=== PATIENT | male | born 1940 | race Caucasian/White ===

== ENCOUNTER 2020-02-18 12:12 | Outpatient (REF) | payer MEDICARE, SELFPAY ==
[2020-02-18 12:43] LABS: COVID-19 Test Negative (Negative)
== END 2020-02-18 12:13 | disposition home or self-care (01) ==
LOC: HO.LAB 12:12
PROVIDERS: PCP Physician Assistant; Visit Provider Internal Medicine
DX: Z20.828 Contact with and (suspected) exposure to other viral communicable diseases (principal)
CPT/HCPCS: 87635

== ENCOUNTER 2020-04-13 07:24 | Outpatient (REF) | payer MEDICARE, SELFPAY ==
[2020-04-13 08:23] LABS: MANUAL DIFF FLAG NO
[2020-04-13 08:29] LABS: Basophils Absolute Auto 0.1 X10*3/uL (0.0-0.2); Basophils Percent Auto 1.4 % (0-2); Eosinophils Percent Auto 12.3 % (0-4); Hematocrit 43.1 % (42-52); Hemoglobin 13.9 g/dl (14.0-18.0); Imm Gran Abs Auto 0.03 X10*3/uL (0.00-0.03); Imm Gran Pct Auto 0.4 % (0.0-0.4); Lymphocytes Absolute Auto 2.1 X10*3/uL (1.2-4.9); Lymphocytes Percent Auto 26.3 % (20-40); Mean Corpuscular HGB Conc 32.3 g/dl (31.0-36.0); Mean Corpuscular Hemoglobin 30.2 pg (27.0-33.0); Mean Corpuscular Volume 93.7 fL (80-98); Mean Platelet Volume 9.7 fL (9.4-12.4); Monocytes Absolute Auto 0.8 X10*3/uL (0.1-1.2); Monocytes Percent Auto 9.9 % (2-11); Neutrophils Percent Auto 49.7 % (45-73); Platelet Count 286 X10*3/uL (160-400); Red Cell Distribution Width 12.8 % (11.0-16.0)
[2020-04-13 08:39] LABS: Alanine Aminotransferase 27 U/L (0-40); Albumin Level 3.9 g/dL (3.5-5.0); Alkaline Phosphatase 79 U/L (39-117); Anion Gap 14 (12-20); Aspartate Amino Transferase 20 U/L (5-37); Bilirubin Total 0.7 mg/dL (0.0-1.0); Blood Urea Nitrogen 15 mg/dL (9-16); Calcium 9.5 mg/dL (8.4-10.2); Carbon Dioxide 28 mmol/L (22-29); Chloride 101 mmol/L (96-108); Cholesterol 149 mg/dL; Estimated Glomerular Filt Rate > 60; Glucose Fasting 142 mg/dL (60-99); HDL Cholesterol 69 mg/dL; LDL Cholesterol Calculated 69 mg/dl; Potassium 4.6 mmol/l (3.3-5.1); Sodium 138 mmol/L (135-145); Total Protein 6.6 g/dL (6.5-8.0); Triglycerides 57 mg/dL
[2020-04-13 09:12] LABS: Thyroid Stimulating Hormone 1.35 uIU/mL (0.32-4.0)
[2020-04-13 09:19] LABS: Creatinine Urine 84.14 mg/dL; Microalbum/Creatinine Ratio Ur 21.3 ug/mg cr
[2020-04-13 09:45] LABS: PSA,Total (Free>4and<10) 2.23 ng/mL (0.00-4.00)
== END 2020-04-13 07:25 | disposition home or self-care (01) ==
LOC: HO.LAB 07:24
PROVIDERS: PCP Physician Assistant; Visit Provider Physician Assistant
DX: J44.9 Chronic obstructive pulmonary disease, unspecified (principal); E11.9 Type 2 diabetes mellitus without complications; I10 Essential (primary) hypertension; I25.10 Atherosclerotic heart disease of native coronary artery without angina pectoris; E78.00 Pure hypercholesterolemia, unspecified
CPT/HCPCS: 36415; 80053; 80061; 82043; 84153; 84443; 85025

== ENCOUNTER 2020-07-30 06:50 | Outpatient (REF) | payer MEDICARE, SELFPAY ==
[2020-07-30 07:49] LABS: MANUAL DIFF FLAG NO
[2020-07-30 07:54] LABS: Basophils Absolute Auto 0.1 X10*3/uL (0.0-0.2); Eosinophils Absolute Auto 0.9 X10*3/uL (0.0-0.4); Eosinophils Percent Auto 11.5 % (0-4); Hematocrit 44.9 % (42-52); Hemoglobin 14.3 g/dl (14.0-18.0); Imm Gran Abs Auto 0.02 X10*3/uL (0.00-0.03); Imm Gran Pct Auto 0.3 % (0.0-0.4); Lymphocytes Absolute Auto 2.6 X10*3/uL (1.2-4.9); Lymphocytes Percent Auto 33.7 % (20-40); Mean Corpuscular HGB Conc 31.8 g/dl (31.0-36.0); Mean Corpuscular Volume 94.1 fL (80-98); Mean Platelet Volume 9.5 fL (9.4-12.4); Monocytes Absolute Auto 0.7 X10*3/uL (0.1-1.2); Monocytes Percent Auto 8.5 % (2-11); Neutrophils Absolute Auto 3.5 X10*3/uL (2.0-8.3); Platelet Count 301 X10*3/uL (160-400); Red Blood Count 4.77 X10*6/uL (4.60-5.80); Red Cell Distribution Width 12.9 % (11.0-16.0); White Blood Count 7.7 X10*3/uL (4.8-10.8)
[2020-07-30 08:00] LABS: Estimated Average Glucose 166 mg/dL; Hemoglobin A1c % 7.4 %
[2020-07-30 08:26] LABS: Alanine Aminotransferase 41 U/L (0-40); Albumin Level 3.9 g/dL (3.5-5.0); Alkaline Phosphatase 82 U/L (39-117); Anion Gap 13 (12-20); Aspartate Amino Transferase 27 U/L (5-37); Bilirubin Total 0.7 mg/dL (0.0-1.0); Blood Urea Nitrogen 16 mg/dL (9-16); Calcium 9.2 mg/dL (8.4-10.2); Carbon Dioxide 29 mmol/L (22-29); Chloride 103 mmol/L (96-108); Cholesterol 144 mg/dL; Estimated Glomerular Filt Rate > 60; Glucose Fasting 106 mg/dL (60-99); HDL Cholesterol 66 mg/dL; LDL Cholesterol Calculated 66 mg/dl; Potassium 5.1 mmol/L (3.3-5.1); Sodium 140 mmol/L (135-145); Total Protein 6.7 g/dL (6.5-8.0); Triglycerides 60 mg/dL
[2020-07-30 08:29] LABS: Creatinine Urine 52.22 mg/dL
[2020-07-30 08:48] LABS: TSH reflex Free T4 1.67 uIU/mL (0.32-4.0)
== END 2020-07-30 06:51 | disposition home or self-care (01) ==
LOC: HO.LAB 06:50
PROVIDERS: PCP Physician Assistant; Visit Provider Physician Assistant
DX: I10 Essential (primary) hypertension (principal); J44.9 Chronic obstructive pulmonary disease, unspecified; R73.09 Other abnormal glucose
CPT/HCPCS: 36415; 80053; 80061; 82043; 83036; 84443; 85025

== ENCOUNTER 2021-02-10 15:11 | Outpatient (REF) | payer MEDICARE, SELFPAY ==
--- NOTE | ~2021-02-10 | XR_ITS ---
EXAMINATION: XR FOOT, LEFT CLINICAL INFORMATION: Pain COMPARISON: None TECHNIQUE: AP, lateral, and oblique views of the left foot. FINDINGS: Bone alignment is normal. No fracture or dislocation is seen. There is mild joint space narrowing at the first MTP joint. Joint spaces are otherwise normal. There is a small plantar calcaneal spur. There is soft tissue arterial calcification. 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 Small plantar calcaneal spur.
== END 2021-02-10 15:12 | disposition home or self-care (01) ==
LOC: HO.XRAY 15:11
PROVIDERS: PCP Physician Assistant; Visit Provider Physician Assistant
DX: M79.672 Pain in left foot (principal)
CPT/HCPCS: 73620

== ENCOUNTER 2021-03-21 06:50 | Outpatient (REF) | payer MEDICARE, SELFPAY ==
[2021-03-21 06:55] LABS: MANUAL DIFF FLAG NO
[2021-03-21 07:31] LABS: Estimated Average Glucose 134 mg/dL; Hemoglobin A1c % 6.3 %
[2021-03-21 07:40] LABS: Basophils Absolute Auto 0.1 X10*3/uL (0.0-0.2); Basophils Percent Auto 0.9 % (0-2); Eosinophils Absolute Auto 1.4 X10*3/uL (0.0-0.4); Hematocrit 41.8 % (42.0-52.0); Hemoglobin 13.7 g/dl (14.0-18.0); Imm Gran Abs Auto 0.02 X10*3/uL (0.00-0.03); Imm Gran Pct Auto 0.2 % (0.0-0.4); Lymphocytes Absolute Auto 2.7 X10*3/uL (1.2-4.9); Lymphocytes Percent Auto 31.5 % (20-40); Mean Corpuscular HGB Conc 32.8 g/dl (31.0-36.0); Mean Corpuscular Hemoglobin 30.2 pg (27.0-33.0); Mean Corpuscular Volume 92.3 fL (80.0-98.0); Mean Platelet Volume 9.4 fL (9.4-12.4); Monocytes Absolute Auto 0.8 X10*3/uL (0.1-1.2); Monocytes Percent Auto 9.5 % (2-11); Neutrophils Absolute Auto 3.6 x10*3/uL (2.0-8.3); Neutrophils Percent Auto 41.9 % (45-73); Platelet Count 306 X10*3/uL (160-400); Red Blood Count 4.53 X10*6/uL (4.60-5.80); Red Cell Distribution Width 12.8 % (11.0-16.0); White Blood Count 8.6 X10*3/uL (4.8-10.8)
[2021-03-21 08:06] LABS: Alanine Aminotransferase 28 U/L (0-40); Albumin Level 3.9 g/dL (3.5-5.0); Alkaline Phosphatase 79 U/L (39-117); Anion Gap 9 (12-20); Aspartate Amino Transferase 22 U/L (5-37); Bilirubin Total 0.6 mg/dL (0.0-1.0); Blood Urea Nitrogen 19 mg/dL (9-16); Calcium 9.6 mg/dL (8.4-10.2); Carbon Dioxide 31 mmol/L (22-29); Chloride 102 mmol/L (96-108); Cholesterol 151 mg/dL; Estimated Glomerular Filt Rate > 60; Glucose Fasting 109 mg/dL (60-99); HDL Cholesterol 62 mg/dL; LDL Cholesterol Calculated 72 mg/dl; Potassium 4.7 mmol/L (3.3-5.1); Sodium 137 mmol/L (135-145); Total Protein 6.6 g/dL (6.5-8.0); Triglycerides 87 mg/dL
[2021-03-21 08:26] LABS: Prostate Specific Antigen Scr 3.31 ng/mL (<0.05-4.0)
== END 2021-03-21 06:51 | disposition home or self-care (01) ==
LOC: HO.LAB 06:50
PROVIDERS: PCP Physician Assistant; Visit Provider Physician Assistant
DX: I10 Essential (primary) hypertension (principal); J44.9 Chronic obstructive pulmonary disease, unspecified; E11.9 Type 2 diabetes mellitus without complications; Z12.5 Encounter for screening for malignant neoplasm of prostate
CPT/HCPCS: 36415; 80053; 80061; 83036; 84153; 85025

== ENCOUNTER → 2021-07-26 12:49 | Outpatient (REF) | payer MEDICARE, SELFPAY ==
--- NOTE | 2021-07-26 13:03 | ECG_ITS ---
Test Reason : PREOP Blood Pressure : / mmHG Vent. 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
== END ==
LOC: HO.CARD 12:49
PROVIDERS: PCP Physician Assistant; Visit Provider Nurse Practitioner Family
DX: Z01.818 Encounter for other preprocedural examination (principal)
CPT/HCPCS: 93005

== ENCOUNTER 2021-11-01 06:46 | Outpatient (REF) | payer MEDICARE, SELFPAY ==
[2021-11-01 08:38] LABS: Estimated Average Glucose 151 mg/dL; Hemoglobin A1c % 6.9 %
[2021-11-01 08:42] LABS: Alanine Aminotransferase 26 U/L (0-40); Albumin Level 3.9 g/dL (3.5-5.0); Alkaline Phosphatase 122 U/L (39-117); Anion Gap 14 (12-20); Aspartate Amino Transferase 19 U/L (5-37); Bilirubin Total 0.5 mg/dL (0.0-1.0); Blood Urea Nitrogen 15 mg/dL (9-16); Calcium 9.3 mg/dL (8.4-10.2); Carbon Dioxide 26 mmol/L (22-29); Chloride 103 mmol/L (96-108); Cholesterol 140 mg/dL; Estimated Glomerular Filt Rate > 60; Glucose Fasting 143 mg/dL (60-99); HDL Cholesterol 67 mg/dL; LDL Cholesterol Calculated 63 mg/dl; Sodium 138 mmol/L (135-145); Total Protein 6.7 g/dL (6.5-8.0); Triglycerides 51 mg/dL
[2021-11-01 08:43] LABS: Prostate Specific Antigen Scr 3.27 ng/mL (<0.05-4.0); TSH reflex Free T4 1.66 uIU/mL (0.32-4.0)
[2021-11-01 10:33] LABS: Creatinine Urine 82.08 mg/dL; Microalbum/Creatinine Ratio Ur 34.1 ug/mg cr
== END 2021-11-01 06:47 | disposition home or self-care (01) ==
LOC: HO.LAB 06:46
PROVIDERS: PCP Physician Assistant; Visit Provider Physician Assistant
DX: E11.9 Type 2 diabetes mellitus without complications (principal); I10 Essential (primary) hypertension; J44.9 Chronic obstructive pulmonary disease, unspecified; Z12.5 Encounter for screening for malignant neoplasm of prostate
CPT/HCPCS: 36415; 80053; 80061; 82043; 83036; 84153; 84443

== ENCOUNTER 2022-01-23 06:49 | Outpatient (REF) | payer MEDICARE, SELFPAY ==
[2022-01-23 07:36] LABS: Alanine Aminotransferase 34 U/L (0-40); Albumin Level 3.8 g/dL (3.5-5.0); Alkaline Phosphatase 123 U/L (39-117); Anion Gap 16 (12-20); Aspartate Amino Transferase 19 U/L (5-37); Bilirubin Total 0.6 mg/dL (0.0-1.0); Blood Urea Nitrogen 15 mg/dL (9-16); Calcium 9.7 mg/dL (8.4-10.2); Carbon Dioxide 27 mmol/L (22-29); Chloride 101 mmol/L (96-108); Cholesterol 141 mg/dL; Estimated Glomerular Filt Rate > 60; Glucose Fasting 189 mg/dL (60-99); HDL Cholesterol 61 mg/dL; LDL Cholesterol Calculated 70 mg/dl; Potassium 4.7 mmol/L (3.3-5.1); Sodium 139 mmol/L (135-145); Total Protein 6.6 g/dL (6.5-8.0); Triglycerides 50 mg/dL
== END 2022-01-23 06:50 | disposition home or self-care (01) ==
LOC: HO.LAB 06:49
PROVIDERS: PCP Physician Assistant; Visit Provider Physician Assistant
DX: J44.9 Chronic obstructive pulmonary disease, unspecified (principal); R73.09 Other abnormal glucose; I10 Essential (primary) hypertension
CPT/HCPCS: 36415; 80053; 80061

== ENCOUNTER 2022-03-15 13:02 | Outpatient (REF) | payer MEDICARE, SELFPAY ==
--- NOTE | ~2022-03-15 | XR_ITS ---
EXAMINATION: XR CHEST CLINICAL INFORMATION: Shortness of breath. COMPARISON: Chest radiograph 04/21/2019. TECHNIQUE: 2 views of the chest were obtained. FINDINGS: Stable appearance of the cardiomediastinal silhouette. Redemonstration of chronic nodular and reticular opacities bilaterally within a background of calcified pleural plaques. Chronic small bilateral pleural effusions. Chronic subpleural thickening of the right apex. No definite superimposed new focal airspace opacity. No acute osseous abnormalities. Thoracic spondylosis. Again noted absent left-sided anterior sixth rib. Right upper quadrant surgical clips are seen. XR/XR chest 2V IMPRESSION: Complex examination not significantly changed compared to 04/21/2019. However, given the background of chronic interstitial opacities and bilateral calcified pleural plaques, subtle findings may be occult. Recommend correlation with a chest CT to rule out underlying pulmonary lesions.
== END 2022-03-15 13:03 | disposition home or self-care (01) ==
LOC: HO.XRAY 13:02
PROVIDERS: PCP Physician Assistant; Visit Provider Internal Medicine Critical Care Medicine
DX: J98.4 Other disorders of lung (principal); J44.9 Chronic obstructive pulmonary disease, unspecified
CPT/HCPCS: 71046

== ENCOUNTER 2022-04-01 13:08 | Outpatient (REF) | payer MEDICARE, SELFPAY ==
--- NOTE | ~2022-04-01 | XR_ITS ---
EXAMINATION: XR CHEST CLINICAL INFORMATION: Cough. COMPARISON: Chest 03/15/2022 TECHNIQUE: 2 views of the chest were obtained. FINDINGS: The lungs are moderately expanded. There is reticular nodular changes in both lungs. It is prominent in right upper lobe. There are calcified pleural plaques bilaterally. There is blunting of bilateral CP angle from pleural effusions. The heart size is normal pulmonary vascularity is normal. There is mild spondylosis dorsal spine. No aggressive lytic or sclerotic process seen.. There is resection of left sixth posterior rib, postsurgical. XR/XR chest 2V IMPRESSION: No change in the reticular nodular opacities in both lungs in right upper lobe. Mild blunting of bilateral CP from pleural effusion. Bilateral calcified pleural plaques. No major change compared to previous study 03/15/2022.
== END 2022-04-01 13:09 | disposition home or self-care (01) ==
LOC: HO.HMGCX 13:08
PROVIDERS: PCP Physician Assistant; Visit Provider Physician Assistant Medical
DX: Z13.89 Encounter for screening for other disorder (principal)
CPT/HCPCS: 71046

== ENCOUNTER 2022-04-01 14:20 | Observation (INO) | payer MEDICARE, SELFPAY ==
--- NOTE | ~2022-04-01 | CT_ITS ---
EXAMINATION: CT CHEST WITHOUT CONTRAST CLINICAL INFORMATION: COPD with increasing shortness of breath COMPARISON: Chest radiograph earlier today, CT chest 11/12/2014 TECHNIQUE: Multidetector volumetric CT imaging of the chest was done. Axial MIP volume rendering provided. Sagittal and coronal reformatted images were obtained. This CT examination was performed using dose optimization techniques as appropriate, variously including the following: *Automated exposure control *Adjustment of mA and/or kV according to patient size (this includes techniques or standardized protocols for targeted exams where dose is matched to indication/reason for exam; i.e. extremities or head) *Use of iterative reconstruction technique DLP: 450 mGy-cm FINDINGS: LUNGS AND PLEURA: Again seen are moderately diffuse calcified pleural plaques bilaterally relatively unchanged. A small right pleural effusion is present minimally increased from prior. No significant left effusion is seen. Fibrotic changes are present with peripheral bronchiectasis and subpleural reticulonodular markings. Findings are most prominent in the mid to lower lungs. Appearances are slightly worse when compared to the 2015 CT scan. No worrisome lung masses or nodules are seen. MEDIASTINUM: Heart size normal. No mediastinal or hilar lymphadenopathy. CORONARY ARTERY CALCIFICATION: Moderate coronary calcification AXILLA: No lymphadenopathy. UPPER ABDOMEN: Unremarkable. OSSEOUS STRUCTURES: Degenerative changes are present throughout the spine. No bony destructive lesions. CT/CT chest wo IV con IMPRESSION: 1. 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 2. Fibrotic changes with peripheral bronchiectasis and subpleural reticulonodular markings, slightly worse when compared to the 2015 CT scan. 3. Small right pleural effusion minimally increased from prior. 4. No worrisome lung masses or nodules are seen. Fleischner guidelines were followed.
--- NOTE | ~2022-04-01 | XR_ITS ---
EXAMINATION: XR CHEST CLINICAL INFORMATION: US of breath COMPARISON: Chest x-ray on 04/01/2022 TECHNIQUE: Frontal view of the chest was obtained. FINDINGS: The cardiomediastinal silhouette is stable. No new areas of consolidation. There are trace bilateral pleural effusions. Mild chronic interstitial disease. XR/XR chest 1V IMPRESSION: Trace bilateral pleural effusions.
[2022-04-01 14:29] VITALS: BP 158/73; PULSE 100; RESP 24; TEMP 36.4; O2SAT 96; BMI 25.2
--- NOTE | 2022-04-01 14:36 | ECG_ITS ---
Test Reason : SOB Blood Pressure : / mmHG Vent. Rate : 098 BPM Atrial Rate : 098 BPM P-R Int : 208 ms QRS Dur : 100 ms QT Int : 354 ms P-R-T Axes : 009 -45 027 degrees QTc Int : 451 ms Sinus rhythm with Premature atrial complexes Left anterior fascicular block incomplete transition Abnormal ECG When compared with ECG of 26-JUL-2021 13:12, No significant changes seen Referred By: oLre Sanchez Electronically Signed By:GABE GREENE MD
[2022-04-01 15:00] LABS: MANUAL DIFF FLAG NO
[2022-04-01 15:03] LABS: Basophils Absolute Auto 0.1 X10*3/uL (0.0-0.2); Eosinophils Absolute Auto 0.3 X10*3/uL (0.0-0.4); Eosinophils Percent Auto 4.5 % (0-4); Hematocrit 40.2 % (42.0-52.0); Hemoglobin 13.2 g/dl (14.0-18.0); Imm Gran Abs Auto 0.01 X10*3/uL (0.00-0.03); Imm Gran Pct Auto 0.2 % (0.0-0.4); Lymphocytes Absolute Auto 1.6 X10*3/uL (1.2-4.9); Lymphocytes Percent Auto 25.4 % (20-40); Mean Corpuscular HGB Conc 32.8 g/dl (31.0-36.0); Mean Corpuscular Hemoglobin 29.5 pg (27.0-33.0); Mean Corpuscular Volume 89.7 fL (80.0-98.0); Mean Platelet Volume 9.4 fL (9.4-12.4); Monocytes Absolute Auto 0.7 X10*3/uL (0.1-1.2); Monocytes Percent Auto 11.4 % (2-11); Neutrophils Absolute Auto 3.6 x10*3/uL (2.0-8.3); Neutrophils Percent Auto 57.5 % (45-73); Platelet Count 322 X10*3/uL (160-400); Red Blood Count 4.48 X10*6/uL (4.60-5.80); Red Cell Distribution Width 12.4 % (11.0-16.0); White Blood Count 6.3 X10*3/uL (4.8-10.8)
[2022-04-01] MEDS: 0.9 % Sodium Chloride 1,000 ML 999 ML IV (15:03)
[2022-04-01 15:12] LABS: D Dimer High Sensitivity 205 NG/ML
[2022-04-01 15:17] LABS: Lactic Acid 1.8 mmol/L (0.5-2.0)
[2022-04-01 15:22] LABS: Alanine Aminotransferase 27 U/L (0-40); Albumin Level 3.7 g/dL (3.5-5.0); Alkaline Phosphatase 105 U/L (39-117); Anion Gap 16 (12-20); Aspartate Amino Transferase 17 U/L (5-37); Bilirubin Direct 0.2 mg/dL (0.0-0.5); Bilirubin Total 0.5 mg/dL (0.0-1.0); Blood Urea Nitrogen 20 mg/dL (9-16); Calcium 9.5 mg/dL (8.4-10.2); Carbon Dioxide 25 mmol/L (22-29); Chloride 97 mmol/L (96-108); Estimated Glomerular Filt Rate > 60; Glucose Random 282 mg/dL (60-115); Lipase 25 U/L (8-78); Potassium 4.7 mmol/L (3.3-5.1); Sodium 133 mmol/L (135-145); Total Protein 6.7 g/dL (6.5-8.0)
[2022-04-01 15:25] LABS: B Type Natriuretic Peptide 63 pg/mL (<100); Troponin-I High Sensitivity 9.7 ng/L (<3.5-35.0)
--- NOTE | 2022-04-01 15:30 | PHA.MEDREC ---
Pharmacy Consult ? Medication Reconciliation Pharmacy has completed the medication reconciliation. Patient and patient's confirmed all medications. Rachel Cameron, JimenezD
[2022-04-01 15:36] VITALS: O2SAT 21
[2022-04-01 15:39] LABS: Influenza A PCR NEGATIVE (Negative); Influenza B PCR NEGATIVE (Negative); Resp Syncy Virus RNA Qual PCR NEGATIVE (Negative); SARS COV2 PCR INHOUSE NEGATIVE (Negative)
[2022-04-01 15:43] VITALS: PULSE 89; RESP 20; O2SAT 96
--- NOTE | 2022-04-01 15:43 | ED.SOB ---
HPI - SOB/Dyspnea General Chief Complaint: Dyspnea Stated Complaint: shortness of breath Time Seen by Provider: 04/01/22 14:27 Source: patient, family (Spouse), EMS and old records reviewed Mode of arrival: EMS Limitations: no limitations History of Present Illness HPI Narrative: 81-year-old male with history of CAD, COPD presented with exertional dyspnea for the past 4 weeks, patient was seen and treated by his PCP for COPD exacerbation received antibiotic and tapering course of steroids with no improvement of patient's symptoms, patient went to a walk-in clinic and he was sent to the ED for further evaluation, patient declined chest pain, orthopnea, paroxysmal nocturnal dyspnea, no lower extremities edema. Related Data Home Medications Medication Instructions Recorded Confirmed atorvastatin 80 mg tablet 80 mg PO DAILY 04/21/20 04/01/22 omeprazole magnesium 20 mg 20 mg PO DAILY 04/21/20 04/01/22 tablet,delayed release diltiazem HCl 120 mg 120 mg PO DAILY 09/12/21 04/01/22 capsule,extended release 24 hr aspirin 81 mg tablet,delayed 81 mg PO DAILY 01/30/22 04/01/22 release (Adult Low Dose Aspirin) vitamins A,C,W-jqsl-dffuxi 14,320 1 cap PO DAILY 04/01/22 04/01/22 unit-226 mg-200 unit capsule (PreserVision AREDS) Previous Rx's Medication Instructions Recorded blood pressure test kit-large #1 ea 03/14/21 metformin 1,000 mg tablet 1,000 mg PO BID 90 days #180 tabs 06/09/21 albuterol sulfate 2.5 mg/3 mL 2.5 mg (3 mL) inhalation Q6H 30 08/19/21 (0.083 %) solution for nebulization days #360 mL blood sugar diagnostic (FreeStyle #100 ea 08/29/21 Lite Strips) lancets 28 gauge (FreeStyle #100 ea 08/29/21 Lancets) Symbicort 160 mcg-4.5 2 puff PO BID #10.2 grams 02/01/22 mcg/actuation HFA aerosol inhaler (budesonide-formoterol) hydrochlorothiazide 12.5 mg tablet 12.5 mg PO DAILY 90 days #90 tabs 02/09/22 lisinopril 40 mg tablet 40 mg PO DAILY #90 tabs 02/09/22 Allergies Allergy/AdvReac Type Severity Reaction Status Date / Time No Known Allergies Allergy Verified 04/01/22 12:10 [No Known Allergies*] Review of Systems Review of Systems: All other systems are reviewed and are negative Constitutional: Reports as per HPI and Reports no additional constitutional complaints Eyes: Reports as per HPI and Reports no additional eye complaints Reports system reviewed and no additional complaints, except as documented Cardiovascular: Reports as per HPI and Reports no additional cardiovascular complaints Respiratory: Reports as per HPI and Reports no additional respiratory complaints Gastrointestinal: Reports as per HPI and Reports no additional gastrointestinal complaints Genitourinary: Reports no additional female genitourinary complaints Musculoskeletal: Reports no additional musculoskeletal complaints Skin/Breast: Reports system reviewed and no additional complaints, except as docu Psychiatric: Reports no additional psychiatric complaints Endocrine: Reports no additional endocrine complaints Hematologic/Lymphatic: Reports no additional hematologic/lymphatic complaints Allergic/Immunologic: Reports no additional allergic/immunologic complaints Reports system reviewed and no additional complaints, except as documented and Reports Abnormal speech present [facility] Past Medical History Surgical History History of cholecystectomy History of colonoscopy History of lung surgery Family History Family History Father No problems noted. Mother No problems noted. Social History Social History Housing: House Alcohol intake: current Alcohol intake frequency: 0-2 drinks per day Patient Tobacco Use Status: Never used Tobacco Tobacco use type: Cigarette e-Cigarette/Vaping Use: Never Used Second Hand Smoke Exposure: No Advance Directives: No Advance Directives Information Provided: Yes service: No Current occupational status: retired Cognitive needs: No Hearing needs: No Vision needs: Yes (glasses) Physical Exam Vital Signs: Vital Signs: Last Vital Signs Temp 97.6 F 04/01/22 14:29 Pulse 100 04/01/22 14:29 Resp 24 H 04/01/22 14:29 BP 158/73 H 04/01/22 14:29 Pulse Ox 96 04/01/22 14:29 O2 Del Method 04/01/22 14:29 BMI result Body Mass Index 25.2 Vital signs have been reviewed as appeared to be correct. Blood pressure normal. Heart rate normal. Respiration rate normal. Temperature normal. Oxygen saturation normal. Appearance: Alert. Oriented X3. No acute distress. Head: Normal external exam. Normocephalic. Atraumatic. No [place] signs noted. No raccoon eyes noted Eyes: PERRLA. EOMI. Conjunctiva and sclera normal. Eyelids normal. ENT: TM's Normal. Pharynx normal. Uvula midline. Moist mucous membranes. No trismus noted. No drooling noted. No muffled voice noted. Neck: Normal inspection. Neck supple. FROM. No adenopathy. Thyroid Normal. No meningeal signs. No neck mass noted. CVS: Normal heart rate and rhythm. Heart sound normal. No murmurs noted. Pulses normal throughout. Respiratory: No respiratory distress. Painless inspiration. Breath sounds normal. No wheezes/rales/rhonchi noted. Chest nontender. No accessory muscle usage noted or decreased air movement noted. Abdomen: Soft and nontender. Bowel sounds normal in all 4 quadrants. No distention noted. No organomegaly noted. No visible injury noted. Back: No CVA tenderness. Full range of motion noted. Skin: Skin warm and dry. Normal skin color. Normal skin turgor. No rashes/lesions/lacerations noted. Extremities: No lower extremity edema. Extremities exhibit normal range of motion. Extremities nontender. Neuro: Oriented X 3. Cranial nerve exam: II-XII are grossly intact No motor deficit. No sensory deficit. Reflexes normal. Course Course Course Narrative: 81-year-old male with history of COPD, CAD with previous 2 stent in the past presented with 4 weeks of exertional dyspnea likely cardiogenic related, patient had unremarkable EKG with no ischemic changes, negative troponin. The case discussed with Dr. 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 The case signed out to Dr. Abel to check on the 2nd troponin and this puts the patient. Medications Administered Discontinued Medications Generic Name Dose Route Start Last Admin Trade Name Freq PRN Reason Stop Dose Admin Sodium Chloride 1,000 mls @ 999 mls/hr 04/01/22 14:36 04/01/22 15:03 Ns IV 04/01/22 15:36 999 mls/hr .Q1H1M ONE Administration MDM - SOB/Dyspnea Medical Records Attestation: I reviewed the patient's medical records. Lab Data Attestation: I reviewed the patient's lab results. Result diagrams: 04/01/22 14:51 04/01/22 14:51 Labs: Lab Results 04/01/22 04/01/22 04/01/22 Range/Units 14:51 14:51 14:51 WBC 6.3 (4.8-10.8) X10*3/uL RBC 4.48 L (4.60-5.80) X10*6/uL Hgb 13.2 L (14.0-18.0) g/dl Hct 40.2 L (42.0-52.0) % MCV 89.7 (80.0-98.0) fL MCH 29.5 (27.0-33.0) pg MCHC 32.8 (31.0-36.0) g/dl RDW 12.4 (11.0-16.0) % Plt Count 322 (160-400) X10*3/uL MPV 9.4 (9.4-12.4) fL Immature Gran % (Auto) 0.2 (0.0-0.4) % Neut % (Auto) 57.5 (45-73) % Lymph % (Auto) 25.4 (20-40) % Green % (Auto) 11.4 H (2-11) % Eos % (Auto) 4.5 H (0-4) % Baso % (Auto) 1.0 (0-2) % Lymph # (Auto) 1.6 (1.2-4.9) X10*3/uL [place] # (Auto) 0.7 (0.1-1.2) X10*3/uL Eos # (Auto) 0.3 (0.0-0.4) X10*3/uL Baso # (Auto) 0.1 (0.0-0.2) X10*3/uL Abs Immat Gran (auto) 0.01 (0.00-0.03) X10*3/uL Absolute Neuts (auto) 3.6 (2.0-8.3) x10*3/uL Absolute Nucleated RBC 0.000 (0.0-0.012) X10*3/uL Nucleated RBC % (auto) 0.0 (0.0-0.2) /100WBC D-Dimer High Sensitivty 205 NG/ML Sodium 133 L (135-145) mmol/L Potassium 4.7 (3.3-5.1) mmol/L Chloride 97 (96-108) mmol/L Carbon Dioxide 25 (22-29) mmol/L Anion Gap 16 (12-20) BUN 20 H (9-16) mg/dL Creatinine 0.88 (0.5-1.4) mg/dL Estim Creat Clear Calc 71.0 Estimated GFR > 60 Random Glucose 282 H (60-115) mg/dL Lactic Acid (0.5-2.0) mmol/L Calcium 9.5 (8.4-10.2) mg/dL Total Bilirubin 0.5 (0.0-1.0) mg/dL Direct Bilirubin 0.2 (0.0-0.5) mg/dL AST 17 (5-37) U/L ALT 27 (0-40) U/L Alkaline Phosphatase 105 (39-117) U/L Troponin I High Sens (<3.5-35.0) ng/L B-Natriuretic Peptide (<100) pg/mL Total Protein 6.7 (6.5-8.0) g/dL Albumin 3.7 (3.5-5.0) g/dL Lipase 25 (8-78) U/L 04/01/22 04/01/22 04/01/22 Range/Units 14:51 14:51 14:51 WBC (4.8-10.8) X10*3/uL RBC (4.60-5.80) X10*6/uL Hgb (14.0-18.0) g/dl Hct (42.0-52.0) % MCV (80.0-98.0) fL MCH (27.0-33.0) pg MCHC (31.0-36.0) g/dl RDW (11.0-16.0) % Plt Count (160-400) X10*3/uL MPV (9.4-12.4) fL Immature Gran % (Auto) (0.0-0.4) % Neut % (Auto) (45-73) % Lymph % (Auto) (20-40) % [place] % (Auto) (2-11) % Eos % (Auto) (0-4) % Baso % (Auto) (0-2) % Lymph # (Auto) (1.2-4.9) X10*3/uL [place] # (Auto) (0.1-1.2) X10*3/uL Eos # (Auto) (0.0-0.4) X10*3/uL Baso # (Auto) (0.0-0.2) X10*3/uL Abs Immat Gran (auto) (0.00-0.03) X10*3/uL Absolute Neuts (auto) (2.0-8.3) x10*3/uL Absolute Nucleated RBC (0.0-0.012) X10*3/uL Nucleated RBC % (auto) (0.0-0.2) /100WBC D-Dimer High Sensitivty NG/ML Sodium (135-145) mmol/L Potassium (3.3-5.1) mmol/L Chloride (96-108) mmol/L Carbon Dioxide (22-29) mmol/L Anion Gap (12-20) BUN (9-16) mg/dL Creatinine (0.5-1.4) mg/dL Estim Creat Clear Calc Estimated GFR Random Glucose (60-115) mg/dL Lactic Acid 1.8 (0.5-2.0) mmol/L Calcium (8.4-10.2) mg/dL Total Bilirubin (0.0-1.0) mg/dL Direct Bilirubin (0.0-0.5) mg/dL AST (5-37) U/L ALT (0-40) U/L Alkaline Phosphatase (39-117) U/L Troponin I High Sens 9.7 (<3.5-35.0) ng/L B-Natriuretic Peptide 63 (<100) pg/mL Total Protein (6.5-8.0) g/dL Albumin (3.5-5.0) g/dL Lipase (8-78) U/L Imaging Data Chest x-ray: Attestation: I personally reviewed and interpreted this imaging study as follows: Radiologist's impression: No change in the reticular nodular opacities in both lungs in right upper lobe. ? Mild blunting of bilateral CP from pleural effusion. Bilateral calcified pleural plaques. ? No major change compared to previous study 03/15/2022. ? ECG Data Attestation: I personally reviewed and interpreted this ECG as follows: Interpretation: 98 beats per minute with occasional PACs, first-degree AV block otherwise unremarkable intervals, left axis deviation, no ST-T changes, no significant change from previous EKG. Discharge Plan Discharge Clinical Impression: Exertional dyspnea, Coronary artery disease Patient Disposition: Still a Patient Instructions: Coronary Artery Disease (DC) Prescriptions: No Action metformin 1,000 mg tablet 1,000 mg PO BID 90 Days Qty: 180 2RF albuterol sulfate 2.5 mg /3 mL (0.083 %) solution for nebulization 2.5 mg inhalation Q6H 30 Days Qty: 360 3RF (DME) FreeStyle Lite Strips Strip See Rx Instructions .ROUTE .MEDSUPPLY Qty: 100 3RF Rx Instructions: As directed (DME) lancets [FreeStyle Lancets] 28 gauge misc See Rx Instructions .ROUTE .MEDSUPPLY Qty: 100 3RF Rx Instructions: As directed budesonide-formoterol [Symbicort] 160-4.5 mcg/actuation HFA aerosol inhaler 2 puff PO BID Qty: 10.2 3RF hydrochlorothiazide 12.5 mg tablet 12.5 mg PO DAILY 90 Days Qty: 90 2RF lisinopril 40 mg tablet 40 mg PO DAILY Qty: 90 2RF PreserVision AREDS [id number] fdot-la-cyxa Capsule 1 cap PO DAILY atorvastatin 80 mg tablet 80 mg PO DAILY omeprazole magnesium 20 mg tablet,delayed release (DR/EC) 20 mg PO DAILY (DME) blood pressure test kit-large Kit See Rx Instructions .Route Qty: 1 0RF Rx Instructions: As directed diltiazem HCl 120 mg capsule,extended release 24hr 120 mg PO DAILY aspirin [Adult Low Dose Aspirin] 81 mg tablet,delayed release (DR/EC) 81 mg PO DAILY Referrals: Shelton Abdi MD [Physician] - Nestor Scott MD [Physician] -
[2022-04-01 15:44] LABS: ABG Base Excess 2.7 mmol/L; ABG HCO3 26 mmol/L (22-26); ABG pCO2 37 mmHg (32-45); ABG pH 7.45 (7.35-7.45); ABG pO2 87 mmHg (83-108)
--- NOTE | 2022-04-01 15:44 | PC.NURSE ---
Alert and oriented, respirations even and unlabored. Pt coming in from walk in clinic for increasing shortness of breath. Pt ambulates with steady gait, at bedside. IV established labs sent and drawn.
[2022-04-01 17:20] VITALS: BP 116/71; PULSE 86; RESP 18; TEMP 36.4; O2SAT 95
--- NOTE | 2022-04-01 17:45 | P.HPHOSP_ITS ---
History of Present Illness Date of Service: 04/01/22 Chief Complaint: Shortness of breath 81-year-old male with history of CAD, COPD presented with exertional dyspnea for the past 4 weeks, patient was seen and treated by his PCP for COPD exacerbation received antibiotic and tapering course of steroids with no improvement of patient's symptoms, patient went to a walk-in clinic and he was sent to the ED for further evaluation, patient declined chest pain, orthopnea, paroxysmal nocturnal dyspnea, no lower extremities edema. Review of Systems Review of Systems: Denies chest pain Admits to shortness of breath with exertion Denies nausea vomiting diarrhea Denies fever chills PMFSH Family History Father No problems noted. Mother No problems noted. Surgical History History of cholecystectomy History of colonoscopy History of lung surgery Social History Housing: House Alcohol intake: current Alcohol intake frequency: 0-2 drinks per day Patient Tobacco Use Status: Never used Tobacco Tobacco use type: Cigarette e-Cigarette/Vaping Use: Never Used Second Hand Smoke Exposure: No Advance Directives: No Advance Directives Information Provided: Yes service: No Current occupational status: retired Cognitive needs: No Hearing needs: No Vision needs: Yes (glasses) Meds Allergies Allergy/AdvReac Type Severity Reaction Status Date / Time No Known Allergies Allergy Verified 04/01/22 12:10 [No Known Allergies*] Active Medications: Current Medications Albuterol Sulfate (Albuterol Sulfate (0.083%) 2.5 Mg/3 Ml Vial.Neb) 2.5 mg INHALE Q4H PRN PRN Reason: Wheezing Aspirin (Aspirin Enteric Coated 81 Mg Tablet.) 81 mg PO DAILY [facility] Atorvastatin Calcium (Atorvastatin Calcium 80 Mg Tablet) 80 mg PO DAILY [facility] Dextrose (Dextrose 50 % 25 Gm/50 Ml Syringe) 25 gm IVPUSH Q15M PRN; Protocol PRN Reason: per Hypoglycemia Standing Ord. Diltiazem HCl (Diltiazem Hcl Cd 120 Mg Cap.Er.Deg) 120 mg PO DAILY [facility]; Protocol Enoxaparin Sodium (Enoxaparin Sodium 40 Mg/0.4 Ml Syringe) 40 mg SUBCUT Q24H [facility] Fluticasone/Vilanterol (Fluticasone/Vilanterol 200/25 Blst.W.Dev) 1 puff INHALE RDAILY [facility] Glucose (Glucose Gel 15 Gm Gel..Gram.) 15 gm PO Q15M PRN; Protocol PRN Reason: per Hypoglycemia Standing Ord. Hydrochlorothiazide (Hydrochlorothiazide 12.5 Mg Tablet) 12.5 mg PO DAILY [facility]; Protocol Doxycycline Hyclate 100 mg/ (Sodium Chloride) 250 mls @ 166.67 mls/hr IV Q12H [facility] Insulin Human Lispro (Insulin Lispro 100 Unit/Ml 3 Ml Vial) 0 unit SUBCUT QIDACHS [facility]; Protocol Lisinopril (Lisinopril 40 Mg Tablet) 40 mg PO DAILY [facility]; Protocol Metformin HCl (Metformin Hcl 1,000 Mg Tablet) 1,000 mg PO BID [facility] Multivitamins/Vitamin C (Multivitamin Tablet) 1 tab PO DAILY [facility] Omeprazole (Omeprazole 20 Mg Capsule.) 20 mg PO DAILY@0630 [facility] Pharmacy Consult (Consult Rx Perform Med Rec) 1 each MISCELLANE ONCE PRN PRN Reason: Consult order Sodium Chloride (0.9 % Sodium Chloride Flush 3 Ml Syringe) 3 ml IVFLUSH QSHIFT [facility] Home Medications Medication Instructions Recorded Confirmed Last Taken Type atorvastatin 80 mg tablet 80 mg PO DAILY 04/21/20 04/01/22 Unknown History omeprazole magnesium 20 mg 20 mg PO DAILY 04/21/20 04/01/22 Unknown History tablet,delayed release diltiazem HCl 120 mg 120 mg PO DAILY 09/12/21 04/01/22 Unknown History capsule,extended release 24 hr aspirin 81 mg tablet,delayed 81 mg PO DAILY 01/30/22 04/01/22 Unknown History release (Adult Low Dose Aspirin) albuterol sulfate 2.5 mg/3 mL 2.5 mg inhalation Q6H PRN Wheezing 04/01/22 04/01/22 Unknown History (0.083 %) solution for nebulization vitamins A,C,L-zxxs-vzqkxe 14,320 1 cap PO DAILY 04/01/22 04/01/22 Unknown History unit-226 mg-200 unit capsule (PreserVision AREDS) Physical Exam Vital Signs and Narrative: Vital Signs: Last Vital Signs Temp 97.6 F 04/01/22 17:20 Pulse 86 04/01/22 17:20 Resp 18 04/01/22 17:20 BP 116/71 04/01/22 17:20 Pulse Ox 95 04/01/22 17:20 O2 Del Method 04/01/22 17:20 BMI result Body Mass Index 25.2 Const: Other: Resting comfortably in bed no acute distress Resp: Other: Diminished throughout with dense expiratory wheezes. Scattered rhonchi that clear with cough Cardio: Other: No S4; positive S1-S2; no S3 murmurs rubs or gallops GI: Other: Soft nontender nondistended with normoactive bowel sounds Extrem: Other: No edema bilaterally Results Labs CBC and Chem 7: 04/01/22 14:51 04/01/22 14:51 Labs: Laboratory Results - last 24 hr 04/01/22 04/01/22 04/01/22 14:51 14:51 14:51 MCV 89.7 MCH 29.5 MCHC 32.8 RDW 12.4 Plt Count 322 MPV 9.4 Immature Gran % (Auto) 0.2 Neut % (Auto) 57.5 Lymph % (Auto) 25.4 [place] % (Auto) 11.4 H Eos % (Auto) 4.5 H Baso % (Auto) 1.0 Lymph # (Auto) 1.6 [place] # (Auto) 0.7 Eos # (Auto) 0.3 Baso # (Auto) 0.1 Abs Immat Gran (auto) 0.01 Absolute Neuts (auto) 3.6 Absolute Nucleated RBC 0.000 Nucleated RBC % (auto) 0.0 D-Dimer High Sensitivty 205 O2 Saturation ABG pH at Pt Temp ABG pCO2 at Pt Temp ABG pO2 at Pt Temp ABG HCO3 ABG Base Excess (Actual) Anion Gap 16 Estim Creat Clear Calc 71.0 Estimated GFR > 60 Random Glucose 282 H Lactic Acid Calcium 9.5 Total Bilirubin 0.5 Direct Bilirubin 0.2 AST 17 ALT 27 Alkaline Phosphatase 105 Troponin I High Sens B-Natriuretic Peptide Total Protein 6.7 Albumin 3.7 Lipase 25 Influenza Type A (PCR) Influenza Type B (PCR) RSV RNA Qual (PCR) SARS-CoV-2 RNA (RT-PCR) 04/01/22 04/01/22 04/01/22 14:51 14:51 14:51 MCV MCH MCHC RDW Plt Count MPV Immature Gran % (Auto) Neut % (Auto) Lymph % (Auto) [place] % (Auto) Eos % (Auto) Baso % (Auto) Lymph # (Auto) [place] # (Auto) Eos # (Auto) Baso # (Auto) Abs Immat Gran (auto) Absolute Neuts (auto) Absolute Nucleated RBC Nucleated RBC % (auto) D-Dimer High Sensitivty O2 Saturation ABG pH at Pt Temp ABG pCO2 at Pt Temp ABG pO2 at Pt Temp ABG HCO3 ABG Base Excess (Actual) Anion Gap Estim Creat Clear Calc Estimated GFR Random Glucose Lactic Acid 1.8 Calcium Total Bilirubin Direct Bilirubin AST ALT Alkaline Phosphatase Troponin I High Sens 9.7 B-Natriuretic Peptide 63 Total Protein Albumin Lipase Influenza Type A (PCR) Influenza Type B (PCR) RSV RNA Qual (PCR) SARS-CoV-2 RNA (RT-PCR) 04/01/22 04/01/22 14:51 15:38 MCV MCH MCHC RDW Plt Count MPV Immature Gran % (Auto) Neut % (Auto) Lymph % (Auto) [place] % (Auto) Eos % (Auto) Baso % (Auto) Lymph # (Auto) [place] # (Auto) Eos # (Auto) Baso # (Auto) Abs Immat Gran (auto) Absolute Neuts (auto) Absolute Nucleated RBC Nucleated RBC % (auto) D-Dimer High Sensitivty O2 Saturation 97.0 ABG pH at Pt Temp 7.45 ABG pCO2 at Pt Temp 37 ABG pO2 at Pt Temp 87 ABG HCO3 26 ABG Base Excess (Actual) 2.7 Anion Gap Estim Creat Clear Calc Estimated GFR Random Glucose Lactic Acid Calcium Total Bilirubin Direct Bilirubin AST ALT Alkaline Phosphatase Troponin I High Sens B-Natriuretic Peptide Total Protein Albumin Lipase Influenza Type A (PCR) NEGATIVE Influenza Type B (PCR) NEGATIVE RSV RNA Qual (PCR) NEGATIVE SARS-CoV-2 RNA (RT-PCR) NEGATIVE Imaging Radiologist's Impressions: Impressions Chest X-Ray 04/01/22 16:00 IMPRESSION: Trace bilateral pleural effusions. Assessment and Plan (1) COPD exacerbation: Status: Acute (2) DMII (diabetes mellitus, type 2): Qualifiers: Diabetes mellitus fci insulin use: without fci use Diabetes mellitus complication status: with hyperglycemia Qualified Code(s): E11.65 - Type 2 diabetes mellitus with hyperglycemia Status: Acute (3) CAD (coronary artery disease): Qualifiers: Coronary Disease-Associated Artery/Lesion type: [place] artery [place] vs. transplanted heart: [place] heart Associated angina: without angina Qualified Code(s): I25.10 - Atherosclerotic heart disease of [place] coronary artery without angina pectoris Status: Acute (4) HTN (hypertension): Qualifiers: Hypertension type: essential hypertension Qualified Code(s): I10 - Essential (primary) hypertension Status: Acute Plan 81-year-old male presents with COPD exacerbation as failed outpatient therapies 1. COPD exacerbation (sputum production) -doxycycline 100 mg q.12 hours -pulse dose methylprednisolone -DuoNebs q.4 hours while awake -titrate O2 to maintain sats greater than equal to 90% 2. Diabetes type 2 -continue outpatient therapies -lispro correctional scale -adjust as indicated as steroids Will likely ray sugars 3. CAD -stable continue outpatient therapies 4. Hypertension -acceptable control on current therapies -adjust as indicated Full code Lovenox Patient will require 1 midnight going forward for observation and treatment of COPD exacerbation failed outpatient therapies. This not be achieved in the lesser acute setting Quality Stroke Does the patient have a stroke diagnosis?: No VTE Prior VTE?: No VTE Risk Level:: Medical - moderate - high VTE Device Contraindication: Treatment Not Indicated VTE Drug Contraindication: N/A - Med Ordered
[2022-04-01] MEDS: methylPREDNISolone Sod Succ 125 MG/2 ML VIAL IVPUSH (17:54)
[2022-04-01] MEDS: Doxycycline Hyclate 100 MG in 0.9 % Sodium Chloride 250 ML 166.67 MG IV (17:55)
[2022-04-01] MEDS: Enoxaparin Sodium 40 MG/0.4 ML SYRINGE SUBCUT (17:55)
--- NOTE | 2022-04-01 18:28 | PC.NURSE ---
Pt resting comfortably, watching tv, offers no complaints.
[2022-04-01 18:43] LABS: Appearance Urine Clear; Color Urine Yellow; Glucose Urine UA >=1000 mg/dL (Negative); Leukocyte Esterase Urine Negative (Negative); Nitrite Urine Negative (Negative); PH 6.5 (5.0-9.0); Specific Gravity - Urine 1.015 (1.005-1.025); UMIC TRIGGER UACC YES; Urine Blood Negative (Negative); Urine Ketones Negative (Negative); Urine Protein Negative (Neg-Trace)
[2022-04-01 18:46] LABS: Glucose, Whole Blood 223 mg/dL (60-115)
[2022-04-01 18:54] LABS: Troponin-I High Sensitivity 10.8 ng/L (<3.5-35.0)
[2022-04-01 19:10] LABS: Bacteria Urine None Seen (None Seen); Hyaline Casts Urine 0-2 /LPF (0-2); RBC Urine 0-2 /HPF (0-2); Squamous Epithelial Cell Urine 0-2 /HPF (0-2); WBC Urine 0-5 /HPF (0-5)
[2022-04-01 19:25] VITALS: BP 130/59; PULSE 91; RESP 18; TEMP 36.5; O2SAT 96
[2022-04-01 20:16] LABS: COVID-19 Test Negative (Negative)
[2022-04-01 21:11] LABS: Glucose, Whole Blood 372 mg/dL (60-115)
[2022-04-01] MEDS: Insulin Lispro 100 UNIT/ML 3 ML VIAL SUBCUT (21:18)
[2022-04-01] MEDS: metFORMIN HCl 1,000 MG TABLET 1000 MG PO (21:19)
[2022-04-01] MEDS: 0.9 % Sodium Chloride Flush 3 ML SYRINGE IVFLUSH (23:25)
[2022-04-02 01:24] LABS: ABG Refer to POC result
[2022-04-02 05:35] VITALS: BP 118/53; PULSE 87; RESP 17; TEMP 36.4; O2SAT 93
[2022-04-02] MEDS: Doxycycline Hyclate 100 MG in 0.9 % Sodium Chloride 250 ML 166.67 MG IV (06:10)
[2022-04-02] MEDS: Omeprazole 20 MG CAPSULE.DR PO (06:10)
[2022-04-02 06:14] LABS: MANUAL DIFF FLAG NO
[2022-04-02 06:24] LABS: Basophils Percent Auto 0.1 % (0-2); Hematocrit 39.9 % (42.0-52.0); Hemoglobin 13.2 g/dl (14.0-18.0); Imm Gran Abs Auto 0.03 X10*3/uL (0.00-0.03); Imm Gran Pct Auto 0.4 % (0.0-0.4); Lymphocytes Absolute Auto 0.9 X10*3/uL (1.2-4.9); Lymphocytes Percent Auto 11.1 % (20-40); Mean Corpuscular HGB Conc 33.1 g/dl (31.0-36.0); Mean Corpuscular Hemoglobin 30.1 pg (27.0-33.0); Mean Corpuscular Volume 91.1 fL (80.0-98.0); Mean Platelet Volume 9.7 fL (9.4-12.4); Monocytes Percent Auto 0.5 % (2-11); Neutrophils Absolute Auto 6.8 x10*3/uL (2.0-8.3); Neutrophils Percent Auto 87.9 % (45-73); Platelet Count 324 X10*3/uL (160-400); Red Blood Count 4.38 X10*6/uL (4.60-5.80); Red Cell Distribution Width 12.3 % (11.0-16.0); White Blood Count 7.8 X10*3/uL (4.8-10.8)
[2022-04-02 06:33] LABS: Alanine Aminotransferase 26 U/L (0-40); Albumin Level 3.4 g/dL (3.5-5.0); Alkaline Phosphatase 97 U/L (39-117); Anion Gap 16 (12-20); Aspartate Amino Transferase 14 U/L (5-37); Bilirubin Total 0.5 mg/dL (0.0-1.0); Blood Urea Nitrogen 20 mg/dL (9-16); Calcium 9.2 mg/dL (8.4-10.2); Carbon Dioxide 24 mmol/L (22-29); Chloride 99 mmol/L (96-108); Estimated Glomerular Filt Rate > 60; Glucose Fasting 303 mg/dL (60-99); Potassium 5.4 mmol/L (3.3-5.1); Sodium 134 mmol/L (135-145); Total Protein 6.2 g/dL (6.5-8.0)
[2022-04-02 07:47] LABS: Glucose, Whole Blood 294 mg/dL (60-115)
[2022-04-02 07:48] VITALS: BP 156/74; PULSE 91; RESP 21; TEMP 36.4; O2SAT 96
[2022-04-02] MEDS: Fluticasone/Vilanterol 200/25 BLST.W.DEV 1 PUFF INHALE (08:01)
[2022-04-02 08:03] VITALS: PULSE 93; RESP 18; O2SAT 96
[2022-04-02] MEDS: Multivitamin TABLET 1 TAB PO (09:02)
[2022-04-02] MEDS: Aspirin Enteric Coated 81 MG TABLET.DR PO (09:02)
[2022-04-02] MEDS: dilTIAZem HCL CD 120 MG CAP.ER.DEG PO (09:03)
[2022-04-02] MEDS: metFORMIN HCl 1,000 MG TABLET 1000 MG PO (09:03)
[2022-04-02] MEDS: hydroCHLOROthiazide 12.5 MG TABLET PO (09:03)
[2022-04-02] MEDS: Atorvastatin Calcium 80 MG TABLET PO (09:04)
[2022-04-02] MEDS: lisinopriL 40 MG TABLET PO (09:04)
[2022-04-02] MEDS: 0.9 % Sodium Chloride Flush 3 ML SYRINGE IVFLUSH (09:05)
[2022-04-02] MEDS: methylPREDNISolone Sod Succ 125 MG/2 ML VIAL 60 MG IVPUSH (09:11)
[2022-04-02 09:49] LABS: Troponin-I High Sensitivity 7.8 ng/L (<3.5-35.0)
--- NOTE | 2022-04-02 11:20 | PM.DS ---
DS: Providers Provider Date of Service: 04/02/22 Date of admission: 04/02/22 08:13 Date of discharge: 04/02/22 Primary care physician: Unknown Physician DS: Diagnosis Discharge Diagnosis (1) COPD exacerbation: Status: Acute (2) DMII (diabetes mellitus, type 2): Status: Acute (3) CAD (coronary artery disease): Status: Acute (4) HTN (hypertension): Status: Acute DS: Summary Hospital Course Hospital Course: 81-year-old male with history of CAD, COPD presented with exertional dyspnea for the past 4 weeks, patient was seen and treated by his PCP for COPD exacerbation received antibiotic and tapering course of steroids with no improvement of patient's symptoms, patient went to a walk-in clinic and he was sent to the ED for further evaluation, patient declined chest pain, orthopnea, paroxysmal nocturnal dyspnea, no lower extremities edema. Hospital Course Patient admitted to [facility] overnight and given pulse dose steroids overnight along with 1 dose of IV doxycycline. Exam this a.m. markedly improved inpatient medically acceptable to be discharged on a tapering dose of prednisone and complete a course of oral doxycycline. Time Spent with Patient Time attestation: Total time spent providing and/or coordinating discharge services: Discharge coordination time: Greater than 30 minutes Quality: Safe Use of Opioids Does Pt have an Active Cancer Diagnosis on the Problem List?: No Quality: Stroke Does the patient have a stroke diagnosis?: No Physical Exam Vital Signs: Vital Signs: Last Vital Signs Temp 97.6 F 04/02/22 07:48 Pulse 93 04/02/22 08:03 Resp 18 04/02/22 08:03 BP 156/74 H 04/02/22 07:48 Pulse Ox 96 04/02/22 07:48 O2 Del Method 04/02/22 07:48 BMI result Body Mass Index 25.2 Const: Other: Resting comfortably in bed no acute distress Resp: Other: Essentially clear throughout with scattered expiratory wheezes at bases Cardio: Other: No S4; positive S1-S2; no S3 murmurs rubs or gallops GI: Other: Soft nontender nondistended with normoactive bowel sounds Extrem: Other: No edema bilaterally DS: Data Data Completed and Pending Labs on day of discharge: Laboratory Results - last 24 hr 04/01/22 04/01/22 04/01/22 14:51 14:51 14:51 WBC 6.3 RBC 4.48 L Hgb 13.2 L Hct 40.2 L MCV 89.7 MCH 29.5 MCHC 32.8 RDW 12.4 Plt Count 322 MPV 9.4 Immature Gran % (Auto) 0.2 Neut % (Auto) 57.5 Lymph % (Auto) 25.4 Kingfisher % (Auto) 11.4 H Eos % (Auto) 4.5 H Baso % (Auto) 1.0 Lymph # (Auto) 1.6 Kingfisher # (Auto) 0.7 Eos # (Auto) 0.3 Baso # (Auto) 0.1 Abs Immat Gran (auto) 0.01 Absolute Neuts (auto) 3.6 Absolute Nucleated RBC 0.000 Nucleated RBC % (auto) 0.0 D-Dimer High Sensitivty 205 O2 Saturation ABG pH at Pt Temp ABG pCO2 at Pt Temp ABG pO2 at Pt Temp ABG HCO3 ABG Base Excess (Actual) Sodium 133 L Potassium 4.7 Chloride 97 Carbon Dioxide 25 Anion Gap 16 BUN 20 H Creatinine 0.88 Estim Creat Clear Calc 71.0 Estimated GFR > 60 POC Glucose Random Glucose 282 H Fasting Glucose Lactic Acid Calcium 9.5 Total Bilirubin 0.5 Direct Bilirubin 0.2 AST 17 ALT 27 Alkaline Phosphatase 105 Troponin I High Sens B-Natriuretic Peptide Total Protein 6.7 Albumin 3.7 Lipase 25 Urine Color Urine Appearance Urine pH Ur Specific Thomson Urine Protein Urine Glucose (UA) Urine Ketones Urine Blood Urine Nitrite Ur Leukocyte Esterase Urine RBC Urine WBC Ur Squamous Epith Cells Urine Bacteria Hyaline Casts COVID-19 (PATRICIA) COVID-19 Clin Com Influenza Type A (PCR) Influenza Type B (PCR) RSV RNA Qual (PCR) SARS-CoV-2 RNA (RT-PCR) 04/01/22 04/01/22 04/01/22 14:51 14:51 14:51 WBC RBC Hgb Hct MCV MCH MCHC RDW Plt Count MPV Immature Gran % (Auto) Neut % (Auto) Lymph % (Auto) Kingfisher % (Auto) Eos % (Auto) Baso % (Auto) Lymph # (Auto) Kingfisher # (Auto) Eos # (Auto) Baso # (Auto) Abs Immat Gran (auto) Absolute Neuts (auto) Absolute Nucleated RBC Nucleated RBC % (auto) D-Dimer High Sensitivty O2 Saturation ABG pH at Pt Temp ABG pCO2 at Pt Temp ABG pO2 at Pt Temp ABG HCO3 ABG Base Excess (Actual) Sodium Potassium Chloride Carbon Dioxide Anion Gap BUN Creatinine Estim Creat Clear Calc Estimated GFR POC Glucose Random Glucose Fasting Glucose Lactic Acid 1.8 Calcium Total Bilirubin Direct Bilirubin AST ALT Alkaline Phosphatase Troponin I High Sens 9.7 B-Natriuretic Peptide 63 Total Protein Albumin Lipase Urine Color Urine Appearance Urine pH Ur Specific Thomson Urine Protein Urine Glucose (UA) Urine Ketones Urine Blood Urine Nitrite Ur Leukocyte Esterase Urine RBC Urine WBC Ur Squamous Epith Cells Urine Bacteria Hyaline Casts COVID-19 (PATRICIA) COVID-19 Clin Com Influenza Type A (PCR) Influenza Type B (PCR) RSV RNA Qual (PCR) SARS-CoV-2 RNA (RT-PCR) 04/01/22 04/01/22 04/01/22 14:51 15:38 18:25 WBC RBC Hgb Hct MCV MCH MCHC RDW Plt Count MPV Immature Gran % (Auto) Neut % (Auto) Lymph % (Auto) Kingfisher % (Auto) Eos % (Auto) Baso % (Auto) Lymph # (Auto) Kingfisher # (Auto) Eos # (Auto) Baso # (Auto) Abs Immat Gran (auto) Absolute Neuts (auto) Absolute Nucleated RBC Nucleated RBC % (auto) D-Dimer High Sensitivty O2 Saturation 97.0 ABG pH at Pt Temp 7.45 ABG pCO2 at Pt Temp 37 ABG pO2 at Pt Temp 87 ABG HCO3 26 ABG Base Excess (Actual) 2.7 Sodium Potassium Chloride Carbon Dioxide Anion Gap BUN Creatinine Estim Creat Clear Calc Estimated GFR POC Glucose Random Glucose Fasting Glucose Lactic Acid Calcium Total Bilirubin Direct Bilirubin AST ALT Alkaline Phosphatase Troponin I High Sens 10.8 B-Natriuretic Peptide Total Protein Albumin Lipase Urine Color Urine Appearance Urine pH Ur Specific Thomson Urine Protein Urine Glucose (UA) Urine Ketones Urine Blood Urine Nitrite Ur Leukocyte Esterase Urine RBC Urine WBC Ur Squamous Epith Cells Urine Bacteria Hyaline Casts COVID-19 (PATRICIA) COVID-19 Clin Com Influenza Type A (PCR) NEGATIVE Influenza Type B (PCR) NEGATIVE RSV RNA Qual (PCR) NEGATIVE SARS-CoV-2 RNA (RT-PCR) NEGATIVE 04/01/22 04/01/22 04/01/22 18:30 18:34 19:56 WBC RBC Hgb Hct MCV MCH MCHC RDW Plt Count MPV Immature Gran % (Auto) Neut % (Auto) Lymph % (Auto) Kingfisher % (Auto) Eos % (Auto) Baso % (Auto) Lymph # (Auto) [place] # (Auto) Eos # (Auto) Baso # (Auto) Abs Immat Gran (auto) Absolute Neuts (auto) Absolute Nucleated RBC Nucleated RBC % (auto) D-Dimer High Sensitivty O2 Saturation ABG pH at Pt Temp ABG pCO2 at Pt Temp ABG pO2 at Pt Temp ABG HCO3 ABG Base Excess (Actual) Sodium Potassium Chloride Carbon Dioxide Anion Gap BUN Creatinine Estim Creat Clear Calc Estimated GFR POC Glucose 223 H Random Glucose Fasting Glucose Lactic Acid Calcium Total Bilirubin Direct Bilirubin AST ALT Alkaline Phosphatase Troponin I High Sens B-Natriuretic Peptide Total Protein Albumin Lipase Urine Color Yellow Urine Appearance Clear Urine pH 6.5 Ur Specific Thomson 1.015 Urine Protein Negative Urine Glucose (UA) >=1000 H Urine Ketones Negative Urine Blood Negative Urine Nitrite Negative Ur Leukocyte Esterase Negative Urine RBC 0-2 Urine WBC 0-5 Ur Squamous Epith Cells 0-2 Urine Bacteria None Seen Hyaline Casts 0-2 COVID-19 (PATRICIA) Negative COVID-19 Clin Com See Note Influenza Type A (PCR) Influenza Type B (PCR) RSV RNA Qual (PCR) SARS-CoV-2 RNA (RT-PCR) 04/01/22 04/02/22 04/02/22 21:07 06:08 06:08 WBC 7.8 RBC 4.38 L Hgb 13.2 L Hct 39.9 L MCV 91.1 MCH 30.1 MCHC 33.1 RDW 12.3 Plt Count 324 MPV 9.7 Immature Gran % (Auto) 0.4 Neut % (Auto) 87.9 H Lymph % (Auto) 11.1 L King[place]isher % (Auto) 0.5 L Eos % (Auto) 0.0 Baso % (Auto) 0.1 Lymph # (Auto) 0.9 L [place] # (Auto) 0.0 L Eos # (Auto) 0.0 Baso # (Auto) 0.0 Abs Immat Gran (auto) 0.03 Absolute Neuts (auto) 6.8 Absolute Nucleated RBC 0.000 Nucleated RBC % (auto) 0.0 D-Dimer High Sensitivty O2 Saturation ABG pH at Pt Temp ABG pCO2 at Pt Temp ABG pO2 at Pt Temp ABG HCO3 ABG Base Excess (Actual) Sodium 134 L Potassium 5.4 H Chloride 99 Carbon Dioxide 24 Anion Gap 16 BUN 20 H Creatinine 0.88 Estim Creat Clear Calc 71.0 Estimated GFR > 60 POC Glucose 372 H* Random Glucose Fasting Glucose 303 H Lactic Acid Calcium 9.2 Total Bilirubin 0.5 Direct Bilirubin AST 14 ALT 26 Alkaline Phosphatase 97 Troponin I High Sens B-Natriuretic Peptide Total Protein 6.2 L Albumin 3.4 L Lipase Urine Color Urine Appearance Urine pH Ur Specific Thomson Urine Protein Urine Glucose (UA) Urine Ketones Urine Blood Urine Nitrite Ur Leukocyte Esterase Urine RBC Urine WBC Ur Squamous Epith Cells Urine Bacteria Hyaline Casts COVID-19 (PATRICIA) COVID-19 Clin Com Influenza Type A (PCR) Influenza Type B (PCR) RSV RNA Qual (PCR) SARS-CoV-2 RNA (RT-PCR) 04/02/22 04/02/22 06:08 07:41 WBC RBC Hgb Hct MCV MCH MCHC RDW Plt Count MPV Immature Gran % (Auto) Neut % (Auto) Lymph % (Auto) Kingfisher % (Auto) Eos % (Auto) Baso % (Auto) Lymph # (Auto) [place] # (Auto) Eos # (Auto) Baso # (Auto) Abs Immat Gran (auto) Absolute Neuts (auto) Absolute Nucleated RBC Nucleated RBC % (auto) D-Dimer High Sensitivty O2 Saturation ABG pH at Pt Temp ABG pCO2 at Pt Temp ABG pO2 at Pt Temp ABG HCO3 ABG Base Excess (Actual) Sodium Potassium Chloride Carbon Dioxide Anion Gap BUN Creatinine Estim Creat Clear Calc Estimated GFR POC Glucose 294 H Random Glucose Fasting Glucose Lactic Acid Calcium Total Bilirubin Direct Bilirubin AST ALT Alkaline Phosphatase Troponin I High Sens 7.8 B-Natriuretic Peptide Total Protein Albumin Lipase Urine Color Urine Appearance Urine pH Ur Specific Thomson Urine Protein Urine Glucose (UA) Urine Ketones Urine Blood Urine Nitrite Ur Leukocyte Esterase Urine RBC Urine WBC Ur Squamous Epith Cells Urine Bacteria Hyaline Casts COVID-19 (PATRICIA) COVID-19 Clin Com Influenza Type A (PCR) Influenza Type B (PCR) RSV RNA Qual (PCR) SARS-CoV-2 RNA (RT-PCR) Discharge Plan Discharge Anticipated Discharge Date/Time: 04/02/22 11:15 Patient Disposition: Home, Self-Care Discharge Diagnosis: COPD exacerbation Referrals: Nestor Scott MD [Physician] - Physician,Unknown J [Primary Care Provider] - 1 Week Shelton Abdi MD [Physician] - Discharge Medications: New doxycycline hyclate 100 mg tablet 100 mg PO BID 7 Days Qty: 14 0RF prednisone 20 mg tablet See Rx Instructions .Route .COMPLEX Qty: 18 0RF Rx Instructions: 20 mg orally; 3 tabs daily for 3 days, 2 tabs daily for 3 days, 1 tab daily for 3 days Continued metformin 1,000 mg tablet 1,000 mg PO BID 90 Days Qty: 180 2RF (DME) FreeStyle Lite Strips Strip See Rx Instructions .ROUTE .MEDSUPPLY Qty: 100 3RF Rx Instructions: As directed (DME) lancets [FreeStyle Lancets] 28 gauge misc See Rx Instructions .ROUTE .MEDSUPPLY Qty: 100 3RF Rx Instructions: As directed budesonide-formoterol [Symbicort] 160-4.5 mcg/actuation HFA aerosol inhaler 2 puff PO BID Qty: 10.2 3RF hydrochlorothiazide 12.5 mg tablet 12.5 mg PO DAILY 90 Days Qty: 90 2RF lisinopril 40 mg tablet 40 mg PO DAILY Qty: 90 2RF PreserVision AREDS [id number] Capsule 1 cap PO DAILY albuterol sulfate 2.5 mg /3 mL (0.083 %) Solution For Nebulization 2.5 mg INHALATION Q6H PRN (Reason: Wheezing) atorvastatin 80 mg tablet 80 mg PO DAILY omeprazole magnesium 20 mg tablet,delayed release (DR/EC) 20 mg PO DAILY (DME) blood pressure test kit-large Kit See Rx Instructions .Route Qty: 1 0RF Rx Instructions: As directed diltiazem HCl 120 mg capsule,extended release 24hr 120 mg PO DAILY aspirin [Adult Low Dose Aspirin] 81 mg tablet,delayed release (DR/EC) 81 mg PO DAILY Discharge Orders: Discharge Order (Routine); Ordered 04/02/22 Ordered By: Chas Cadet Diet: Advance to usual diet Activity on Discharge: As tolerated Stand Alone Forms: Patient Portal Discharge page Care Plan Goals: Complete course of oral prednisone as ordered along with doxycycline Health Concerns: Resume all pre-hospital medications and therapies Plan of Treatment: Follow-up with your PCP in 2 weeks Assessment: See discharge summary Patient Instructions: Coronary Artery Disease (DC)
== END 2022-04-02 11:36 | disposition home or self-care (01) ==
LOC: HO.ED 04-02 06:48 → HO.EDOVER 04-02 11:20
PROVIDERS: Internal Medicine Cardiovascular Disease; Admitting Provider Hospitalist; Emergency Provider Emergency Medicine; Visit Provider Hospitalist
DX: J44.1 Chronic obstructive pulmonary disease with (acute) exacerbation (principal); E11.65 Type 2 diabetes mellitus with hyperglycemia; I25.10 Atherosclerotic heart disease of native coronary artery without angina pectoris; I10 Essential (primary) hypertension; R06.02 Shortness of breath; Z20.822 Contact with and (suspected) exposure to COVID-19; I48.91 Unspecified atrial fibrillation; Z79.02 Long term (current) use of antithrombotics/antiplatelets; Z79.82 Long term (current) use of aspirin; Z79.899 Other long term (current) drug therapy; Z79.84 Long term (current) use of oral hypoglycemic drugs
CPT/HCPCS: 0241U; 36415; 71045; 71046; 71250; 80048; 80053; 80076; 81001; 82803; 82947; 83605; 83690; 83880; 84484; 85025; 85379; 87040; 87635; 93005; 94640; 96360; 96361; 96365; 96366; 96372; 96375; 99218; 99285; J1650; J2930

== ENCOUNTER 2022-08-10 12:34 | Outpatient (REF) | payer MEDICARE, SELFPAY ==
--- NOTE | ~2022-08-10 | XR_ITS ---
EXAMINATION: XR CHEST CLINICAL INFORMATION: COPD COMPARISON: 04/01/2022 chest radiograph TECHNIQUE: 2 views of the chest were obtained. FINDINGS: Coarse and pleural plaques are again seen bilaterally without significant change. Mild bibasilar opacification and blunting of the costophrenic angles is seen. Right apical pleural thickening is also seen. The heart and mediastinal structures are unremarkable. Multilevel sternotomy wires and atrial appendage clip in place. XR/XR chest 2V IMPRESSION: Chronic changes with similar appearance. Very small bilateral pleural effusions versus pleural scarring without significant change as well.
== END 2022-08-10 12:35 | disposition home or self-care (01) ==
LOC: HO.XRAY 12:34
PROVIDERS: Visit Provider Counselor Mental Health
DX: J44.9 Chronic obstructive pulmonary disease, unspecified (principal); J98.4 Other disorders of lung
CPT/HCPCS: 71046

== ENCOUNTER 2022-09-06 06:50 | Outpatient (REF) | payer MEDICARE, SELFPAY ==
[2022-09-06 07:14] LABS: Hematocrit 42.4 % (42.0-52.0); Hemoglobin 13.4 g/dl (14.0-18.0); Mean Corpuscular HGB Conc 31.6 g/dl (31.0-36.0); Mean Corpuscular Hemoglobin 28.2 pg (27.0-33.0); Mean Corpuscular Volume 89.3 fL (80.0-98.0); Mean Platelet Volume 9.9 fL (9.4-12.4); Platelet Count 303 X10*3/uL (160-400); Red Blood Count 4.75 X10*6/uL (4.60-5.80); Red Cell Distribution Width 15.6 % (11.0-16.0); White Blood Count 10.7 X10*3/uL (4.8-10.8)
[2022-09-06 07:40] LABS: Creatinine Urine 56.87 mg/dL; Microalbum/Creatinine Ratio Ur 82.6 ug/mg cr
[2022-09-06 07:47] LABS: Alanine Aminotransferase 20 U/L (0-40); Albumin Level 3.6 g/dL (3.5-5.0); Alkaline Phosphatase 127 U/L (39-117); Anion Gap 12 (12-20); Aspartate Amino Transferase 20 U/L (5-37); Bilirubin Total 0.8 mg/dL (0.0-1.0); Blood Urea Nitrogen 18 mg/dL (9-16); Calcium 9.7 mg/dL (8.4-10.2); Carbon Dioxide 30 mmol/L (22-29); Chloride 101 mmol/L (96-108); Cholesterol 128 mg/dL; Estimated Glomerular Filt Rate > 60; Glucose Fasting 224 mg/dL (60-99); HDL Cholesterol 52 mg/dL; LDL Cholesterol Calculated 65 mg/dl; Potassium 4.6 mmol/L (3.3-5.1); Sodium 138 mmol/L (135-145); Total Protein 6.4 g/dL (6.5-8.0); Triglycerides 58 mg/dL
[2022-09-06 08:02] LABS: Prostate Specific Antigen Scr 3.91 ng/mL (<0.05-4.0)
== END 2022-09-06 06:51 | disposition home or self-care (01) ==
LOC: HO.LAB 06:50
PROVIDERS: PCP Physician Assistant; Visit Provider Physician Assistant
DX: I10 Essential (primary) hypertension (principal); E11.9 Type 2 diabetes mellitus without complications; Z12.5 Encounter for screening for malignant neoplasm of prostate
CPT/HCPCS: 36415; 80053; 80061; 82043; 84153; 85027

== ENCOUNTER 2022-12-11 06:50 | Outpatient (REF) | payer MEDICARE, SELFPAY ==
[2022-12-11 07:11] LABS: Hematocrit 42.8 % (42.0-52.0); Hemoglobin 13.6 g/dl (14.0-18.0); Mean Corpuscular HGB Conc 31.8 g/dl (31.0-36.0); Mean Corpuscular Hemoglobin 29.3 pg (27.0-33.0); Mean Corpuscular Volume 92.2 fL (80.0-98.0); Mean Platelet Volume 9.4 fL (9.4-12.4); Platelet Count 287 X10*3/uL (160-400); Red Blood Count 4.64 X10*6/uL (4.60-5.80); Red Cell Distribution Width 13.3 % (11.0-16.0); White Blood Count 7.7 X10*3/uL (4.8-10.8)
[2022-12-11 07:42] LABS: Alanine Aminotransferase 25 U/L (0-40); Albumin Level 3.5 g/dL (3.5-5.0); Alkaline Phosphatase 117 U/L (39-117); Anion Gap 16 (12-20); Aspartate Amino Transferase 22 U/L (5-37); Bilirubin Total 0.7 mg/dL (0.0-1.0); Blood Urea Nitrogen 12 mg/dL (9-16); Calcium 9.5 mg/dL (8.4-10.2); Carbon Dioxide 28 mmol/L (22-29); Chloride 99 mmol/L (96-108); Cholesterol 112 mg/dL; Estimated Glomerular Filt Rate > 60; Glucose Fasting 167 mg/dL (60-99); HDL Cholesterol 48 mg/dL; LDL Cholesterol Calculated 52 mg/dl; Potassium 4.7 mmol/L (3.3-5.1); Sodium 138 mmol/L (135-145); Total Protein 6.7 g/dL (6.5-8.0); Triglycerides 62 mg/dL
== END 2022-12-11 06:51 | disposition home or self-care (01) ==
LOC: HO.LAB 06:50
PROVIDERS: PCP Physician Assistant; Visit Provider Physician Assistant
DX: I25.10 Atherosclerotic heart disease of native coronary artery without angina pectoris (principal)
CPT/HCPCS: 36415; 80053; 80061; 85027

== ENCOUNTER 2022-12-11 08:38 | Outpatient (AMB) | payer MEDICARE, SELFPAY ==
--- NOTE | 2022-12-11 08:47 | A.OFFPC_ITS ---
Vital Signs 12/11/22 08:50 Height 6 ft Weight 177 lb 8 oz BMI 24.1 BP 106/60 Blood Pressure Location Rt brachial Position Sitting Pulse 68 Pulse Source Pulse Oximeter Pulse Oximetry (%) 96 Intake Visit Reasons: 3mth f/u Intake Note: pt is here for 3 month f/u Blow Molder Required: No Accompanied by: Self / Same As Patient Allergies No Known Allergies [No Known Allergies*] Allergy (Verified 12/11/22 09:02) Medication List - Last Reconciled 12/11/22 by Karri Mcnally PA-C albuterol sulfate 2.5 mg inhalation Q6H PRN amlodipine 5 mg PO DAILY aspirin (Adult Low Dose Aspirin) 81 mg PO DAILY atorvastatin 80 mg PO DAILY blood pressure test kit-large As directed blood sugar diagnostic (FreeStyle Lite Strips) As directed clopidogrel 75 mg PO DAILY glipizide ER 5 mg PO DAILY 30 days lancets (FreeStyle Lancets) As directed metformin 1,000 mg PO BID 90 days metoprolol tartrate 50 mg PO BID omeprazole magnesium 20 mg PO DAILY pen needle, diabetic (1st Tier Unifine Pentips Plus) Use 1 pen needle once a day Symbicort 160-4.5 mcg/actuation (budesonide-formoterol) 2 puffs PO BID NS vitamins A,C,I-fnuq-xrvysy 4,296 mcg-226 mg-90 mg (PreserVision AREDS) 1 cap PO DAILY Tobacco use date assessed: 12/11/22 Fall risk assessment: No Falls in past year Last assessed Fall Risk: 12/11/22 Dental Screening Dental Screen Date: 12/11/22 Did you have a dental visit in the last 12 months?: Yes Did you have a dental problem in the last 6 months where you did not have access to dental care?: No Was dental information given to patient?: Patient has dentist HPI 3mth f/u HPI Details Yossi is a 82 y/o here today for a f/u visit.. ? Pmhx significant for COPD, DMII, HLD, HTN, GERD, CAD. ? .. ? HTN: Doesn't monitor his blood pressure at home. 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 ? .. ? DMII: Does not regularly check his sugars at home.?.? Noted elevated fasting blood sugars.? Has been placed back on glipizide 5 mg and A1c much improved. ?Seen his eye doctor =- No retinopathy. ? .. ? CAD:Recently was seen at [facility] for a non ST FL end up having a cardiac catheterization in March.? He was found to have worsening left main vessel disease with severe 3 vessel disease with InStent restenosis in the circumflex stents. He underwent a bypass surgery in early April. ?Is followed by a logging equipment mechanic twice per year. Has had no issues besides noting to have elevated blood pressure of 150/70.? Today's blood pressure in office acceptable. ? Most recent 04/2020--> LDL well controlled at 66 ? .. ? COPD: Followed by Dr Coto,Has done a PFT recently showing moderate COPD.? Patient does have history of a lobectomy in the distant past. ?Patient reports his breathing has been somewhat of a problem. Has upcoming appointment for pulmonary function test and pulmonology follow-up. A few times a year he does need prednisone taper and amoxicillin for acute bronchitis.? He h as been using his maintenance inhalers and home nebulizer on a p.r.n. basis. Laboratory Tests 09/06/22 12/11/22 12/11/22 06:58 07:01 07:01 RBC 4.64 Hgb 13.6 L Creatinine 0.76 Fasting Glucose 224 H 167 H Cholesterol 112 LDL Cholesterol, C alc 65 52 PSA Screen 3.91 PFSH Medical History CAD (coronary artery disease) Coronary artery disease DMII (diabetes mellitus, type 2) HTN (hypertension) Surgical History History of cholecystectomy History of colonoscopy History of lung surgery Family History Father No problems noted. Mother No problems noted. Social History Housing: House Alcohol intake: current Alcohol intake frequency: 0-2 drinks per day Patient Tobacco Use Status: Never used Tobacco Tobacco use type: Cigarette e-Cigarette/Vaping Use: Never Used Second Hand Smoke Exposure: No service: No Current occupational status: retired Cognitive needs: No Hearing needs: No Vision needs: Yes (glasses) Questionnaire Thrive Questionnaire Date Thrive assessed: 09/07/22 SHRADDHA-7 AMB Questionnaire SHRADDHA-7 Date SHRADDHA - 7 assessed: 09/07/22 Source: Developed by Drs. Gordon Neal, Daisy Kincaid, Luis Hickey and colleagues, with an educational jung from [employer]. Review of Systems Const Denies headache(s) Eyes Denies loss of vision ENT Denies vertigo, Denies dizziness, Denies headache(s) and Denies sore throat Card Denies chest pain, Denies leg edema and Denies lightheadedness Resp Denies cough, Denies hemoptysis and Denies wheezing GI Denies abdominal pain, Denies melena, Denies constipation, Denies diarrhea and Denies vomiting Denies dysuria, Denies urinary frequency and Denies urinary urgency Musc Denies arthralgias, Denies joint swelling, Denies numbness and Denies tingling Neuro Denies Abnormal speech present, Denies behavioral changes, Denies vertigo, Denies dizziness, Denies headache(s), Denies loss of vision, Denies memory loss, Denies numbness and Denies tingling Psych Denies anxiety, Denies behavioral changes, Denies depression, Denies memory loss and Denies panic attacks Anil/Lymph Denies easy bleeding and Denies easy bruising Aller/Immun Denies wheezing Physical exam (Primary Care) Vital Signs: Last Vital Signs Pulse 68 12/11/22 08:50 BP 106/60 12/11/22 08:50 Pulse Ox 96 12/11/22 08:50 BMI result Body Mass Index 24.1 Tobacco/Smoking Status: Tobacco use Status Tobacco use date assessed 12/11/22 12/11/22 08:48 Patient Tobacco Use Status Never used Tobacco 12/11/22 08:48 Tobacco use type Cigarette 12/11/22 08:48 e-Cigarette/Vaping Use Never Used 12/11/22 08:48 Thrive Assessment: Date of Thrive Assessment Date Thrive assessed 09/07/22 12/11/22 08:48 Const General: healthy appearing, no acute distress, alert and awake Nutritional Appearance: well nourished Orientation/consciousness: oriented to person, oriented to place and oriented to time HENMT Ears: TM's normal bilaterally General nose exam: Normal nasal mucous membranes and turbinates present Eyes Conjunctivae: conjunctivae normal Sclerae: sclerae normal Pupils: Equal, round and reactive pupils present Neck Neck: Yes no lymphadenopathy and Yes no JVD Thyroid: Thyroid normal Carotids: no bruits Resp Effort & Inspection: normal respiratory effort and not tachypneic Auscultation: no crackles, no rales, no rhonchi and no wheezes Cardio Rate: regular rate Rhythm: regular rhythm Heart sounds: no murmurs and normal S1 and S2 GI Palpation (GI): Soft to palpation, nontender, no hepatomegaly and no splenomegaly Auscultation: normal bowel sounds Skin General skin exam: no rashes or lesions noted and dry skin Neuro General: oriented to person, oriented to place and oriented to time Cranial nerves: Yes Equal, round and reactive pupils present Speech: No Abnormal speech present Gait exam (Neuro): Normal gait present Motor exam (neuro): no tremor noted Extrem Right upper extremity: full ROM Left upper extremity: full ROM Right lower extremity: full ROM; no edema Left lower extremity: full ROM; no edema Psych Mental Status: mental status grossly normal Speech and movement: Normal speech and movement present Affect: normal affect Attitude: cooperative Thought process: Normal thought process present Results AMB Hemoglobin A1c AMB Hemoglobin A1c 7.5 % Last Edit by Isaiah Callejas CMA on 12/11/22 09: 09 Results Reviewed Results Reviewed: Laboratory Last Values Hgb A1c (Clinic) 7.5 % (4.0-6.0) H 12/11/22 08:59 Assessment and Plan Assessment & Plan (1) CAD (coronary artery disease): Code(s): I25.10 - Atherosclerotic heart disease of [place] coronary artery without angina pectoris Qualifiers: Associated angina: without angina Coronary Disease-Associated Artery/Lesion type: [place] artery [place] vs. transplanted heart: [place] heart Qualified Code(s): I25.10 - Atherosclerotic heart disease of [place] coronary artery without angina pectoris Plan: Patient continues to follow cardiology. Continues on dual anti-platelet therapy. Is status post open heart surgery. Most recent lipid panel showing excellent control over his LDL. Goal LDL to remain below 70. Otherwise denies any chest pain, palpitations. Does have shortness of breath to which he attributes to his COPD. (2) DMII (diabetes mellitus, type 2): Code(s): E11.9 - Type 2 diabetes mellitus without complications Qualifiers: Diabetes mellitus complication status: with hyperglycemia Diabetes mellitus detention insulin use: without technician terminal and repeater use Qualified Code(s): E11.65 - Type 2 diabetes mellitus with hyperglycemia Plan: Patient's type 2 diabetes suboptimally controlled with A1c is 7.5 though much improved since previous. Continues on glipizide 5 mg and metformin a 1000 b.i.d.. Goal A1c is to remain below 7.5 due to patient's age and comorbidities. (3) COPD (chronic obstructive pulmonary disease): Code(s): J44.9 - Chronic obstructive pulmonary disease, unspecified Qualifiers: COPD type: chronic bronchitis Chronic bronchitis type: simple Qualified Code(s): J41.0 - Simple chronic bronchitis Plan: Continues to follow pulmonology. Has upcoming appointment for pulmonary function testing. He does report a his breathing and cough has been worse as of late. Does use nebulizer treatments and maintenance inhaler. Orders: Orders Comprehensive [place]. Panel Fast 6 Months E11.65 - Type 2 diabetes mellitus with hyperglycemia Hemoglobin A1c 6 Months E11.65 - Type 2 diabetes mellitus with hyperglycemia Lipid Panel 6 Months I25.10 - Atherosclerotic heart disease of [place] coronary artery without angina pectoris Microalbumin, Random (w Creat) 6 Months E11.65 - Type 2 diabetes mellitus with hyperglycemia Complete Blood Count no Diff 6 Months E11.65 - Type 2 diabetes mellitus with hyperglycemia AMB Hemoglobin A1c Today E11.9 - Type 2 diabetes mellitus without complications Medications: New prednisone 10 mg PO DAILY 9 days 18 tabs 0RF J40 - Bronchitis, not specified as acute or chronic amoxicillin 875 mg PO BID 7 days 14 tabs 0RF J40 - Bronchitis, not specified as acute or chronic Changed From glipizide ER 5 mg PO DAILY 30 days 30 tabs 3RF E11.65 - Type 2 diabetes mellitus with hyperglycemia To glipizide ER 5 mg PO DAILY 90 days 90 tabs 2RF E11.65 - Type 2 diabetes mellitus with hyperglycemia Coding Level of Care Code Est Pt Level 4 (54279) Diagnoses CAD (coronary artery disease) I25.10 Associated angina: without angina Coronary Disease-Associated Artery/Lesion type: [place] artery [place] vs. transplanted heart: [place] heart DMII (diabetes mellitus, type 2) E11.65 Diabetes mellitus complication status: with hyperglycemia Diabetes mellitus technician terminal and repeater insulin use: without technician terminal and repeater use COPD (chronic obstructive pulmonary disease) J41.0 COPD type: chronic bronchitis Chronic bronchitis type: simple
[2022-12-11 08:50] VITALS: BP 106/60; PULSE 68; O2SAT 96; BMI 24.1
== END 2022-12-11 09:18 | disposition home or self-care (01) ==
PROVIDERS: Visit Provider Physician Assistant
DX: I25.10 Atherosclerotic heart disease of native coronary artery without angina pectoris (principal); E11.65 Type 2 diabetes mellitus with hyperglycemia; J41.0 Simple chronic bronchitis; E11.9 Type 2 diabetes mellitus without complications
CPT/HCPCS: 83036; 99214

== ENCOUNTER 2023-04-25 14:51 | Outpatient (REF) | payer MEDICARE, SELFPAY ==
--- NOTE | ~2023-04-25 | XR_ITS ---
EXAMINATION: XR RIBS, LEFT CLINICAL INFORMATION: Bronchitis COMPARISON: Chest radiograph 08/10/2022 TECHNIQUE: Single view chest with 4 views of the left ribs were obtained. FINDINGS: Patient status post median sternotomy with clips denoting a CABG. Left atrial appendage clip is present as well. Multiple surgical clips seen in the right upper quadrant. Heart size within normal limits. No evidence of CHF. Again noted are bilateral calcified pleural plaques. A small right pleural effusion is present which is increased in size minimally compared to prior. A tiny trace left pleural effusion or pleural thickening may be present, unchanged. XR/XR ribs LT min 3V w CXR1V IMPRESSION: 1. No acute intrathoracic disease. 2. Bilateral calcified pleural plaques. 3. Small right pleural effusion.
== END 2023-04-25 14:52 | disposition home or self-care (01) ==
LOC: HO.XRAY 14:51
PROVIDERS: PCP Physician Assistant; Visit Provider Physician Assistant
DX: J41.0 Simple chronic bronchitis (principal); R07.81 Pleurodynia
CPT/HCPCS: 71101

== ENCOUNTER 2023-05-24 06:06 | Inpatient (IN) | payer MEDICARE, SELFPAY ==
[2023-05-24] VITALS (10 sets, daily range): BP systolic 126–151; BP diastolic 51–78; PULSE 34–113; RESP 14–22; TEMP 36.2–36.6; O2SAT 94–100; BMI 24.3
--- NOTE | ~2023-05-24 | XR_ITS ---
EXAMINATION: XR CHEST CLINICAL INFORMATION: Shortness of breath with COPD COMPARISON: 04/25/2023 TECHNIQUE: Frontal view of the chest was obtained. FINDINGS: Again seen are changes of CABG and median sternotomy with left atrial appendage clip. Calcified pleural plaques are again seen. Since the prior study, lung volumes are decreased. There has been increase in size of small right and left pleural effusions with increased prominence of interstitium. No single area of focal consolidation seen. XR/XR chest 1V IMPRESSION: Increasing size of small right and left pleural effusions with increased prominence of interstitium. These findings may indicate CHF with baseline underlying COPD.
--- NOTE | 2023-05-24 06:14 | ECG_ITS ---
Test Reason : SOB Blood Pressure : / mmHG Vent. Rate : 071 BPM Atrial Rate : 284 BPM P-R Int : 000 ms QRS Dur : 086 ms QT Int : 394 ms P-R-T Axes : -71 198 006 degrees QTc Int : 428 ms Atrial flutter with variable A-V block cannot exclude Lateral infarct , age undetermined Abnormal ECG When compared with ECG of 01-APR-2022 15:16, Atrial flutter has replaced Sinus rhythm Referred By: Nafisa Rosales Electronically Signed By:MELY SAMPSON
--- NOTE | 2023-05-24 06:22 | ED_ITS ---
HPI - SOB/Dyspnea General Chief Complaint: Dyspnea Stated Complaint: diff breathing, COPD Time Seen by Provider: 05/24/23 06:11 Source: patient Mode of arrival: EMS Limitations: no limitations History of Present Illness HPI Narrative: Patient comes to the emergency room complaining of shortness of breath. Patient states that the shortness of breath started couple of weeks ago but today got much worse. Patient states that his made him come to the hospital and she called 911. When EMS arrived to the patient's residence, patient's oxygen saturation was 82% on 3 L of oxygen. Patient is oxygen dependent for COPD. Patient denies any chest pain. Patient states that over the last couple of weeks, he has noted that his lower extremities have been more swollen than usual. Patient denies previous history of CHF. EMS gave the patient a DuoNeb and patient states that he feels much better Related Data Home Medications Medication Instructions Recorded Confirmed atorvastatin 80 mg tablet 80 mg PO DAILY 04/21/20 12/11/22 omeprazole magnesium 20 mg 20 mg PO DAILY 04/21/20 12/11/22 tablet,delayed release aspirin 81 mg tablet,delayed 81 mg PO DAILY 01/30/22 12/11/22 release (Adult Low Dose Aspirin) albuterol sulfate 2.5 mg/3 mL 2.5 mg inhalation Q6H PRN Wheezing 04/01/22 12/11/22 (0.083 %) solution for nebulization vitamins A,C,V-moud-aarmme 4,296 1 cap PO DAILY 04/01/22 12/11/22 mcg-226 mg-90 mg capsule (PreserVision AREDS) amlodipine 5 mg tablet 5 mg PO DAILY 12/11/22 12/11/22 clopidogrel 75 mg tablet 75 mg PO DAILY 12/11/22 12/11/22 metoprolol tartrate 50 mg tablet 50 mg PO BID 12/11/22 12/11/22 Previous Rx's Medication Instructions Recorded blood pressure test kit-large #1 ea 03/14/21 blood sugar diagnostic (FreeStyle #100 ea 08/29/21 Lite Strips) lancets 28 gauge (FreeStyle #100 ea 08/29/21 Lancets) pen needle, diabetic 29 gauge x #100 ea 06/22/22 1/2 (1st Tier Unifine Pentips Plus) glipizide 5 mg tablet, extended 5 mg PO DAILY 90 days #90 tabs 12/11/22 release 24 hr Symbicort 160 mcg-4.5 2 puff PO BID #10.2 grams 01/08/23 mcg/actuation HFA aerosol inhaler (budesonide-formoterol) metformin 1,000 mg tablet 1,000 mg PO BID 90 days #180 tabs 02/02/23 amoxicillin 875 mg tablet 875 mg PO BID 7 days #14 tabs 04/25/23 prednisone 10 mg tablet 10 mg PO DAILY 9 days #18 tabs 04/25/23 Allergies Allergy/AdvReac Type Severity Reaction Status Date / Time No Known Allergies Allergy Verified 12/11/22 09:02 [No Known Allergies*] Review of Systems 2 Review of Systems: Constitutional : No Weight loss, No Fever, No Chills, No Night Sweats, No Fatigue, No Malaise ENT/Mouth : No Hearing loss, No Ear Pain, No Nasal Congestion, No Sinus Pain, No Hoarseness, No sore throat, No Rhinorrhea, No Swallowing Difficulty Eyes: No Eye Pain, No Swelling, No Redness, No Foreign Body, No Discharge, No Vision Changes Cardiovascular : No Chest Pain, No SOB, No Dyspnea on Exertion, complaining of new Orthopnea and bilateral lower extremity edema Respiratory : Complaining of cough, wheezing, shortness of breath worse with exertion Gastrointestinal : No Nausea, No Vomiting, No Diarrhea, No Constipation, No abdominal Pain, No Hematochezia, No Melena Genitourinary : no irregular bleeding, No Dysuria, No Urinary Frequency, No Hematuria, No Urinary Incontinence, No Urgency, No Flank Pain, No Urinary Flow Changes, No Hesitancy Musculoskeletal : No joint pain, No Myalgias, No Joint Swelling Skin : No Skin Lesions, No rash Neuro : No Weakness, No Numbness, No Paresthesias, No Loss of Consciousness, No Dizziness, No Headache Psych : No Anxiety/Panic, No Depression, No SI/HI/AH/VH, No Social Issues, Heme/Lymph: No Bruising, No Bleeding,No Lymphadenopathy Endocrine : No Polyuria, No Polydipsia, No Temperature Intolerance PMFSH Past Medical History Onset Date is defined in the Problem List Problems that require an onset date and time if occurred within 24 hrs of arrival to the ED Aortic Dissection and Rupture; Neurologic impairment; Cardiopulmonary Arrest; Endotracheal Intubation; Insertion or Replacement of Mechanical Circulatory Assist Device Medical History (Updated 05/24/23 @ 07:29 by Nafisa Rosales MD) Afib COPD (chronic obstructive pulmonary disease) Coronary artery disease CAD (coronary artery disease) DMII (diabetes mellitus, type 2) HTN (hypertension) Surgical History History of colonoscopy History of lung surgery History of cholecystectomy Family History Family History Father No problems noted. Mother No problems noted. Social History Social History Housing: House Alcohol intake: current Alcohol intake frequency: 0-2 drinks per day Comment: d/c from ED Patient Tobacco Use Status: Never used Tobacco Tobacco use type: Cigarette e-Cigarette/Vaping Use: Never Used Second Hand Smoke Exposure: No Advance Directives: No Advance Directives Information Provided: Yes service: No Current occupational status: retired Cognitive needs: No Hearing needs: No Vision needs: Yes (glasses) Physical Exam 2 Vital Signs: Vital Signs: Last Vital Signs Temp 97.6 F 05/24/23 06:31 Pulse 67 05/24/23 06:43 Resp 18 05/24/23 06:43 BP 129/65 05/24/23 06:31 Pulse Ox 94 05/24/23 06:31 O2 Del Method Nasal Cannula 05/24/23 06:31 Oxygen Flow Rate 3 05/24/23 06:31 BMI result Body Mass Index 24.3 Const: Other: Appearance: Alert. Oriented X3. No acute distress. Eyes: Pupils equal, round and reactive to light. ENT: Pharynx normal. Neck: Normal inspection. Neck supple. No lymph nodes noted. No crepitus CVS: Normal heart rate and rhythm. Pulses normal. Normal S1 and S2 Respiratory: Decreased breath sounds bilaterally, wheezing, mild crackles bilaterally in both lung bases, patient on 4 L saturating 90% Abdomen: Soft and nontender. No rigidity. No distention. Skin: Skin warm and dry. Normal skin color. Normal skin turgor. Extremities: +2 pitting edema bilaterally No Lacerations. No Rash Neuro: Oriented X 3. No motor deficit. No sensory deficit. Moving all extremities. No slurred speech. CN 2 through 12 grossly intact Psych: calm, cooperative, normal affect Course Course Course Narrative: -patient already received 1 DuoNeb from EMS. -patient receiving IV azithromycin, ceftriaxone, Solu-Medrol and another nebulization treatment. -patient has new onset lower extremity edema and orthopnea, patient likely has on diagnosed congestive heart failure. -patient's vitals stable, no fever, no episodes of hypotension at this time 06:30, sepsis not suspected -patient is empirically being treated with antibiotics as mentioned above, currently, there is no indication for IV fluids bolus - Medications Administered Discontinued Medications Generic Name Dose Route Start Last Admin Trade Name Freq PRN Reason Stop Dose Admin Albuterol Sulfate 10 mg 05/24/23 06:35 05/24/23 06:42 Albuterol Sulfate (0.083%) 2.5 Mg/3 Ml Vial.Neb INHALE 05/24/23 06:36 10 mg ONCE ONE Administration Methylprednisolone Sodium Succinate 125 mg 05/24/23 06:26 05/24/23 06:48 Methylprednisolone Sod Succ 125 Mg/2 Ml Vial IVPUSH 05/24/23 06:27 125 mg ONCE ONE Administration Medical Decision Making Medical Decision Making [facility] Narrative: -my interpretation of EKG: Heart rate 71, atrial flutter rate control, no ST segment depression or elevation, nonspecific T-wave inversion in V4 through V6, QTC 428 -my interpretation of labs: Normal white blood cell count, venous blood gases normal, no outstanding electrolyte abnormalities. Troponin negative, BNP 220. -my interpretation of chest x-ray: Old small left pleural effusion, vascular congestion, possible overlapping pneumonia -patient's vital stable, no fever, sepsis not suspected. -I discussed the patient with Dr. Ventura, patient being admitted Differential Diagnosis Differential Diagnoses: The differential diagnosis associated with the presentation includes (As above) Admission/Observation Consideration of admission/observation: Escalation of care including admission/observation considered Consult Healthcare Provider Management of the patient was discussed with: Hospitalist Lab Data [facility] Lab Attestation statement: I reviewed the patient's lab results. 05/24/23 06:39 05/24/23 06:39 Labs: Lab Results 05/24/23 Range/Units 06:39 WBC 8.3 (4.8-10.8) X10*3/uL RBC 4.04 L (4.60-5.80) X10*6/uL Hgb 11.8 L (14.0-18.0) g/dl Hct 37.8 L (42.0-52.0) % MCV 93.6 (80.0-98.0) fL MCH 29.2 (27.0-33.0) pg MCHC 31.2 (31.0-36.0) g/dl RDW 14.4 (11.0-16.0) % Plt Count 256 (160-400) X10*3/uL MPV 9.7 (9.4-12.4) fL Immature Gran % (Auto) 0.2 (0.0-0.4) % Neut % (Auto) 73.3 H (45-73) % Lymph % (Auto) 14.1 L (20-40) % Mckenzie % (Auto) 8.5 (2-11) % Eos % (Auto) 3.4 (0-4) % Baso % (Auto) 0.5 (0-2) % Lymph # (Auto) 1.2 (1.2-4.9) X10*3/uL Mckenzie # (Auto) 0.7 (0.1-1.2) X10*3/uL Eos # (Auto) 0.3 (0.0-0.4) X10*3/uL Baso # (Auto) 0.0 (0.0-0.2) X10*3/uL Abs Immat Gran (auto) 0.02 (0.00-0.03) X10*3/uL Absolute Neuts (auto) 6.1 (2.0-8.3) x10*3/uL Absolute Nucleated RBC 0.000 (0.0-0.012) X10*3/uL Nucleated RBC % (auto) 0.0 (0.0-0.2) /100WBC PT 11.6 (11.1-13.3) SEC INR 1.0 (0.9-1.1) Sodium 141 (135-145) mmol/L Potassium 4.5 (3.3-5.1) mmol/L Chloride 101 (96-108) mmol/L Carbon Dioxide 32 H (22-29) mmol/L Anion Gap 13 (12-20) BUN 25 H (9-16) mg/dL Creatinine 0.79 (0.5-1.4) mg/dL Estim Creat Clear Calc 77.7 Estimated GFR > 60 Random Glucose 182 H (60-115) mg/dL Lactic Acid 1.9 (0.5-2.0) mmol/L Calcium 9.2 (8.4-10.2) mg/dL Total Bilirubin 0.7 (0.0-1.0) mg/dL Direct Bilirubin 0.3 (0.0-0.5) mg/dL AST 15 (5-37) U/L ALT 22 (0-40) U/L Alkaline Phosphatase 108 (39-117) U/L Troponin I High Sens 26.8 D (<3.5-35.0) ng/L B-Natriuretic Peptide 220 H (<100) pg/mL Total Protein 6.6 (6.5-8.0) g/dL Albumin 3.5 (3.5-5.0) g/dL Independent Interpretation I performed an independent interpretation of an: EKG and Plain X-Ray Critical Care Time Critical Care Time Critical Care Time: Yes Total Critical Care Time: 75 Attestation: I have personally provided critical care time. Time includes review of lab data, radiology results, discussion with consultants, and monitoring for potential decompensation. Intervention performed as documented. Discharge Plan Discharge Clinical Impression: Pneumonia, CHF (congestive heart failure), Chronic lung disease Patient Disposition: Admitted As Inpatient Prescriptions: No Action (DME) FreeStyle Lite Strips Strip See Rx Instructions .ROUTE .MEDSUPPLY Qty: 100 3RF Rx Instructions: As directed (DME) lancets [FreeStyle Lancets] 28 gauge misc See Rx Instructions .ROUTE .MEDSUPPLY Qty: 100 3RF Rx Instructions: As directed (DME) pen needle, diabetic [1st Tier Unifine Pentips Plus] 29 gauge x 1/2 needle See Rx Instructions .Route Qty: 100 3RF Rx Instructions: Use 1 pen needle once a day budesonide-formoterol [Symbicort] 160-4.5 mcg/actuation HFA aerosol inhaler 2 puff PO BID Qty: 10.2 3RF metformin 1,000 mg tablet 1,000 mg PO BID 90 Days Qty: 180 2RF amoxicillin 875 mg tablet 875 mg PO BID 7 Days Qty: 14 0RF prednisone 10 mg tablet 10 mg PO DAILY 9 Days Qty: 18 0RF PreserVision AREDS [id number] Capsule 1 cap PO DAILY albuterol sulfate 2.5 mg /3 mL (0.083 %) Solution For Nebulization 2.5 mg INHALATION Q6H PRN (Reason: Wheezing) atorvastatin 80 mg tablet 80 mg PO DAILY omeprazole magnesium 20 mg tablet,delayed release (DR/EC) 20 mg PO DAILY (DME) blood pressure test kit-large Kit See Rx Instructions .Route Qty: 1 0RF Rx Instructions: As directed aspirin [Adult Low Dose Aspirin] 81 mg tablet,delayed release (DR/EC) 81 mg PO DAILY amlodipine 5 mg tablet 5 mg PO DAILY clopidogrel 75 mg tablet 75 mg PO DAILY metoprolol tartrate 50 mg tablet 50 mg PO BID glipizide 5 mg tablet extended release 24hr 5 mg PO DAILY 90 Days Qty: 90 2RF
[2023-05-24] MEDS: Albuterol Sulfate (0.083%) 2.5 MG/3 ML VIAL.NEB 10 MG INHALE (06:42)
[2023-05-24 06:46] LABS: MANUAL DIFF FLAG NO
[2023-05-24] MEDS: methylPREDNISolone Sod Succ 125 MG/2 ML VIAL IVPUSH (06:48)
[2023-05-24 06:49] LABS: Basophils Percent Auto 0.5 % (0-2); Eosinophils Absolute Auto 0.3 X10*3/uL (0.0-0.4); Eosinophils Percent Auto 3.4 % (0-4); Hematocrit 37.8 % (42.0-52.0); Hemoglobin 11.8 g/dl (14.0-18.0); Imm Gran Abs Auto 0.02 X10*3/uL (0.00-0.03); Imm Gran Pct Auto 0.2 % (0.0-0.4); Lymphocytes Absolute Auto 1.2 X10*3/uL (1.2-4.9); Lymphocytes Percent Auto 14.1 % (20-40); Mean Corpuscular HGB Conc 31.2 g/dl (31.0-36.0); Mean Corpuscular Hemoglobin 29.2 pg (27.0-33.0); Mean Corpuscular Volume 93.6 fL (80.0-98.0); Mean Platelet Volume 9.7 fL (9.4-12.4); Monocytes Absolute Auto 0.7 X10*3/uL (0.1-1.2); Monocytes Percent Auto 8.5 % (2-11); Neutrophils Absolute Auto 6.1 x10*3/uL (2.0-8.3); Neutrophils Percent Auto 73.3 % (45-73); Platelet Count 256 X10*3/uL (160-400); Red Blood Count 4.04 X10*6/uL (4.60-5.80); Red Cell Distribution Width 14.4 % (11.0-16.0); White Blood Count 8.3 X10*3/uL (4.8-10.8)
[2023-05-24 06:58] LABS: Lactic Acid 1.9 mmol/L (0.5-2.0); Prothrombin Time 11.6 SEC (11.1-13.3)
--- NOTE | 2023-05-24 07:00 | CA_ITS ---
Transthoracic Echocardiogram Patient (Last, First, Middle): Yossi Perez T Gender: Male Date of : 1940 Age: 82 Procedure Date: 05/24/2023 Procedure Type: Transthoracic Echocardiogram Location: ER Height: 182.88 cm Weight: 81.19 kg BSA: 2.03 m2 Heart Rate: 88 bpm BP: 128 / 63 mmHg Marketing Communications Specialist: MARYURI Referring MD: Fabio Anderson MD Symptoms: chf Study Quality: Adequate/w Contrast ECG Rhythm: Sinus Conclusions: - The left ventricular systolic function is mildly decreased. The calculated ejection fraction is 51% by biplane method. - The basal inferior and basal inferolateral segments are akinetic. - Evidence suggests grade II (moderate) diastolic dysfunction. - The left atrium is severely dilated. - There is mild to moderate aortic valve stenosis. - There is severe mitral annular calcification. - Moderate pulmonary hypertension is present. Findings Procedure Information Contrast agent, definity, is being given per protocol without apparent complications. Left Ventricle Normal left ventricular cavity size. There is normal left ventricular wall thickness. The left ventricular systolic function is mildly decreased. The calculated ejection fraction is 51% by biplane method. There is evidence of regional wall motion abnormalities. Evidence suggests grade II (moderate) diastolic dysfunction. Wall Motion Rest Echo Findings The basal inferior and basal inferolateral segments are akinetic. Right Ventricle Mildly increased right ventricular cavity size. There is low normal right ventricular systolic function. Atria The left atrium is severely dilated. The right atrium is normal in size. Aortic Valve There is moderate calcification of the aortic valve. There is mild to moderate aortic valve stenosis. The peak aortic velocity is 2.66 m/s with a calculated peak gradient of 28 mmHg. The mean gradient is 17 mmHg. The aortic valve area is 1.14 cm2. There is no aortic valve regurgitation. Mitral Valve There is severe mitral annular calcification. There is trace mitral valve regurgitation. There is no mitral valve stenosis. Pulmonic Valve The pulmonic valve is likely normal. Tricuspid Valve There is mild tricuspid valve regurgitation. The right ventricular systolic pressure is 60 mmHg. Moderate pulmonary hypertension is present. Great Vessels The asc aorta is normal in size. Venous The inferior vena cava is dilated and collapses less than 50% with inspiration. Pericardium/Pleural There is no evidence of pericardial effusion. Prior Study Comparison Changes noted compared to prior study dated: 09/28/2004. Wall motion abnormality not previously reported. Measurements 2D Linear Measurements IVSd: 1.07 0.6-0.9/0.6-1.0 cm LVIDd: 4.83 3.9-5.3/4.2-5.9 cm LVIDd Index: 2.38 2.4-3.2/2.2-3.1 cm/m2 LVIDs: 3.47 2.0-3.6 cm LVPWd: 0.83 0.7-1.1 cm LA Diam: 4.50 2.7-3.8/3.0-4.0 cm LAIDs Index: 2.22 1.5-2.3 cm/m2 LV Mass: 200.39 67-162/88-224 g LV Mass Index: 98.72 43-95/49-115 g/m2 LVOT Diam: 1.90 3.0+(-)1.3 cm 2D Systolic Function EF 4C: 44.20 >55% EF 2C: 53.90 >55% EF BiP: 50.60 >55% Mitral Valve MV VTI: 0.43 MV Pk Giovanny: 1.97 MV Mn Giovanny: 0.99 MV Pk Grad: 16.00 MV Mn Grad: 5.00 MV Pk E: 2.02 MV PK A: 0.96 MV Decel Time: 107.00 E/A: 2.10 E'Lateral: 10.40 E'Medial: 5.22 E/E' Med: 38.70 E/E' Lat: 19.40 PHT: 31.00 MVA PHT: 7.10 MVA Continuity: 1.56 Decel Bond: 18.91 Aortic Valve AoV Pk Giovanny: 2.66 AoV Mn Giovanny: 1.98 AoV VTI: 0.58 AoV Pk Grad: 28.00 Aov Mn Grad: 17.00 KISHAN Cont.VTI: 1.14 LVOT LVOT Pk Giovanny: 1.12 LVOT Mn Giovanny: 0.74 LVOT VTI: 0.24 LVOT Pk Grad: 5.00 LVOT Mn Grad: 3.00 LVOT Diam: 1.90 LVOT Area: 2.84 Diastolic Function MV Pk E: 2.02 MV Pk A: 0.96 E/A: 2.10 E'Medial: 5.22 E/E' Med: 38.70 E' Laterial: 10.40 E/E' Lat: 19.40 Right Ventricle TAPSE (mm): 14.10 TVS' Giovanny: 11.50 Tricuspid Valve TR Pk Giovanny: 3.37 TR Pk Grad: 45.00 RA Press: 15.00 RVSP: 60.00 Great Vessels Aorta Sinus of Valsalva: 3.60 2.0-3.[address] [place]: 2.29 1.7-3.4 cm Ao Asc: 3.50 2.1-3.4 cm Updated in Other Vendor System with Status of Final Nestor Scott MD electronically signed on 05/24/2023 3:13:42 PM with status of Final
[2023-05-24 07:04] LABS: Alanine Aminotransferase 22 U/L (0-40); Albumin Level 3.5 g/dL (3.5-5.0); Alkaline Phosphatase 108 U/L (39-117); Anion Gap 13 (12-20); Aspartate Amino Transferase 15 U/L (5-37); Bilirubin Direct 0.3 mg/dL (0.0-0.5); Bilirubin Total 0.7 mg/dL (0.0-1.0); Blood Urea Nitrogen 25 mg/dL (9-16); Calcium 9.2 mg/dL (8.4-10.2); Carbon Dioxide 32 mmol/L (22-29); Chloride 101 mmol/L (96-108); Creatinine Clr Calc Pharmacy 77.7; Estimated Glomerular Filt Rate > 60; Glucose Random 182 mg/dL (60-115); Potassium 4.5 mmol/L (3.3-5.1); Sodium 141 mmol/L (135-145); Total Protein 6.6 g/dL (6.5-8.0)
[2023-05-24 07:09] LABS: B Type Natriuretic Peptide 220 pg/mL (<100)
[2023-05-24 07:10] LABS: Troponin-I High Sensitivity 26.8 ng/L (<3.5-35.0)
[2023-05-24 07:52] LABS: VBG Base Excess 4.3 mmol/L; VBG HCO3 33 mmol/L (22-26); VBG pCO2 74 mmHg; VBG pH 7.26 (7.32-7.43); VBG pO2 49 mmHg
[2023-05-24 07:52] LABS: Venous Blood Gas Refer to POC result
[2023-05-24] MEDS: cefTRIAXone sodium 1 GM in 0.9 % Sodium Chloride 50 ML IV (07:52)
[2023-05-24] MEDS: Furosemide 40 MG/4 ML VIAL IVPUSH ×2 (07:52→17:21)
[2023-05-24 08:11] LABS: COVID-19 Test Negative (Negative); IDNOW Serial# 08D9AD1C
[2023-05-24 08:25] LABS: IDNOW Serial# 08D9AD1C; Influenza A Negative (Negative); Influenza B2 Negative (Negative)
[2023-05-24] MEDS: Azithromycin 500 MG in 0.9 % Sodium Chloride 250 ML 125 MG IV (08:56)
--- NOTE | 2023-05-24 09:09 | PHA.MEDREC ---
Pharmacy Consult ? Medication Reconciliation Pharmacy has completed the medication reconciliation.
--- NOTE | 2023-05-24 09:23 | PM.IMHP ---
History of Present Illness Date of Service: 05/24/23 Chief Complaint: sob 82M PMH chronic hypoxic respiratory failure on 2L due to copd, CAD s/p CABG 2022, CHARLES, DM, HTN, hld, chronic systolic chf (EF 40-45%), paroxysmal afib presented with sob. patient reports about 2 weeks of worsening sob, associated with weakness, orthopnea, lower extremity swelling. denies chest pain, cough, fevers. hypoxic to 80s on 2L, cxr with small bilateral effusions and interstitial prominence. Review of Systems Review of Systems: Yes all other systems are reviewed and are negative COUNT INCLUDES THE [facility] Medical History Afib COPD (chronic obstructive pulmonary disease) Coronary artery disease CAD (coronary artery disease) DMII (diabetes mellitus, type 2) HTN (hypertension) Family History Father No problems noted. Mother No problems noted. Surgical History History of colonoscopy History of lung surgery History of cholecystectomy Social History Housing: House Alcohol intake: current Alcohol intake frequency: 0-2 drinks per day Comment: d/c from ED Patient Tobacco Use Status: Never used Tobacco Tobacco use type: Cigarette e-Cigarette/Vaping Use: Never Used Second Hand Smoke Exposure: No Advance Directives: No Advance Directives Information Provided: Yes service: No Current occupational status: retired Cognitive needs: No Hearing needs: No Vision needs: Yes (glasses) Meds Allergies Allergy/AdvReac Type Severity Reaction Status Date / Time No Known Allergies Allergy Verified 12/11/22 09:02 [No Known Allergies*] Active Medications: Current Medications Albuterol/Ipratropium (Albuterol/Iprat 2.5/0.5mg 3 Ml Ampul.Neb) 3 ml INHALE RQ4H WHILE AWAKE PRN PRN Reason: sob Amlodipine Besylate (Amlodipine Besylate 5 Mg Tablet) 5 mg PO DAILY ANGÉLICA; Protocol Aspirin (Aspirin Enteric Coated 81 Mg Tablet.) 81 mg PO DAILY ANGÉLICA Atorvastatin Calcium (Atorvastatin Calcium 80 Mg Tablet) 80 mg PO DAILY ANGÉLICA Clopidogrel Bisulfate (Clopidogrel Bisulfate 75 Mg Tablet) 75 mg PO DAILY [facility] Dextrose (Dextrose 50 % 25 Gm/50 Ml Syringe) 25 gm IVPUSH Q15M PRN; Protocol PRN Reason: per Hypoglycemia Standing Ord. Furosemide (Furosemide 40 Mg/4 Ml Vial) 40 mg IVPUSH BID@0900,1800 [facility]; Protocol Glucose (Glucose Gel 15 Gm Gel..Gram.) 15 gm PO Q15M PRN; Protocol PRN Reason: per Hypoglycemia Standing Ord. Insulin Glargine (Insulin Glargine,Hum.Rec.Anlog 100 Unit/Ml 10 Ml Vial) 15 unit SUBCUT BEDTIME [facility] Insulin Human Lispro (Insulin Lispro 100 Unit/Ml 3 Ml Vial) 0 unit SUBCUT QIDACHS [facility]; Protocol Metoprolol Tartrate (Metoprolol Tartrate 50 Mg Tablet) 50 mg PO BID [facility]; Protocol Non-Formulary Medication (Budesonide-Formoterol [Symbicort]) 2 puff INHALE BID [facility] Non-Formulary Medication (Vitamins A,C,G-Phvx-Ohoiam [Preservision Areds]) 1 cap PO BID [facility] Omeprazole (Omeprazole 20 Mg Capsule.) 20 mg PO DAILY@0630 [facility] Prednisone (Prednisone 20 Mg Tablet) 40 mg PO DAILY [facility] Sodium Chloride (0.9 % Sodium Chloride Flush 3 Ml Syringe) [address] [facility] Home Medications Medication Instructions Recorded Confirmed Last Taken Type atorvastatin 80 mg tablet 80 mg PO DAILY 04/21/20 05/24/23 05/23/23 History omeprazole magnesium 20 mg 20 mg PO DAILY@0630 04/21/20 05/24/23 05/23/23 History tablet,delayed release aspirin 81 mg tablet,delayed 81 mg PO DAILY 01/30/22 05/24/23 05/23/23 History release (Adult Low Dose Aspirin) albuterol sulfate 2.5 mg/3 mL 2.5 mg inhalation Q6H PRN Wheezing 04/01/22 05/24/23 Unknown History (0.083 %) solution for nebulization vitamins A,C,T-ihnv-ufsgwl 4,296 1 cap PO BID 04/01/22 05/24/23 05/23/23 History mcg-226 mg-90 mg capsule (PreserVision AREDS) amlodipine 5 mg tablet 5 mg PO DAILY 12/11/22 05/24/23 05/23/23 History clopidogrel 75 mg tablet 75 mg PO DAILY 12/11/22 05/24/23 05/23/23 History metoprolol tartrate 50 mg tablet 50 mg PO BID 12/11/22 05/24/23 05/23/23 History budesonide-formoterol HFA 160 2 puff inhalation BID 05/24/23 05/24/23 05/23/23 History mcg-4.5 mcg/actuation aerosol inhaler (Symbicort) Physical Exam Vital Signs and Narrative: Vital Signs: Last Vital Signs Temp 97.6 F 05/24/23 06:31 Pulse 113 H 05/24/23 08:13 Resp 22 H 05/24/23 08:13 BP 128/63 05/24/23 08:13 Pulse Ox 97 05/24/23 08:13 O2 Del Method Room Air 05/24/23 08:13 O2 Flow Rate 3 05/24/23 08:13 Oxygen Flow Rate 3 05/24/23 06:31 BMI result Body Mass Index 24.3 General: AO X 3, sob Resp: diminished with basilar crackles bilateral, accessory muscles used CVS: S1,S2,RRR, bilateral 1-2+ edema GI: soft, non tender, non distended Neuro: motor grossly intact, alert Psych: appropriate affect, appropriate insight Results Labs 05/24/23 06:39 05/24/23 06:39 Labs: Laboratory Results - last 24 hr 05/24/23 05/24/23 05/24/23 06:39 07:43 07:47 MCV 93.6 MCH 29.2 MCHC 31.2 RDW 14.4 Plt Count 256 MPV 9.7 Immature Gran % (Auto) 0.2 Neut % (Auto) 73.3 H Lymph % (Auto) 14.1 L Gaines % (Auto) 8.5 Eos % (Auto) 3.4 Baso % (Auto) 0.5 Lymph # (Auto) 1.2 Gaines # (Auto) 0.7 Eos # (Auto) 0.3 Baso # (Auto) 0.0 Abs Immat Gran (auto) 0.02 Absolute Neuts (auto) 6.1 Absolute Nucleated RBC 0.000 Nucleated RBC % (auto) 0.0 PT 11.6 INR 1.0 VBG pH 7.26 L VBG pCO2 74 VBG pO2 49 VBG HCO3 33 H VBG O2 Saturation 70.0 VBG Base Excess 4.3 Anion Gap 13 Estim Creat Clear Calc 77.7 Estimated GFR > 60 Random Glucose 182 H Lactic Acid 1.9 Calcium 9.2 Total Bilirubin 0.7 Direct Bilirubin 0.3 AST 15 ALT 22 Alkaline Phosphatase 108 B-Natriuretic Peptide 220 H Total Protein 6.6 Albumin 3.5 COVID-19 (PATRICIA) Negative COVID-19 Clin Com See Note Influenza Type A (MIREYA) Negative Influenza Type B (MIREYA) Negative Influenza A & B Note See Note Imaging Radiologist's Impressions: Impressions Chest X-Ray 05/24/23 06:35 IMPRESSION: Increasing size of small right and left pleural effusions with increased prominence of interstitium. These findings may indicate CHF with baseline underlying COPD. Assessment and Plan (1) CHF (congestive heart failure): Status: Acute Plan 82M PMH chronic hypoxic respiratory failure on 2L due to copd, CAD s/p CABG 2022, CHARLES, DM, HTN, hld, chronic systolic chf (EF 40-45%), paroxysmal afib presented with sob acute on chronic hypoxic respiratory failure due to acute on chronic systolic chf and copd with acute decompensation iv lasix, echo prednisone, duonebs wean o2 as tolerated cardio eval CAD dapl, statin htn metoprolol, amlodipine hld statin paroxysmal afib with rvr metoprolol reports recent negative holter, taken off xarelto DM basal bolus insulin full code dvt prophylaxis - lovenox patient with significant hypoxia needing higher than usual o2 suppleemnt, iv lasix, heart rate rapid, visibily dyspneic, therefore, expected to require atleast 2 midnights inpatient. Quality Stroke Does the patient have a stroke diagnosis?: No Reason for No Anti-thrombotic by Day Two: N/A - Med Ordered VTE Prior VTE?: No VTE Risk Level:: Medical - moderate - high VTE Device Contraindication: Treatment Not Indicated VTE Drug Contraindication: N/A - Med Ordered
--- NOTE | 2023-05-24 11:20 | PM.CNCAR ---
History of Present Illness History of Present Illness Date of Service: 05/24/23 Chief complaint: CHF Narrative: This is a cardiology consultation regarding shortness of breath. He states that he has some shortness of breath at baseline but however, the last couple of weeks, he has been much more short of breath. He has also been having some lower extremity swelling. History of COPD as well as many cardiac issues. 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 Also had left atrial appendage ligation. Per last echocardiogram in 2022, LVEF was apparently 50-55%. Mild aortic stenosis. There is no mention of wall motion abnormality in that study but in a previous study from 26/06, the basal inferior/inferolateral [place] were akinetic; apex, apical septum, apical inferior/mid anteroseptum where moderate to severely hypokinetic. There was also a question of atrial fibrillation at some point he is taken Xarelto but as the EKGs then were thought to be just PACs it was then stopped. Review of Systems Review of Systems: Yes all other systems are reviewed and are negative Constitutional: Constitutional: Reports as per HPI and Reports no additional constitutional complaints Eyes: Eyes: Reports as per HPI and Denies no additional eye complaints ENT: Denies system reviewed and no additional complaints, except as documented and Reports as per HPI Cardiovascular: Cardiovascular: Reports as per HPI, Reports no additional cardiovascular complaints, Denies acrocyanosis, Denies cool extremities, Denies chest pain, Reports leg edema, Denies lightheadedness, Denies palpitations and Reports dyspnea Respiratory: Respiratory: Reports as per HPI, Denies no additional respiratory complaints and Reports dyspnea Gastrointestinal: Gastrointestinal: Reports as per HPI and Denies no additional gastrointestinal complaints Genitourinary: Genitourinary: Reports no additional male genitourinary complaints and Reports as per HPI Musculoskeletal: Musculoskeletal: Reports no additional musculoskeletal complaints and Reports as per HPI Integumentary/Breasts: Skin/Breast: Reports system reviewed and no additional complaints, except as docu Neurologic: Reports system reviewed and no additional complaints, except as documented and Reports as per HPI Psychiatric: Psychiatric: Reports no additional psychiatric complaints and Reports as per HPI Endocrine: Endocrine: Reports no additional endocrine complaints, Reports as per HPI and Denies palpitations Hematologic/Lymphatic: Hematologic/Lymphatic: Reports no additional hematologic/lymphatic complaints and Reports as per HPI Allergic/Immunologic: Allergic/Immunologic: Reports no additional allergic/immunologic complaints and Reports as per HPI [facility] Past Medical History Medical History Afib COPD (chronic obstructive pulmonary disease) Coronary artery disease CAD (coronary artery disease) DMII (diabetes mellitus, type 2) HTN (hypertension) Family History Family History (Reviewed 05/24/23 @ 09: by Fabio Anderson MD) Father No problems noted. Mother No problems noted. Surgical History Surgical History (Reviewed 05/24/23 @ 09: by Fabio Anderson MD) History of colonoscopy History of lung surgery History of cholecystectomy Social History Social History (Reviewed 05/24/23 @ 09: by Fabio Anderson MD) Housing: House Alcohol intake: current Alcohol intake frequency: 0-2 drinks per day Comment: d/c from ED Patient Tobacco Use Status: Never used Tobacco Tobacco use type: Cigarette Smoked in Last 30 Days: No e-Cigarette/Vaping Use: Never Used Second Hand Smoke Exposure: No Use of substances other than those prescribed or required for medical reasons: No Advance Directives: No Advance Directives Information Provided: Yes service: No Current occupational status: retired Cognitive needs: No Hearing needs: No Vision needs: Yes (glasses) Meds Allergies Allergy/AdvReac Type Severity Reaction Status Date / Time No Known Allergies Allergy Verified 12/11/22 09:02 [No Known Allergies*] Active Medications: Current Medications Albuterol/Ipratropium (Albuterol/Iprat 2.5/0.5mg 3 Ml Ampul.Neb) 3 ml INHALE RQ4H WHILE AWAKE PRN PRN Reason: sob Amlodipine Besylate (Amlodipine Besylate 5 Mg Tablet) 5 mg PO DAILY [facility]; Protocol Aspirin (Aspirin Enteric Coated 81 Mg Tablet.) 81 mg PO DAILY [facility] Atorvastatin Calcium (Atorvastatin Calcium 80 Mg Tablet) 80 mg PO DAILY [facility] Clopidogrel Bisulfate (Clopidogrel Bisulfate 75 Mg Tablet) 75 mg PO DAILY [facility] Dextrose (Dextrose 50 % 25 Gm/50 Ml Syringe) 25 gm IVPUSH Q15M PRN; Protocol PRN Reason: per Hypoglycemia Standing Ord. Enoxaparin Sodium (Enoxaparin Sodium 40 Mg/0.4 Ml Syringe) 40 mg SUBCUT Q24H [facility] Last Admin: 05/24/23 10:46 Dose: Not Given Fluticasone/Vilanterol (Fluticasone/Vilanterol 200/25 Blst.W.Dev) 1 puff INHALE RDAILY [facility] Furosemide (Furosemide 40 Mg/4 Ml Vial) 40 mg IVPUSH BID@0900,1800 [facility]; Protocol Glucose (Glucose Gel 15 Gm Gel..Gram.) 15 gm PO Q15M PRN; Protocol PRN Reason: per Hypoglycemia Standing Ord. Insulin Glargine (Insulin Glargine,Hum.Rec.Anlog 100 Unit/Ml 10 Ml Vial) 15 unit SUBCUT BEDTIME [facility] Insulin Human Lispro (Insulin Lispro 100 Unit/Ml 3 Ml Vial) 0 unit SUBCUT QIDACHS [facility]; Protocol Metoprolol Tartrate (Metoprolol Tartrate 50 Mg Tablet) 50 mg PO BID [facility]; Protocol Omeprazole (Omeprazole 20 Mg Capsule.) 20 mg PO DAILY@0630 [facility] Prednisone (Prednisone 20 Mg Tablet) 40 mg PO DAILY [facility] Sodium Chloride (0.9 % Sodium Chloride Flush 3 Ml Syringe) 3 ml IVFLUSH QSHIFT [facility] Home Medications Medication Instructions Recorded Confirmed Last Taken Type atorvastatin 80 mg tablet 80 mg PO DAILY 04/21/20 05/24/23 05/23/23 History omeprazole magnesium 20 mg 20 mg PO DAILY@0630 04/21/20 05/24/23 05/23/23 History tablet,delayed release aspirin 81 mg tablet,delayed 81 mg PO DAILY 01/30/22 05/24/23 05/23/23 History release (Adult Low Dose Aspirin) albuterol sulfate 2.5 mg/3 mL 2.5 mg inhalation Q6H PRN Wheezing 04/01/22 05/24/23 Unknown History (0.083 %) solution for nebulization vitamins A,C,T-twid-bihrty 4,296 1 cap PO BID 04/01/22 05/24/23 05/23/23 History mcg-226 mg-90 mg capsule (PreserVision AREDS) amlodipine 5 mg tablet 5 mg PO DAILY 12/11/22 05/24/23 05/23/23 History clopidogrel 75 mg tablet 75 mg PO DAILY 12/11/22 05/24/23 05/23/23 History metoprolol tartrate 50 mg tablet 50 mg PO BID 12/11/22 05/24/23 05/23/23 History budesonide-formoterol HFA 160 2 puff inhalation BID 05/24/23 05/24/23 05/23/23 History mcg-4.5 mcg/actuation aerosol inhaler (Symbicort) Physical Exam Vital Signs: Vital Signs: Last Vital Signs Temp 97.6 F 05/24/23 06:31 Pulse 113 H 05/24/23 08:13 Resp 22 H 05/24/23 08:13 BP 128/63 05/24/23 08:13 Pulse Ox 97 05/24/23 08:13 O2 Del Method Room Air 05/24/23 08:13 O2 Flow Rate 3 05/24/23 08:13 Oxygen Flow Rate 3 05/24/23 06:31 BMI result Body Mass Index 24.3 Const: General: comfortable and no acute distress Orientation/consciousness: patient oriented x3 HEENT: Other: Unremarkable Head: Yes normal to inspection Neck: Neck: Yes normal visual inspection Chest: Chest palpation & inspection: normal inspection of the chest Resp: Auscultation: crackles and diminished lung sounds Cardio: Palpation: normal PMI Heart sounds: S1 normal heart sound present, S2 normal heart sound present, no gallops, Murmur heart sound present systolic I/ and at the right sternal border and no rubs GI: Palpation (GI): Soft to palpation Back/Spine/Pelvis: Other: unremarkable Skin: General skin exam: no rashes or lesions noted Neuro: General: patient oriented x3 Extrem: Other: 2+ edema General: Yes normal to inspection Psych: Mental Status: mental status grossly normal Objective Labs and Meds 05/24/23 06:39 05/24/23 06:39 Lab results: Laboratory Results - last 24 hr 05/24/23 05/24/23 05/24/23 06:39 07:43 07:47 WBC 8.3 RBC 4.04 L Hgb 11.8 L Hct 37.8 L MCV 93.6 MCH 29.2 MCHC 31.2 RDW 14.4 Plt Count 256 MPV 9.7 Immature Gran % (Auto) 0.2 Neut % (Auto) 73.3 H Lymph % (Auto) 14.1 L [place] % (Auto) 8.5 Eos % (Auto) 3.4 Baso % (Auto) 0.5 Lymph # (Auto) 1.2 [place] # (Auto) 0.7 Eos # (Auto) 0.3 Baso # (Auto) 0.0 Abs Immat Gran (auto) 0.02 Absolute Neuts (auto) 6.1 Absolute Nucleated RBC 0.000 Nucleated RBC % (auto) 0.0 PT 11.6 INR 1.0 VBG pH 7.26 L VBG pCO2 74 VBG pO2 49 VBG HCO3 33 H VBG O2 Saturation 70.0 VBG Base Excess 4.3 Sodium 141 Potassium 4.5 Chloride 101 Carbon Dioxide 32 H Anion Gap 13 BUN 25 H Creatinine 0.79 Estim Creat Clear Calc 77.7 Estimated GFR > 60 Random Glucose 182 H Lactic Acid 1.9 Calcium 9.2 Total Bilirubin 0.7 Direct Bilirubin 0.3 AST 15 ALT 22 Alkaline Phosphatase 108 Troponin I High Sens 26.8 D B-Natriuretic Peptide 220 H Total Protein 6.6 Albumin 3.5 COVID-19 (PATRICIA) Negative COVID-19 Clin Com See Note Influenza Type A (MIREYA) Negative Influenza Type B (MIREYA) Negative Influenza A & B Note See Note ECG Interpretation: EKG with atrial flutter at a rate of 71/Min. Anterolateral T inversions. Imaging Radiologist's impression: Impressions Chest X-Ray 05/24/23 06:35 IMPRESSION: Increasing size of small right and left pleural effusions with increased prominence of interstitium. These findings may indicate CHF with baseline underlying COPD. Assessment and Plan (1) Acute on chronic congestive heart failure: Status: Acute Obtain echocardiogram. Per diuretics, currently on furosemide 40 mg b.i.d.. If not putting out much, we can increase the dose. Follow input output charting. Clinically, he certainly does look volume overloaded. (2) Atrial flutter with rapid ventricular response: Status: Acute There was a prior mention of possible atrial fibrillation but it seems that is anticoagulation was stopped as there was no convincing evidence and it was all PACs. However, the current time there is definitive atrial flutter with slightly rapid rate. Hence we can start him on Eliquis 5 mg b.i.d.. For rate control, he is on beta-blockers 50 mg b.i.d.. We can add digoxin to that. As he is on both aspirin as well as Plavix we can at least stop 1 of them. He does not need triple therapy. (3) CAD (coronary artery disease): Qualifiers: Coronary Disease-Associated Artery/Lesion type: [place] artery [place] vs. transplanted heart: [place] heart Associated angina: without angina Qualified Code(s): I25.10 - Atherosclerotic heart disease of [place] coronary artery without angina pectoris Status: Acute High sensitivity troponin is within range. At this time, no clear evidence of acute coronary event. Plan Discussed with . Procedures Date of Service Date of Service: 05/24/23
[2023-05-24] MEDS: Digoxin 0.5 MG/2 ML AMPUL 0.25 MG IVPUSH ×2 (11:47→17:25)
[2023-05-24 13:15] LABS: Glucose, Whole Blood 333 mg/dL (60-115)
[2023-05-24] MEDS: Insulin Lispro 100 UNIT/ML 3 ML VIAL SUBCUT ×3 (13:24→20:17)
--- NOTE | 2023-05-24 13:36 | MHC.CM.PN ---
pt lives with uses home 02 they had no previous servies are independent dc plan home npo servies
[2023-05-24] MEDS: 0.9 % Sodium Chloride Flush 3 ML SYRINGE IVFLUSH (17:22)
[2023-05-24 18:23] LABS: Glucose, Whole Blood 351 mg/dL (60-115)
--- NOTE | 2023-05-24 18:46 | PC.NURSE ---
{POC 351, per provider give 10 u lispro
[2023-05-24 20:07] LABS: Glucose, Whole Blood 376 mg/dL (60-115)
[2023-05-24] MEDS: Metoprolol Tartrate 50 MG TABLET PO (20:17)
[2023-05-24] MEDS: Apixaban 5 MG TABLET PO (20:17)
[2023-05-24] MEDS: Insulin Glargine,Hum.rec.anlog 100 UNIT/ML 10 ML VIAL 15 UNIT SUBCUT (20:18)
--- NOTE | 2023-05-24 22:50 | PC.NURSE ---
A flutter 40's-50's , down to 34 when sleeping , BP stable no , no cp, no SOB , made DR Diamond aware , will continue to monitor
[2023-05-25] VITALS (8 sets, daily range): BP systolic 110–144; BP diastolic 58–76; PULSE 51–81; RESP 17–20; TEMP 36.1–36.8; O2SAT 91–100
[2023-05-25] MEDS: 0.9 % Sodium Chloride Flush 3 ML SYRINGE IVFLUSH ×4 (01:03→22:11)
[2023-05-25] MEDS: Omeprazole 20 MG CAPSULE.DR PO (06:17)
[2023-05-25] MEDS: Digoxin 0.5 MG/2 ML AMPUL 0.25 MG IVPUSH (06:17)
[2023-05-25 07:59] LABS: Hematocrit 39.1 % (42.0-52.0); Hemoglobin 12.3 g/dl (14.0-18.0); Mean Corpuscular HGB Conc 31.5 g/dl (31.0-36.0); Mean Corpuscular Hemoglobin 29.3 pg (27.0-33.0); Mean Corpuscular Volume 93.1 fL (80.0-98.0); Mean Platelet Volume 9.9 fL (9.4-12.4); Platelet Count 276 X10*3/uL (160-400); Red Cell Distribution Width 14.6 % (11.0-16.0); White Blood Count 14.8 X10*3/uL (4.8-10.8)
[2023-05-25 08:06] LABS: Glucose, Whole Blood 112 mg/dL (60-115)
[2023-05-25 08:08] LABS: Anion Gap 12 (12-20); Blood Urea Nitrogen 27 mg/dL (9-16); Calcium 9.7 mg/dL (8.4-10.2); Carbon Dioxide 39 mmol/L (22-29); Chloride 96 mmol/L (96-108); Estimated Glomerular Filt Rate > 60; Glucose Fasting 108 mg/dL (60-99); Magnesium 1.6 mg/dL (1.6-2.6); Potassium 5.2 mmol/L (3.3-5.1); Sodium 142 mmol/L (135-145)
[2023-05-25] MEDS: amLODIPine Besylate 5 MG TABLET PO (09:10)
[2023-05-25] MEDS: predniSONE 20 MG TABLET 40 MG PO (09:10)
[2023-05-25] MEDS: Metoprolol Tartrate 50 MG TABLET PO ×2 (09:10→22:10)
[2023-05-25] MEDS: Aspirin Enteric Coated 81 MG TABLET.DR PO (09:10)
[2023-05-25] MEDS: Atorvastatin Calcium 80 MG TABLET PO (09:10)
[2023-05-25] MEDS: Apixaban 5 MG TABLET PO ×2 (09:11→22:11)
[2023-05-25] MEDS: Furosemide 40 MG/4 ML VIAL IVPUSH ×2 (09:11→17:24)
--- NOTE | 2023-05-25 09:44 | PM.PNCARD ---
Subjective Subjective Date of Service: 05/25/23 Interval history: He states he is feeling better. Leg swelling is improved. Review of Systems Review of Systems Yes all other systems are reviewed and are negative Constitutional: Reports as per HPI and Reports no additional constitutional complaints Eyes: Reports as per HPI and Denies no additional eye complaints Denies system reviewed and no additional complaints, except as documented and Reports as per HPI Cardiovascular: Reports as per HPI, Reports no additional cardiovascular complaints, Denies acrocyanosis, Denies cool extremities, Denies chest pain, Reports leg edema, Denies lightheadedness, Denies palpitations and Reports dyspnea Respiratory: Reports as per HPI, Denies no additional respiratory complaints and Reports dyspnea Gastrointestinal: Reports as per HPI and Denies no additional gastrointestinal complaints Genitourinary: Reports no additional male genitourinary complaints and Reports as per HPI Musculoskeletal: Reports no additional musculoskeletal complaints and Reports as per HPI Skin/Breast: Reports system reviewed and no additional complaints, except as docu Reports system reviewed and no additional complaints, except as documented and Reports as per HPI Psychiatric: Reports no additional psychiatric complaints and Reports as per HPI Endocrine: Reports no additional endocrine complaints, Reports as per HPI and Denies palpitations Hematologic/Lymphatic: Reports no additional hematologic/lymphatic complaints and Reports as per HPI Allergic/Immunologic: Reports no additional allergic/immunologic complaints and Reports as per HPI Physical Exam Vital Signs: Last Vital Signs Temp 98.0 F 05/25/23 07:43 Pulse 69 05/25/23 07:43 Resp 17 05/25/23 07:43 BP 144/63 H 05/25/23 07:43 Pulse Ox 95 05/25/23 07:43 O2 Del Method Nasal Cannula 05/25/23 07:43 O2 Flow Rate 4 05/25/23 07:43 Oxygen Flow Rate 3 05/24/23 06:31 BMI result Body Mass Index 24.3 Const General: comfortable and no acute distress Orientation/consciousness: patient oriented x3 HEENT Other: Unremarkable Head: Yes normal to inspection Neck Neck: Yes normal visual inspection Chest Chest palpation & inspection: normal inspection of the chest Resp Auscultation: crackles and diminished lung sounds Cardio Palpation: normal PMI Heart sounds: S1 normal heart sound present, S2 normal heart sound present, no gallops, Murmur heart sound present systolic I/ and at the right sternal border and no rubs GI Palpation (GI): Soft to palpation Back/Spine/Pelvis Other: unremarkable Skin General skin exam: no rashes or lesions noted Neuro General: patient oriented x3 Extrem Other: 2+ edema General: Yes normal to inspection Psych Mental Status: mental status grossly normal Objective Labs and Meds 05/25/23 06:25 05/25/23 06:25 Lab results: Laboratory Results - last 24 hr 05/24/23 05/24/23 05/24/23 13:10 18:15 20:03 WBC RBC Hgb Hct MCV MCH MCHC RDW Plt Count MPV Absolute Nucleated RBC Nucleated RBC % (auto) Sodium Potassium Chloride Carbon Dioxide Anion Gap BUN Creatinine Estim Creat Clear Calc Estimated GFR POC Glucose 333 H 351 H* 376 H* Fasting Glucose Calcium Magnesium 05/25/23 05/25/23 06:25 07:54 WBC 14.8 H RBC 4.20 L Hgb 12.3 L Hct 39.1 L MCV 93.1 MCH 29.3 MCHC 31.5 RDW 14.6 Plt Count 276 MPV 9.9 Absolute Nucleated RBC 0.000 Nucleated RBC % (auto) 0.0 Sodium 142 Potassium 5.2 H Chloride 96 Carbon Dioxide 39 H Anion Gap 12 BUN 27 H Creatinine 0.89 Estim Creat Clear Calc 69.0 Estimated GFR > 60 POC Glucose 112 Fasting Glucose 108 H Calcium 9.7 Magnesium 1.6 Progress Note: A&P Assessment and plan (1) Acute on chronic congestive heart failure: Status: Acute Assessment and Plan: Echocardiogram with LVEF of 51%. Basal inferior/inferolateral akinesis. Moderate diastolic dysfunction. Myip-[id number] aortic stenosis. Moderate pulmonary hypertension. We can diurese him as currently on. He is so far-2.1 L. Volume status seems improved. (2) Atrial flutter with rapid ventricular response: Status: Acute Assessment and Plan: Rate seems much improved. Continue beta-blockers. Digoxin load has been completed. Maintenance digoxin from tomorrow. Continue anticoagulation. (3) CAD (coronary artery disease): Status: Acute Assessment and Plan: High sensitivity troponin is within range. At this time, no clear evidence of acute coronary event. (4) NSVT (nonsustained ventricular tachycardia): Status: Acute Assessment and Plan: On telemetry, 1 episode of NSVT. Around 13 beats. Can not exclude supraventricular rhythm with aberrancy. We can continue to monitor. Plan Discussed with . Time Spent With Patient Time: Total time managing care of this patient today ____ minutes. Progress Note: Quality Stroke Does the patient have a stroke diagnosis?: No Reason for No Anti-thrombotic by Day Two: N/A - Med Ordered Procedures Date of Service Date of Service: 05/25/23
--- NOTE | 2023-05-25 09:54 | P.CDIM_ITS ---
PROVIDER RESPONSE TEXT: To clarify, the appropriate diagnosis supported by the clinical indicators: Diabetes mellitus with hyperglycemia: probable QUERY TEXT: PHYSICIAN'S DOCUMENTATION REQUEST Date of Query: 05/25/2023 09:40 AM EST Patient Name: Yossi Perez Admit Date: 05/24/2023 Dear Fabio Anderson, A review of the medical record indicates additional documentation may be needed. Please review below and update the documentation accordingly. Clinical Indicators: POC glucose: 376 H 112 Insulin Diabetes mellitus Based on the above, is there a diagnosis that correlates with the above labs: Diabetes mellitus with hyperglycemia resolved, possible, probable etc Labs indicate a diagnosis of (please specify) Other (explain) Clinically unable to determine (explain) Thank you, Migdalia Fonseca, CCS, CDIS Use of terms such as suspected, likely, concern for, or probable (associated with a specific diagnosi s that is being evaluated, monitored, or treated as if it exists) are acceptable and can be coded in the inpatient se tting, when documented at the time of discharge. Please use your independent medical judgment in providing your response. THIS QUERY IS PART OF THE PERMANENT MEDICAL RECORD
--- NOTE | 2023-05-25 10:18 | HO.PM.IMPN ---
Subjective Subjective Date of Service: 05/25/23 Interval History: sob Physical Exam Vital Signs: Vital Signs: Last Vital Signs Temp 98.0 F 05/25/23 07:43 Pulse 69 05/25/23 07:43 Resp 17 05/25/23 07:43 BP 144/63 H 05/25/23 07:43 Pulse Ox 95 05/25/23 07:43 O2 Del Method Nasal Cannula 05/25/23 07:43 O2 Flow Rate 4 05/25/23 07:43 Oxygen Flow Rate 3 05/24/23 06:31 BMI result Body Mass Index 24.3 diminsihed breath, dyspneic, alert, accesosry muuscles, mild wheezes, improved edema Objective Data Active Medications Albuterol/Ipratropium (Albuterol/Iprat 2.5/0.5mg 3 Ml Ampul.Neb) 3 ml INHALE RQ4H WHILE AWAKE PRN PRN Reason: sob Amlodipine Besylate (Amlodipine Besylate 5 Mg Tablet) 5 mg PO DAILY [facility]; Protocol Last Admin: 05/25/23 09:10 Dose: 5 mg Documented By: ROOSEVELT Apixaban (Apixaban 5 Mg Tablet) 5 mg PO BID [facility] Last Admin: 05/25/23 09:11 Dose: 5 mg Documented By: ROOSEVELT Aspirin (Aspirin Enteric Coated 81 Mg Tablet.) 81 mg PO DAILY [facility] Last Admin: 05/25/23 09:10 Dose: 81 mg Documented By: ROOSEVELT Atorvastatin Calcium (Atorvastatin Calcium 80 Mg Tablet) 80 mg PO DAILY [facility] Last Admin: 05/25/23 09:10 Dose: 80 mg Documented By: ROOSEVELT Dextrose (Dextrose 50 % 25 Gm/50 Ml Syringe) 25 gm IVPUSH Q15M PRN; Protocol PRN Reason: per Hypoglycemia Standing Ord. Fluticasone/Vilanterol (Fluticasone/Vilanterol 200/25 Blst.W.Dev) 1 puff INHALE RDAILY [facility] Furosemide (Furosemide 40 Mg/4 Ml Vial) 40 mg IVPUSH BID@0900,1800 [facility]; Protocol Last Admin: 05/25/23 09:11 Dose: 40 mg Documented By: ROOSEVELT Glucose (Glucose Gel 15 Gm Gel..Gram.) 15 gm PO Q15M PRN; Protocol PRN Reason: per Hypoglycemia Standing Ord. Insulin Glargine (Insulin Glargine,Hum.Rec.Anlog 100 Unit/Ml 10 Ml Vial) 15 unit SUBCUT BEDTIME [facility] Last Admin: 05/24/23 20:18 Dose: 15 unit Documented By: ROGER Insulin Human Lispro (Insulin Lispro 100 Unit/Ml 3 Ml Vial) 0 unit SUBCUT QIDACHS [facility]; Protocol Last Admin: 05/25/23 08:25 Dose: Not Given Documented By: MIGUEL A Non-Admin Reason: No Insulin Coverage Metoprolol Tartrate (Metoprolol Tartrate 50 Mg Tablet) 50 mg PO BID [facility]; Protocol Last Admin: 05/25/23 09:10 Dose: 50 mg Documented By: ROOSEVELT Omeprazole (Omeprazole 20 Mg Capsule.) 20 mg PO DAILY@0630 [facility] Last Admin: 05/25/23 06:17 Dose: 20 mg Documented By: LAURA Prednisone (Prednisone 20 Mg Tablet) 40 mg PO DAILY [facility] Last Admin: 05/25/23 09:10 Dose: 40 mg Documented By: ROOSEVELT Sodium Chloride (0.9 % Sodium Chloride Flush 3 Ml Syringe) 3 ml IVFLUSH QSHIFT [facility] Last Admin: 05/25/23 09:11 Dose: 3 ml Documented By: ROOSEVELT Labs 05/25/23 06:25 05/25/23 06:25 Labs: Laboratory Results - last 24 hr 05/24/23 05/24/23 05/24/23 13:10 18:15 20:03 MCV MCH MCHC RDW Plt Count MPV Absolute Nucleated RBC Nucleated RBC % (auto) Anion Gap Estim Creat Clear Calc Estimated GFR POC Glucose 333 H 351 H* 376 H* Fasting Glucose Calcium Magnesium 05/25/23 05/25/23 06:25 07:54 MCV 93.1 MCH 29.3 MCHC 31.5 RDW 14.6 Plt Count 276 MPV 9.9 Absolute Nucleated RBC 0.000 Nucleated RBC % (auto) 0.0 Anion Gap 12 Estim Creat Clear Calc 69.0 Estimated GFR > 60 POC Glucose 112 Fasting Glucose 108 H Calcium 9.7 Magnesium 1.6 Microbiology Microbiology Results: Microbiology 05/24/23 07:43 Blood Culture - Preliminary Blood - Venous No growth after 24 hours. 05/24/23 06:39 Blood Culture - Preliminary Blood - Venous No growth after 24 hours. Assessment and Plan (1) NSVT (nonsustained ventricular tachycardia): Status: Acute Plan 82M PMH chronic hypoxic respiratory failure on 2L due to copd, CAD s/p CABG 2022, CHARLES, DM, HTN, hld, chronic systolic chf (EF 40-45%), paroxysmal afib presented with sob acute on chronic hypoxic respiratory failure due to acute on chronic chf with recovered EF and copd with acute decompensation, and pulm htn continue iv lasix prednisone, duonebs wean o2 as tolerated cardio following CAD dapl, statin htn metoprolol, amlodipine hld statin paroxysmal aflutter with rvr metoprolol s/p dig load eliquis rate better controlled DM basal bolus insulin full code dvt prophylaxis - eliquis reason for continued hospitalization: hypoxia, diuresis Quality Stroke Does the patient have a stroke diagnosis?: No Reason for No Anti-thrombotic by Day Two: N/A - Med Ordered VTE Prior VTE?: No VTE Risk Level:: Medical - moderate - high VTE Device Contraindication: Treatment Not Indicated VTE Drug Contraindication: N/A - Med Ordered
[2023-05-25 11:46] LABS: Glucose, Whole Blood 208 mg/dL (60-115)
[2023-05-25] MEDS: Insulin Lispro 100 UNIT/ML 3 ML VIAL SUBCUT ×3 (11:48→22:16)
--- NOTE | 2023-05-25 11:56 | MHC.CM.PN ---
EMR reviewed and per MD rounds, pt is not medically cleared for D?C due to management of CHF, receiving IV diuretics, pt will likely D/C over the weekend. CM will continue to follow.
[2023-05-25 17:30] LABS: Glucose, Whole Blood 323 mg/dL (60-115)
[2023-05-25 20:11] LABS: Glucose, Whole Blood 361 mg/dL (60-115)
[2023-05-25 22:16] LABS: Glucose, Whole Blood 308 mg/dL (60-115)
[2023-05-25] MEDS: Insulin Glargine,Hum.rec.anlog 100 UNIT/ML 10 ML VIAL 15 UNIT SUBCUT (22:17)
[2023-05-26] VITALS (8 sets, daily range): BP systolic 121–149; BP diastolic 60–65; PULSE 54–70; RESP 18–20; TEMP 36.1–36.3; O2SAT 83–96
[2023-05-26] MEDS: Omeprazole 20 MG CAPSULE.DR PO (06:00)
[2023-05-26 07:15] LABS: Hematocrit 36.3 % (42.0-52.0); Hemoglobin 11.3 g/dl (14.0-18.0); Mean Corpuscular HGB Conc 31.1 g/dl (31.0-36.0); Mean Corpuscular Hemoglobin 29.7 pg (27.0-33.0); Mean Corpuscular Volume 95.3 fL (80.0-98.0); Platelet Count 242 X10*3/uL (160-400); Red Blood Count 3.81 X10*6/uL (4.60-5.80); Red Cell Distribution Width 14.5 % (11.0-16.0); White Blood Count 9.4 X10*3/uL (4.8-10.8)
[2023-05-26 07:28] LABS: Glucose, Whole Blood 69 mg/dL (60-115)
[2023-05-26 07:29] LABS: Anion Gap 10 (12-20); Blood Urea Nitrogen 30 mg/dL (9-16); Chloride 93 mmol/L (96-108); Creatinine Clr Calc Pharmacy 76.7; Estimated Glomerular Filt Rate > 60; Glucose Fasting 72 mg/dL (60-99); Potassium 4.4 mmol/L (3.3-5.1); Sodium 141 mmol/L (135-145)
[2023-05-26 07:34] LABS: Carbon Dioxide 42 mmol/L (22-29)
[2023-05-26] MEDS: Fluticasone/Vilanterol 200/25 BLST.W.DEV 1 PUFF INHALE (07:42)
[2023-05-26 07:44] LABS: Glucose, Whole Blood 87 mg/dL (60-115)
[2023-05-26] MEDS: Aspirin Enteric Coated 81 MG TABLET.DR PO (07:51)
[2023-05-26] MEDS: Atorvastatin Calcium 80 MG TABLET PO (07:51)
[2023-05-26] MEDS: predniSONE 20 MG TABLET 40 MG PO (07:51)
[2023-05-26] MEDS: Apixaban 5 MG TABLET PO ×2 (07:51→21:54)
[2023-05-26] MEDS: amLODIPine Besylate 5 MG TABLET PO (07:51)
[2023-05-26] MEDS: 0.9 % Sodium Chloride Flush 3 ML SYRINGE IVFLUSH ×3 (07:52→21:59)
[2023-05-26] MEDS: Metoprolol Tartrate 50 MG TABLET PO ×2 (07:52→21:54)
--- NOTE | 2023-05-26 09:21 | P.PNIM_ITS ---
Subjective Subjective Date of Service: 05/26/23 Interval History: sob improved Physical Exam 2 Vital Signs: Vital Signs: Last Vital Signs Temp 97.3 F 05/26/23 07:28 Pulse 55 05/26/23 07:42 Resp 18 05/26/23 07:42 BP 136/63 05/26/23 07:28 Pulse Ox 96 05/26/23 07:28 O2 Del Method Nasal Cannula 05/26/23 07:28 O2 Flow Rate 4 05/26/23 07:28 Oxygen Flow Rate 3 05/24/23 06:31 BMI result Body Mass Index 24.3 diminsihed breath, dyspneic, alert, accesosry muuscles, mild wheezes, improved edema Objective Data Active Medications Albuterol/Ipratropium (Albuterol/Iprat 2.5/0.5mg 3 Ml Ampul.Neb) 3 ml INHALE RQ4H WHILE AWAKE PRN PRN Reason: sob Amlodipine Besylate (Amlodipine Besylate 5 Mg Tablet) 5 mg PO DAILY [facility]; Protocol Last Admin: 05/26/23 07:51 Dose: 5 mg Documented By: JESSICA Apixaban (Apixaban 5 Mg Tablet) 5 mg PO BID [facility] Last Admin: 05/26/23 07:51 Dose: 5 mg Documented By: JESSICA Aspirin (Aspirin Enteric Coated 81 Mg Tablet.) 81 mg PO DAILY [facility] Last Admin: 05/26/23 07:51 Dose: 81 mg Documented By: JESSICA Atorvastatin Calcium (Atorvastatin Calcium 80 Mg Tablet) 80 mg PO DAILY [facility] Last Admin: 05/26/23 07:51 Dose: 80 mg Documented By: JESSICA Dextrose (Dextrose 50 % 25 Gm/50 Ml Syringe) 25 gm IVPUSH Q15M PRN; Protocol PRN Reason: per Hypoglycemia Standing Ord. Fluticasone/Vilanterol (Fluticasone/Vilanterol 200/25 Blst.W.Dev) 1 puff INHALE RDAILY [facility] Last Admin: 05/26/23 07:42 Dose: 1 puff Documented By: JAYE Glucose (Glucose Gel 15 Gm Gel..Gram.) 15 gm PO Q15M PRN; Protocol PRN Reason: per Hypoglycemia Standing Ord. Insulin Glargine (Insulin Glargine,Hum.Rec.Anlog 100 Unit/Ml 10 Ml Vial) 15 unit SUBCUT BEDTIME [facility] Last Admin: 05/25/23 22:17 Dose: 15 unit Documented By: BROCK Insulin Human Lispro (Insulin Lispro 100 Unit/Ml 3 Ml Vial) 0 unit SUBCUT QIDACHS [facility]; Protocol Last Admin: 05/26/23 07:24 Dose: Not Given Documented By: JESSICA Non-Admin Reason: No Insulin Coverage Metoprolol Tartrate (Metoprolol Tartrate 50 Mg Tablet) 50 mg PO BID [facility]; Protocol Last Admin: 05/26/23 07:52 Dose: 50 mg Documented By: JESSICA Omeprazole (Omeprazole 20 Mg Capsule.Dr) 20 mg PO DAILY@0630 [facility] Last Admin: 05/26/23 06:00 Dose: 20 mg Documented By: BROCK Prednisone (Prednisone 20 Mg Tablet) 40 mg PO DAILY [facility] Last Admin: 05/26/23 07:51 Dose: 40 mg Documented By: JESSICA Sodium Chloride (0.9 % Sodium Chloride Flush 3 Ml Syringe) 3 ml IVFLUSH QSHIFT [facility] Last Admin: 05/26/23 07:52 Dose: 3 ml Documented By: JESSICA Labs 05/26/23 06:20 05/26/23 06:20 Labs: Laboratory Results - last 24 hr 05/25/23 05/25/23 05/25/23 11:43 17:26 19:45 MCV MCH MCHC RDW Plt Count MPV Absolute Nucleated RBC Nucleated RBC % (auto) Anion Gap Estim Creat Clear Calc Estimated GFR POC Glucose 208 H 323 H 361 H* Fasting Glucose Calcium 05/25/23 05/26/23 05/26/23 22:10 06:20 07:22 MCV 95.3 MCH 29.7 MCHC 31.1 RDW 14.5 Plt Count 242 MPV 10.0 Absolute Nucleated RBC 0.000 Nucleated RBC % (auto) 0.0 Anion Gap 10 L Estim Creat Clear Calc 76.7 Estimated GFR > 60 POC Glucose 308 H 69 Fasting Glucose 72 Calcium 9.0 D 05/26/23 07:41 MCV MCH MCHC RDW Plt Count MPV Absolute Nucleated RBC Nucleated RBC % (auto) Anion Gap Estim Creat Clear Calc Estimated GFR POC Glucose 87 Fasting Glucose Calcium Microbiology Microbiology Results: Microbiology 05/24/23 06:39 Blood Culture - Preliminary Blood - Venous No growth after 48 hours. 05/24/23 07:43 Blood Culture - Preliminary Blood - Venous No growth after 24 hours. Assessment and Plan (1) NSVT (nonsustained ventricular tachycardia): Status: Acute Plan 82M PMH chronic hypoxic respiratory failure on 2L due to copd, CAD s/p CABG 2022, CHARLES, DM, HTN, hld, chronic systolic chf (EF 40-45%), paroxysmal afib presented with sob acute on chronic hypoxic respiratory failure due to acute on chronic chf with recovered EF and copd with acute decompensation, and pulm htn signs of contraction, will hold lasix contionue prednisone, duonebs wean o2 as tolerated cardio following CAD dapl, statin htn metoprolol, amlodipine hld statin paroxysmal aflutter with rvr metoprolol s/p dig load eliquis rate better controlled DM basal bolus insulin full code dvt prophylaxis - eliquis reason for continued hospitalization: hypoxia Quality Stroke Does the patient have a stroke diagnosis?: No Reason for No Anti-thrombotic by Day Two: N/A - Med Ordered VTE Prior VTE?: No VTE Risk Level:: Medical - moderate - high VTE Device Contraindication: Treatment Not Indicated VTE Drug Contraindication: N/A - Med Ordered
[2023-05-26 11:24] LABS: Glucose, Whole Blood 188 mg/dL (60-115)
[2023-05-26] MEDS: Insulin Lispro 100 UNIT/ML 3 ML VIAL SUBCUT ×3 (12:02→21:56)
--- NOTE | 2023-05-26 12:46 | PM.PNCARD ---
Subjective Subjective Date of Service: 05/26/23 Interval history: He states that he is feeling better. Family is also at the bedside. Review of Systems Review of Systems Yes all other systems are reviewed and are negative Constitutional: Reports as per HPI and Reports no additional constitutional complaints Eyes: Reports as per HPI and Denies no additional eye complaints Denies system reviewed and no additional complaints, except as documented and Reports as per HPI Cardiovascular: Reports as per HPI, Reports no additional cardiovascular complaints, Denies acrocyanosis, Denies cool extremities, Denies chest pain, Reports leg edema, Denies lightheadedness, Denies palpitations and Reports dyspnea Respiratory: Reports as per HPI, Denies no additional respiratory complaints and Reports dyspnea Gastrointestinal: Reports as per HPI and Denies no additional gastrointestinal complaints Genitourinary: Reports no additional male genitourinary complaints and Reports as per HPI Musculoskeletal: Reports no additional musculoskeletal complaints and Reports as per HPI Skin/Breast: Reports system reviewed and no additional complaints, except as docu Reports system reviewed and no additional complaints, except as documented and Reports as per HPI Psychiatric: Reports no additional psychiatric complaints and Reports as per HPI Endocrine: Reports no additional endocrine complaints, Reports as per HPI and Denies palpitations Hematologic/Lymphatic: Reports no additional hematologic/lymphatic complaints and Reports as per HPI Allergic/Immunologic: Reports no additional allergic/immunologic complaints and Reports as per HPI Physical Exam Vital Signs: Last Vital Signs Temp 97.3 F 05/26/23 11:08 Pulse 54 05/26/23 11:08 Resp 18 05/26/23 11:08 BP 126/60 05/26/23 11:08 Pulse Ox 92 05/26/23 11:08 O2 Del Method Nasal Cannula 05/26/23 11:08 O2 Flow Rate 4 05/26/23 11:08 Oxygen Flow Rate 3 05/24/23 06:31 BMI result Body Mass Index 24.3 Const General: comfortable and no acute distress Orientation/consciousness: patient oriented x3 HEENT Other: Unremarkable Head: Yes normal to inspection Neck Neck: Yes normal visual inspection Chest Chest palpation & inspection: normal inspection of the chest Resp Auscultation: crackles and diminished lung sounds Cardio Palpation: normal PMI Heart sounds: S1 normal heart sound present, S2 normal heart sound present, no gallops, Murmur heart sound present systolic I/ and at the right sternal border and no rubs GI Palpation (GI): Soft to palpation Back/Spine/Pelvis Other: unremarkable Skin General skin exam: no rashes or lesions noted Neuro General: patient oriented x3 Extrem Other: 1+ edema General: Yes normal to inspection Psych Mental Status: mental status grossly normal Objective Labs and Meds 05/26/23 06:20 05/26/23 06:20 Lab results: Laboratory Results - last 24 hr 05/25/23 05/25/23 05/25/23 17:26 19:45 22:10 WBC RBC Hgb Hct MCV MCH MCHC RDW Plt Count MPV Absolute Nucleated RBC Nucleated RBC % (auto) Sodium Potassium Chloride Carbon Dioxide Anion Gap BUN Creatinine Estim Creat Clear Calc Estimated GFR POC Glucose 323 H 361 H* 308 H Fasting Glucose Calcium 05/26/23 05/26/23 05/26/23 06:20 07:22 07:41 WBC 9.4 RBC 3.81 L Hgb 11.3 L Hct 36.3 L MCV 95.3 MCH 29.7 MCHC 31.1 RDW 14.5 Plt Count 242 MPV 10.0 Absolute Nucleated RBC 0.000 Nucleated RBC % (auto) 0.0 Sodium 141 Potassium 4.4 Chloride 93 L Carbon Dioxide 42 H* Anion Gap 10 L BUN 30 H Creatinine 0.80 Estim Creat Clear Calc 76.7 Estimated GFR > 60 POC Glucose 69 87 Fasting Glucose 72 Calcium 9.0 D 05/26/23 11:11 WBC RBC Hgb Hct MCV MCH MCHC RDW Plt Count MPV Absolute Nucleated RBC Nucleated RBC % (auto) Sodium Potassium Chloride Carbon Dioxide Anion Gap BUN Creatinine Estim Creat Clear Calc Estimated GFR POC Glucose 188 H Fasting Glucose Calcium Progress Note: A&P Assessment and plan (1) Acute on chronic congestive heart failure: Status: Acute Assessment and Plan: Echocardiogram with LVEF of 51%. Basal inferior/inferolateral akinesis. Moderate diastolic dysfunction. [id number] aortic stenosis. Moderate pulmonary hypertension. Volume status is much improved from before. (2) Atrial flutter with rapid ventricular response: Status: Acute Assessment and Plan: Ventricular rates are in the 40s and 50s. In fact with some tendency to bradycardia. May continue beta-blockers but we will see if we need to adjust dosing further. Digoxin load is over. Continue with anticoagulation. (3) CAD (coronary artery disease): Status: Acute Assessment and Plan: High sensitivity troponin is within range. At this time, no clear evidence of acute coronary event. (4) NSVT (nonsustained ventricular tachycardia): Status: Acute Assessment and Plan: On telemetry, 1 episode of NSVT. Around 13 beats. Can not exclude supraventricular rhythm with aberrancy. No recurrent issues. Plan Discussed with . Discussed with family at great length at the bedside. Time Spent With Patient Time: Total time managing care of this patient today ____ minutes. Progress Note: Quality Stroke Does the patient have a stroke diagnosis?: No Reason for No Anti-thrombotic by Day Two: N/A - Med Ordered Procedures Date of Service Date of Service: 05/26/23
[2023-05-26 16:31] LABS: Glucose, Whole Blood 288 mg/dL (60-115)
[2023-05-26 21:51] LABS: Glucose, Whole Blood 236 mg/dL (60-115)
[2023-05-26] MEDS: Insulin Glargine,Hum.rec.anlog 100 UNIT/ML 10 ML VIAL 15 UNIT SUBCUT (21:55)
[2023-05-27] VITALS (8 sets, daily range): BP systolic 128–145; BP diastolic 51–64; PULSE 57–90; RESP 18–20; TEMP 36.2–36.7; O2SAT 91–99
[2023-05-27] MEDS: Omeprazole 20 MG CAPSULE.DR PO (05:40)
[2023-05-27 06:18] LABS: Hematocrit 37.2 % (42.0-52.0); Hemoglobin 11.7 g/dl (14.0-18.0); Mean Corpuscular HGB Conc 31.5 g/dl (31.0-36.0); Mean Corpuscular Hemoglobin 29.6 pg (27.0-33.0); Mean Corpuscular Volume 94.2 fL (80.0-98.0); Mean Platelet Volume 9.8 fL (9.4-12.4); Platelet Count 254 X10*3/uL (160-400); Red Blood Count 3.95 X10*6/uL (4.60-5.80); Red Cell Distribution Width 14.1 % (11.0-16.0); White Blood Count 8.7 X10*3/uL (4.8-10.8)
[2023-05-27 06:38] LABS: B Type Natriuretic Peptide 501 pg/mL (<100)
[2023-05-27 06:49] LABS: Anion Gap 11 (12-20); Blood Urea Nitrogen 24 mg/dL (9-16); Carbon Dioxide 40 mmol/L (22-29); Chloride 93 mmol/L (96-108); Creatinine Clr Calc Pharmacy 70.6; Estimated Glomerular Filt Rate > 60; Glucose Fasting 139 mg/dL (60-99); Potassium 4.8 mmol/L (3.3-5.1); Sodium 139 mmol/L (135-145)
[2023-05-27 07:32] LABS: Glucose, Whole Blood 111 mg/dL (60-115)
[2023-05-27] MEDS: Metoprolol Tartrate 50 MG TABLET PO ×2 (07:41→20:25)
[2023-05-27] MEDS: Apixaban 5 MG TABLET PO ×2 (07:41→20:25)
[2023-05-27] MEDS: Atorvastatin Calcium 80 MG TABLET PO (07:42)
[2023-05-27] MEDS: Aspirin Enteric Coated 81 MG TABLET.DR PO (07:42)
[2023-05-27] MEDS: predniSONE 20 MG TABLET 40 MG PO (07:42)
[2023-05-27] MEDS: amLODIPine Besylate 5 MG TABLET PO (07:42)
[2023-05-27] MEDS: 0.9 % Sodium Chloride Flush 3 ML SYRINGE IVFLUSH ×3 (07:43→20:26)
[2023-05-27] MEDS: Fluticasone/Vilanterol 200/25 BLST.W.DEV 1 PUFF INHALE (07:48)
--- NOTE | 2023-05-27 09:21 | P.PNIM_ITS ---
Subjective Subjective Date of Service: 05/27/23 Interval History: overall improved Physical Exam 2 Vital Signs: Vital Signs: Last Vital Signs Temp 97.7 F 05/27/23 07:23 Pulse 90 05/27/23 07:51 Resp 18 05/27/23 07:51 BP 141/64 H 05/27/23 07:23 Pulse Ox 91 L 05/27/23 07:23 O2 Del Method Nasal Cannula 05/27/23 07:23 O2 Flow Rate 2 05/27/23 06:34 Oxygen Flow Rate 3 05/24/23 06:31 BMI result Body Mass Index 24.3 Const: General: comfortable and no acute distress O rientation/consciousness: patient oriented x3 HEENT: Other: Unremarkable Head: Yes normal to inspection Neck: Neck: Yes normal visual inspection Chest: Chest palpation & inspection: normal inspection of the chest Resp: Auscultation: crackles and diminished lung sounds Cardio: Palpation: normal PMI Heart sounds: S1 normal heart sound present, S2 normal heart sound present, no gallops, Murmur heart sound present systolic I/ and at the right sternal border and no rubs GI: Palpation (GI): Soft to palpation Back/Spine/Pelvis: Other: unremarkable Skin: General skin exam: no rashes or lesions noted Neuro: General: patient oriented x3 Extrem: Other: 1+ edema General: Yes normal to inspection Psych: Mental Status: mental status grossly normal Objective Data Active Medications Acetazolamide (Acetazolamide Sodium 500 Mg Vial) 250 mg IVPUSH Q12H [facility] Stop: 05/27/23 21:31 Albuterol/Ipratropium (Albuterol/Iprat 2.5/0.5mg 3 Ml Ampul.Neb) 3 ml INHALE RQ4H WHILE AWAKE PRN PRN Reason: sob Amlodipine Besylate (Amlodipine Besylate 5 Mg Tablet) 5 mg PO DAILY [facility]; Protocol Last Admin: 05/27/23 07:42 Dose: 5 mg Documented By: JESSICA Apixaban (Apixaban 5 Mg Tablet) 5 mg PO BID [facility] Last Admin: 05/27/23 07:41 Dose: 5 mg Documented By: JESSICA Aspirin (Aspirin Enteric Coated 81 Mg Tablet.) 81 mg PO DAILY [facility] Last Admin: 05/27/23 07:42 Dose: 81 mg Documented By: JESSICA Atorvastatin Calcium (Atorvastatin Calcium 80 Mg Tablet) 80 mg PO DAILY [facility] Last Admin: 05/27/23 07:42 Dose: 80 mg Documented By: JESSICA Dextrose (Dextrose 50 % 25 Gm/50 Ml Syringe) 25 gm IVPUSH Q15M PRN; Protocol PRN Reason: per Hypoglycemia Standing Ord. Fluticasone/Vilanterol (Fluticasone/Vilanterol 200/25 Blst.W.Dev) 1 puff INHALE RDAILY [facility] Last Admin: 05/27/23 07:48 Dose: 1 puff Documented By: EDMUNDO Glucose (Glucose Gel 15 Gm Gel..Gram.) 15 gm PO Q15M PRN; Protocol PRN Reason: per Hypoglycemia Standing Ord. Insulin Glargine (Insulin Glargine,Hum.Rec.Anlog 100 Unit/Ml 10 Ml Vial) 15 unit SUBCUT BEDTIME [facility] Last Admin: 05/26/23 21:55 Dose: 15 unit Documented By: BONG Insulin Human Lispro (Insulin Lispro 100 Unit/Ml 3 Ml Vial) 0 unit SUBCUT QIDACHS [facility]; Protocol Last Admin: 05/27/23 07:36 Dose: Not Given Documented By: JESSICA Non-Admin Reason: No Insulin Coverage Metoprolol Tartrate (Metoprolol Tartrate 50 Mg Tablet) 50 mg PO BID [facility]; Protocol Last Admin: 05/27/23 07:41 Dose: 50 mg Documented By: JESSICA Omeprazole (Omeprazole 20 Mg Capsule.Dr) 20 mg PO DAILY@0630 [facility] Last Admin: 05/27/23 05:40 Dose: 20 mg Documented By: BONG Prednisone (Prednisone 20 Mg Tablet) 40 mg PO DAILY [facility] Last Admin: 05/27/23 07:42 Dose: 40 mg Documented By: JESSICA Sodium Chloride (0.9 % Sodium Chloride Flush 3 Ml Syringe) 3 ml IVFLUSH QSHIFT [facility] Last Admin: 05/27/23 07:43 Dose: 3 ml Documented By: JESSICA Labs 05/27/23 05:36 05/27/23 05:36 Labs: Laboratory Results - last 24 hr 05/26/23 05/26/23 05/26/23 11:11 16:11 21:46 MCV MCH MCHC RDW Plt Count MPV Absolute Nucleated RBC Nucleated RBC % (auto) Anion Gap Estim Creat Clear Calc Estimated GFR POC Glucose 188 H 288 H 236 H Fasting Glucose Calcium B-Natriuretic Peptide 05/27/23 05/27/23 05:36 07:17 MCV 94.2 MCH 29.6 MCHC 31.5 RDW 14.1 Plt Count 254 MPV 9.8 Absolute Nucleated RBC 0.000 Nucleated RBC % (auto) 0.0 Anion Gap 11 L Estim Creat Clear Calc 70.6 Estimated GFR > 60 POC Glucose 111 Fasting Glucose 139 H Calcium 9.0 B-Natriuretic Peptide 501 H Microbiology Microbiology Results: Microbiology 05/24/23 07:43 Blood Culture - Preliminary Blood - Venous No growth after 48 hours. 05/24/23 06:39 Blood Culture - Preliminary Blood - Venous No growth after 48 hours. Assessment and Plan (1) NSVT (nonsustained ventricular tachycardia): Status: Acute Plan 82M PMH chronic hypoxic respiratory failure on 2L due to copd, CAD s/p CABG 2022, CHARLES, DM, HTN, hld, chronic systolic chf (EF 40-45%), paroxysmal afib presented with sob acute on chronic hypoxic respiratory failure due to acute on chronic chf with recovered EF and copd with acute decompensation, and pulm htn will give 2 dose diamox continue prednisone, duonebs wean o2 as tolerated cardio appreciated CAD dapl, statin htn metoprolol, amlodipine hld statin paroxysmal aflutter with rvr metoprolol eliquis rate better controlled, asymptomatic DM basal bolus insulin full code dvt prophylaxis - eliquis reason for continued hospitalization: hypoxia Quality Stroke Does the patient have a stroke diagnosis?: No Reason for No Anti-thrombotic by Day Two: N/A - Med Ordered VTE Prior VTE?: No VTE Risk Level:: Medical - moderate - high VTE Device Contraindication: Treatment Not Indicated VTE Drug Contraindication: N/A - Med Ordered
[2023-05-27] MEDS: acetaZOLAMIDE sodium 500 MG VIAL 250 MG IVPUSH ×2 (09:42→20:25)
--- NOTE | 2023-05-27 11:06 | PM.PNCARD ---
Subjective Subjective Date of Service: 05/27/23 Interval history: He states that he was feeling better as today but today he is again feeling short of breath. Review of Systems Review of Systems Yes all other systems are reviewed and are negative Constitutional: Reports as per HPI and Reports no additional constitutional complaints Eyes: Reports as per HPI and Denies no additional eye complaints Denies system reviewed and no additional complaints, except as documented and Reports as per HPI Cardiovascular: Reports as per HPI, Reports no additional cardiovascular complaints, Denies acrocyanosis, Denies cool extremities, Denies chest pain, Denies leg edema, Denies lightheadedness, Denies palpitations and Reports dyspnea Respiratory: Reports as per HPI, Denies no additional respiratory complaints and Reports dyspnea Gastrointestinal: Reports as per HPI and Denies no additional gastrointestinal complaints Genitourinary: Reports no additional male genitourinary complaints and Reports as per HPI Musculoskeletal: Reports no additional musculoskeletal complaints and Reports as per HPI Skin/Breast: Reports system reviewed and no additional complaints, except as docu Reports system reviewed and no additional complaints, except as documented and Reports as per HPI Psychiatric: Reports no additional psychiatric complaints and Reports as per HPI Endocrine: Reports no additional endocrine complaints, Reports as per HPI and Denies palpitations Hematologic/Lymphatic: Reports no additional hematologic/lymphatic complaints and Reports as per HPI Allergic/Immunologic: Reports no additional allergic/immunologic complaints and Reports as per HPI Physical Exam Vital Signs: Last Vital Signs Temp 97.7 F 05/27/23 07:23 Pulse 90 05/27/23 07:51 Resp 18 05/27/23 07:51 BP 141/64 H 05/27/23 07:23 Pulse Ox 91 L 05/27/23 07:23 O2 Del Method Nasal Cannula 05/27/23 07:23 O2 Flow Rate 2 05/27/23 06:34 Oxygen Flow Rate 3 05/24/23 06:31 BMI result Body Mass Index 24.3 Const General: comfortable and no acute distress Orientation/consciousness: patient oriented x3 HEENT Other: Unremarkable Head: Yes normal to inspection Neck Neck: Yes normal visual inspection Chest Chest palpation & inspection: normal inspection of the chest Resp Auscultation: crackles, wheezes and diminished lung sounds Cardio Palpation: normal PMI Heart sounds: S1 normal heart sound present, S2 normal heart sound present, no gallops, no murmurs and no rubs GI Palpation (GI): Soft to palpation Back/Spine/Pelvis Other: unremarkable Skin General skin exam: no rashes or lesions noted Neuro General: patient oriented x3 Extrem Other: 1+ edema General: Yes normal to inspection Psych Mental Status: mental status grossly normal Objective Labs and Meds 05/27/23 05:36 05/27/23 05:36 Lab results: Laboratory Results - last 24 hr 05/26/23 05/26/23 05/26/23 11:11 16:11 21:46 WBC RBC Hgb Hct MCV MCH MCHC RDW Plt Count MPV Absolute Nucleated RBC Nucleated RBC % (auto) Sodium Potassium Chloride Carbon Dioxide Anion Gap BUN Creatinine Estim Creat Clear Calc Estimated GFR POC Glucose 188 H 288 H 236 H Fasting Glucose Calcium B-Natriuretic Peptide 05/27/23 05/27/23 05:36 07:17 WBC 8.7 RBC 3.95 L Hgb 11.7 L Hct 37.2 L MCV 94.2 MCH 29.6 MCHC 31.5 RDW 14.1 Plt Count 254 MPV 9.8 Absolute Nucleated RBC 0.000 Nucleated RBC % (auto) 0.0 Sodium 139 Potassium 4.8 Chloride 93 L Carbon Dioxide 40 H* Anion Gap 11 L BUN 24 H Creatinine 0.87 Estim Creat Clear Calc 70.6 Estimated GFR > 60 POC Glucose 111 Fasting Glucose 139 H Calcium 9.0 B-Natriuretic Peptide 501 H Progress Note: A&P Assessment and plan (1) Acute on chronic congestive heart failure: Status: Acute Assessment and Plan: Echocardiogram with LVEF of 51%. Basal inferior/inferolateral akinesis. Moderate diastolic dysfunction. [id number]-[id number] aortic stenosis. Moderate pulmonary hypertension. He does not have as much leg swelling as before. A lot of his respiratory findings could also be related to underlying COPD. He is already having high bicarbonate in his labs. Diamox is being added. Also on steroids/respiratory treatments. (2) Atrial flutter with rapid ventricular response: Status: Acute Assessment and Plan: Continue beta-blockers and anticoagulation. Well controlled. (3) CAD (coronary artery disease): Status: Acute Assessment and Plan: High sensitivity troponin is within range. At this time, no clear evidence of acute coronary event. Plan Discussed with . Time Spent With Patient Time: Total time managing care of this patient today ____ minutes. Progress Note: Quality Stroke Does the patient have a stroke diagnosis?: No Reason for No Anti-thrombotic by Day Two: N/A - Med Ordered Procedures Date of Service Date of Service: 05/27/23
[2023-05-27 11:26] LABS: Glucose, Whole Blood 336 mg/dL (60-115)
[2023-05-27] MEDS: Insulin Lispro 100 UNIT/ML 3 ML VIAL SUBCUT ×3 (12:21→20:25)
[2023-05-27 16:24] LABS: Glucose, Whole Blood 310 mg/dL (60-115)
[2023-05-27 20:08] LABS: Glucose, Whole Blood 318 mg/dL (60-115)
[2023-05-27] MEDS: Insulin Glargine,Hum.rec.anlog 100 UNIT/ML 10 ML VIAL 15 UNIT SUBCUT (20:25)
[2023-05-28] VITALS (7 sets, daily range): BP systolic 115–172; BP diastolic 58–82; PULSE 49–90; RESP 16–20; TEMP 36.2–36.9; O2SAT 90–99
[2023-05-28] MEDS: Omeprazole 20 MG CAPSULE.DR PO (05:51)
[2023-05-28 07:02] LABS: Venous Blood Gas Refer to POC result
[2023-05-28 07:05] LABS: VBG Base Excess 8.4 mmol/L; VBG HCO3 38 mmol/L (22-26); VBG O2 % Saturation < 30.0 %; VBG pCO2 79 mmHg; VBG pH 7.28 (7.32-7.43); VBG pO2 24 mmHg
[2023-05-28 07:05] LABS: Hematocrit 38.3 % (42.0-52.0); Hemoglobin 11.9 g/dl (14.0-18.0); Mean Corpuscular HGB Conc 31.1 g/dl (31.0-36.0); Mean Corpuscular Hemoglobin 29.4 pg (27.0-33.0); Mean Corpuscular Volume 94.6 fL (80.0-98.0); Mean Platelet Volume 9.1 fL (9.4-12.4); Platelet Count 228 X10*3/uL (160-400); Red Blood Count 4.05 X10*6/uL (4.60-5.80); Red Cell Distribution Width 13.7 % (11.0-16.0); White Blood Count 9.7 X10*3/uL (4.8-10.8)
[2023-05-28 07:22] LABS: Anion Gap 9 (12-20); Blood Urea Nitrogen 25 mg/dL (9-16); Calcium 9.3 mg/dL (8.4-10.2); Carbon Dioxide 35 mmol/L (22-29); Chloride 99 mmol/L (96-108); Creatinine Clr Calc Pharmacy 68.2; Estimated Glomerular Filt Rate > 60; Glucose Fasting 137 mg/dL (60-99); Sodium 138 mmol/L (135-145)
[2023-05-28] MEDS: Fluticasone/Vilanterol 200/25 BLST.W.DEV 1 PUFF INHALE (07:30)
[2023-05-28 07:35] LABS: Glucose, Whole Blood 117 mg/dL (60-115)
[2023-05-28] MEDS: Aspirin Enteric Coated 81 MG TABLET.DR PO (08:08)
[2023-05-28] MEDS: Metoprolol Tartrate 50 MG TABLET PO (08:08)
[2023-05-28] MEDS: predniSONE 20 MG TABLET 40 MG PO (08:08)
[2023-05-28] MEDS: Atorvastatin Calcium 80 MG TABLET PO (08:08)
[2023-05-28] MEDS: 0.9 % Sodium Chloride Flush 3 ML SYRINGE IVFLUSH ×3 (08:08→21:18)
[2023-05-28] MEDS: Apixaban 5 MG TABLET PO ×2 (08:08→21:18)
[2023-05-28] MEDS: amLODIPine Besylate 5 MG TABLET PO (08:08)
--- NOTE | 2023-05-28 09:05 | HO.PM.IMPN ---
Subjective Subjective Date of Service: 05/28/23 Interval History: overall much improved, but does not feel ready to go home.. desaturated to low 80s on home 2L. resolves on 3L Physical Exam Vital Signs: Vital Signs: Last Vital Signs Temp 97.6 F 05/28/23 07:12 Pulse 71 05/28/23 07:31 Resp 17 05/28/23 07:31 BP 133/61 05/28/23 07:12 Pulse Ox 92 05/28/23 07:12 O2 Del Method Nasal Cannula 05/28/23 07:12 O2 Flow Rate 3 05/28/23 07:12 Oxygen Flow Rate 3 05/24/23 06:31 BMI result Body Mass Index 24.3 Const: General: comfortable and no acute distress Orientation/consciousness: patient oriented x3 HEENT: Other: Unremarkable Head: Yes normal to inspection Neck: Neck: Yes normal visual inspection Chest: Chest palpation & inspection: normal inspection of the chest Resp: Auscultation: crackles, wheezes and diminished lung sounds Cardio: Palpation: normal PMI Heart sounds: S1 normal heart sound present, S2 normal heart sound present, no gallops, no murmurs and no rubs GI: Palpation (GI): Soft to palpation Back/Spine/Pelvis: Other: unremarkable Skin: General skin exam: no rashes or lesions noted Neuro: General: patient oriented x3 Extrem: Other: 1+ edema General: Yes normal to inspection Psych: Mental Status: mental status grossly normal Objective Data Active Medications Albuterol/Ipratropium (Albuterol/Iprat 2.5/0.5mg 3 Ml Ampul.Neb) 3 ml INHALE RQ4H WHILE AWAKE PRN PRN Reason: sob Amlodipine Besylate (Amlodipine Besylate 5 Mg Tablet) 5 mg PO DAILY [facility]; Protocol Last Admin: 05/28/23 08:08 Dose: 5 mg Documented By: EDY Apixaban (Apixaban 5 Mg Tablet) 5 mg PO BID [facility] Last Admin: 05/28/23 08:08 Dose: 5 mg Documented By: EDY Aspirin (Aspirin Enteric Coated 81 Mg Tablet.) 81 mg PO DAILY [facility] Last Admin: 05/28/23 08:08 Dose: 81 mg Documented By: EDY Atorvastatin Calcium (Atorvastatin Calcium 80 Mg Tablet) 80 mg PO DAILY [facility] Last Admin: 05/28/23 08:08 Dose: 80 mg Documented By: EDY Dextrose (Dextrose 50 % 25 Gm/50 Ml Syringe) 25 gm IVPUSH Q15M PRN; Protocol PRN Reason: per Hypoglycemia Standing Ord. Fluticasone/Vilanterol (Fluticasone/Vilanterol 200/25 Blst.W.Dev) 1 puff INHALE RDAILY [facility] Last Admin: 05/28/23 07:30 Dose: 1 puff Documented By: TATIANA Glucose (Glucose Gel 15 Gm Gel..Gram.) 15 gm PO Q15M PRN; Protocol PRN Reason: per Hypoglycemia Standing Ord. Insulin Glargine (Insulin Glargine,Hum.Rec.Anlog 100 Unit/Ml 10 Ml Vial) 15 unit SUBCUT BEDTIME [facility] Last Admin: 05/27/23 20:25 Dose: 15 unit Documented By: KERA Insulin Human Lispro (Insulin Lispro 100 Unit/Ml 3 Ml Vial) 0 unit SUBCUT QIDACHS [facility]; Protocol Last Admin: 05/28/23 08:08 Dose: Not Given Documented By: EDY Non-Admin Reason: No Insulin Coverage Metoprolol Tartrate (Metoprolol Tartrate 50 Mg Tablet) 50 mg PO BID [facility]; Protocol Last Admin: 05/28/23 08:08 Dose: 50 mg Documented By: EDY Omeprazole (Omeprazole 20 Mg Capsule.Dr) 20 mg PO DAILY@0630 [facility] Last Admin: 05/28/23 05:51 Dose: 20 mg Documented By: KERA Prednisone (Prednisone 20 Mg Tablet) 40 mg PO DAILY [facility] Last Admin: 05/28/23 08:08 Dose: 40 mg Documented By: EDY Sodium Chloride (0.9 % Sodium Chloride Flush 3 Ml Syringe) 3 ml IVFLUSH QSHIFT [facility] Last Admin: 05/28/23 08:08 Dose: 3 ml Documented By: EDY Labs 05/28/23 06:53 05/28/23 06:53 Labs: Laboratory Results - last 24 hr 05/27/23 05/27/23 05/27/23 11:12 16:21 20:05 MCV MCH MCHC RDW Plt Count MPV Absolute Nucleated RBC Nucleated RBC % (auto) VBG pH VBG pCO2 VBG pO2 VBG HCO3 VBG O2 Saturation VBG Base Excess Anion Gap Estim Creat Clear Calc Estimated GFR POC Glucose 336 H 310 H 318 H Fasting Glucose Calcium 05/28/23 05/28/23 05/28/23 06:53 07:00 07:28 MCV 94.6 MCH 29.4 MCHC 31.1 RDW 13.7 Plt Count 228 MPV 9.1 L Absolute Nucleated RBC 0.000 Nucleated RBC % (auto) 0.0 VBG pH 7.28 L VBG pCO2 79 VBG pO2 24 VBG HCO3 38 H VBG O2 Saturation < 30.0 VBG Base Excess 8.4 Anion Gap 9 L Estim Creat Clear Calc 68.2 Estimated GFR > 60 POC Glucose 117 H Fasting Glucose 137 H Calcium 9.3 Assessment and Plan (1) NSVT (nonsustained ventricular tachycardia): Status: Acute Plan 82M PMH chronic hypoxic respiratory failure on 2L due to copd, CAD s/p CABG 2022, CHARLES, DM, HTN, hld, chronic systolic chf (EF 40-45%), paroxysmal afib presented with sob acute on chronic hypoxic respiratory failure due to acute on chronic chf with recovered EF and copd with acute decompensation, and pulm htn s/p 2 doses diamox continue prednisone, duonebs wean o2 as tolerated (baseline 2L, now requiring 3L) cardio appreciated CAD dapl, statin htn metoprolol, amlodipine hld statin paroxysmal aflutter with rvr metoprolol eliquis rate better controlled, asymptomatic DM basal bolus insulin full code dvt prophylaxis - eliquis reason for continued hospitalization: hypoxia Quality Stroke Does the patient have a stroke diagnosis?: No Reason for No Anti-thrombotic by Day Two: N/A - Med Ordered VTE Prior VTE?: No VTE Risk Level:: Medical - moderate - high VTE Device Contraindication: Treatment Not Indicated VTE Drug Contraindication: N/A - Med Ordered
--- NOTE | 2023-05-28 11:14 | MHC.CM.PN ---
EMR reviewed and per MD rounds, pt is not medically cleared for D/C due to management of CHF and hypoxia. CM will continue to follow.
[2023-05-28 11:52] LABS: Glucose, Whole Blood 206 mg/dL (60-115)
[2023-05-28] MEDS: Furosemide 40 MG/4 ML VIAL IVPUSH (11:56)
[2023-05-28] MEDS: Insulin Lispro 100 UNIT/ML 3 ML VIAL SUBCUT ×3 (11:57→21:18)
--- NOTE | 2023-05-28 12:59 | PM.PNCARD ---
Subjective Subjective Date of Service: 05/28/23 Interval history: Seen and examined at bedside. Saying that breathing is better than yesterday. Still volume overloaded. Physical Exam Vital Signs: Last Vital Signs Temp 97.5 F 05/28/23 11:30 Pulse 56 05/28/23 11:30 Resp 18 05/28/23 11:30 BP 115/58 L 05/28/23 11:30 Pulse Ox 97 05/28/23 11:30 O2 Del Method Nasal Cannula 05/28/23 11:30 O2 Flow Rate 3 05/28/23 07:12 Oxygen Flow Rate 3 05/24/23 06:31 BMI result Body Mass Index 24.3 GENERAL APPEARANCE: in no acute distress, pleasant. On supplemental oxygen. NECK: no carotid bruit, + jugular venous distention. SKIN: no suspicious lesions, warm and dry. HEART: no murmurs, regular rate and rhythm. LUNGS: clear to auscultation bilaterally. ABDOMEN: soft, nontender. EXTREMITIES: ++edema. PERIPHERAL PULSES: equal. NEUROLOGIC: No gross deficits, AAO X 3 Objective Labs and Meds 05/28/23 06:53 05/28/23 06:53 Lab results: Laboratory Results - last 24 hr 05/27/23 05/27/23 05/28/23 16:21 20:05 06:53 WBC 9.7 RBC 4.05 L Hgb 11.9 L Hct 38.3 L MCV 94.6 MCH 29.4 MCHC 31.1 RDW 13.7 Plt Count 228 MPV 9.1 L Absolute Nucleated RBC 0.000 Nucleated RBC % (auto) 0.0 VBG pH VBG pCO2 VBG pO2 VBG HCO3 VBG O2 Saturation VBG Base Excess Sodium 138 Potassium 5.0 Chloride 99 Carbon Dioxide 35 H Anion Gap 9 L BUN 25 H Creatinine 0.90 Estim Creat Clear Calc 68.2 Estimated GFR > 60 POC Glucose 310 H 318 H Fasting Glucose 137 H Calcium 9.3 05/28/23 05/28/23 05/28/23 07:00 07:28 11:33 WBC RBC Hgb Hct MCV MCH MCHC RDW Plt Count MPV Absolute Nucleated RBC Nucleated RBC % (auto) VBG pH 7.28 L VBG pCO2 79 VBG pO2 24 VBG HCO3 38 H VBG O2 Saturation < 30.0 VBG Base Excess 8.4 Sodium Potassium Chloride Carbon Dioxide Anion Gap BUN Creatinine Estim Creat Clear Calc Estimated GFR POC Glucose 117 H 206 H Fasting Glucose Calcium Progress Note: A&P Assessment and plan (1) Acute on chronic congestive heart failure: Status: Acute (2) Atrial flutter: Status: Acute Plan 82-year-old gentleman background history of coronary artery disease status post bypass surgery who is presenting with shortness of breath and peripheral edema and clinical heart failure. Blood pressure is well controlled. He is in atrial flutter which is a new diagnosis for him. His Plavix has been stopped and he has been started on apixaban 5 mg twice a day. Atrial flutter can be a potential cause for his heart failure episode. He is well controlled in terms of heart rate currently. We will diurese him further and reassess him. If he continues to be short of breath despite being euvolemic then he may need cardioversion. Thank you for allowing me to participate in the care of your patient. Please feel free to contact me if you have any questions. Time Spent With Patient Time: Total time managing care of this patient today ____ minutes. Progress Note: Quality Stroke Does the patient have a stroke diagnosis?: No Reason for No Anti-thrombotic by Day Two: N/A - Med Ordered Procedures Date of Service Date of Service: 05/28/23
[2023-05-28 16:11] LABS: Glucose, Whole Blood 379 mg/dL (60-115)
[2023-05-28 21:14] LABS: Glucose, Whole Blood 362 mg/dL (60-115)
[2023-05-28] MEDS: Insulin Glargine,Hum.rec.anlog 100 UNIT/ML 10 ML VIAL 15 UNIT SUBCUT (21:18)
[2023-05-28 21:40] LABS: Glucose, Whole Blood 373 mg/dL (60-115)
[2023-05-29 03:13] VITALS: BP 154/72; PULSE 66; RESP 16; TEMP 36.3; O2SAT 98
[2023-05-29] MEDS: Omeprazole 20 MG CAPSULE.DR PO (05:28)
[2023-05-29 07:14] LABS: Glucose, Whole Blood 141 mg/dL (60-115)
[2023-05-29 07:35] VITALS: BP 141/55; PULSE 58; RESP 20; TEMP 36.1; O2SAT 99
[2023-05-29 07:37] VITALS: PULSE 67; RESP 15; O2SAT 100
[2023-05-29] MEDS: Fluticasone/Vilanterol 200/25 BLST.W.DEV 1 PUFF INHALE (07:37)
[2023-05-29] MEDS: Metoprolol Tartrate 50 MG TABLET PO (08:06)
[2023-05-29] MEDS: Atorvastatin Calcium 80 MG TABLET PO (08:06)
[2023-05-29] MEDS: amLODIPine Besylate 5 MG TABLET PO (08:07)
[2023-05-29] MEDS: predniSONE 20 MG TABLET 40 MG PO (08:07)
[2023-05-29] MEDS: 0.9 % Sodium Chloride Flush 3 ML SYRINGE IVFLUSH (08:07)
[2023-05-29] MEDS: Aspirin Enteric Coated 81 MG TABLET.DR PO (08:07)
[2023-05-29] MEDS: Apixaban 5 MG TABLET PO (08:07)
--- NOTE | 2023-05-29 10:15 | P.DS_ITS ---
DS: Providers Provider Date of Service: 05/29/23 Date of admission: 05/24/23 09:20 Primary care physician: Unknown Physician Consults: 05/24/23 09:44 Consult to Cardiology Routine Consulting Provider: [facility] [place] Cardi[facility] Reason for consultation: ?aflutter, chf Has provider been notified: Yes DS: Diagnosis Discharge Diagnosis (1) Acute on chronic congestive heart failure: Status: Acute (2) Atrial flutter: Status: Acute DS: Summary Hospital Course Hospital Course: from initial hpi: 82M PMH chronic hypoxic respiratory failure on 2L due to copd, CAD s/p CABG 2022, CHARLES, DM, HTN, hld, chronic systolic chf (EF 40-45%), paroxysmal afib presented with sob. patient reports about 2 weeks of worsening sob, associated with weakness, orthopnea, lower extremity swelling. denies chest pain, cough, fevers. hypoxic to 80s on 2L, cxr with small bilateral effusions and interstitial prominence. hospital course: Patient was admitted for chronic hypoxic respiratory failure due to acute on chronic CHF with recovered ejection fraction and sealed with acute decompensation as well as pulmonary hypertension. He received IV diuresis and prednisone as well as bronchodilators, on discharge will continue on lasix 40mg daily. His O2 was eventually able to weaned back to baseline of 2 L and shortness of breath significantly improved. Lower extremity edema resolved. Patient noted to have paroxysmal atrial flutter with rapid ventricular response. He was treated with metoprolol and digoxin load. Digoxin is discontinued for bradycardia. Heart rate is now well controlled in persistent atrial flutter. He was started on Eliquis. He is asymptomatic. Coronary disease his Plavix has been continued as he has been started on Eliquis. He was continued on aspirin, and statin. If retention he was continued on metoprolol and amlodipine. For hyperlipidemia was continued on statin. For diabetes was continued on basal bolus insulin. Patient is feeling better will be discharged home. Time Attestation Discharge coordination time: Greater than 30 minutes Quality: Safe Use of Opioids Does Pt have an Active Cancer Diagnosis on the Problem List?: No Quality: Stroke Does the patient have a stroke diagnosis?: No Physical Exam Vital Signs: Vital Signs: Last Vital Signs Temp 97.0 F 05/29/23 07:35 Pulse 67 05/29/23 07:37 Resp 15 05/29/23 07:37 BP 141/55 H 05/29/23 07:35 Pulse Ox 99 05/29/23 07:35 O2 Del Method Nasal Cannula 05/29/23 07:35 O2 Flow Rate 2 05/29/23 07:35 Oxygen Flow Rate 3 05/24/23 06:31 BMI result Body Mass Index 24.3 General: AO X 3, no acute distress Resp: CTA bilateral, no accessory muscles used CVS: S1,S2,RRR GI: soft, non tender, non distended Neuro: motor grossly intact, alert Psych: appropriate affect, appropriate insight DS: Data Data Completed and Pending Labs on day of discharge: Laboratory Results - last 24 hr 05/28/23 05/28/23 05/28/23 11:33 16:04 21:06 POC Glucose 206 H 379 H* 362 H* 05/28/23 05/29/23 21:35 07:06 POC Glucose 373 H* 141 H Discharge Plan Discharge Anticipated Discharge Date/Time: 05/29/23 10:13 Patient Disposition: Home, Self-Care Discharge Diagnosis: aflutter, copd Referrals: Sana Higuera NP-C [Nurse Practitioner] - 1 Week Physician,Unknown J [Primary Care Provider] - 1 Week Discharge Medications: New Eliquis 5 mg Tablet 5 mg PO BID Qty: 60 0RF furosemide 40 mg tablet 40 mg PO DAILY Qty: 30 0RF Continued (DME) FreeStyle Lite Strips Strip See Rx Instructions .ROUTE .MEDSUPPLY Qty: 100 3RF Rx Instructions: As directed (DME) lancets [FreeStyle Lancets] 28 gauge misc See Rx Instructions .ROUTE .MEDSUPPLY Qty: 100 3RF Rx Instructions: As directed (DME) pen needle, diabetic [1st Tier Unifine Pentips Plus] 29 gauge x 1/2 needle See Rx Instructions .Route Qty: 100 3RF Rx Instructions: Use 1 pen needle once a day metformin 1,000 mg tablet 1,000 mg PO BID 90 Days Qty: 180 2RF PreserVision AREDS [id number] Capsule 1 cap PO BID albuterol sulfate 2.5 mg /3 mL (0.083 %) Solution For Nebulization 2.5 mg INHALATION Q6H PRN (Reason: Wheezing) budesonide-formoterol [Symbicort] 160-4.5 mcg/actuation HFA aerosol inhaler 2 puff inhalation BID atorvastatin 80 mg tablet 80 mg PO DAILY omeprazole magnesium 20 mg tablet,delayed release (DR/EC) 20 mg PO DAILY@0630 (DME) blood pressure test kit-large Kit See Rx Instructions .Route Qty: 1 0RF Rx Instructions: As directed aspirin [Adult Low Dose Aspirin] 81 mg tablet,delayed release (DR/EC) 81 mg PO DAILY amlodipine 5 mg tablet 5 mg PO DAILY metoprolol tartrate 50 mg tablet 50 mg PO BID glipizide 5 mg tablet extended release 24hr 5 mg PO DAILY 90 Days Qty: 90 2RF Discontinued clopidogrel 75 mg tablet 75 mg PO DAILY Discharge Orders: Discharge Order (Routine); Ordered 05/29/23 Ordered By: Fabio Anderson Diet: Advance to usual diet Activity on Discharge: As tolerated Stand Alone Forms: Patient Portal Discharge page Care Plan Goals: recovery Health Concerns: aflutter, copd, chf Plan of Treatment: start guy sage Assessment: see above Discharge Date/Time: 05/29/23 11:43
--- NOTE | 2023-05-29 10:49 | MHC.CM.PN ---
Second IMM 05/29/23, Pt has been medically cleared for DC. His family will transport home, DC plan is self care.
--- NOTE | 2023-05-29 10:52 | PM.PNCARD ---
Subjective Subjective Date of Service: 05/29/23 Interval history: Seen examined at bedside. Feeling better. Physical Exam Vital Signs: Last Vital Signs Temp 97.0 F 05/29/23 07:35 Pulse 67 05/29/23 07:37 Resp 15 05/29/23 07:37 BP 141/55 H 05/29/23 07:35 Pulse Ox 99 05/29/23 07:35 O2 Del Method Nasal Cannula 05/29/23 07:35 O2 Flow Rate 2 05/29/23 07:35 Oxygen Flow Rate 3 05/24/23 06:31 BMI result Body Mass Index 24.3 GENERAL APPEARANCE: in no acute distress, pleasant. On supplemental oxygen. NECK: no carotid bruit, no jugular venous distention. SKIN: no suspicious lesions, warm and dry. HEART: Systolic murmur, regular rate and rhythm. LUNGS: clear to auscultation bilaterally. ABDOMEN: soft, nontender. EXTREMITIES: +edema. PERIPHERAL PULSES: equal. NEUROLOGIC: No gross deficits, AAO X 3 Objective Labs and Meds 05/28/23 06:53 05/28/23 06:53 Lab results: Laboratory Results - last 24 hr 05/28/23 05/28/23 05/28/23 11:33 16:04 21:06 POC Glucose 206 H 379 H* 362 H* 05/28/23 05/29/23 21:35 07:06 POC Glucose 373 H* 141 H Progress Note: A&P Assessment and plan (1) Atrial flutter: Status: Acute (2) Acute on chronic congestive heart failure: Status: Acute Plan 82-year-old gentleman who is status post bypass surgery who presented with shortness of breath and congestive heart failure. He was diagnosed with atrial flutter which is a new diagnosis. His Plavix was stopped and he has been started on apixaban. Clinically has improved significantly with diuretics. Can be changed to oral Lasix 40 mg once a day. He wishes to change to our practice and we will set him up with Dr. Scott for follow-up. Thank you for allowing me to participate in the care of your patient. Please feel free to contact me if you have any questions. Time Spent With Patient Time: Total time managing care of this patient today ____ minutes. Progress Note: Quality Stroke Does the patient have a stroke diagnosis?: No Reason for No Anti-thrombotic by Day Two: N/A - Med Ordered Procedures Date of Service Date of Service: 05/29/23
== END 2023-05-29 11:43 | disposition home or self-care (01) | DRG 291 ==
LOC: HO.ED 07:29 → HO.EDOVER 09:27 → HO.IMC 18:44
PROVIDERS: Admitting Provider Internal Medicine; Emergency Provider Emergency Medicine; Visit Provider Internal Medicine
DX: I11.0 Hypertensive heart disease with heart failure (principal); I50.23 Acute on chronic systolic (congestive) heart failure; J96.21 Acute and chronic respiratory failure with hypoxia; I47.20 Ventricular tachycardia, unspecified; J44.1 Chronic obstructive pulmonary disease with (acute) exacerbation; I48.92 Unspecified atrial flutter; I47.10 Supraventricular tachycardia, unspecified; I27.20 Pulmonary hypertension, unspecified; E11.65 Type 2 diabetes mellitus with hyperglycemia; I25.10 Atherosclerotic heart disease of native coronary artery without angina pectoris; I48.0 Paroxysmal atrial fibrillation; Z20.822 Contact with and (suspected) exposure to COVID-19; Z95.5 Presence of coronary angioplasty implant and graft; Z99.81 Dependence on supplemental oxygen; Z79.84 Long term (current) use of oral hypoglycemic drugs; Z79.01 Long term (current) use of anticoagulants; Z79.899 Other long term (current) drug therapy
CPT/HCPCS: 36415; 71045; 80048; 80076; 82803; 82947; 83605; 83735; 83880; 84484; 85025; 85027; 85610; 87040; 87502; 87635; 93005; 93306; 94640; 99285; J0456; J0696; J1120; J1160; J1940; J2930; Q9957

== ENCOUNTER → 2023-05-24 09:20 | Outpatient (BNV) | payer MEDICARE, SELFPAY | PROVIDERS: Admitting Provider Internal Medicine; Emergency Provider Emergency Medicine; Visit Provider Internal Medicine | DX: I50.9 Heart failure, unspecified (principal); I48.92 Unspecified atrial flutter | CPT/HCPCS: 99223; 99232; 99233; 99239 ==

== ENCOUNTER → 2023-05-24 09:20 | Outpatient (BNV) | payer MEDICARE, SELFPAY | PROVIDERS: Admitting Provider Internal Medicine; Emergency Provider Emergency Medicine; Visit Provider Internal Medicine | DX: I48.92 Unspecified atrial flutter (principal); I50.9 Heart failure, unspecified | CPT/HCPCS: 93010; 93306; 99223; 99232; 99233 ==

== ENCOUNTER 2023-06-11 09:02 | Inpatient (IN) | payer MEDICARE, SELFPAY ==
--- NOTE | ~2023-06-11 | XR_ITS ---
EXAMINATION: XR CHEST CLINICAL INFORMATION: Shortness of breath COMPARISON: 05/24/2019 TECHNIQUE: Frontal view of the chest was obtained. FINDINGS: Patient is status post median sternotomy and CABG procedure. There is left anterior (this clip identified again. There is no significant interval change in appearance of pleural plaques bilaterally. Lungs are of low volume. There are increased interstitial markings bilaterally and by apical scarring. There is small bilateral pleural effusion unchanged since previous study. XR/XR chest 1V IMPRESSION: No interval change
--- NOTE | ~2023-06-11 | CT_ITS ---
EXAMINATION: CT head/brain wo IV con CLINICAL INFORMATION: Reason for Exam AMS COMPARISON: CT head 04/05/2016 TECHNIQUE: Contiguous axial imaging was performed from the skull base to vertex without intravenous contrast. Sagittal and coronal reformatted images were obtained. This CT examination was performed using dose optimization techniques as appropriate, variously including the following: * Automated exposure control * Adjustment of mA and/or kV according to patient size (this includes techniques or standardized protocols for targeted exams where dose is matched to indication/reason for exam; i.e. extremities or head) Use of iterative reconstruction technique DLP: 684 mGy-cm FINDINGS: The posterior fossa and skull base are obscured by motion. No acute intracranial hemorrhage or territorial loss of wiley-white differentiation in the nondegraded aspects of the examination. No midline shift. The basal cisterns are preserved. The ventricles and sulci are appropriate in size and configuration for the patient's stated age. Periventricular and subcortical white matter hypodensity is nonspecific but likely represents chronic microvascular ischemic change. Intracranial atherosclerotic calcification is noted. No depressed calvarial fracture along the nondependent graded portions of the examination. The mastoid air cells are well aerated. Scattered polypoid because of thickening in the paranasal sinuses. Bilateral intraocular lens replacements. CT/CT head/brain wo IV con IMPRESSION: The posterior fossa and skull base are obscured by motion. No acute intracranial hemorrhage or territorial loss of wiley-white differentiation in the nondegraded aspects of the examination.
--- NOTE | ~2023-06-11 | XR_ITS ---
EXAMINATION: XR CHEST CLINICAL INFORMATION: AMS. COMPARISON: Chest 06/11/2023 TECHNIQUE: Frontal view of the chest was obtained. FINDINGS: The lungs are hypoexpanded with haziness in both lung bases likely pleural effusion. There are calcified bilateral pleural plaques and bilateral prominent interstitial markings. Heart size is normal. Pulmonary vascularity is normal. There is left atrial appendage clip. XR/XR chest 1V IMPRESSION: 1. Hypoexpanded lungs with haziness in both lung bases likely pleural effusion/atelectasis. 2. Calcified pleural plaques and prominent interstitial markings are stable.
--- NOTE | ~2023-06-11 | XR_ITS ---
EXAMINATION: XR CHEST CLINICAL INFORMATION: Follow-up CHF COMPARISON: Chest 06/11/2023 TECHNIQUE: Frontal view of the chest was obtained. FINDINGS: The lungs are hypoexpanded with calcified bilateral pleural plaques and right apical pleural thickening and bilateral prominent interstitial markings. No acute consolidation seen. Heart size is normal. There is evidence of previous CABG. There is atrial appendage clip. Mild spondylosis mid and lower dorsal spine. XR/XR chest 1V IMPRESSION: 1. Bilateral calcified pleural plaques and right apical pleural thickening. No acute consolidation seen. Prominent interstitial markings are stable 2. There is mild spondylosis mid and lower dorsal spine. 3. 2. No major change from previous exam 06/11/2023.
--- NOTE | ~2023-06-11 | CT_ITS ---
EXAMINATION: CT CHEST WITHOUT CONTRAST CLINICAL INFORMATION: Possible aspiration COMPARISON: CT chest 04/01/2022. TECHNIQUE: Multidetector volumetric CT imaging of the chest was done. Axial MIP volume rendering provided. Sagittal and coronal reformatted images were obtained. This CT examination was performed using dose optimization techniques as appropriate, variously including the following: *Automated exposure control *Adjustment of mA and/or kV according to patient size (this includes techniques or standardized protocols for targeted exams where dose is matched to indication/reason for exam; i.e. extremities or head) *Use of iterative reconstruction technique DLP: 448 mGy-cm FINDINGS: SORTER UPHOLSTERY PARTS: Hyperinflated lungs. LUNGS: There is emphysematous in both lungs with subpleural linear and bilateral interstitial markings suggestive chronic interstitial lung changes most prominent in the lower lobes. No acute consolidation seen MEDIASTINUM: Thyroid lobes are symmetrical and normal. The central trachea and the airway appears patent. No abnormal size mediastinal or hilar lymph nodes seen. There is ectatic pulmonary artery. The thoracic aorta is of normal caliber. No pericardial effusion seen. CORONARY ARTERY CALCIFICATION: There is moderate coronary artery calcifications.. PLEURA: There is bilateral pleural calcifications and small bilateral loculated effusions minimally greater on the right. AXILLA: No lymphadenopathy. UPPER ABDOMEN: Visualized liver, spleen, pancreas and bilateral adrenal glands are unremarkable. The gallbladder has been removed. OSSEOUS STRUCTURES: Degenerative changes are seen throughout this thoracic spine without fracture. Process seen. CT/CT chest wo IV con IMPRESSION: No evidence of aspiration pneumonia, mass or consolidation. Emphysema, calcified pleural plaques or from previous stenosis exposure. There are small bilateral pleural effusions. There is chronic interstitial changes throughout both lungs more prominent in the lower lobes. Fleischner guidelines were followed.
[2023-06-11 09:08] VITALS: BP 122/60; PULSE 56; RESP 22; TEMP 36; O2SAT 83; BMI 24.3
--- NOTE | 2023-06-11 09:29 | ECG_ITS ---
Test Reason : SOB Blood Pressure : / mmHG Vent. Rate : 066 BPM Atrial Rate : 264 BPM P-R Int : 000 ms QRS Dur : 092 ms QT Int : 406 ms P-R-T Axes : 258 010 171 degrees QTc Int : 425 ms Atrial flutter with variable A-V block ST & T wave abnormality, consider lateral ischemia Abnormal ECG When compared with ECG of 24-MAY-2023 06:27, Criteria for Lateral infarct are no longer Present Referred By: Lore Sanchez Electronically Signed By:MELY SAMPSON
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
[2023-06-11 09:48] VITALS: BP 116/50; PULSE 68; RESP 19; O2SAT 98
[2023-06-11 09:49] LABS: MANUAL DIFF FLAG NO
[2023-06-11 09:51] LABS: Basophils Percent Auto 0.6 % (0-2); Eosinophils Absolute Auto 0.3 X10*3/uL (0.0-0.4); Eosinophils Percent Auto 3.8 % (0-4); Hematocrit 38.1 % (42.0-52.0); Hemoglobin 11.7 g/dl (14.0-18.0); Imm Gran Abs Auto 0.02 X10*3/uL (0.00-0.03); Imm Gran Pct Auto 0.3 % (0.0-0.4); Lymphocytes Absolute Auto 0.9 X10*3/uL (1.2-4.9); Lymphocytes Percent Auto 12.5 % (20-40); Mean Corpuscular HGB Conc 30.7 g/dl (31.0-36.0); Mean Corpuscular Hemoglobin 29.6 pg (27.0-33.0); Mean Corpuscular Volume 96.5 fL (80.0-98.0); Mean Platelet Volume 9.7 fL (9.4-12.4); Monocytes Absolute Auto 0.5 X10*3/uL (0.1-1.2); Monocytes Percent Auto 7.6 % (2-11); Neutrophils Absolute Auto 5.4 x10*3/uL (2.0-8.3); Neutrophils Percent Auto 75.2 % (45-73); Platelet Count 224 X10*3/uL (160-400); Red Blood Count 3.95 X10*6/uL (4.60-5.80); Red Cell Distribution Width 13.9 % (11.0-16.0); White Blood Count 7.1 X10*3/uL (4.8-10.8)
[2023-06-11 09:58] LABS: INTERNATIONAL NORM RATIO 1.4 (0.9-1.1); Prothrombin Time 16.9 SEC (11.1-13.3)
[2023-06-11 10:06] LABS: Alanine Aminotransferase 26 U/L (0-40); Albumin Level 3.7 g/dL (3.5-5.0); Alkaline Phosphatase 113 U/L (39-117); Anion Gap 15 (12-20); Aspartate Amino Transferase 18 U/L (5-37); Bilirubin Direct 0.3 mg/dL (0.0-0.5); Bilirubin Total 0.8 mg/dL (0.0-1.0); Blood Urea Nitrogen 21 mg/dL (9-16); Calcium 9.3 mg/dL (8.4-10.2); Carbon Dioxide 38 mmol/L (22-29); Chloride 93 mmol/L (96-108); Creatinine Clr Calc Pharmacy 66.7; Estimated Glomerular Filt Rate > 60; Glucose Random 234 mg/dL (60-115); Lipase 21 U/L (8-78); Potassium 4.3 mmol/L (3.3-5.1); Sodium 142 mmol/L (135-145); Total Protein 6.7 g/dL (6.5-8.0)
[2023-06-11 10:09] VITALS: BP 123/60; PULSE 70
[2023-06-11] MEDS: Furosemide 40 MG/4 ML VIAL IVPUSH (10:09)
[2023-06-11] MEDS: Aspirin 81 MG TAB.CHEW PO (10:09)
[2023-06-11] MEDS: Nitroglycerin 2 % Oint 1 GM Packet 0.5 INCH TRANSDERMA (10:09)
[2023-06-11 10:11] LABS: B Type Natriuretic Peptide 411 pg/mL (<100)
[2023-06-11 10:29] LABS: Influenza A PCR NEGATIVE (Negative); Influenza B PCR NEGATIVE (Negative); Resp Syncy Virus RNA Qual PCR NEGATIVE (Negative); SARS COV2 PCR INHOUSE NEGATIVE (Negative)
[2023-06-11 10:59] LABS: Appearance Urine Clear; Color Urine Yellow; Glucose Urine UA Negative (Negative); Leukocyte Esterase Urine Negative (Negative); Nitrite Urine Negative (Negative); Urine Blood Negative (Negative); Urine Ketones Negative (Negative); Urine Protein Negative (Neg-Trace)
--- NOTE | 2023-06-11 11:02 | PC.NURSE ---
Xray at bedside.
[2023-06-11 12:15] VITALS: BP 127/64; PULSE 85; RESP 23; O2SAT 97
--- NOTE | 2023-06-11 12:30 | PC.NURSE ---
Hospitalist at bedside.
--- NOTE | 2023-06-11 13:10 | PM.IMHP ---
History of Present Illness Date of Service: 06/11/23 Attending physician on admission: Fabio Anderson Chief Complaint: sob, edema 82 year old male with history of chronic hypoxic hypercapnic respiratory failure on 2L due to copd, CAD s/p CABG 2022, CHARLES, DM, HTN, hld, chronic systolic chf (EF 40-45%), persistent atrial flutter anticoagulated with eliquis presented to the ED for evaluation of worsening exertional dyspnea over the last 2 weeks. Also reports orthopnea and increased lower extremity edema. Has not required increase in supplemental O2 at home. Recent admission from 05/24-05/29 due to chf exacerbation discharged on lasix and eliquis. He had been trialed on digoxin but developed bradycardia. He has not been retrictring fluids and does not limit sodium intake. Denies weight gain. No lightheadedness, palpitations, sob at rest, wheezing, chest pain. On arrival, pt hypoxic to 83% on RA, but patient was placed back on home O2 at 2L maintaining oximetry 97%. Mild tachypnea, ,vitals otherwise stable. Hematology studies stable. Renal function baseline, lytes normal except for CO2 38 which is consistent with patient's baseline. Trop wnl. BNP 411. UA unremarkable. Negative for covid, flu, rsv. CXR stable compared to prior studies. In the ED, given 81mg asa, 40mg iv lasix, and 0.5inch nitropaste. Review of Systems Review of Systems: General: No fevers, malaise, unintentional weight loss HEENT: No blurred vision, diplopia. No sore throat, nasal congestion, rhinorrhea, sinus pain, ear pain Cardiovascular: No chest pain, palpitations, or leg edema Respiratory: +hirsch, +orthopnea. No wheezing GI: No abdominal pain, nausea, vomiting, diarrhea, constipation, melena, hematochezia : No dysuria, hematuria, increased urinary frequency, decreased urinary output MSK: No myalgia, back pain Neuro: No headaches, weakness, paresthesias Skin: No rashes or lesions [facility] Medical History (Updated 06/11/23 @ 13:30 by JUAN M Ryan) Afib COPD (chronic obstructive pulmonary disease) Coronary artery disease CAD (coronary artery disease) DMII (diabetes mellitus, type 2) HTN (hypertension) Family History Father No problems noted. Mother No problems noted. Surgical History History of colonoscopy History of lung surgery History of cholecystectomy Social History Household Members: Spouse Housing: House Do you presently have visiting nurse or other home services: No Alcohol intake: current Alcohol intake frequency: 0-2 drinks per day Comment: REFUSING Patient Tobacco Use Status: Never used Tobacco Tobacco use type: Cigarette Smoked in Last 30 Days: No e-Cigarette/Vaping Use: Never Used Second Hand Smoke Exposure: No Use of substances other than those prescribed or required for medical reasons: No Advance Directives: No Advance Directives Information Provided: No service: No Current occupational status: retired Cognitive needs: No Hearing needs: No Vision needs: Yes (glasses) Meds Allergies Allergy/AdvReac Type Severity Reaction Status Date / Time No Known Allergies Allergy Verified 06/11/23 09:12 [No Known Allergies*] Active Medications: Current Medications Acetaminophen (Acetaminophen 325 Mg Tablet) 650 mg PO Q6H PRN PRN Reason: Pain, Mild (Pain Scale 1-3) Ondansetron HCl (Ondansetron Hcl 4 Mg/2 Ml Vial) 4 mg IVPUSH Q8H PRN PRN Reason: Nausea and Vomiting Senna (Sennosides 8.6 Mg Tablet) 17.2 mg PO BEDTIME PRN PRN Reason: Constipation Sodium Chloride (0.9 % Sodium Chloride Flush 3 Ml Syringe) 3 ml [facility] Medications Medication Instructions Recorded Confirmed Last Taken Type atorvastatin 80 mg tablet 80 mg PO DAILY 04/21/20 05/24/23 05/23/23 History omeprazole magnesium 20 mg 20 mg PO DAILY@0630 04/21/20 05/24/23 05/23/23 History tablet,delayed release aspirin 81 mg tablet,delayed 81 mg PO DAILY 01/30/22 05/24/23 05/23/23 History release (Adult Low Dose Aspirin) albuterol sulfate 2.5 mg/3 mL 2.5 mg inhalation Q6H PRN Wheezing 04/01/22 05/24/23 Unknown History (0.083 %) solution for nebulization vitamins A,C,S-dejp-oktomv 4,296 1 cap PO BID 04/01/22 05/24/23 05/23/23 History mcg-226 mg-90 mg capsule (PreserVision AREDS) amlodipine 5 mg tablet 5 mg PO DAILY 12/11/22 05/24/23 05/23/23 History metoprolol tartrate 50 mg tablet 50 mg PO BID 12/11/22 05/24/23 05/23/23 History budesonide-formoterol HFA 160 2 puff inhalation BID 05/24/23 05/24/23 05/23/23 History mcg-4.5 mcg/actuation aerosol inhaler (Symbicort) Physical Exam Vital Signs and Narrative: Vital Signs: Last Vital Signs Temp 96.8 F 06/11/23 09:08 Pulse 85 06/11/23 12:15 Resp 23 H 06/11/23 12:15 BP 127/64 06/11/23 12:15 Pulse Ox 97 06/11/23 12:15 O2 Del Method Nasal Cannula 06/11/23 12:15 O2 Flow Rate 2 06/11/23 12:15 Oxygen Flow Rate 2 06/11/23 09:08 BMI result Body Mass Index 24.3 Constitutional - Awake and Alert, No apparent distress Eyes - PERRLA, EOMI Neck - +jvd Cardiovascular - S1S2, RRR, No edema Respiratory - Normal lung expansion, Normal respiratory effort, No respiratory distress, crackles bilaterally with scattered faint expiratory wheezes Gastrointestinal - NT / ND; +BS; No rebound or guarding Extremities - no calf tenderness bilaterally, no swelling Skin - Warm/Dry Neurological - Alert & oriented x3 Psychological - Appropriate affect Results Labs 06/11/23 09:43 06/11/23 09:43 Labs: Laboratory Results - last 24 hr 06/11/23 06/11/23 06/11/23 09:43 09:47 10:51 MCV 96.5 MCH 29.6 MCHC 30.7 L RDW 13.9 Plt Count 224 MPV 9.7 Immature Gran % (Auto) 0.3 Neut % (Auto) 75.2 H Lymph % (Auto) 12.5 L [place] % (Auto) 7.6 Eos % (Auto) 3.8 Baso % (Auto) 0.6 Lymph # (Auto) 0.9 L [place] # (Auto) 0.5 Eos # (Auto) 0.3 Baso # (Auto) 0.0 Abs Immat Gran (auto) 0.02 Absolute Neuts (auto) 5.4 Absolute Nucleated RBC 0.000 Nucleated RBC % (auto) 0.0 PT 16.9 H D INR 1.4 H Anion Gap 15 Estim Creat Clear Calc 66.7 Estimated GFR > 60 Random Glucose 234 H Calcium 9.3 Total Bilirubin 0.8 Direct Bilirubin 0.3 AST 18 ALT 26 Alkaline Phosphatase 113 B-Natriuretic Peptide 411 H Total Protein 6.7 Albumin 3.7 Lipase 21 Urine Color Yellow Urine Appearance Clear Urine pH 6.0 Ur Specific [place] 1.010 Urine Protein Negative Urine Glucose (UA) Negative Urine Ketones Negative Urine Blood Negative Urine Nitrite Negative Ur Leukocyte Esterase Negative Influenza Type A (PCR) NEGATIVE Influenza Type B (PCR) NEGATIVE RSV RNA Qual (PCR) NEGATIVE SARS-CoV-2 RNA (RT-PCR) NEGATIVE Imaging Radiologist's Impressions: Impressions Chest X-Ray 06/11/23 11:05 IMPRESSION: No interval change Assessment and Plan (1) Acute on chronic congestive heart failure: Status: Acute Plan 82 year old male with history of chronic hypoxic hypercapnic respiratory failure on 2L due to copd, CAD s/p CABG 2022, CHARLES, DM, HTN, hld, chronic systolic chf (ef 51%), persistent atrial flutter anticoagulated with eliquis admitted for CHF exacerbation #Acute CHF exacerbation -BNP 411, worsening sx hirsch, edema, orthopnea -40mg IV lasix daily -strict I&O -cardiac diet. fluid restrictions -daily weights -Last echo 05/24/2023- mildly decreased LV systolic dysfunction, basal inferior and inferolateral akinesis, grade 2 diastolic dysfunction, moderate pulm htn, mild-mod aortic stenosis, severe mitral annular calcification -monitor renal fx/lytes. trend bnp -consider cardiology consult if no improvements #Chronic hypoxic hypercapnic respiratory failure due to COPD -no acute exacerbation -no acute hypoxia. continue 2L home O2 -continue maintenance inhalers, albuterol prn #CAD/hld -no anginal chest pain -continue asa, eliquis, statin, bb #HTN -continue metoprolol, amlodipine #Persistent atrial flutter- rate controlled -continue eliquis, metoprolol #non insulin dependent type 2 dm with hyperglycemia -poc glucose, diabetic diet -humalog ssi DVT prophylaxis- eliquis Full code Pt requires inpt stay at least 2 midnights due to chf exacerbation with significant orthopnea, hirsch, jvd requiring iv diuresis and close monitoring of renal function/lytes as well as intake and outpt Quality Stroke Does the patient have a stroke diagnosis?: No VTE Prior VTE?: No VTE Risk Level:: Medical - moderate - high VTE Device Contraindication: Treatment Not Indicated VTE Drug Contraindication: N/A - Med Ordered
--- NOTE | 2023-06-11 13:59 | PHA.MEDREC ---
Pharmacy Consult ? Medication Reconciliation Pharmacy has completed the medication reconciliation. Confirmed medications with patient and . Also reported he is no longer taking Clopidogrel.
[2023-06-11] MEDS: 0.9 % Sodium Chloride Flush 3 ML SYRINGE IVFLUSH ×2 (16:00→21:14)
[2023-06-11 18:15] VITALS: BP 140/61; PULSE 87; RESP 19; TEMP 36.5; O2SAT 91
[2023-06-11 19:32] LABS: Glucose, Whole Blood 204 mg/dL (60-115)
[2023-06-11] MEDS: Apixaban 5 MG TABLET PO (21:14)
[2023-06-11] MEDS: Metoprolol Tartrate 50 MG TABLET PO (21:14)
[2023-06-11] MEDS: Insulin Lispro 100 UNIT/ML 3 ML VIAL SUBCUT (22:06)
[2023-06-11 22:07] LABS: Glucose, Whole Blood 243 mg/dL (60-115)
[2023-06-11 23:59] VITALS: BP 129/59; PULSE 56; RESP 18; TEMP 37.3; O2SAT 98
[2023-06-12] VITALS (8 sets, daily range): BP systolic 103–146; BP diastolic 55–84; PULSE 67–91; RESP 16–20; TEMP 36.3–37.6; O2SAT 92–98; BMI 24.2
[2023-06-12] MEDS: Omeprazole 20 MG CAPSULE.DR PO (04:49)
[2023-06-12 07:00] LABS: Glucose, Whole Blood 127 mg/dL (60-115)
[2023-06-12 07:27] LABS: MANUAL DIFF FLAG NO
[2023-06-12 07:30] LABS: Basophils Absolute Auto 0.1 X10*3/uL (0.0-0.2); Basophils Percent Auto 0.9 % (0-2); Eosinophils Absolute Auto 0.4 X10*3/uL (0.0-0.4); Hematocrit 38.7 % (42.0-52.0); Imm Gran Abs Auto 0.02 X10*3/uL (0.00-0.03); Imm Gran Pct Auto 0.3 % (0.0-0.4); Lymphocytes Absolute Auto 1.2 X10*3/uL (1.2-4.9); Lymphocytes Percent Auto 15.8 % (20-40); Mean Corpuscular Hemoglobin 29.9 pg (27.0-33.0); Mean Corpuscular Volume 96.3 fL (80.0-98.0); Mean Platelet Volume 9.7 fL (9.4-12.4); Monocytes Absolute Auto 0.5 X10*3/uL (0.1-1.2); Monocytes Percent Auto 6.6 % (2-11); Neutrophils Absolute Auto 5.3 x10*3/uL (2.0-8.3); Neutrophils Percent Auto 71.4 % (45-73); Platelet Count 229 X10*3/uL (160-400); Red Blood Count 4.02 X10*6/uL (4.60-5.80); Red Cell Distribution Width 13.8 % (11.0-16.0); White Blood Count 7.4 X10*3/uL (4.8-10.8)
[2023-06-12 08:04] LABS: B Type Natriuretic Peptide 258 pg/mL (<100)
[2023-06-12 08:07] LABS: Blood Urea Nitrogen 19 mg/dL (9-16); Calcium 9.5 mg/dL (8.4-10.2); Creatinine Clr Calc Pharmacy 76.7; Estimated Glomerular Filt Rate > 60; Glucose Random 130 mg/dL (60-115)
[2023-06-12] MEDS: Fluticasone/Vilanterol 200/25 BLST.W.DEV 1 PUFF INHALE (08:22)
[2023-06-12 08:23] LABS: Anion Gap 14 (12-20); Carbon Dioxide 41 mmol/L (22-29); Chloride 90 mmol/L (96-108); Potassium 4.1 mmol/L (3.3-5.1); Sodium 141 mmol/L (135-145)
[2023-06-12] MEDS: Apixaban 5 MG TABLET PO ×2 (08:30→21:08)
[2023-06-12] MEDS: Multivitamin TABLET 1 TAB PO (08:30)
[2023-06-12] MEDS: Metoprolol Tartrate 50 MG TABLET PO ×2 (08:30→22:33)
[2023-06-12] MEDS: Atorvastatin Calcium 80 MG TABLET PO (08:30)
[2023-06-12] MEDS: amLODIPine Besylate 5 MG TABLET PO (08:30)
[2023-06-12] MEDS: Aspirin Enteric Coated 81 MG TABLET.DR PO (08:30)
[2023-06-12] MEDS: 0.9 % Sodium Chloride Flush 3 ML SYRINGE IVFLUSH ×3 (08:31→21:08)
[2023-06-12] MEDS: Furosemide 40 MG/4 ML VIAL IVPUSH (08:31)
--- NOTE | 2023-06-12 09:00 | P.PNIM_ITS ---
Subjective Subjective Date of Service: 06/12/23 Interval History: sob, le edema Review of Systems Review of Systems: Yes all other systems are reviewed and are negative Physical Exam 2 Vital Signs: Vital Signs: Last Vital Signs Temp 98.3 F 06/12/23 07:12 Pulse 72 06/12/23 08:26 Resp 18 06/12/23 08:26 BP 122/67 06/12/23 07:12 Pulse Ox 94 06/12/23 07:12 O2 Del Method Nasal Cannula 06/12/23 07:12 O2 Flow Rate 2 06/12/23 07:12 Oxygen Flow Rate 2 06/11/23 09:08 BMI result Body Mass Index 24.2 General: AO X 3, no acute distress Resp: crackles at bases bilateral, no accessory muscles used CVS: S1,S2,RRR, 1-2+ bialteral le edema GI: soft, non tender, non distended Neuro: motor grossly intact, alert Psych: appropriate affect, appropriate insight Objective Data Active Medications Acetaminophen (Acetaminophen 325 Mg Tablet) 650 mg PO Q6H PRN PRN Reason: Pain, Mild (Pain Scale 1-3) Acetazolamide (Acetazolamide 250 Mg Tablet) 250 mg PO TID [facility] Stop: 06/12/23 21:01 Albuterol Sulfate (Albuterol Sulfate (0.083%) 2.5 Mg/3 Ml Vial.Neb) 2.5 mg INHALE Q6H PRN PRN Reason: Wheezing Amlodipine Besylate (Amlodipine Besylate 5 Mg Tablet) 5 mg PO DAILY [facility]; Protocol Last Admin: 06/12/23 08:30 Dose: 5 mg Documented By: ISABELA Apixaban (Apixaban 5 Mg Tablet) 5 mg PO BID [facility] Last Admin: 06/12/23 08:30 Dose: 5 mg Documented By: ISABELA Aspirin (Aspirin Enteric Coated 81 Mg Tablet.) 81 mg PO DAILY [facility] Last Admin: 06/12/23 08:30 Dose: 81 mg Documented By: ISABELA Atorvastatin Calcium (Atorvastatin Calcium 80 Mg Tablet) 80 mg PO DAILY [facility] Last Admin: 06/12/23 08:30 Dose: 80 mg Documented By: ISABELA Dextrose (Dextrose 50 % 25 Gm/50 Ml Syringe) 25 gm IVPUSH Q15M PRN; Protocol PRN Reason: per Hypoglycemia Standing Ord. Fluticasone/Vilanterol (Fluticasone/Vilanterol 200/25 Blst.W.Dev) 1 puff INHALE RDAILY [facility] Last Admin: 06/12/23 08:22 Dose: 1 puff Documented By: EDMUNDO Furosemide (Furosemide 40 Mg/4 Ml Vial) 40 mg IVPUSH DAILY [facility]; Protocol Last Admin: 06/12/23 08:31 Dose: 40 mg Documented By: ISABELA Glucose (Glucose Gel 15 Gm Gel..Gram.) 15 gm PO Q15M PRN; Protocol PRN Reason: per Hypoglycemia Standing Ord. Insulin Human Lispro (Insulin Lispro 100 Unit/Ml 3 Ml Vial) 0 unit SUBCUT QIDACHS [facility]; Protocol Last Admin: 06/12/23 07:42 Dose: Not Given Documented By: ISABELA Non-Admin Reason: No Insulin Coverage Metoprolol Tartrate (Metoprolol Tartrate 50 Mg Tablet) 50 mg PO BID [facility]; Protocol Last Admin: 06/12/23 08:30 Dose: 50 mg Documented By: ISABELA Multivitamins/Vitamin C (Multivitamin Tablet) 1 tab PO DAILY [facility] Last Admin: 06/12/23 08:30 Dose: 1 tab Documented By: ISABELA Omeprazole (Omeprazole 20 Mg Capsule.) 20 mg PO DAILY@0630 [facility] Last Admin: 06/12/23 04:49 Dose: 20 mg Documented By: ANEL Ondansetron HCl (Ondansetron Hcl 4 Mg/2 Ml Vial) 4 mg IVPUSH Q8H PRN PRN Reason: Nausea and Vomiting Senna (Sennosides 8.6 Mg Tablet) 17.2 mg PO BEDTIME PRN PRN Reason: Constipation Sodium Chloride (0.9 % Sodium Chloride Flush 3 Ml Syringe) 3 ml IVFLUSH QSHIFT [facility] Last Admin: 06/12/23 08:31 Dose: 3 ml Documented By: ISABELA Labs 06/12/23 07:11 06/12/23 07:11 Labs: Laboratory Results - last 24 hr 06/11/23 06/11/23 06/11/23 09:43 09:47 10:51 MCV 96.5 MCH 29.6 MCHC 30.7 L RDW 13.9 Plt Count 224 MPV 9.7 Immature Gran % (Auto) 0.3 Neut % (Auto) 75.2 H Lymph % (Auto) 12.5 L Edgar % (Auto) 7.6 Eos % (Auto) 3.8 Baso % (Auto) 0.6 Lymph # (Auto) 0.9 L Edgar # (Auto) 0.5 Eos # (Auto) 0.3 Baso # (Auto) 0.0 Abs Immat Gran (auto) 0.02 Absolute Neuts (auto) 5.4 Absolute Nucleated RBC 0.000 Nucleated RBC % (auto) 0.0 PT 16.9 H D INR 1.4 H Anion Gap 15 Estim Creat Clear Calc 66.7 Estimated GFR > 60 POC Glucose Random Glucose 234 H Calcium 9.3 Total Bilirubin 0.8 Direct Bilirubin 0.3 AST 18 ALT 26 Alkaline Phosphatase 113 B-Natriuretic Peptide 411 H Total Protein 6.7 Albumin 3.7 Lipase 21 Urine Color Yellow Urine Appearance Clear Urine pH 6.0 Ur Specific [place] 1.010 Urine Protein Negative Urine Glucose (UA) Negative Urine Ketones Negative Urine Blood Negative Urine Nitrite Negative Ur Leukocyte Esterase Negative Influenza Type A (PCR) NEGATIVE Influenza Type B (PCR) NEGATIVE RSV RNA Qual (PCR) NEGATIVE SARS-CoV-2 RNA (RT-PCR) NEGATIVE 06/11/23 06/11/23 06/12/23 19:13 22:02 06:56 MCV MCH MCHC RDW Plt Count MPV Immature Gran % (Auto) Neut % (Auto) Lymph % (Auto) Edgar % (Auto) Eos % (Auto) Baso % (Auto) Lymph # (Auto) Edgar # (Auto) Eos # (Auto) Baso # (Auto) Abs Immat Gran (auto) Absolute Neuts (auto) Absolute Nucleated RBC Nucleated RBC % (auto) PT INR Anion Gap Estim Creat Clear Calc Estimated GFR POC Glucose 204 H 243 H 127 H Random Glucose Calcium Total Bilirubin Direct Bilirubin AST ALT Alkaline Phosphatase B-Natriuretic Peptide Total Protein Albumin Lipase Urine Color Urine Appearance Urine pH Ur Specific [place] Urine Protein Urine Glucose (UA) Urine Ketones Urine Blood Urine Nitrite Ur Leukocyte Esterase Influenza Type A (PCR) Influenza Type B (PCR) RSV RNA Qual (PCR) SARS-CoV-2 RNA (RT-PCR) 06/12/23 07:11 MCV 96.3 MCH 29.9 MCHC 31.0 RDW 13.8 Plt Count 229 MPV 9.7 Immature Gran % (Auto) 0.3 Neut % (Auto) 71.4 Lymph % (Auto) 15.8 L Edgar % (Auto) 6.6 Eos % (Auto) 5.0 H Baso % (Auto) 0.9 Lymph # (Auto) 1.2 Edgar # (Auto) 0.5 Eos # (Auto) 0.4 Baso # (Auto) 0.1 Abs Immat Gran (auto) 0.02 Absolute Neuts (auto) 5.3 Absolute Nucleated RBC 0.000 Nucleated RBC % (auto) 0.0 PT INR Anion Gap 14 Estim Creat Clear Calc 76.7 Estimated GFR > 60 POC Glucose Random Glucose 130 H Calcium 9.5 Total Bilirubin Direct Bilirubin AST ALT Alkaline Phosphatase B-Natriuretic Peptide 258 H Total Protein Albumin Lipase Urine Color Urine Appearance Urine pH Ur Specific [place] Urine Protein Urine Glucose (UA) Urine Ketones Urine Blood Urine Nitrite Ur Leukocyte Esterase Influenza Type A (PCR) Influenza Type B (PCR) RSV RNA Qual (PCR) SARS-CoV-2 RNA (RT-PCR) Assessment and Plan (1) Acute on chronic congestive heart failure: Status: Acute Plan 82F PMH chronic hypoxic and hypercapneic respiratory failure due to copd on 2L home o2, cad s/p cabg 2022, cad, dm, htn, hld, chronic systolic chf, persistent aflutter, presented with sob acute on chronic systolic chf lasix iv will add 3 doses diamox for metabolic alkalosis monitor is and os, bmp chronic hypoxic and hypercapneic respiratory failure due to copd appears stable conitnue inhalers cad asa, eliwuis, statin, beta caden htn metoprolol, amlodipine persistetn aflutter eliquis, metoprolol dm with hyperglycemia insulin dvt prophylaxis - eliquis full code reason for continued hospitalization:diuresis Quality Stroke Does the patient have a stroke diagnosis?: No VTE Prior VTE?: No VTE Risk Level:: Medical - moderate - high VTE Device Contraindication: Treatment Not Indicated VTE Drug Contraindication: N/A - Med Ordered
--- NOTE | 2023-06-12 09:28 | MHC.CM.PN ---
IMM 06/12/23 Pt lives with , he did not have home care services, for med. equip he has home O2 from [facility]. He said he is fine with [facility] if it is recommended upon DC. HCP is his , Mya. Family will transport home upon DC. CM to follow and assist with DC plan.
[2023-06-12] MEDS: acetaZOLAMIDE 250 MG TABLET PO ×3 (09:35→21:08)
[2023-06-12 10:56] LABS: Glucose, Whole Blood 193 mg/dL (60-115)
[2023-06-12 16:14] LABS: Glucose, Whole Blood 240 mg/dL (60-115)
[2023-06-12] MEDS: Insulin Lispro 100 UNIT/ML 3 ML VIAL SUBCUT (16:49)
[2023-06-12 20:34] LABS: Glucose, Whole Blood 186 mg/dL (60-115)
[2023-06-13] VITALS (8 sets, daily range): BP systolic 118–140; BP diastolic 56–77; PULSE 56–92; RESP 15–20; TEMP 36.3–36.8; O2SAT 93–98
[2023-06-13] MEDS: Omeprazole 20 MG CAPSULE.DR PO (05:10)
[2023-06-13 07:00] LABS: Glucose, Whole Blood 172 mg/dL (60-115)
[2023-06-13] MEDS: Aspirin Enteric Coated 81 MG TABLET.DR PO (07:49)
[2023-06-13] MEDS: Apixaban 5 MG TABLET PO ×2 (07:49→22:02)
[2023-06-13] MEDS: Atorvastatin Calcium 80 MG TABLET PO (07:49)
[2023-06-13] MEDS: amLODIPine Besylate 5 MG TABLET PO (07:49)
[2023-06-13] MEDS: Multivitamin TABLET 1 TAB PO (07:49)
[2023-06-13] MEDS: Metoprolol Tartrate 50 MG TABLET PO (07:49)
[2023-06-13] MEDS: 0.9 % Sodium Chloride Flush 3 ML SYRINGE IVFLUSH ×3 (07:50→22:03)
[2023-06-13] MEDS: Insulin Lispro 100 UNIT/ML 3 ML VIAL SUBCUT ×4 (07:50→22:03)
[2023-06-13] MEDS: Furosemide 40 MG/4 ML VIAL IVPUSH (07:50)
[2023-06-13] MEDS: Fluticasone/Vilanterol 200/25 BLST.W.DEV 1 PUFF INHALE (08:14)
[2023-06-13 09:59] LABS: Hematocrit 36.4 % (42.0-52.0); Hemoglobin 11.3 g/dl (14.0-18.0); Mean Corpuscular Hemoglobin 30.1 pg (27.0-33.0); Mean Corpuscular Volume 96.8 fL (80.0-98.0); Mean Platelet Volume 10.2 fL (9.4-12.4); Platelet Count 225 X10*3/uL (160-400); Red Blood Count 3.76 X10*6/uL (4.60-5.80); Red Cell Distribution Width 13.5 % (11.0-16.0); White Blood Count 6.4 X10*3/uL (4.8-10.8)
[2023-06-13 10:12] LABS: Anion Gap 9 (12-20); Blood Urea Nitrogen 17 mg/dL (9-16); Calcium 9.4 mg/dL (8.4-10.2); Carbon Dioxide 39 mmol/L (22-29); Chloride 92 mmol/L (96-108); Creatinine Clr Calc Pharmacy 69.8; Estimated Glomerular Filt Rate > 60; Glucose Fasting 204 mg/dL (60-99); Magnesium 1.5 mg/dL (1.6-2.6); Potassium 3.9 mmol/L (3.3-5.1); Sodium 136 mmol/L (135-145)
--- NOTE | 2023-06-13 10:43 | PM.CNCAR ---
History of Present Illness History of Present Illness Date of Service: 06/13/23 Chief complaint: CHF, a flutter Narrative: This is a cardiology consultation regarding shortness of breath. Patient was actually recently seen in consultation just last month. He has a history of cardiac issues as well as some COPD. History of CAD, CABG last year including HENRY to LAD, vein graft to OM1/OM2. Left atrial appendage ligation. Recently detected to have atrial flutter with rapid ventricular rate and we had add digoxin. He was on beta-blockers prior to that. Currently remains only on beta-blockers. Heart rate is somewhat slower side. We have been asked to see him again. I evaluated the patient and also called the and spoke to over phone. According to her, he has not really been doing good the last few weeks. His shortness of breath is progressive. He is able to do only minor activities. Then gets short of breath. Hence she is concerned. He has also been having swelling in his feet. Review of Systems Review of Systems: Yes all other systems are reviewed and are negative Constitutional: Constitutional: Reports as per HPI and Reports no additional constitutional complaints Eyes: Eyes: Reports as per HPI and Denies no additional eye complaints ENT: Denies system reviewed and no additional complaints, except as documented and Reports as per HPI Cardiovascular: Cardiovascular: Reports as per HPI, Reports no additional cardiovascular complaints, Denies acrocyanosis, Denies cool extremities, Denies chest pain, Denies leg edema, Denies lightheadedness, Denies palpitations and Reports dyspnea Respiratory: Respiratory: Reports as per HPI, Denies no additional respiratory complaints and Reports dyspnea Gastrointestinal: Gastrointestinal: Reports as per HPI and Denies no additional gastrointestinal complaints Genitourinary: Genitourinary: Reports no additional male genitourinary complaints and Reports as per HPI Musculoskeletal: Musculoskeletal: Reports no additional musculoskeletal complaints and Reports as per HPI Integumentary/Breasts: Skin/Breast: Reports system reviewed and no additional complaints, except as docu Neurologic: Reports system reviewed and no additional complaints, except as documented and Reports as per HPI Psychiatric: Psychiatric: Reports no additional psychiatric complaints and Reports as per HPI Endocrine: Endocrine: Reports no additional endocrine complaints, Reports as per HPI and Denies palpitations Hematologic/Lymphatic: Hematologic/Lymphatic: Reports no additional hematologic/lymphatic complaints and Reports as per HPI Allergic/Immunologic: Allergic/Immunologic: Reports no additional allergic/immunologic complaints and Reports as per [facility] Past Medical History Medical History (Updated 06/13/23 @ 10:46 by Nestor Scott MD) Afib COPD (chronic obstructive pulmonary disease) Coronary artery disease CAD (coronary artery disease) DMII (diabetes mellitus, type 2) HTN (hypertension) Family History Family History Father No problems noted. Mother No problems noted. Surgical History Surgical History History of colonoscopy History of lung surgery History of cholecystectomy Social History Social History Household Members: Spouse Housing: House Do you presently have visiting nurse or other home services: No Alcohol intake: current Alcohol intake frequency: 0-2 drinks per day Comment: Pt declining bed alarm. Patient Tobacco Use Status: Never used Tobacco Tobacco use type: Cigarette e-Cigarette/Vaping Use: Never Used Second Hand Smoke Exposure: No service: No Current occupational status: retired Cognitive needs: No Hearing needs: No Vision needs: Yes (glasses) Meds Allergies Allergy/AdvReac Type Severity Reaction Status Date / Time No Known Allergies Allergy Verified 06/11/23 09:12 [No Known Allergies*] Active Medications: Current Medications Acetaminophen (Acetaminophen 325 Mg Tablet) 650 mg PO Q6H PRN PRN Reason: Pain, Mild (Pain Scale 1-3) Acetazolamide (Acetazolamide 250 Mg Tablet) 500 mg PO BID [facility] Albuterol Sulfate (Albuterol Sulfate (0.083%) 2.5 Mg/3 Ml Vial.Neb) 2.5 mg INHALE Q6H PRN PRN Reason: Wheezing Amlodipine Besylate (Amlodipine Besylate 5 Mg Tablet) 5 mg PO DAILY [facility]; Protocol Last Admin: 06/13/23 07:49 Dose: 5 mg Apixaban (Apixaban 5 Mg Tablet) 5 mg PO BID [facility] Last Admin: 06/13/23 07:49 Dose: 5 mg Aspirin (Aspirin Enteric Coated 81 Mg Tablet.) 81 mg PO DAILY [facility] Last Admin: 06/13/23 07:49 Dose: 81 mg Atorvastatin Calcium (Atorvastatin Calcium 80 Mg Tablet) 80 mg PO DAILY [facility] Last Admin: 06/13/23 07:49 Dose: 80 mg Dextrose (Dextrose 50 % 25 Gm/50 Ml Syringe) 25 gm IVPUSH Q15M PRN; Protocol PRN Reason: per Hypoglycemia Standing Ord. Fluticasone/Vilanterol (Fluticasone/Vilanterol 200/25 Blst.W.Dev) 1 puff INHALE RDAILY [facility] Last Admin: 06/13/23 08:14 Dose: 1 puff Furosemide (Furosemide 40 Mg/4 Ml Vial) 40 mg IVPUSH DAILY [facility]; Protocol Last Admin: 06/13/23 07:50 Dose: 40 mg Glucose (Glucose Gel 15 Gm Gel..Gram.) 15 gm PO Q15M PRN; Protocol PRN Reason: per Hypoglycemia Standing Ord. Insulin Human Lispro (Insulin Lispro 100 Unit/Ml 3 Ml Vial) 0 unit SUBCUT QIDACHS [facility]; Protocol Last Admin: 06/13/23 07:50 Dose: 2 unit Metoprolol Tartrate (Metoprolol Tartrate 50 Mg Tablet) 50 mg PO BID [facility]; Protocol Last Admin: 06/13/23 07:49 Dose: 50 mg Multivitamins/Vitamin C (Multivitamin Tablet) 1 tab PO DAILY [facility] Last Admin: 06/13/23 07:49 Dose: 1 tab Omeprazole (Omeprazole 20 Mg Capsule.Dr) 20 mg PO DAILY@629 [facility] Last Admin: 06/13/23 05:10 Dose: 20 mg Ondansetron HCl (Ondansetron Hcl 4 Mg/2 Ml Vial) 4 mg IVPUSH Q8H PRN PRN Reason: Nausea and Vomiting Senna (Sennosides 8.6 Mg Tablet) 17.2 mg PO BEDTIME PRN PRN Reason: Constipation Sodium Chloride (0.9 % Sodium Chloride Flush 3 Ml Syringe) 3 ml IVFLUSH QSHIFT [facility] Last Admin: 06/13/23 07:50 Dose: 3 ml Home Medications Medication Instructions Recorded Confirmed Last Taken Type atorvastatin 80 mg tablet 80 mg PO DAILY 04/21/20 06/11/23 06/11/23 History omeprazole magnesium 20 mg 20 mg PO DAILY@0630 04/21/20 06/11/23 06/11/23 History tablet,delayed release aspirin 81 mg tablet,delayed 81 mg PO DAILY 01/30/22 06/11/23 06/11/23 History release (Adult Low Dose Aspirin) albuterol sulfate 2.5 mg/3 mL 2.5 mg inhalation Q6H PRN Wheezing 04/01/22 06/11/23 06/11/23 History (0.083 %) solution for nebulization vitamins A,C,F-jqjy-ciqybr 4,296 1 cap PO BID 04/01/22 06/11/23 06/11/23 History mcg-226 mg-90 mg capsule (PreserVision AREDS) amlodipine 5 mg tablet 5 mg PO DAILY 12/11/22 06/11/23 06/11/23 History metoprolol tartrate 50 mg tablet 50 mg PO BID 12/11/22 06/11/23 06/11/23 History budesonide-formoterol HFA 160 2 puff inhalation BID 05/24/23 06/11/23 06/11/23 History mcg-4.5 mcg/actuation aerosol inhaler (Symbicort) Physical Exam Vital Signs: Vital Signs: Last Vital Signs Temp 97.5 F 06/13/23 07:13 Pulse 88 06/13/23 08:14 Resp 18 06/13/23 08:14 BP 130/62 06/13/23 07:13 Pulse Ox 96 06/13/23 07:13 O2 Del Method Nasal Cannula 06/13/23 07:13 O2 Flow Rate 3 06/13/23 07:13 Oxygen Flow Rate 2 06/11/23 09:08 BMI result Body Mass Index 24.2 Const: General: comfortable and no acute distress Orientation/consciousness: patient oriented x3 HEENT: Other: Unremarkable Head: Yes normal to inspection Neck: Neck: Yes normal visual inspection Chest: Chest palpation & inspection: normal inspection of the chest Resp: Other: Crackles bilaterally Cardio: Palpation: normal PMI Heart sounds: S1 normal heart sound present, S2 normal heart sound present, no gallops, no murmurs and no rubs GI: Palpation (GI): Soft to palpation Back/Spine/Pelvis: Other: unremarkable Skin: General skin exam: no rashes or lesions noted Neuro: General: patient oriented x3 Extrem: Other: 1-2+ edema General: Yes normal to inspection Psych: Mental Status: mental status grossly normal Objective Labs and Meds 06/13/23 08:53 06/13/23 08:53 Lab results: Laboratory Results - last 24 hr 0206/12/23 06/12/23 10:53 16:05 20:24 WBC RBC Hgb Hct MCV MCH MCHC RDW Plt Count MPV Absolute Nucleated RBC Nucleated RBC % (auto) Sodium Potassium Chloride Carbon Dioxide Anion Gap BUN Creatinine Estim Creat Clear Calc Estimated GFR POC Glucose 193 H 240 H 186 H Fasting Glucose Calcium Magnesium 06/13/23 06/13/23 06:57 08:53 WBC 6.4 RBC 3.76 L Hgb 11.3 L Hct 36.4 L MCV 96.8 MCH 30.1 MCHC 31.0 RDW 13.5 Plt Count 225 MPV 10.2 Absolute Nucleated RBC 0.000 Nucleated RBC % (auto) 0.0 Sodium 136 Potassium 3.9 Chloride 92 L Carbon Dioxide 39 H Anion Gap 9 L BUN 17 H Creatinine 0.88 Estim Creat Clear Calc 69.8 Estimated GFR > 60 POC Glucose 172 H Fasting Glucose 204 H Calcium 9.4 Magnesium 1.5 L ECG Interpretation: EKG with atrial flutter rate of 66/Min. Lateral T inversions. On telemetry, he somewhere in the 40s to 50s. Nighttime, he slows down further into the 30s. Assessment and Plan (1) Acute on chronic diastolic (congestive) heart failure: Status: Acute (2) Atrial flutter: Qualifiers: Atrial flutter type: typical Qualified Code(s): I48.3 - Typical atrial flutter Status: Acute Plan In the recent echocardiogram, LVEF 51%. Basal inferior/inferolateral akinesis. Moderate diastolic dysfunction. [id number] aortic stenosis. Severe mitral annular calcification moderate pulmonary hypertension. On EKG, atrial flutter with controlled versus slow ventricular rate at different times as above. Troponin within range. BNP slightly high. It is certainly possible that because of atrial flutter over the last few weeks he is going into heart failure. Discussed with about possibility of SAMREEN/cardioversion. She is actually quite interested in that. We can diurese him for the next 48 hours or so and we can plan the procedure for possibly Sunday. We can hold off on metoprolol for now. Continue anticoagulation. He will need to be more euvolemic prior to that. There is definitely risk of complication at his age and comorbidities. Discussed with Dr. Singleton. Procedures Date of Service Date of Service: 06/13/23
[2023-06-13] MEDS: acetaZOLAMIDE 250 MG TABLET 500 MG PO ×2 (11:00→22:02)
[2023-06-13 11:49] LABS: Glucose, Whole Blood 230 mg/dL (60-115)
--- NOTE | 2023-06-13 12:55 | HO.PM.IMPN ---
Subjective Subjective Date of Service: 06/13/23 Interval History: Seen and evaluated this morning Denies pain but have SOB w minimal exertion Noticed bradycardia on Tele, no pauses Review of Systems Review of Systems: Yes all other systems are reviewed and are negative Physical Exam Vital Signs: Vital Signs: Last Vital Signs Temp 98.3 F 06/13/23 11:02 Pulse 56 06/13/23 11:02 Resp 16 06/13/23 11:02 BP 118/57 L 06/13/23 11:02 Pulse Ox 97 06/13/23 11:02 O2 Del Method Nasal Cannula 06/13/23 11:02 O2 Flow Rate 3 06/13/23 07:13 Oxygen Flow Rate 2 06/11/23 09:08 BMI result Body Mass Index 24.2 Const: Other: Constitutional : Awake, interactive, not in distress Neck : Normal inspection, Supple Cardiovascular : irregular irregular, +1LE edema Respiratory : good bilateral air entry, no crackles, wheezes or rhonchi Gastrointestinal: soft, lax, Normal bowel sounds, Non tender Skin : Warm, Dry Neurological : Alert & oriented x3, No focal deficit Objective Data Active Medications Acetaminophen (Acetaminophen 325 Mg Tablet) 650 mg PO Q6H PRN PRN Reason: Pain, Mild (Pain Scale 1-3) Acetazolamide (Acetazolamide 250 Mg Tablet) 500 mg PO BID [facility] Last Admin: 06/13/23 11:00 Dose: 500 mg Documented By: LINO Albuterol Sulfate (Albuterol Sulfate (0.083%) 2.5 Mg/3 Ml Vial.Fer) 2.5 mg INHALE Q6H PRN PRN Reason: Wheezing Amlodipine Besylate (Amlodipine Besylate 5 Mg Tablet) 5 mg PO DAILY [facility]; Protocol Last Admin: 06/13/23 07:49 Dose: 5 mg Documented By: LINO Apixaban (Apixaban 5 Mg Tablet) 5 mg PO BID [facility] Last Admin: 06/13/23 07:49 Dose: 5 mg Documented By: LINO Aspirin (Aspirin Enteric Coated 81 Mg Tablet.) 81 mg PO DAILY [facility] Last Admin: 06/13/23 07:49 Dose: 81 mg Documented By: LINO Atorvastatin Calcium (Atorvastatin Calcium 80 Mg Tablet) 80 mg PO DAILY [facility] Last Admin: 06/13/23 07:49 Dose: 80 mg Documented By: LINO Dextrose (Dextrose 50 % 25 Gm/50 Ml Syringe) 25 gm IVPUSH Q15M PRN; Protocol PRN Reason: per Hypoglycemia Standing Ord. Fluticasone/Vilanterol (Fluticasone/Vilanterol 200/25 Blst.W.Dev) 1 puff INHALE RDAILY [facility] Last Admin: 06/13/23 08:14 Dose: 1 puff Documented By: FRANKLIN Furosemide (Furosemide 40 Mg/4 Ml Vial) 40 mg IVPUSH DAILY [facility]; Protocol Last Admin: 06/13/23 07:50 Dose: 40 mg Documented By: LINO Glucose (Glucose Gel 15 Gm Gel..Gram.) 15 gm PO Q15M PRN; Protocol PRN Reason: per Hypoglycemia Standing Ord. Insulin Human Lispro (Insulin Lispro 100 Unit/Ml 3 Ml Vial) 0 unit SUBCUT QIDACHS [facility]; Protocol Last Admin: 06/13/23 11:55 Dose: 4 unit Documented By: LINO Metoprolol Tartrate (Metoprolol Tartrate 50 Mg Tablet) 50 mg PO BID [facility]; Protocol Last Admin: 06/13/23 07:49 Dose: 50 mg Documented By: LINO Multivitamins/Vitamin C (Multivitamin Tablet) 1 tab PO DAILY [facility] Last Admin: 06/13/23 07:49 Dose: 1 tab Documented By: LINO Omeprazole (Omeprazole 20 Mg Capsule.Dr) 20 mg PO DAILY@0630 [facility] Last Admin: 06/13/23 05:10 Dose: 20 mg Documented By: ANEL Ondansetron HCl (Ondansetron Hcl 4 Mg/2 Ml Vial) 4 mg IVPUSH Q8H PRN PRN Reason: Nausea and Vomiting Senna (Sennosides 8.6 Mg Tablet) 17.2 mg PO BEDTIME PRN PRN Reason: Constipation Sodium Chloride (0.9 % Sodium Chloride Flush 3 Ml Syringe) 3 ml IVFLUSH QSHIFT [facility] Last Admin: 06/13/23 11:01 Dose: 3 ml Documented By: LINO Labs 06/13/23 08:53 06/13/23 08:53 Labs: Laboratory Results - last 24 hr 0206/12/23 06/13/23 16:05 20:24 06:57 MCV MCH MCHC RDW Plt Count MPV Absolute Nucleated RBC Nucleated RBC % (auto) Anion Gap Estim Creat Clear Calc Estimated GFR POC Glucose 240 H 186 H 172 H Fasting Glucose Calcium Magnesium 06/13/23 06/13/23 08:53 11:07 MCV 96.8 MCH 30.1 MCHC 31.0 RDW 13.5 Plt Count 225 MPV 10.2 Absolute Nucleated RBC 0.000 Nucleated RBC % (auto) 0.0 Anion Gap 9 L Estim Creat Clear Calc 69.8 Estimated GFR > 60 POC Glucose 230 H Fasting Glucose 204 H Calcium 9.4 Magnesium 1.5 L Assessment and Plan (1) Acute on chronic diastolic (congestive) heart failure: Status: Acute (2) Atrial flutter: Status: Acute Plan 82F PMH chronic hypoxic and hypercapneic respiratory failure due to copd on 2L home o2, cad s/p cabg 2022, cad, dm, htn, hld, chronic systolic chf, persistent aflutter, presented with sob acute on chronic systolic chf Improving continue lasix iv PO diamox for metabolic alkalosis monitor is and os, bmp chronic hypoxic and hypercapneic respiratory failure due to copd appears stable conitnue inhalers Bradycardia w persistent AFlutter Hold BB Cardiology consider cardioversion on Sunday continue Eliquis Tele cad guicho awan, statin, beta caden htn metoprolol, amlodipine dm with hyperglycemia insulin dvt prophylaxis - eliquis full code reason for continued hospitalization: Continue diuresis Quality Stroke Does the patient have a stroke diagnosis?: No VTE Prior VTE?: No VTE Risk Level:: Medical - moderate - high VTE Device Contraindication: Treatment Not Indicated VTE Drug Contraindication: N/A - Med Ordered
[2023-06-13 16:06] LABS: Glucose, Whole Blood 213 mg/dL (60-115)
[2023-06-13 20:24] LABS: Glucose, Whole Blood 256 mg/dL (60-115)
[2023-06-14] VITALS (7 sets, daily range): BP systolic 113–152; BP diastolic 58–69; PULSE 86–100; RESP 16–22; TEMP 36.4–37.1; O2SAT 94–99; BMI 21.7
[2023-06-14] MEDS: Omeprazole 20 MG CAPSULE.DR PO (06:10)
[2023-06-14 07:31] LABS: Anion Gap 13 (12-20); Blood Urea Nitrogen 17 mg/dL (9-16); Calcium 9.7 mg/dL (8.4-10.2); Carbon Dioxide 32 mmol/L (22-29); Chloride 96 mmol/L (96-108); Creatinine Clr Calc Pharmacy 70.9; Estimated Glomerular Filt Rate > 60; Glucose Random 193 mg/dL (60-115); Potassium 4.3 mmol/L (3.3-5.1); Sodium 137 mmol/L (135-145)
[2023-06-14 07:38] LABS: B Type Natriuretic Peptide 215 pg/mL (<100)
[2023-06-14] MEDS: Fluticasone/Vilanterol 200/25 BLST.W.DEV 1 PUFF INHALE (07:43)
[2023-06-14 08:56] LABS: Glucose, Whole Blood 187 mg/dL (60-115)
[2023-06-14] MEDS: Apixaban 5 MG TABLET PO ×2 (09:56→21:27)
[2023-06-14] MEDS: Furosemide 40 MG/4 ML VIAL IVPUSH (09:56)
[2023-06-14] MEDS: Atorvastatin Calcium 80 MG TABLET PO (09:56)
[2023-06-14] MEDS: amLODIPine Besylate 5 MG TABLET PO (09:56)
[2023-06-14] MEDS: Aspirin Enteric Coated 81 MG TABLET.DR PO (09:56)
[2023-06-14] MEDS: Multivitamin TABLET 1 TAB PO (09:56)
[2023-06-14] MEDS: acetaZOLAMIDE 250 MG TABLET 500 MG PO ×2 (09:56→21:27)
[2023-06-14] MEDS: Insulin Lispro 100 UNIT/ML 3 ML VIAL SUBCUT ×3 (09:56→16:57)
[2023-06-14] MEDS: 0.9 % Sodium Chloride Flush 3 ML SYRINGE IVFLUSH ×2 (09:57→16:57)
--- NOTE | 2023-06-14 10:45 | PM.PNCARD ---
Subjective Subjective Date of Service: 06/14/23 Interval history: He states he is just about the same as before. Still has leg edema. Review of Systems Review of Systems Yes all other systems are reviewed and are negative Constitutional: Reports as per HPI and Reports no additional constitutional complaints Eyes: Reports as per HPI and Denies no additional eye complaints Denies system reviewed and no additional complaints, except as documented and Reports as per HPI Cardiovascular: Reports as per HPI, Reports no additional cardiovascular complaints, Denies acrocyanosis, Denies cool extremities, Denies chest pain, Denies leg edema, Denies lightheadedness, Denies palpitations and Reports dyspnea Respiratory: Reports as per HPI, Denies no additional respiratory complaints and Reports dyspnea Gastrointestinal: Reports as per HPI and Denies no additional gastrointestinal complaints Genitourinary: Reports no additional male genitourinary complaints and Reports as per HPI Musculoskeletal: Reports no additional musculoskeletal complaints and Reports as per HPI Skin/Breast: Reports system reviewed and no additional complaints, except as docu Reports system reviewed and no additional complaints, except as documented and Reports as per HPI Psychiatric: Reports no additional psychiatric complaints and Reports as per HPI Endocrine: Reports no additional endocrine complaints, Reports as per HPI and Denies palpitations Hematologic/Lymphatic: Reports no additional hematologic/lymphatic complaints and Reports as per HPI Allergic/Immunologic: Reports no additional allergic/immunologic complaints and Reports as per HPI Physical Exam Vital Signs: Last Vital Signs Temp 97.8 F 06/14/23 07:52 Pulse 100 06/14/23 07:52 Resp 20 06/14/23 07:52 BP 135/60 06/14/23 07:52 Pulse Ox 95 06/14/23 07:52 O2 Del Method Nasal Cannula 06/14/23 07:52 O2 Flow Rate 2 06/14/23 07:52 Oxygen Flow Rate 2 06/11/23 09:08 BMI result Body Mass Index 21.7 Const General: comfortable and no acute distress Orientation/consciousness: patient oriented x3 HEENT Other: Unremarkable Head: Yes normal to inspection Neck Neck: Yes normal visual inspection Chest Chest palpation & inspection: normal inspection of the chest Resp Other: Crackles bilaterally Cardio Palpation: normal PMI Heart sounds: S1 normal heart sound present, S2 normal heart sound present, no gallops, no murmurs and no rubs GI Palpation (GI): Soft to palpation Back/Spine/Pelvis Other: unremarkable Skin General skin exam: no rashes or lesions noted Neuro General: patient oriented x3 Extrem Other: 1-2+ edema General: Yes normal to inspection Psych Mental Status: mental status grossly normal Objective Labs and Meds 06/13/23 08:53 06/14/23 06:48 Lab results: Laboratory Results - last 24 hr 06/13/23 06/13/23 06/13/23 11:07 16:03 20:19 Sodium Potassium Chloride Carbon Dioxide Anion Gap BUN Creatinine Estim Creat Clear Calc Estimated GFR POC Glucose 230 H 213 H 256 H Random Glucose Calcium B-Natriuretic Peptide 06/14/23 06/14/23 06:48 07:58 Sodium 137 Potassium 4.3 Chloride 96 Carbon Dioxide 32 H Anion Gap 13 BUN 17 H Creatinine 0.81 Estim Creat Clear Calc 70.9 Estimated GFR > 60 POC Glucose 187 H Random Glucose 193 H Calcium 9.7 B-Natriuretic Peptide 215 H Progress Note: A&P Assessment and plan (1) Acute on chronic diastolic (congestive) heart failure: Status: Acute (2) Atrial flutter: Status: Acute Plan In the recent echocardiogram, LVEF 51%. Basal inferior/inferolateral akinesis. Moderate diastolic dysfunction. [id number] aortic stenosis. Severe mitral annular calcification moderate pulmonary hypertension. On EKG, atrial flutter with controlled versus slow ventricular rate at different times as above. Troponin within range. BNP slightly high. As he has been consistently short of breath in the last few weeks and the only new finding is atrial flutter, we discussed again about SAMREEN/cardioversion tomorrow. They are somewhat leaning towards the. Tentatively schedule. Possibly use amiodarone if he converts to sinus rhythm to keep him that way. Otherwise continue diuretics. May hold beta-blockers at this time. At his age and comorbidities, there are procedure complications including anesthesia complications and we did discuss today in detail with daughter the bedside as well as with over the phone. Discussed with Dr. Singleton. Time Spent With Patient Time: Total time managing care of this patient today ____ minutes. Progress Note: Quality Stroke Does the patient have a stroke diagnosis?: No Procedures Date of Service Date of Service: 06/14/23
[2023-06-14 11:09] LABS: Glucose, Whole Blood 292 mg/dL (60-115)
--- NOTE | 2023-06-14 12:11 | P.PNIM_ITS ---
Subjective Subjective Date of Service: 06/14/23 Interval History: Seen and evaluated this morning Denies pain but have SOB w minimal exertion Heart rate improved to 80-90s Review of Systems Review of Systems: Yes all other systems are reviewed and are negative Physical Exam 2 Vital Signs: Vital Signs: Last Vital Signs Temp 97.5 F 06/14/23 10:57 Pulse 91 06/14/23 10:57 Resp 20 06/14/23 10:57 BP 113/58 L 06/14/23 10:57 Pulse Ox 97 06/14/23 10:57 O2 Del Method Nasal Cannula 06/14/23 10:57 O2 Flow Rate 2 06/14/23 10:57 Oxygen Flow Rate 2 06/11/23 09:08 BMI result Body Mass Index 21.7 Const: Other: Constitutional : Awake, interactive, not in distress Neck : Normal inspection, Supple Cardiovascular : irregular irregular, +1LE edema Respiratory : good bilateral air entry, no crackles, wheezes or rhonchi Gastrointestinal: soft, lax, Normal bowel sounds, Non tender Skin : Warm, Dry Neurological : Alert & oriented x3, No focal deficit Objective Data Active Medications Acetaminophen (Acetaminophen 325 Mg Tablet) 650 mg PO Q6H PRN PRN Reason: Pain, Mild (Pain Scale 1-3) Acetazolamide (Acetazolamide 250 Mg Tablet) 500 mg PO BID [facility] Last Admin: 06/14/23 09:56 Dose: 500 mg Documented By: EDUARDO Albuterol Sulfate (Albuterol Sulfate (0.083%) 2.5 Mg/3 Ml Vial.Neb) 2.5 mg INHALE Q6H PRN PRN Reason: Wheezing Amlodipine Besylate (Amlodipine Besylate 5 Mg Tablet) 5 mg PO DAILY [facility]; Protocol Last Admin: 06/14/23 09:56 Dose: 5 mg Documented By: EDUARDO Apixaban (Apixaban 5 Mg Tablet) 5 mg PO BID [facility] Last Admin: 06/14/23 09:56 Dose: 5 mg Documented By: EDUARDO Aspirin (Aspirin Enteric Coated 81 Mg Tablet.) 81 mg PO DAILY [facility] Last Admin: 06/14/23 09:56 Dose: 81 mg Documented By: EDUARDO Atorvastatin Calcium (Atorvastatin Calcium 80 Mg Tablet) 80 mg PO DAILY [facility] Last Admin: 06/14/23 09:56 Dose: 80 mg Documented By: EDUARDO Dextrose (Dextrose 50 % 25 Gm/50 Ml Syringe) 25 gm IVPUSH Q15M PRN; Protocol PRN Reason: per Hypoglycemia Standing Ord. Fluticasone/Vilanterol (Fluticasone/Vilanterol 200/25 Blst.W.Dev) 1 puff INHALE RDAILY [facility] Last Admin: 06/14/23 07:43 Dose: 1 puff Documented By: JAMES Furosemide (Furosemide 40 Mg/4 Ml Vial) 40 mg IVPUSH DAILY [facility]; Protocol Last Admin: 06/14/23 09:56 Dose: 40 mg Documented By: EDUARDO Glucose (Glucose Gel 15 Gm Gel..Gram.) 15 gm PO Q15M PRN; Protocol PRN Reason: per Hypoglycemia Standing Ord. Insulin Human Lispro (Insulin Lispro 100 Unit/Ml 3 Ml Vial) 0 unit SUBCUT QIDACHS [facility]; Protocol Last Admin: 06/14/23 11:59 Dose: 6 unit Documented By: EDUARDO Metoprolol Tartrate (Metoprolol Tartrate 50 Mg Tablet) 50 mg PO BID [facility]; Protocol Last Admin: 06/13/23 07:49 Dose: 50 mg Documented By: LINO Multivitamins/Vitamin C (Multivitamin Tablet) 1 tab PO DAILY [facility] Last Admin: 06/14/23 09:56 Dose: 1 tab Documented By: EDUARDO Omeprazole (Omeprazole 20 Mg Capsule.Dr) 20 mg PO DAILY@0630 [facility] Last Admin: 06/14/23 06:10 Dose: 20 mg Documented By: SOBEIDA Ondansetron HCl (Ondansetron Hcl 4 Mg/2 Ml Vial) 4 mg IVPUSH Q8H PRN PRN Reason: Nausea and Vomiting Senna (Sennosides 8.6 Mg Tablet) 17.2 mg PO BEDTIME PRN PRN Reason: Constipation Sodium Chloride (0.9 % Sodium Chloride Flush 3 Ml Syringe) 3 ml IVFLUSH QSHIFT [facility] Last Admin: 06/14/23 09:57 Dose: 3 ml Documented By: EDUARDO Labs 06/13/23 08:53 06/14/23 06:48 Labs: Laboratory Results - last 24 hr 06/13/23 06/13/23 06/14/23 16:03 20:19 06:48 Anion Gap 13 Estim Creat Clear Calc 70.9 Estimated GFR > 60 POC Glucose 213 H 256 H Random Glucose 193 H Calcium 9.7 B-Natriuretic Peptide 215 H 06/14/23 06/14/23 07:58 10:59 Anion Gap Estim Creat Clear Calc Estimated GFR POC Glucose 187 H 292 H Random Glucose Calcium B-Natriuretic Peptide Assessment and Plan (1) Acute on chronic diastolic (congestive) heart failure: Status: Acute (2) Atrial flutter: Status: Acute (3) Atrial flutter with rapid ventricular response: Status: Acute Plan 82F PMH chronic hypoxic and hypercapneic respiratory failure due to copd on 2L home o2, cad s/p cabg 2022, cad, dm, htn, hld, chronic systolic chf, persistent aflutter, presented with sob acute on chronic systolic chf His symptoms of dyspnea could be related to ongoing Afib. will try cardioversion tomorrow continue lasix iv PO diamox for metabolic alkalosis monitor is and os, bmp chronic hypoxic and hypercapneic respiratory failure due to copd appears stable conitnue inhalers persistent AFlutter Bradycardia resolved after Holding BB Cardiology to do cardioversion on Sunday continue Eliquis Tele cad asa, eliwuis, statin, beta caden htn metoprolol, amlodipine dm with hyperglycemia insulin dvt prophylaxis - eliquis full code reason for continued hospitalization: Continue diuresis with pending cardioversion Quality Stroke Does the patient have a stroke diagnosis?: No VTE Prior VTE?: No VTE Risk Level:: Medical - moderate - high VTE Device Contraindication: Treatment Not Indicated VTE Drug Contraindication: N/A - Med Ordered
[2023-06-14 16:32] LABS: Glucose, Whole Blood 208 mg/dL (60-115)
[2023-06-14 20:43] LABS: Glucose, Whole Blood 135 mg/dL (60-115)
[2023-06-15] VITALS (20 sets, daily range): BP systolic 120–146; BP diastolic 45–73; PULSE 83–111; RESP 13–45; TEMP 36.5–37.1; O2SAT 90–100; BMI 22.7
--- NOTE | 2023-06-15 | ECG_ITS ---
Test Reason : Elevated Trop Blood Pressure : / mmHG Vent. Rate : 088 BPM Atrial Rate : 286 BPM P-R Int : 000 ms QRS Dur : 098 ms QT Int : 366 ms P-R-T Axes : 092 -03 158 degrees QTc Int : 442 ms Atrial flutter with variable A-V block Minimal voltage criteria for LVH, may be normal variant ( Mychal product ) Inferior infarct , age undetermined Abnormal ECG When compared with ECG of 11-JUN-2023 09:52, No significant changes seen Referred By: Kayla Cardona Electronically Signed By:MELY SAMPSON
[2023-06-15] MEDS: Omeprazole 20 MG CAPSULE.DR PO (06:08)
[2023-06-15] MEDS: Fluticasone/Vilanterol 200/25 BLST.W.DEV 1 PUFF INHALE (07:35)
[2023-06-15 07:39] LABS: Glucose, Whole Blood 206 mg/dL (60-115)
[2023-06-15] MEDS: 0.9 % Sodium Chloride Flush 3 ML SYRINGE IVFLUSH ×2 (08:35→13:35)
[2023-06-15] MEDS: Apixaban 5 MG TABLET PO (08:35)
--- NOTE | 2023-06-15 08:51 | MHC.CM.PN ---
CM met with pt. on 06/13/23 to ask if his has brought in HCP, previously requested. She had not, dtr present, called , she said she is not sure where doc is. CM brought new one for Pt. to complete, he was concerned that it would be different from existing one, so did not complete. Dtr said she will find doc at home and bring it in. Referral in to [facility], accepted pt.
--- NOTE | 2023-06-15 10:36 | PM.PNCARD ---
Subjective Subjective Date of Service: 06/15/23 Interval history: He does not have any shortness of breath or other complaints but he looks very sleepy and tired. Apparently last night he did not eat at all and slept through and missed his dinner as well. However, not profoundly confused and may just be a bit delirious. Review of Systems Review of Systems Yes all other systems are reviewed and are negative Constitutional: Reports as per HPI and Reports no additional constitutional complaints Eyes: Reports as per HPI and Denies no additional eye complaints Denies system reviewed and no additional complaints, except as documented and Reports as per HPI Cardiovascular: Reports as per HPI, Reports no additional cardiovascular complaints, Denies acrocyanosis, Denies cool extremities, Denies chest pain, Denies leg edema, Denies lightheadedness, Denies palpitations and Denies dyspnea Respiratory: Reports as per HPI, Denies no additional respiratory complaints and Denies dyspnea Gastrointestinal: Reports as per HPI and Denies no additional gastrointestinal complaints Genitourinary: Reports no additional male genitourinary complaints and Reports as per HPI Musculoskeletal: Reports no additional musculoskeletal complaints and Reports as per HPI Skin/Breast: Reports system reviewed and no additional complaints, except as docu Reports system reviewed and no additional complaints, except as documented and Reports as per HPI Psychiatric: Reports no additional psychiatric complaints and Reports as per HPI Endocrine: Reports no additional endocrine complaints, Reports as per HPI and Denies palpitations Hematologic/Lymphatic: Reports no additional hematologic/lymphatic complaints and Reports as per HPI Allergic/Immunologic: Reports no additional allergic/immunologic complaints and Reports as per HPI Physical Exam Vital Signs: Last Vital Signs Temp 98.0 F 06/15/23 07:18 Pulse 99 06/15/23 07:36 Resp 17 06/15/23 07:36 BP 138/69 06/15/23 07:18 Pulse Ox 98 06/15/23 08:19 O2 Del Method Nasal Cannula 06/15/23 08:19 O2 Flow Rate 2 06/15/23 07:18 Oxygen Flow Rate 2 06/15/23 08:19 BMI result Body Mass Index 22.7 Const General: comfortable, no acute distress and lethargic Orientation/consciousness: No patient oriented x3 and lethargic HEENT Other: Unremarkable Head: Yes normal to inspection Neck Neck: Yes normal visual inspection Chest Chest palpation & inspection: normal inspection of the chest Resp Auscultation: clear to auscultation bilaterally Cardio Palpation: normal PMI Heart sounds: S1 normal heart sound present, S2 normal heart sound present, no gallops, no murmurs and no rubs GI Palpation (GI): Soft to palpation Back/Spine/Pelvis Other: unremarkable Skin General skin exam: no rashes or lesions noted Neuro General: No patient oriented x3 Extrem Other: Leg swelling seems improved General: Yes normal to inspection Psych Mental Status: mental status grossly normal Objective Labs and Meds 06/13/23 08:53 06/14/23 06:48 Lab results: Laboratory Results - last 24 hr 06/14/23 06/14/23 06/14/23 10:59 16:28 20:36 POC Glucose 292 H 208 H 135 H 06/15/23 07:20 POC Glucose 206 H Progress Note: A&P Assessment and plan (1) Acute on chronic diastolic (congestive) heart failure: Status: Acute (2) Atrial flutter: Status: Acute Plan In the recent echocardiogram, LVEF 51%. Basal inferior/inferolateral akinesis. Moderate diastolic dysfunction. [id number] aortic stenosis. Severe mitral annular calcification moderate pulmonary hypertension. On EKG, atrial flutter with controlled versus slow ventricular rate at different times as above. Troponin within range. BNP slightly high. Considering his delirium, would like to hold off on procedures for today as anesthesia might make it worse. At his age and comorbidities, there is a definitive risk from anesthesia as well as SAMREEN/cardioversion. We can resume the metoprolol at a small dose as he was somewhat bradycardic earlier at the current dose. Add digoxin. Continue to IV diurese another day. I called and spoke separately with as well as daughter and explained the clinical situation and they understand and agree with the plan. Discussed with Dr. Singleton. Discussed with RN. Time Spent With Patient Time: Total time managing care of this patient today ____ minutes. Progress Note: Quality Stroke Does the patient have a stroke diagnosis?: No Procedures Date of Service Date of Service: 06/15/23
[2023-06-15] MEDS: Multivitamin TABLET 1 TAB PO (10:42)
[2023-06-15] MEDS: Atorvastatin Calcium 80 MG TABLET PO (10:42)
[2023-06-15] MEDS: amLODIPine Besylate 5 MG TABLET PO (10:42)
[2023-06-15] MEDS: Furosemide 40 MG/4 ML VIAL IVPUSH (10:42)
[2023-06-15] MEDS: Aspirin Enteric Coated 81 MG TABLET.DR PO (10:42)
[2023-06-15] MEDS: acetaZOLAMIDE 250 MG TABLET 500 MG PO (10:42)
[2023-06-15 12:10] LABS: Glucose, Whole Blood 217 mg/dL (60-115)
[2023-06-15 12:25] LABS: Hematocrit 40.9 % (42.0-52.0); Hemoglobin 12.3 g/dl (14.0-18.0); Mean Corpuscular HGB Conc 30.1 g/dl (31.0-36.0); Mean Corpuscular Hemoglobin 29.6 pg (27.0-33.0); Mean Corpuscular Volume 98.6 fL (80.0-98.0); Mean Platelet Volume 9.9 fL (9.4-12.4); Platelet Count 208 X10*3/uL (160-400); Red Blood Count 4.15 X10*6/uL (4.60-5.80); Red Cell Distribution Width 12.9 % (11.0-16.0); White Blood Count 6.5 X10*3/uL (4.8-10.8)
[2023-06-15 12:30] LABS: Anion Gap 13 (12-20); Blood Urea Nitrogen 25 mg/dL (9-16); Calcium 9.6 mg/dL (8.4-10.2); Carbon Dioxide 32 mmol/L (22-29); Chloride 95 mmol/L (96-108); Creatinine Clr Calc Pharmacy 71.6; Estimated Glomerular Filt Rate > 60; Glucose Random 221 mg/dL (60-115); Potassium 3.9 mmol/L (3.3-5.1); Sodium 136 mmol/L (135-145)
[2023-06-15 12:35] LABS: B Type Natriuretic Peptide 242 pg/mL (<100)
[2023-06-15] MEDS: Insulin Lispro 100 UNIT/ML 3 ML VIAL SUBCUT ×3 (13:21→21:35)
[2023-06-15 13:35] LABS: Influenza A PCR NEGATIVE (Negative); Influenza B PCR NEGATIVE (Negative); Resp Syncy Virus RNA Qual PCR NEGATIVE (Negative); SARS COV2 PCR INHOUSE NEGATIVE (Negative)
--- NOTE | 2023-06-15 13:43 | MHC.CM.PN ---
Pt having carioversion today, anticipate DC in next day or two. HCP obtained from family and added to chart. DC plan is home with [facility].
--- NOTE | 2023-06-15 13:59 | P.PNIM_ITS ---
Subjective Subjective Date of Service: 06/15/23 Interval History: Seen and evaluated this morning reported overnight chocking events and mild delirium Heart rate improved Cardioversion postpone Review of Systems Review of Systems: Yes all other systems are reviewed and are negative Physical Exam 2 Vital Signs: Vital Signs: Last Vital Signs Temp 97.7 F 06/15/23 11:10 Pulse 99 06/15/23 11:10 Resp 17 06/15/23 11:10 BP 146/64 H 06/15/23 11:10 Pulse Ox 100 06/15/23 11:10 O2 Del Method Nasal Cannula 06/15/23 11:10 O2 Flow Rate 2 06/15/23 11:10 Oxygen Flow Rate 2 06/15/23 08:19 BMI result Body Mass Index 22.7 Const: Other: Constitutional : Awake, interactive, not in distress Neck : Normal inspection, Supple Cardiovascular : irregular irregular, trace LE edema Respiratory : good bilateral air entry, no crackles, wheezes or rhonchi Gastrointestinal: soft, lax, Normal bowel sounds, Non tender Skin : Warm, Dry Neurological : Alert & oriented to self and place , No focal deficit Objective Data Active Medications Acetaminophen (Acetaminophen 325 Mg Tablet) 650 mg PO Q6H PRN PRN Reason: Pain, Mild (Pain Scale 1-3) Acetazolamide (Acetazolamide 250 Mg Tablet) 500 mg PO BID COUNT INCLUDES THE [facility] Last Admin: 06/15/23 10:42 Dose: 500 mg Documented By: EDUARDO Albuterol Sulfate (Albuterol Sulfate (0.083%) 2.5 Mg/3 Ml Vial.Neb) 2.5 mg INHALE Q6H PRN PRN Reason: Wheezing Amlodipine Besylate (Amlodipine Besylate 5 Mg Tablet) 5 mg PO DAILY COUNT INCLUDES THE [facility]; Protocol Last Admin: 06/15/23 10:42 Dose: 5 mg Documented By: EDUARDO Apixaban (Apixaban 5 Mg Tablet) 5 mg PO BID COUNT INCLUDES THE [facility] Last Admin: 06/15/23 08:35 Dose: 5 mg Documented By: EDUARDO Aspirin (Aspirin Enteric Coated 81 Mg Tablet.) 81 mg PO DAILY COUNT INCLUDES THE [facility] Last Admin: 06/15/23 10:42 Dose: 81 mg Documented By: EDUARDO Atorvastatin Calcium (Atorvastatin Calcium 80 Mg Tablet) 80 mg PO DAILY COUNT INCLUDES THE [facility] Last Admin: 06/15/23 10:42 Dose: 80 mg Documented By: EDUARDO Dextrose (Dextrose 50 % 25 Gm/50 Ml Syringe) 25 gm IVPUSH Q15M PRN; Protocol PRN Reason: per Hypoglycemia Standing Ord. Fluticasone/Vilanterol (Fluticasone/Vilanterol 200/25 Blst.W.Dev) 1 puff INHALE RDAILY COUNT INCLUDES THE [facility] Last Admin: 06/15/23 07:35 Dose: 1 puff Documented By: FRANKLIN Furosemide (Furosemide 40 Mg/4 Ml Vial) 40 mg IVPUSH DAILY COUNT INCLUDES THE [facility]; Protocol Last Admin: 06/15/23 10:42 Dose: 40 mg Documented By: EDUARDO Glucose (Glucose Gel 15 Gm Gel..Gram.) 15 gm PO Q15M PRN; Protocol PRN Reason: per Hypoglycemia Standing Ord. Insulin Human Lispro (Insulin Lispro 100 Unit/Ml 3 Ml Vial) 0 unit SUBCUT QIDACHS COUNT INCLUDES THE [facility]; Protocol Last Admin: 06/15/23 13:21 Dose: 4 unit Documented By: EDUARDO Metoprolol Tartrate (Metoprolol Tartrate 50 Mg Tablet) 50 mg PO BID COUNT INCLUDES THE [facility]; Protocol Last Admin: 06/13/23 07:49 Dose: 50 mg Documented By: LINO Multivitamins/Vitamin C (Multivitamin Tablet) 1 tab PO DAILY COUNT INCLUDES THE [facility] Last Admin: 06/15/23 10:42 Dose: 1 tab Documented By: EDUARDO Omeprazole (Omeprazole 20 Mg Capsule.Dr) 20 mg PO DAILY@0630 COUNT INCLUDES THE [facility] Last Admin: 06/15/23 06:08 Dose: 20 mg Documented By: SOBEIDA Ondansetron HCl (Ondansetron Hcl 4 Mg/2 Ml Vial) 4 mg IVPUSH Q8H PRN PRN Reason: Nausea and Vomiting Senna (Sennosides 8.6 Mg Tablet) 17.2 mg PO BEDTIME PRN PRN Reason: Constipation Sodium Chloride (0.9 % Sodium Chloride Flush 3 Ml Syringe) 3 ml IVFLUSH QSHIFT COUNT INCLUDES THE [facility] Last Admin: 06/15/23 13:35 Dose: 3 ml Documented By: EDUARDO Labs 06/15/23 12:07 06/15/23 12:07 Labs: Laboratory Results - last 24 hr 06/14/23 06/14/23 06/15/23 16:28 20:36 07:20 MCV MCH MCHC RDW Plt Count MPV Absolute Nucleated RBC Nucleated RBC % (auto) Anion Gap Estim Creat Clear Calc Estimated GFR POC Glucose 208 H 135 H 206 H Random Glucose Calcium B-Natriuretic Peptide Influenza Type A (PCR) Influenza Type B (PCR) RSV RNA Qual (PCR) SARS-CoV-2 RNA (RT-PCR) 06/15/23 06/15/23 12:07 12:15 MCV 98.6 H MCH 29.6 MCHC 30.1 L RDW 12.9 Plt Count 208 MPV 9.9 Absolute Nucleated RBC 0.000 Nucleated RBC % (auto) 0.0 Anion Gap 13 Estim Creat Clear Calc 71.6 Estimated GFR > 60 POC Glucose 217 H Random Glucose 221 H Calcium 9.6 B-Natriuretic Peptide 242 H Influenza Type A (PCR) NEGATIVE Influenza Type B (PCR) NEGATIVE RSV RNA Qual (PCR) NEGATIVE SARS-CoV-2 RNA (RT-PCR) NEGATIVE Assessment and Plan (1) Acute on chronic diastolic (congestive) heart failure: Status: Acute (2) Atrial flutter with rapid ventricular response: Status: Acute Plan 82F PMH chronic hypoxic and hypercapneic respiratory failure due to copd on 2L home o2, cad s/p cabg 2022, cad, dm, htn, hld, chronic systolic chf, persistent aflutter, presented with sob acute on chronic systolic chf His symptoms of dyspnea could be related to ongoing Afib. will try cardioversion tomorrow continue lasix iv PO diamox for metabolic alkalosis monitor is and os, bmp chronic hypoxic and hypercapneic respiratory failure due to copd appears stable conitnue inhalers persistent AFlutter Bradycardia resolved after Holding BB Cardiology to do cardioversion tomorrow continue Eliquis Tele cad asa, eliwuis, statin, beta caden htn metoprolol, amlodipine dm with hyperglycemia insulin dvt prophylaxis - eliquis full code reason for continued hospitalization: Continue diuresis with pending cardioversion Quality Stroke Does the patient have a stroke diagnosis?: No VTE Prior VTE?: No VTE Risk Level:: Medical - moderate - high VTE Device Contraindication: Treatment Not Indicated VTE Drug Contraindication: N/A - Med Ordered
--- NOTE | 2023-06-15 14:22 | MHC.SL.SWA ---
Speech Pathologist Impression: Mild oral phase dysphagia Risk of Aspiration Due to: Lethargy Medically Fragile Dysphasia Diet Status: No changes at this time Liquid Consistency and Strategies for Safe Swallow: Liquid Intake Recommendation: Thin Liquid Intake Strategies: Small Sips Solid Food Consistency: Dietary Recommendations: Grnd/Mech Altered (NDD2) Additional Modifications to Solid Foods: Pt w/ mild oral phase dysphagia, marked by slowed and prolonged period of mastication and presence of oral residuals. Pt was able to clear oral cavity with subsequent swallows. No overt s/s of aspiration with intake of solids and liquids. Recommend CONTINUE on GROUND/MECH ALTERED (NDD2) diet and THIN liquids, pills administered CRUSHED or WHOLE in PUREE per pt's tolerance. Pt must be awake, alert, and attending to meal, otherwise hold tray. Pt to be directly supervised during meals for close monitoring. Oral Medication Intake: Crushed with Puree Please contact the pharmacy regarding appropriate crushable or liquid drug formulations that are available whenever modified delivery is recommended. Compensatory Strategies and Precautions to be Taken for Safe Swallow: Sitting Upright (90 deg) Double Swallow Small Bites and Sips Alternate Liquids/Solids Rate of Ingestion Change Avoid Specific Foods Supervision While Eating and Drinking for Safe Swallow: Total Supervision (1:1) Foods to Avoid: Hard, dry, or crunchy solids Swallowing Recommended Treatments: Compens. Strategy Educat. Recommendation for Speech: Inpatient Speech Therapy Comment: ENDO TECH will continue to follow to monitor pt's tolerance of PO and to re-assess for potential advancement if/when appropriate. Student Financial Aid Manager Clinican/Clinical Fellow: No Supervisory Statement: I have reviewed and agree with the student/clinical fellow's documentation: N/A Speech Language Pathologist: Maria Karimi M.A., CCC-ENDO TECH
[2023-06-15 16:06] LABS: Glucose, Whole Blood 273 mg/dL (60-115)
[2023-06-15] MEDS: Sennosides 8.6 MG TABLET 17.2 MG PO (17:54)
[2023-06-15 20:12] LABS: ABG Base Excess 4.3 mmol/L; ABG HCO3 34 mmol/L (22-26); ABG pCO2 84 mmHg (32-45); ABG pH 7.22 (7.35-7.45); ABG pO2 86 mmHg (83-108)
[2023-06-15] MEDS: Albuterol Sulfate (0.083%) 2.5 MG/3 ML VIAL.NEB 7.5 MG INHALE (20:44)
--- NOTE | 2023-06-15 20:48 | W.PM.CCCN ---
History of Present Illness Data of Consult Service Date: 06/15/23 Requesting physician: Felix Munoz Primary Care Provider: Karri Mcnally PA-C HPI Reason for consult: Unresponsive The patient is a 82-year-old male with a past medical history of COPD ( recently placed on home supplemental 02 at 2L via NC),? persistent AF flutter, congestive heart failure ( LVEF 50%) coronary artery disease s/p? CABG in 2021,? diabetes mellitus, hypertension, hyperlipidemia? who presented to the hospital on 06/11/23 with complaints of shortness of breath, admitted to hospital medicine? with hypoxic and hypercapnic respiratory failure due to COPD exacerbation and persistent aflutter.? Patient was supposed to be cardioverted today for his persistent AF but it was canceled and re scheduled for tomorrow,? he also had an aspiration event yesterday.? Today,? patient was a rapid response due to unresponsiveness.? Patient mentation was in and out.? He was tachypneic.? ABGs: 7.22/ 84/86/34.? Head CT with no acute bleed. ? Patient has a history of COPD,? and hypercapnic respiratory failure,? since admission patient has been satting 98-100% on supplemental O2. Hypercapnic respiratory failure likely to O2 retention.? Will place on BiPAP.? Review of Systems Review of Systems: Yes Unobtainable due to mental status PMFSH Past Medical History Medical History (Updated 06/15/23 @ 22:29 by Kayla Cardona NP) Afib COPD (chronic obstructive pulmonary disease) Coronary artery disease CAD (coronary artery disease) DMII (diabetes mellitus, type 2) HTN (hypertension) Family History Family History Father No problems noted. Mother No problems noted. Surgical History Surgical History History of colonoscopy History of lung surgery History of cholecystectomy Social History Social History Household Members: Spouse Housing: House Do you presently have visiting nurse or other home services: No Alcohol intake: current Alcohol intake frequency: 0-2 drinks per day Comment: OOB/ amb independently Patient Tobacco Use Status: Never used Tobacco Tobacco use type: Cigarette e-Cigarette/Vaping Use: Never Used Second Hand Smoke Exposure: No service: No Current occupational status: retired Cognitive needs: No Hearing needs: No Vision needs: Yes (glasses) Meds Allergies Allergy/AdvReac Type Severity Reaction Status Date / Time No Known Allergies Allergy Verified 06/11/23 09:12 [No Known Allergies*] Active Medications: Current Medications Acetaminophen (Acetaminophen 325 Mg Tablet) 650 mg PO Q6H PRN PRN Reason: Pain, Mild (Pain Scale 1-3) Acetazolamide (Acetazolamide 250 Mg Tablet) 500 mg PO BID [facility] Last Admin: 06/15/23 10:42 Dose: 500 mg Albuterol Sulfate (Albuterol Sulfate (0.083%) 2.5 Mg/3 Ml Vial.Neb) 2.5 mg INHALE Q6H PRN PRN Reason: Wheezing Albuterol/Ipratropium (Albuterol/Iprat 2.5/0.5mg 3 Ml Ampul.Neb) 3 ml INHALE RQ4H WHILE AWAKE [facility] Amlodipine Besylate (Amlodipine Besylate 5 Mg Tablet) 5 mg PO DAILY [facility]; Protocol Last Admin: 06/15/23 10:42 Dose: 5 mg Apixaban (Apixaban 5 Mg Tablet) 5 mg PO BID [facility] Last Admin: 06/15/23 08:35 Dose: 5 mg Aspirin (Aspirin Enteric Coated 81 Mg Tablet.Dr) 81 mg PO DAILY [facility] Last Admin: 06/15/23 10:42 Dose: 81 mg Atorvastatin Calcium (Atorvastatin Calcium 80 Mg Tablet) 80 mg PO DAILY [facility] Last Admin: 06/15/23 10:42 Dose: 80 mg Dextrose (Dextrose 50 % 25 Gm/50 Ml Syringe) 25 gm IVPUSH Q15M PRN; Protocol PRN Reason: per Hypoglycemia Standing Ord. Fluticasone/Vilanterol (Fluticasone/Vilanterol 200/25 Blst.W.Dev) 1 puff INHALE RDAILY [facility] Last Admin: 06/15/23 07:35 Dose: 1 puff Furosemide (Furosemide 40 Mg/4 Ml Vial) 40 mg IVPUSH DAILY [facility]; Protocol Last Admin: 06/15/23 10:42 Dose: 40 mg Glucose (Glucose Gel 15 Gm Gel..Gram.) 15 gm PO Q15M PRN; Protocol PRN Reason: per Hypoglycemia Standing Ord. Insulin Human Lispro (Insulin Lispro 100 Unit/Ml 3 Ml Vial) 0 unit SUBCUT QIDACHS [facility]; Protocol Last Admin: 06/15/23 17:10 Dose: 6 unit Metoprolol Tartrate (Metoprolol Tartrate 50 Mg Tablet) 50 mg PO BID [facility]; Protocol Last Admin: 06/13/23 07:49 Dose: 50 mg Multivitamins/Vitamin C (Multivitamin Tablet) 1 tab PO DAILY [facility] Last Admin: 06/15/23 10:42 Dose: 1 tab Omeprazole (Omeprazole 20 Mg Capsule.) 20 mg PO DAILY@06 [facility] Last Admin: 06/15/23 06:08 Dose: 20 mg Ondansetron HCl (Ondansetron Hcl 4 Mg/2 Ml Vial) 4 mg IVPUSH Q8H PRN PRN Reason: Nausea and Vomiting Senna (Sennosides 8.6 Mg Tablet) 17.2 mg PO BEDTIME PRN PRN Reason: Constipation Last Admin: 06/15/23 17:54 Dose: 17.2 mg Sodium Chloride (0.9 % Sodium Chloride Flush 3 Ml Syringe) [facility] Last Admin: 06/15/23 13:35 Dose: 3 ml Home Medications Medication Instructions Recorded Confirmed Last Taken Type atorvastatin 80 mg tablet 80 mg PO DAILY 04/21/20 06/11/23 06/11/23 History omeprazole magnesium 20 mg 20 mg PO DAILY@0630 04/21/20 06/11/23 06/11/23 History tablet,delayed release aspirin 81 mg tablet,delayed 81 mg PO DAILY 01/30/22 06/11/23 06/11/23 History release (Adult Low Dose Aspirin) albuterol sulfate 2.5 mg/3 mL 2.5 mg inhalation Q6H PRN Wheezing 04/01/22 06/11/23 06/11/23 History (0.083 %) solution for nebulization vitamins A,C,T-[id number] 4,296 1 cap PO BID 04/01/22 06/11/23 06/11/23 History mcg-226 mg-90 mg capsule (PreserVision AREDS) amlodipine 5 mg tablet 5 mg PO DAILY 12/11/22 06/11/23 06/11/23 History metoprolol tartrate 50 mg tablet 50 mg PO BID 12/11/22 06/11/23 06/11/23 History budesonide-formoterol HFA 160 2 puff inhalation BID 05/24/23 06/11/23 06/11/23 History mcg-4.5 mcg/actuation aerosol inhaler (Symbicort) Physical Exam Vital Signs: Vital Signs: Last Vital Signs Temp 98.4 F 06/15/23 19:12 Pulse 100 06/15/23 19:52 Resp 16 06/15/23 19:52 BP 141/73 H 06/15/23 19:52 Pulse Ox 98 06/15/23 19:52 O2 Del Method Nasal Cannula 06/15/23 19:52 O2 Flow Rate 2 06/15/23 19:52 Oxygen Flow Rate 2 06/15/23 08:19 BMI result Body Mass Index 22.7 ?General:?Patient mentation in and out, alert x self. Protecting airway. Following some commands. ?HEENT:? Head is normocephalic, atraumatic, pupils equal round reactive to light accommodation bilaterally.? Extraocular movements appear intact.? Buccal mucosa is dry, Neck is supple ?Cardiac:? Atrial flutter controlled rate. no rubs or gallops. ?Pulmonary:? Lungs diminished. Exp wheezes at bases. No rales or rhonchi. ?Abdomen:? ?Abdomen soft, non-tender, non-distended. Normal bowel sounds. No pulsatile mass. No hepatosplenomegaly. ?Musculoskeletal:? Moving all 4 extremities Randomly. ? The strength is 5/5 bilaterally and throughout all 4 extremities.? Gait not assessed at this point. ?Neurologic:? No focal deficits noted. Motor strength as above.?? ?Skin:? Intact, no lesions, edema, erythema, clubbing or cyanosis.? No ulcers. Vascular:? 2+ pulses upper and lower extremities distally.? Results Labs 06/16/23 04:33 06/16/23 04:33 Labs: Short CBC 06/15/23 Range/Units 12:07 WBC 6.5 (4.8-10.8) X10*3/uL Hgb 12.3 L (14.0-18.0) g/dl Hct 40.9 L (42.0-52.0) % Plt Count 208 (160-400) X10*3/uL BMP 06/15/23 12:07 Sodium 136 Potassium 3.9 Chloride 95 L Carbon Dioxide 32 H BUN 25 H Creatinine 0.84 Calcium 9.6 Assessment and Plan (1) Acute on chronic diastolic (congestive) heart failure: Status: Acute (2) Atrial flutter: Qualifiers: Atrial flutter type: typical Qualified Code(s): I48.3 - Typical atrial flutter Status: Acute (3) Acute respiratory failure with hypercapnia: Status: Acute Plan Neuro:?? ?Altered mental status: ? due to hypercapnic respiratory failure,? should improve on BiPAP.? . Cardiac:? ??Congestive heart failure/? pulmonary edema:? patient already on Lasix and Diamox. ? Received Lasix right before [employer]PERATOR.? Cont diamox and lasix? ?A flutter-? rate controlled. Cont Beta caden.? NSTEMI- Elevated trop, EKG with some changes on inferior leads. No ST elevations., On eliquis. Cardiology involved in case, Dr Scott, no need to start heparin drip, okay to cont Eliquis. . ?? Pulmonary:? Acute hypercapnic respiratory failure secondary? likely O2 retention. Will cont nebulized bronchodilators.? Keep 02 saturation 88-92%. Wean of BIPAP as tolerated? Renal:? No acute issues.?? Endo:? No acute issues.?? GI:? No acute issues. ID: ? no acute issues Heme/Onc:? No acute issues. Psych:? No acute issues. Miscellaneous:? No acute issues. Prophylaxis:? Eliquis? Diet:? NPO while on BIPAP? Critical care time spent:? 60 minutes Case discussed with Dr Andrea
[2023-06-15 21:01] LABS: MANUAL DIFF FLAG NO
[2023-06-15 21:01] LABS: Glucose, Whole Blood 359 mg/dL (60-115)
[2023-06-15 21:02] LABS: Basophils Percent Auto 0.3 % (0-2); Eosinophils Percent Auto 0.3 % (0-4); Hematocrit 37.2 % (42.0-52.0); Hemoglobin 11.6 g/dl (14.0-18.0); Imm Gran Abs Auto 0.02 X10*3/uL (0.00-0.03); Imm Gran Pct Auto 0.3 % (0.0-0.4); Lymphocytes Absolute Auto 0.6 X10*3/uL (1.2-4.9); Lymphocytes Percent Auto 9.9 % (20-40); Mean Corpuscular HGB Conc 31.2 g/dl (31.0-36.0); Mean Corpuscular Volume 96.1 fL (80.0-98.0); Monocytes Absolute Auto 0.6 X10*3/uL (0.1-1.2); Monocytes Percent Auto 9.4 % (2-11); Neutrophils Absolute Auto 4.9 x10*3/uL (2.0-8.3); Neutrophils Percent Auto 79.8 % (45-73); Platelet Count 188 X10*3/uL (160-400); Red Blood Count 3.87 X10*6/uL (4.60-5.80); Red Cell Distribution Width 13.1 % (11.0-16.0); White Blood Count 6.2 X10*3/uL (4.8-10.8)
[2023-06-15 21:04] LABS: Glucose, Whole Blood 281 mg/dL (60-115)
[2023-06-15 21:19] LABS: ABG Refer to POC result
[2023-06-15 21:23] LABS: B Type Natriuretic Peptide 328 pg/mL (<100)
[2023-06-15 21:29] LABS: Alanine Aminotransferase 24 U/L (0-40); Albumin Level 3.5 g/dL (3.5-5.0); Alkaline Phosphatase 123 U/L (39-117); Anion Gap 11 (12-20); Aspartate Amino Transferase 21 U/L (5-37); Bilirubin Total 0.6 mg/dL (0.0-1.0); Blood Urea Nitrogen 29 mg/dL (9-16); Calcium 9.9 mg/dL (8.4-10.2); Carbon Dioxide 32 mmol/L (22-29); Chloride 94 mmol/L (96-108); Creatinine Clr Calc Pharmacy 51.8; Estimated Glomerular Filt Rate > 60; Glucose Random 367 mg/dL (60-115); Magnesium 1.9 mg/dL (1.6-2.6); Phosphorus 3.7 mg/dL (2.7-4.5); Sodium 133 mmol/L (135-145); Total Protein 6.9 g/dL (6.5-8.0)
[2023-06-15] MEDS: acetaZOLAMIDE sodium 500 MG VIAL IVPUSH (21:38)
[2023-06-15 21:39] LABS: Troponin-I High Sensitivity 217.4 ng/L (<3.5-35.0)
[2023-06-15 22:01] LABS: ABG Base Excess 6.4 mmol/L; ABG HCO3 34 mmol/L (22-26); ABG pCO2 62 mmHg (32-45); ABG pH 7.34 (7.35-7.45); ABG pO2 62 mmHg (83-108)
--- NOTE | 2023-06-15 22:23 | PC.NURSE ---
Pt transferred to ICU from tele s/p [employer] at approx 2044. Upon initial assessment- pt drowsy but arousable to verbal stimuli. A&Ox2/3, slightly restless but cooperative, RANKIN. Aflutter with PVCs on tele, HR 80-90s. SBP WNL. Placed on BiPAP 18/5/24%, tolerating well. ABGs drawn by RT. NPO while wearing mask. Condom cath placed on pt. Skin overall intact. New IV access obtained. Medicated per JUL. Family updated on pt status/plan of care and at bedside.
[2023-06-15 23:18] LABS: ABG Refer to POC result
[2023-06-16] VITALS (25 sets, daily range): BP systolic 99–148; BP diastolic 51–70; PULSE 72–117; RESP 11–35; TEMP 36.4–37.2; O2SAT 83–97; BMI 22.7
--- NOTE | 2023-06-16 | ECG_ITS ---
Test Reason : Elevated Trop Blood Pressure : / mmHG Vent. Rate : 088 BPM Atrial Rate : 288 BPM P-R Int : 000 ms QRS Dur : 096 ms QT Int : 376 ms P-R-T Axes : 000 012 129 degrees QTc Int : 454 ms Atrial flutter with variable A-V block Minimal voltage criteria for LVH, may be normal variant ( Mychal product ) Possible Inferior infarct (cited on or before 24-MAY-2023) ST & T wave abnormality, consider lateral ischemia Abnormal ECG When compared with ECG of 16-JUN-2023 01:31, No significant change was found Referred By: Kayla Cardona Electronically Signed By:
[2023-06-16 01:21] LABS: Troponin-I High Sensitivity 471.1 ng/L (<3.5-35.0)
--- NOTE | 2023-06-16 03:29 | PC.NURSE ---
Assumed care of at 18:45. Patient upon assessment was non responsive, but arousable to pain. Rapid response called. MD at bedside ordered ABG CXR and head CT ordered and obtained. Vitals stable. Patient transferred to ICU for initiation of bipap. Report given to ICU nurse.
[2023-06-16 04:39] LABS: MANUAL DIFF FLAG NO
[2023-06-16 04:40] LABS: Basophils Percent Auto 0.5 % (0-2); Eosinophils Absolute Auto 0.1 X10*3/uL (0.0-0.4); Eosinophils Percent Auto 1.8 % (0-4); Hemoglobin 10.6 g/dl (14.0-18.0); Imm Gran Abs Auto 0.02 X10*3/uL (0.00-0.03); Imm Gran Pct Auto 0.3 % (0.0-0.4); Lymphocytes Absolute Auto 1.3 X10*3/uL (1.2-4.9); Lymphocytes Percent Auto 19.4 % (20-40); Mean Corpuscular HGB Conc 31.2 g/dl (31.0-36.0); Mean Corpuscular Hemoglobin 29.4 pg (27.0-33.0); Mean Corpuscular Volume 94.4 fL (80.0-98.0); Mean Platelet Volume 10.1 fL (9.4-12.4); Monocytes Absolute Auto 0.8 X10*3/uL (0.1-1.2); Monocytes Percent Auto 11.9 % (2-11); Neutrophils Absolute Auto 4.4 x10*3/uL (2.0-8.3); Neutrophils Percent Auto 66.1 % (45-73); Platelet Count 180 X10*3/uL (160-400); Red Cell Distribution Width 12.9 % (11.0-16.0); White Blood Count 6.7 X10*3/uL (4.8-10.8)
[2023-06-16 04:43] LABS: VBG Base Excess 8.7 mmol/L; VBG HCO3 32 mmol/L (22-26); VBG pCO2 40 mmHg; VBG pH 7.51 (7.32-7.43); VBG pO2 33 mmHg
[2023-06-16 04:50] LABS: Venous Blood Gas Refer to POC result
[2023-06-16 05:03] LABS: Alanine Aminotransferase 22 U/L (0-40); Albumin Level 3.4 g/dL (3.5-5.0); Alkaline Phosphatase 114 U/L (39-117); Anion Gap 13 (12-20); Aspartate Amino Transferase 19 U/L (5-37); Bilirubin Total 0.8 mg/dL (0.0-1.0); Blood Urea Nitrogen 31 mg/dL (9-16); Calcium 9.7 mg/dL (8.4-10.2); Carbon Dioxide 29 mmol/L (22-29); Chloride 97 mmol/L (96-108); Creatinine Clr Calc Pharmacy 69.1; Estimated Glomerular Filt Rate > 60; Glucose Random 254 mg/dL (60-115); Magnesium 1.9 mg/dL (1.6-2.6); Phosphorus 1.9 mg/dL (2.7-4.5); Potassium 3.5 mmol/L (3.3-5.1); Sodium 135 mmol/L (135-145); Total Protein 6.4 g/dL (6.5-8.0)
[2023-06-16] MEDS: Potassium Phosphate/NS 15 MMOL/250 ML PLAST..BAG 62.5 MMOL IV (05:29)
[2023-06-16 07:20] LABS: Glucose, Whole Blood 200 mg/dL (60-115)
[2023-06-16] MEDS: Albuterol/Iprat 2.5/0.5MG 3 ML AMPUL.NEB INHALE ×3 (07:56→19:53)
[2023-06-16] MEDS: Furosemide 40 MG/4 ML VIAL IVPUSH (08:02)
[2023-06-16] MEDS: 0.9 % Sodium Chloride Flush 3 ML SYRINGE IVFLUSH ×3 (08:02→20:56)
[2023-06-16] MEDS: Apixaban 5 MG TABLET PO ×2 (09:03→20:56)
--- NOTE | 2023-06-16 09:09 | PM.PNCARD ---
Subjective Subjective Date of Service: 06/16/23 Interval history: Events of last night noted. Transferred to ICU and put on Bipap, but now only on 1L O2. Seems comfortable. No cardiac complaints. Review of Systems Review of Systems Yes all other systems are reviewed and are negative Constitutional: Reports as per HPI and Reports no additional constitutional complaints Eyes: Reports as per HPI and Denies no additional eye complaints Denies system reviewed and no additional complaints, except as documented and Reports as per HPI Cardiovascular: Reports as per HPI, Reports no additional cardiovascular complaints, Denies acrocyanosis, Denies cool extremities, Denies chest pain, Denies leg edema, Denies lightheadedness, Denies palpitations and Denies dyspnea Respiratory: Reports as per HPI, Denies no additional respiratory complaints and Denies dyspnea Gastrointestinal: Reports as per HPI and Denies no additional gastrointestinal complaints Genitourinary: Reports no additional male genitourinary complaints and Reports as per HPI Musculoskeletal: Reports no additional musculoskeletal complaints and Reports as per HPI Skin/Breast: Reports system reviewed and no additional complaints, except as docu Reports system reviewed and no additional complaints, except as documented and Reports as per HPI Psychiatric: Reports no additional psychiatric complaints and Reports as per HPI Endocrine: Reports no additional endocrine complaints, Reports as per HPI and Denies palpitations Hematologic/Lymphatic: Reports no additional hematologic/lymphatic complaints and Reports as per HPI Allergic/Immunologic: Reports no additional allergic/immunologic complaints and Reports as per HPI Physical Exam Vital Signs: Last Vital Signs Temp 98.1 F 06/16/23 08:00 Pulse 89 06/16/23 09:00 Resp 11 L 06/16/23 09:00 BP 124/57 L 06/16/23 09:00 Pulse Ox 95 06/16/23 09:00 O2 Del Method Nasal Cannula 06/16/23 09:00 O2 Flow Rate 1 06/16/23 09:00 FiO2 21 06/16/23 08:00 Oxygen Flow Rate 2 06/15/23 08:19 BMI result Body Mass Index 22.7 Const General: comfortable and no acute distress Orientation/consciousness: patient oriented x3 HEENT Other: Unremarkable Head: Yes normal to inspection Neck Neck: Yes normal visual inspection Chest Chest palpation & inspection: normal inspection of the chest Resp Other: Minimal crackles Auscultation: clear to auscultation bilaterally Cardio Palpation: normal PMI Heart sounds: S1 normal heart sound present, S2 normal heart sound present, no gallops, no murmurs and no rubs GI Palpation (GI): Soft to palpation Back/Spine/Pelvis Other: unremarkable Skin General skin exam: no rashes or lesions noted Neuro General: patient oriented x3 Extrem General: Yes normal to inspection Psych Mental Status: mental status grossly normal Objective Labs and Meds 06/16/23 04:33 06/16/23 04:33 Lab results: Laboratory Results - last 24 hr 06/15/23 06/15/23 06/15/23 12:07 12:15 16:02 WBC 6.5 RBC 4.15 L Hgb 12.3 L Hct 40.9 L MCV 98.6 H MCH 29.6 MCHC 30.1 L RDW 12.9 Plt Count 208 MPV 9.9 Immature Gran % (Auto) Neut % (Auto) Lymph % (Auto) [place] % (Auto) Eos % (Auto) Baso % (Auto) Lymph # (Auto) [place] # (Auto) Eos # (Auto) Baso # (Auto) Abs Immat Gran (auto) Absolute Neuts (auto) Absolute Nucleated RBC 0.000 Nucleated RBC % (auto) 0.0 Hold Purple Top O2 Saturation ABG pH at Pt Temp ABG pCO2 at Pt Temp ABG pO2 at Pt Temp ABG HCO3 ABG Base Excess (Actual) VBG pH VBG pCO2 VBG pO2 VBG HCO3 VBG O2 Saturation VBG Base Excess Sodium 136 Potassium 3.9 Chloride 95 L Carbon Dioxide 32 H Anion Gap 13 BUN 25 H Creatinine 0.84 Estim Creat Clear Calc 71.6 Estimated GFR > 60 POC Glucose 217 H 273 H Random Glucose 221 H Lactic Acid Calcium 9.6 Phosphorus Magnesium Total Bilirubin AST ALT Alkaline Phosphatase Troponin I High Sens B-Natriuretic Peptide 242 H Total Protein Albumin Influenza Type A (PCR) NEGATIVE Influenza Type B (PCR) NEGATIVE RSV RNA Qual (PCR) NEGATIVE SARS-CoV-2 RNA (RT-PCR) NEGATIVE 06/15/23 06/15/23 06/15/23 19:54 20:03 20:51 WBC 6.2 RBC 3.87 L Hgb 11.6 L Hct 37.2 L MCV 96.1 MCH 30.0 MCHC 31.2 RDW 13.1 Plt Count 188 MPV 10.0 Immature Gran % (Auto) 0.3 Neut % (Auto) 79.8 H Lymph % (Auto) 9.9 L [place] % (Auto) 9.4 Eos % (Auto) 0.3 Baso % (Auto) 0.3 Lymph # (Auto) 0.6 L [place] # (Auto) 0.6 Eos # (Auto) 0.0 Baso # (Auto) 0.0 Abs Immat Gran (auto) 0.02 Absolute Neuts (auto) 4.9 Absolute Nucleated RBC 0.000 Nucleated RBC % (auto) 0.0 Hold Purple Top O2 Saturation 96.0 ABG pH at Pt Temp 7.22 L ABG pCO2 at Pt Temp 84 H* ABG pO2 at Pt Temp 86 ABG HCO3 34 H ABG Base Excess (Actual) 4.3 VBG pH VBG pCO2 VBG pO2 VBG HCO3 VBG O2 Saturation VBG Base Excess Sodium Cancelled Potassium Chloride Carbon Dioxide Anion Gap BUN Creatinine Estim Creat Clear Calc Estimated GFR POC Glucose 359 H* Random Glucose Lactic Acid Calcium Phosphorus Magnesium Total Bilirubin AST ALT Alkaline Phosphatase Troponin I High Sens B-Natriuretic Peptide Total Protein Albumin Influenza Type A (PCR) Influenza Type B (PCR) RSV RNA Qual (PCR) SARS-CoV-2 RNA (RT-PCR) 06/15/23 06/15/23 06/15/23 20:51 20:51 20:51 WBC RBC Hgb Hct MCV MCH MCHC RDW Plt Count MPV Immature Gran % (Auto) Neut % (Auto) Lymph % (Auto) [place] % (Auto) Eos % (Auto) Baso % (Auto) Lymph # (Auto) [place] # (Auto) Eos # (Auto) Baso # (Auto) Abs Immat Gran (auto) Absolute Neuts (auto) Absolute Nucleated RBC Nucleated RBC % (auto) Hold Purple Top O2 Saturation ABG pH at Pt Temp ABG pCO2 at Pt Temp ABG pO2 at Pt Temp ABG HCO3 ABG Base Excess (Actual) VBG pH VBG pCO2 VBG pO2 VBG HCO3 VBG O2 Saturation VBG Base Excess Sodium 133 L Potassium Cancelled 4.0 Chloride Cancelled 94 L Carbon Dioxide Cancelled Anion Gap BUN Creatinine Estim Creat Clear Calc Estimated GFR POC Glucose Random Glucose Lactic Acid Calcium Phosphorus Magnesium Total Bilirubin AST ALT Alkaline Phosphatase Troponin I High Sens B-Natriuretic Peptide Total Protein Albumin Influenza Type A (PCR) Influenza Type B (PCR) RSV RNA Qual (PCR) SARS-CoV-2 RNA (RT-PCR) 06/15/23 06/15/23 06/15/23 20:51 20:51 20:51 WBC RBC Hgb Hct MCV MCH MCHC RDW Plt Count MPV Immature Gran % (Auto) Neut % (Auto) Lymph % (Auto) [place] % (Auto) Eos % (Auto) Baso % (Auto) Lymph # (Auto) [place] # (Auto) Eos # (Auto) Baso # (Auto) Abs Immat Gran (auto) Absolute Neuts (auto) Absolute Nucleated RBC Nucleated RBC % (auto) Hold Purple Top O2 Saturation ABG pH at Pt Temp ABG pCO2 at Pt Temp ABG pO2 at Pt Temp ABG HCO3 ABG Base Excess (Actual) VBG pH VBG pCO2 VBG pO2 VBG HCO3 VBG O2 Saturation VBG Base Excess Sodium Potassium Chloride Carbon Dioxide 32 H Anion Gap Cancelled 11 L BUN Cancelled 29 H Creatinine Cancelled Estim Creat Clear Calc Estimated GFR POC Glucose Random Glucose Lactic Acid Calcium Phosphorus Magnesium Total Bilirubin AST ALT Alkaline Phosphatase Troponin I High Sens B-Natriuretic Peptide Total Protein Albumin Influenza Type A (PCR) Influenza Type B (PCR) RSV RNA Qual (PCR) SARS-CoV-2 RNA (RT-PCR) 06/15/23 06/15/23 06/15/23 20:51 20:51 20:51 WBC RBC Hgb Hct MCV MCH MCHC RDW Plt Count MPV Immature Gran % (Auto) Neut % (Auto) Lymph % (Auto) [place] % (Auto) Eos % (Auto) Baso % (Auto) Lymph # (Auto) [place] # (Auto) Eos # (Auto) Baso # (Auto) Abs Immat Gran (auto) Absolute Neuts (auto) Absolute Nucleated RBC Nucleated RBC % (auto) Hold Purple Top O2 Saturation ABG pH at Pt Temp ABG pCO2 at Pt Temp ABG pO2 at Pt Temp ABG HCO3 ABG Base Excess (Actual) VBG pH VBG pCO2 VBG pO2 VBG HCO3 VBG O2 Saturation VBG Base Excess Sodium Potassium Chloride Carbon Dioxide Anion Gap BUN Creatinine 1.16 Estim Creat Clear Calc Cancelled 51.8 Estimated GFR Cancelled > 60 POC Glucose Random Glucose Cancelled Lactic Acid Calcium Phosphorus Magnesium Total Bilirubin AST ALT Alkaline Phosphatase Troponin I High Sens B-Natriuretic Peptide Total Protein Albumin Influenza Type A (PCR) Influenza Type B (PCR) RSV RNA Qual (PCR) SARS-CoV-2 RNA (RT-PCR) 06/15/23 06/15/23 06/15/23 20:51 20:51 20:51 WBC RBC Hgb Hct MCV MCH MCHC RDW Plt Count MPV Immature Gran % (Auto) Neut % (Auto) Lymph % (Auto) [place] % (Auto) Eos % (Auto) Baso % (Auto) Lymph # (Auto) [place] # (Auto) Eos # (Auto) Baso # (Auto) Abs Immat Gran (auto) Absolute Neuts (auto) Absolute Nucleated RBC Nucleated RBC % (auto) Hold Purple Top O2 Saturation ABG pH at Pt Temp ABG pCO2 at Pt Temp ABG pO2 at Pt Temp ABG HCO3 ABG Base Excess (Actual) VBG pH VBG pCO2 VBG pO2 VBG HCO3 VBG O2 Saturation VBG Base Excess Sodium Potassium Chloride Carbon Dioxide Anion Gap BUN Creatinine Estim Creat Clear Calc Estimated GFR POC Glucose Random Glucose 367 H* Lactic Acid Cancelled Calcium Cancelled 9.9 Phosphorus 3.7 Magnesium 1.9 Total Bilirubin Cancelled 0.6 AST Cancelled ALT Alkaline Phosphatase Troponin I High Sens B-Natriuretic Peptide Total Protein Albumin Influenza Type A (PCR) Influenza Type B (PCR) RSV RNA Qual (PCR) SARS-CoV-2 RNA (RT-PCR) 06/15/23 06/15/23 06/15/23 20:51 20:51 20:51 WBC RBC Hgb Hct MCV MCH MCHC RDW Plt Count MPV Immature Gran % (Auto) Neut % (Auto) Lymph % (Auto) [place] % (Auto) Eos % (Auto) Baso % (Auto) Lymph # (Auto) [place] # (Auto) Eos # (Auto) Baso # (Auto) Abs Immat Gran (auto) Absolute Neuts (auto) Absolute Nucleated RBC Nucleated RBC % (auto) Hold Purple Top O2 Saturation ABG pH at Pt Temp ABG pCO2 at Pt Temp ABG pO2 at Pt Temp ABG HCO3 ABG Base Excess (Actual) VBG pH VBG pCO2 VBG pO2 VBG HCO3 VBG O2 Saturation VBG Base Excess Sodium Potassium Chloride Carbon Dioxide Anion Gap BUN Creatinine Estim Creat Clear Calc Estimated GFR POC Glucose Random Glucose Lactic Acid Calcium Phosphorus Magnesium Total Bilirubin AST 21 ALT Cancelled 24 Alkaline Phosphatase Cancelled 123 H Troponin I High Sens 217.4 H* D B-Natriuretic Peptide 328 H Total Protein Cancelled Albumin Influenza Type A (PCR) Influenza Type B (PCR) RSV RNA Qual (PCR) SARS-CoV-2 RNA (RT-PCR) 06/15/23 06/15/23 06/15/23 20:51 20:51 20:59 WBC RBC Hgb Hct MCV MCH MCHC RDW Plt Count MPV Immature Gran % (Auto) Neut % (Auto) Lymph % (Auto) [place] % (Auto) Eos % (Auto) Baso % (Auto) Lymph # (Auto) [place] # (Auto) Eos # (Auto) Baso # (Auto) Abs Immat Gran (auto) Absolute Neuts (auto) Absolute Nucleated RBC Nucleated RBC % (auto) Hold Purple Top O2 Saturation ABG pH at Pt Temp ABG pCO2 at Pt Temp ABG pO2 at Pt Temp ABG HCO3 ABG Base Excess (Actual) VBG pH VBG pCO2 VBG pO2 VBG HCO3 VBG O2 Saturation VBG Base Excess Sodium Potassium Chloride Carbon Dioxide Anion Gap BUN Creatinine Estim Creat Clear Calc Estimated GFR POC Glucose 281 H Random Glucose Lactic Acid Calcium Phosphorus Magnesium Total Bilirubin AST ALT Alkaline Phosphatase Troponin I High Sens B-Natriuretic Peptide Total Protein 6.9 Albumin Cancelled 3.5 Influenza Type A (PCR) Influenza Type B (PCR) RSV RNA Qual (PCR) SARS-CoV-2 RNA (RT-PCR) 06/15/23 06/15/23 06/16/23 21:28 21:52 00:36 WBC RBC Hgb Hct MCV MCH MCHC RDW Plt Count MPV Immature Gran % (Auto) Neut % (Auto) Lymph % (Auto) [place] % (Auto) Eos % (Auto) Baso % (Auto) Lymph # (Auto) [place] # (Auto) Eos # (Auto) Baso # (Auto) Abs Immat Gran (auto) Absolute Neuts (auto) Absolute Nucleated RBC Nucleated RBC % (auto) Hold Purple Top SEE NOTE O2 Saturation 91.0 ABG pH at Pt Temp 7.34 L ABG pCO2 at Pt Temp 62 H* ABG pO2 at Pt Temp 62 L ABG HCO3 34 H ABG Base Excess (Actual) 6.4 VBG pH VBG pCO2 VBG pO2 VBG HCO3 VBG O2 Saturation VBG Base Excess Sodium Cancelled Potassium Cancelled Chloride Cancelled Carbon Dioxide Cancelled Anion Gap Cancelled BUN Cancelled Creatinine Cancelled Estim Creat Clear Calc Cancelled Estimated GFR Cancelled POC Glucose Random Glucose Cancelled Lactic Acid 1.0 Calcium Cancelled Phosphorus Cancelled Magnesium Cancelled Total Bilirubin Cancelled AST Cancelled ALT Cancelled Alkaline Phosphatase Cancelled Troponin I High Sens 471.1 H* D B-Natriuretic Peptide Total Protein Cancelled Albumin Cancelled Influenza Type A (PCR) Influenza Type B (PCR) RSV RNA Qual (PCR) SARS-CoV-2 RNA (RT-PCR) 06/16/23 06/16/23 06/16/23 04:33 04:35 07:16 WBC 6.7 RBC 3.60 L Hgb 10.6 L Hct 34.0 L MCV 94.4 MCH 29.4 MCHC 31.2 RDW 12.9 Plt Count 180 MPV 10.1 Immature Gran % (Auto) 0.3 Neut % (Auto) 66.1 Lymph % (Auto) 19.4 L [place] % (Auto) 11.9 H Eos % (Auto) 1.8 Baso % (Auto) 0.5 Lymph # (Auto) 1.3 [place] # (Auto) 0.8 Eos # (Auto) 0.1 Baso # (Auto) 0.0 Abs Immat Gran (auto) 0.02 Absolute Neuts (auto) 4.4 Absolute Nucleated RBC 0.000 Nucleated RBC % (auto) 0.0 Hold Purple Top O2 Saturation ABG pH at Pt Temp ABG pCO2 at Pt Temp ABG pO2 at Pt Temp ABG HCO3 ABG Base Excess (Actual) VBG pH 7.51 H VBG pCO2 40 VBG pO2 33 VBG HCO3 32 H VBG O2 Saturation 66.0 VBG Base Excess 8.7 Sodium 135 Potassium 3.5 Chloride 97 Carbon Dioxide 29 Anion Gap 13 BUN 31 H Creatinine 0.87 Estim Creat Clear Calc 69.1 Estimated GFR > 60 POC Glucose 200 H Random Glucose 254 H Lactic Acid Calcium 9.7 Phosphorus 1.9 L Magnesium 1.9 Total Bilirubin 0.8 AST 19 ALT 22 Alkaline Phosphatase 114 Troponin I High Sens B-Natriuretic Peptide Total Protein 6.4 L Albumin 3.4 L Influenza Type A (PCR) Influenza Type B (PCR) RSV RNA Qual (PCR) SARS-CoV-2 RNA (RT-PCR) Imaging Radiologist's impression: Impressions Chest X-Ray 06/15/23 12:18 IMPRESSION: 1. Bilateral calcified pleural plaques and right apical pleural thickening. No acute consolidation seen. Prominent interstitial markings are stable 2. There is mild spondylosis mid and lower dorsal spine. 3. 2. No major change from previous exam 06/11/2023. Chest X-Ray 06/15/23 20:25 IMPRESSION: 1. Hypoexpanded lungs with haziness in both lung bases likely pleural effusion/atelectasis. 2. Calcified pleural plaques and prominent interstitial markings are stable. Head CT 06/15/23 20:39 IMPRESSION: The posterior fossa and skull base are obscured by motion. No acute intracranial hemorrhage or territorial loss of wiley-white differentiation in the nondegraded aspects of the examination. Chest CT 06/15/23 20:40 IMPRESSION: No evidence of aspiration pneumonia, mass or consolidation. Emphysema, calcified pleural plaques or from previous stenosis exposure. There are small bilateral pleural effusions. There is chronic interstitial changes throughout both lungs more prominent in the lower lobes. Fleischner guidelines were followed. Progress Note: A&P Assessment and plan (1) Acute on chronic diastolic (congestive) heart failure: Status: Acute (2) Atrial flutter: Status: Acute Plan In the recent echocardiogram, LVEF 51%. Basal inferior/inferolateral akinesis. Moderate diastolic dysfunction. [id number] aortic stenosis. Severe mitral annular calcification moderate pulmonary hypertension. On EKG, atrial flutter; rate 90s. He was on schedule for SAMREEN/CV yesterday but cancelled due to delirium. Overnight respiratory failure due to ?O2 toxicity per cell manager. Now seems mentating fine. Not on bipap. No drips apart from K phos. Only on O2 1 L/min. Discussed with and she is still requesting to proceed. Risks include but not limited to aspiration, respiratory failure, . Once cardioverted, probably use Amiodarone to keep in sinus. Trop elevation is from demand due to respiratory failure. He has no angina. Time Spent With Patient Time: Total time managing care of this patient today ____ minutes. Progress Note: Quality Stroke Does the patient have a stroke diagnosis?: No Procedures Date of Service Date of Service: 06/16/23
--- NOTE | 2023-06-16 09:17 | MHC.SHP ---
Pre-Procedural Eval Section A - 24 Hr Update-Section A only Date of Service: 06/16/23 The patient is an INPATIENT: Yes Section B - Complete if H&P > 30 days Chief Complaint: CHF, a flutter Allergies: Allergies Allergy/AdvReac Type Severity Reaction Status Date / Time No Known Allergies Allergy Verified 06/11/23 09:12 [No Known Allergies*] Plan I have reviewed the history and physical and performed a pertinent physical examination on my patient. No changes have occurred unless specified. Time Spent With Patient Time: Total time managing care of this patient today ____ minutes.
--- NOTE | 2023-06-16 09:17 | HO.CARDIVERS ---
Cardioversion Procedure Note Cardioversion Date of Procedure: 06/16/2023 Ordering Provider: Dr. Scott Performing Provider: Dr. Scott Indication for Procedure: Atrial flutter with recurrent heart failure admissions. Pre-Op Diagnosis: As above. Post-Op Diagnosis: Undetermined rhythm; possible atrial tachycardia or sinus tachycardia with frequent PACs. Less likely atrial flutter or fibrillation. SAMREEN findings (if SAMREEN Performed): Dictated separately History: See full progress notes Consent: Informed consent obtained. Procedure: After informed consent he was obtained he was taken to the operating room. A SAMREEN was 1st performed. That did not show any obvious left atrial appendage thrombus although he does have a history of appendage ligation in the past. Subsequently, he underwent cardioversion with pads in the anteroposterior position. 150 joules x2. There was rhythm change as described below. Complications: None. Impression: Rhythm did change but new rhythm is not very clear as to what it is. Possible sinus tach with frequent PACs or atrial tach but not definitive. Less likely atrial fibrillation and unlikely flutter. We will start amiodarone loading and also beta-blockers. We will follow-up on EKGs. Recommendations: Discussed with and son. Discussed with RN. Discussed with the hospitalist. Discussed with typo machine operator.
[2023-06-16] MEDS: Fluticasone/Vilanterol 200/25 BLST.W.DEV 1 PUFF INHALE (09:28)
--- NOTE | 2023-06-16 10:00 | CA_ITS ---
Transesophageal Echocardiogram Patient (Last, First, Middle): Yossi Perez T Gender: Male Date of : 1940 Age: 82 Procedure Date: 06/16/2023 Procedure Type: Transesophageal Echocardiogram Location: ICU Height: 182.88 cm Weight: 75.75 kg BSA: 1.97 m2 Heart Rate: bpm BP: 110 / 52 mmHg Geochemical Manager: TO Referring MD: Nestor Scott MD Symptoms: Atrial flutter Conclusion: ??? No evidence of left atrial appendage thrombus. Findings Procedure Information The quality of the study was good. Consent was obtained prior to the procedure. Pre SAMREEN oral cavity was checked and revealed no overcrowding. The adult 3D probe was passed with no difficulty. Left Ventricle Normal left ventricular cavity size. The left ventricular systolic function is low normal. The visually estimated ejection fraction is between 50-55%. Atria There is no evidence of interatrial shunt by color Doppler. Suspect appendage previously ligated during surgery. No overt thrombus or spontaneous echo contrast in the visible areas. Diminished velocity at the mouth of the appendage. Aortic Valve There is moderate calcification of the aortic valve. There is trace (trivial) aortic valve regurgitation. Mitral Valve The mitral valve appears normal. There is mild mitral valve regurgitation. There is no mitral valve stenosis. Pulmonic Valve The pulmonic valve was not well visualized. Tricuspid Valve There is trace tricuspid valve regurgitation. Great Vessels Moderate plaque is seen in the arch and descending thoracic aorta. Pericardium/Pleural There is no evidence of pericardial effusion. Prior Study Comparison No significant change compared to prior study dated: 05/24/2023. Updated by Nestor Scott on 08:41 AM with Status of Final Nestor Scott MD electronically signed on 06/17/2023 8:41:21 AM with status of Final
--- NOTE | 2023-06-16 10:19 | PM.CCPN ---
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 Patient was planned for cardioversion, however on 06/15/2023 he developed acute hypercapnic respiratory failure secondary to iatrogenic hyperoxia briefly requiring BiPAP support and transferred to intensive care unit. No events overnight. Titrated off BiPAP. Critical Care Time (minutes): 0 Physical Exam Vital Signs: Vital Signs: Last Vital Signs Temp 98.1 F 06/16/23 08:00 Pulse 89 06/16/23 09:00 Resp 11 L 06/16/23 09:00 BP 124/57 L 06/16/23 09:00 Pulse Ox 95 06/16/23 09:00 O2 Del Method Nasal Cannula 06/16/23 09:00 O2 Flow Rate 1 06/16/23 09:00 FiO2 21 06/16/23 08:00 Oxygen Flow Rate 2 06/15/23 08:19 BMI result Body Mass Index 22.7 Const: General: no acute distress, alert and awake Eyes: Sclerae: sclerae normal EOM: EOMs intact bilaterally Neck: Neck: Yes no lymphadenopathy, Yes trachea midline and Yes supple Resp: Effort & Inspection: normal respiratory effort and no respiratory distress Auscultation: clear to auscultation bilaterally Cardio: Rate: regular rate Rhythm: regular rhythm Heart sounds: no gallops, no murmurs and no rubs GI: Palpation (GI): Soft to palpation and Other GI palpation findings present ( Nontender) Auscultation: normal bowel sounds Extrem: General: Yes no pedal edema, No clubbing and No cyanosis Objective Data Labs 06/16/23 04:33 06/16/23 04:33 Labs: Laboratory Results - last 24 hr 06/15/23 06/15/23 06/15/23 12:07 12:15 16:02 WBC 6.5 RBC 4.15 L Hgb 12.3 L Hct 40.9 L MCV 98.6 H MCH 29.6 MCHC 30.1 L RDW 12.9 Plt Count 208 MPV 9.9 Immature Gran % (Auto) Neut % (Auto) Lymph % (Auto) [place] % (Auto) Eos % (Auto) Baso % (Auto) Lymph # (Auto) [place] # (Auto) Eos # (Auto) Baso # (Auto) Abs Immat Gran (auto) Absolute Neuts (auto) Absolute Nucleated RBC 0.000 Nucleated RBC % (auto) 0.0 Hold Purple Top O2 Saturation ABG pH at Pt Temp ABG pCO2 at Pt Temp ABG pO2 at Pt Temp ABG HCO3 ABG Base Excess (Actual) VBG pH VBG pCO2 VBG pO2 VBG HCO3 VBG O2 Saturation VBG Base Excess Sodium 136 Potassium 3.9 Chloride 95 L Carbon Dioxide 32 H Anion Gap 13 BUN 25 H Creatinine 0.84 Estim Creat Clear Calc 71.6 Estimated GFR > 60 POC Glucose 217 H 273 H Random Glucose 221 H Lactic Acid Calcium 9.6 Phosphorus Magnesium Total Bilirubin AST ALT Alkaline Phosphatase Troponin I High Sens B-Natriuretic Peptide 242 H Total Protein Albumin Influenza Type A (PCR) NEGATIVE Influenza Type B (PCR) NEGATIVE RSV RNA Qual (PCR) NEGATIVE SARS-CoV-2 RNA (RT-PCR) NEGATIVE 06/15/23 06/15/23 06/15/23 19:54 20:03 20:51 WBC 6.2 RBC 3.87 L Hgb 11.6 L Hct 37.2 L MCV 96.1 MCH 30.0 MCHC 31.2 RDW 13.1 Plt Count 188 MPV 10.0 Immature Gran % (Auto) 0.3 Neut % (Auto) 79.8 H Lymph % (Auto) 9.9 L [place] % (Auto) 9.4 Eos % (Auto) 0.3 Baso % (Auto) 0.3 Lymph # (Auto) 0.6 L [place] # (Auto) 0.6 Eos # (Auto) 0.0 Baso # (Auto) 0.0 Abs Immat Gran (auto) 0.02 Absolute Neuts (auto) 4.9 Absolute Nucleated RBC 0.000 Nucleated RBC % (auto) 0.0 Hold Purple Top O2 Saturation 96.0 ABG pH at Pt Temp 7.22 L ABG pCO2 at Pt Temp 84 H* ABG pO2 at Pt Temp 86 ABG HCO3 34 H ABG Base Excess (Actual) 4.3 VBG pH VBG pCO2 VBG pO2 VBG HCO3 VBG O2 Saturation VBG Base Excess Sodium Cancelled Potassium Chloride Carbon Dioxide Anion Gap BUN Creatinine Estim Creat Clear Calc Estimated GFR POC Glucose 359 H* Random Glucose Lactic Acid Calcium Phosphorus Magnesium Total Bilirubin AST ALT Alkaline Phosphatase Troponin I High Sens B-Natriuretic Peptide Total Protein Albumin Influenza Type A (PCR) Influenza Type B (PCR) RSV RNA Qual (PCR) SARS-CoV-2 RNA (RT-PCR) 06/15/23 06/15/23 06/15/23 20:51 20:51 20:51 WBC RBC Hgb Hct MCV MCH MCHC RDW Plt Count MPV Immature Gran % (Auto) Neut % (Auto) Lymph % (Auto) [place] % (Auto) Eos % (Auto) Baso % (Auto) Lymph # (Auto) [place] # (Auto) Eos # (Auto) Baso # (Auto) Abs Immat Gran (auto) Absolute Neuts (auto) Absolute Nucleated RBC Nucleated RBC % (auto) Hold Purple Top O2 Saturation ABG pH at Pt Temp ABG pCO2 at Pt Temp ABG pO2 at Pt Temp ABG HCO3 ABG Base Excess (Actual) VBG pH VBG pCO2 VBG pO2 VBG HCO3 VBG O2 Saturation VBG Base Excess Sodium 133 L Potassium Cancelled 4.0 Chloride Cancelled 94 L Carbon Dioxide Cancelled Anion Gap BUN Creatinine Estim Creat Clear Calc Estimated GFR POC Glucose Random Glucose Lactic Acid Calcium Phosphorus Magnesium Total Bilirubin AST ALT Alkaline Phosphatase Troponin I High Sens B-Natriuretic Peptide Total Protein Albumin Influenza Type A (PCR) Influenza Type B (PCR) RSV RNA Qual (PCR) SARS-CoV-2 RNA (RT-PCR) 06/15/23 06/15/23 06/15/23 20:51 20:51 20:51 WBC RBC Hgb Hct MCV MCH MCHC RDW Plt Count MPV Immature Gran % (Auto) Neut % (Auto) Lymph % (Auto) [place] % (Auto) Eos % (Auto) Baso % (Auto) Lymph # (Auto) [place] # (Auto) Eos # (Auto) Baso # (Auto) Abs Immat Gran (auto) Absolute Neuts (auto) Absolute Nucleated RBC Nucleated RBC % (auto) Hold Purple Top O2 Saturation ABG pH at Pt Temp ABG pCO2 at Pt Temp ABG pO2 at Pt Temp ABG HCO3 ABG Base Excess (Actual) VBG pH VBG pCO2 VBG pO2 VBG HCO3 VBG O2 Saturation VBG Base Excess Sodium Potassium Chloride Carbon Dioxide 32 H Anion Gap Cancelled 11 L BUN Cancelled 29 H Creatinine Cancelled Estim Creat Clear Calc Estimated GFR POC Glucose Random Glucose Lactic Acid Calcium Phosphorus Magnesium Total Bilirubin AST ALT Alkaline Phosphatase Troponin I High Sens B-Natriuretic Peptide Total Protein Albumin Influenza Type A (PCR) Influenza Type B (PCR) RSV RNA Qual (PCR) SARS-CoV-2 RNA (RT-PCR) 06/15/23 06/15/23 06/15/23 20:51 20:51 20:51 WBC RBC Hgb Hct MCV MCH MCHC RDW Plt Count MPV Immature Gran % (Auto) Neut % (Auto) Lymph % (Auto) [place] % (Auto) Eos % (Auto) Baso % (Auto) Lymph # (Auto) [place] # (Auto) Eos # (Auto) Baso # (Auto) Abs Immat Gran (auto) Absolute Neuts (auto) Absolute Nucleated RBC Nucleated RBC % (auto) Hold Purple Top O2 Saturation ABG pH at Pt Temp ABG pCO2 at Pt Temp ABG pO2 at Pt Temp ABG HCO3 ABG Base Excess (Actual) VBG pH VBG pCO2 VBG pO2 VBG HCO3 VBG O2 Saturation VBG Base Excess Sodium Potassium Chloride Carbon Dioxide Anion Gap BUN Creatinine 1.16 Estim Creat Clear Calc Cancelled 51.8 Estimated GFR Cancelled > 60 POC Glucose Random Glucose Cancelled Lactic Acid Calcium Phosphorus Magnesium Total Bilirubin AST ALT Alkaline Phosphatase Troponin I High Sens B-Natriuretic Peptide Total Protein Albumin Influenza Type A (PCR) Influenza Type B (PCR) RSV RNA Qual (PCR) SARS-CoV-2 RNA (RT-PCR) 06/15/23 06/15/23 06/15/23 20:51 20:51 20:51 WBC RBC Hgb Hct MCV MCH MCHC RDW Plt Count MPV Immature Gran % (Auto) Neut % (Auto) Lymph % (Auto) [place] % (Auto) Eos % (Auto) Baso % (Auto) Lymph # (Auto) [place] # (Auto) Eos # (Auto) Baso # (Auto) Abs Immat Gran (auto) Absolute Neuts (auto) Absolute Nucleated RBC Nucleated RBC % (auto) Hold Purple Top O2 Saturation ABG pH at Pt Temp ABG pCO2 at Pt Temp ABG pO2 at Pt Temp ABG HCO3 ABG Base Excess (Actual) VBG pH VBG pCO2 VBG pO2 VBG HCO3 VBG O2 Saturation VBG Base Excess Sodium Potassium Chloride Carbon Dioxide Anion Gap BUN Creatinine Estim Creat Clear Calc Estimated GFR POC Glucose Random Glucose 367 H* Lactic Acid Cancelled Calcium Cancelled 9.9 Phosphorus 3.7 Magnesium 1.9 Total Bilirubin Cancelled 0.6 AST Cancelled ALT Alkaline Phosphatase Troponin I High Sens B-Natriuretic Peptide Total Protein Albumin Influenza Type A (PCR) Influenza Type B (PCR) RSV RNA Qual (PCR) SARS-CoV-2 RNA (RT-PCR) 06/15/23 06/15/23 06/15/23 20:51 20:51 20:51 WBC RBC Hgb Hct MCV MCH MCHC RDW Plt Count MPV Immature Gran % (Auto) Neut % (Auto) Lymph % (Auto) [place] % (Auto) Eos % (Auto) Baso % (Auto) Lymph # (Auto) [place] # (Auto) Eos # (Auto) Baso # (Auto) Abs Immat Gran (auto) Absolute Neuts (auto) Absolute Nucleated RBC Nucleated RBC % (auto) Hold Purple Top O2 Saturation ABG pH at Pt Temp ABG pCO2 at Pt Temp ABG pO2 at Pt Temp ABG HCO3 ABG Base Excess (Actual) VBG pH VBG pCO2 VBG pO2 VBG HCO3 VBG O2 Saturation VBG Base Excess Sodium Potassium Chloride Carbon Dioxide Anion Gap BUN Creatinine Estim Creat Clear Calc Estimated GFR POC Glucose Random Glucose Lactic Acid Calcium Phosphorus Magnesium Total Bilirubin AST 21 ALT Cancelled 24 Alkaline Phosphatase Cancelled 123 H Troponin I High Sens 217.4 H* D B-Natriuretic Peptide 328 H Total Protein Cancelled Albumin Influenza Type A (PCR) Influenza Type B (PCR) RSV RNA Qual (PCR) SARS-CoV-2 RNA (RT-PCR) 06/15/23 06/15/23 06/15/23 20:51 20:51 20:59 WBC RBC Hgb Hct MCV MCH MCHC RDW Plt Count MPV Immature Gran % (Auto) Neut % (Auto) Lymph % (Auto) [place] % (Auto) Eos % (Auto) Baso % (Auto) Lymph # (Auto) [place] # (Auto) Eos # (Auto) Baso # (Auto) Abs Immat Gran (auto) Absolute Neuts (auto) Absolute Nucleated RBC Nucleated RBC % (auto) Hold Purple Top O2 Saturation ABG pH at Pt Temp ABG pCO2 at Pt Temp ABG pO2 at Pt Temp ABG HCO3 ABG Base Excess (Actual) VBG pH VBG pCO2 VBG pO2 VBG HCO3 VBG O2 Saturation VBG Base Excess Sodium Potassium Chloride Carbon Dioxide Anion Gap BUN Creatinine Estim Creat Clear Calc Estimated GFR POC Glucose 281 H Random Glucose Lactic Acid Calcium Phosphorus Magnesium Total Bilirubin AST ALT Alkaline Phosphatase Troponin I High Sens B-Natriuretic Peptide Total Protein 6.9 Albumin Cancelled 3.5 Influenza Type A (PCR) Influenza Type B (PCR) RSV RNA Qual (PCR) SARS-CoV-2 RNA (RT-PCR) 06/15/23 06/15/23 06/16/23 21:28 21:52 00:36 WBC RBC Hgb Hct MCV MCH MCHC RDW Plt Count MPV Immature Gran % (Auto) Neut % (Auto) Lymph % (Auto) [place] % (Auto) Eos % (Auto) Baso % (Auto) Lymph # (Auto) [place] # (Auto) Eos # (Auto) Baso # (Auto) Abs Immat Gran (auto) Absolute Neuts (auto) Absolute Nucleated RBC Nucleated RBC % (auto) Hold Purple Top SEE NOTE O2 Saturation 91.0 ABG pH at Pt Temp 7.34 L ABG pCO2 at Pt Temp 62 H* ABG pO2 at Pt Temp 62 L ABG HCO3 34 H ABG Base Excess (Actual) 6.4 VBG pH VBG pCO2 VBG pO2 VBG HCO3 VBG O2 Saturation VBG Base Excess Sodium Cancelled Potassium Cancelled Chloride Cancelled Carbon Dioxide Cancelled Anion Gap Cancelled BUN Cancelled Creatinine Cancelled Estim Creat Clear Calc Cancelled Estimated GFR Cancelled POC Glucose Random Glucose Cancelled Lactic Acid 1.0 Calcium Cancelled Phosphorus Cancelled Magnesium Cancelled Total Bilirubin Cancelled AST Cancelled ALT Cancelled Alkaline Phosphatase Cancelled Troponin I High Sens 471.1 H* D B-Natriuretic Peptide Total Protein Cancelled Albumin Cancelled Influenza Type A (PCR) Influenza Type B (PCR) RSV RNA Qual (PCR) SARS-CoV-2 RNA (RT-PCR) 06/16/23 06/16/23 06/16/23 04:33 04:35 07:16 WBC 6.7 RBC 3.60 L Hgb 10.6 L Hct 34.0 L MCV 94.4 MCH 29.4 MCHC 31.2 RDW 12.9 Plt Count 180 MPV 10.1 Immature Gran % (Auto) 0.3 Neut % (Auto) 66.1 Lymph % (Auto) 19.4 L [place] % (Auto) 11.9 H Eos % (Auto) 1.8 Baso % (Auto) 0.5 Lymph # (Auto) 1.3 [place] # (Auto) 0.8 Eos # (Auto) 0.1 Baso # (Auto) 0.0 Abs Immat Gran (auto) 0.02 Absolute Neuts (auto) 4.4 Absolute Nucleated RBC 0.000 Nucleated RBC % (auto) 0.0 Hold Purple Top O2 Saturation ABG pH at Pt Temp ABG pCO2 at Pt Temp ABG pO2 at Pt Temp ABG HCO3 ABG Base Excess (Actual) VBG pH 7.51 H VBG pCO2 40 VBG pO2 33 VBG HCO3 32 H VBG O2 Saturation 66.0 VBG Base Excess 8.7 Sodium 135 Potassium 3.5 Chloride 97 Carbon Dioxide 29 Anion Gap 13 BUN 31 H Creatinine 0.87 Estim Creat Clear Calc 69.1 Estimated GFR > 60 POC Glucose 200 H Random Glucose 254 H Lactic Acid Calcium 9.7 Phosphorus 1.9 L Magnesium 1.9 Total Bilirubin 0.8 AST 19 ALT 22 Alkaline Phosphatase 114 Troponin I High Sens B-Natriuretic Peptide Total Protein 6.4 L Albumin 3.4 L Influenza Type A (PCR) Influenza Type B (PCR) RSV RNA Qual (PCR) SARS-CoV-2 RNA (RT-PCR) Progress Note: A&P Assessment and plan (1) Acute respiratory failure with hypercapnia: Status: Acute (2) Acute on chronic diastolic (congestive) heart failure: Status: Acute (3) Atrial flutter: Status: Acute (4) Chronic lung disease: Status: Acute (5) Pulmonary emphysema: Status: Acute (6) CAD (coronary artery disease): Status: Acute (7) DMII (diabetes mellitus, type 2): Status: Acute Plan Assessment: 82-year-old gentleman with multiple medical issues including pulmonary emphysema and combined systolic and diastolic heart failure with a flutter admitted with dyspnea secondary to exacerbation of underlying heart failure and lung disease, briefly requiring BiPAP support secondary to iatrogenic hyperoxia Plan: Neuro: No acute issues. Cardiac: Exacerbation of underlying combined systolic and diastolic heart failure secondary to persistent aflutter. Planned for cardioversion. Cardiology service care appreciated. Underlying CAD with prior CABG. Pulmonary: Acute hypercapnic respiratory failure secondary to iatrorogenic hyperoxia, resolved with BiPAP support. Titrated off BiPAP. Underlying pulmonary emphysema and restrictive lung disease. Renal: No acute issues. Endo: No acute issues. Underlying diabetes mellitus. GI: No acute issues. ID: No acute issues Heme/Onc: No acute issues. Psych: No acute issues. Miscellaneous: No acute issues. Prophylaxis: Eliquis Diet: NPO for procedure Quality Stroke Does the patient have a stroke diagnosis?: No VTE Prior VTE?: No VTE Risk Level:: Medical - moderate - high VTE Device Contraindication: Treatment Not Indicated VTE Drug Contraindication: N/A - Med Ordered
--- NOTE | 2023-06-16 10:21 | P.CONAN_ITS ---
HPI - Anesthesia Eval Consult details Narrative: a-fib [facility] Active Problems Active Problems: All Active Problems (Updated 06/15/23 @ 22:29 by Kayla Cardona NP) Acute respiratory failure with hypercapnia (Acute) Acute on chronic diastolic (congestive) heart failure (Acute) Atrial flutter (Acute) NSVT (nonsustained ventricular tachycardia) (Acute) Atrial flutter with rapid ventricular response (Acute) Acute on chronic congestive heart failure (Acute) Chronic lung disease (Acute) CHF (congestive heart failure) (Acute) Afib (Acute) COPD (chronic obstructive pulmonary disease) (Acute) Rib pain on left side (Acute) Foreign body granuloma of soft tissue of right hand (Acute) CAD (coronary artery disease) (Acute) DMII (diabetes mellitus, type 2) (Acute) Bronchitis (Acute) Entropion (Acute) Pre-op evaluation (Acute) BPPV (benign paroxysmal positional vertigo) (Acute) Regularly irregular pulse rhythym (Acute) Pre-operative clearance (Acute) Upper respiratory tract infection (Acute) Left foot pain (Acute) Past Medical History Medical History (Updated 06/16/23 @ 10:30 by Deangelo Andrea MD) Afib COPD (chronic obstructive pulmonary disease) Coronary artery disease CAD (coronary artery disease) DMII (diabetes mellitus, type 2) HTN (hypertension) Family History Family History Father No problems noted. Mother No problems noted. Family history of problems with anesthesia: No Surgical History Surgical History History of colonoscopy History of lung surgery History of cholecystectomy History of Problems with Anesthesia: No Social History Social History Household Members: Spouse Housing: House Do you presently have visiting nurse or other home services: No Alcohol intake: current Alcohol intake frequency: 0-2 drinks per day Comment: OOB/ amb independently Patient Tobacco Use Status: Never used Tobacco Tobacco use type: Cigarette e-Cigarette/Vaping Use: Never Used Second Hand Smoke Exposure: No service: No Current occupational status: retired Cognitive needs: No Hearing needs: No Vision needs: Yes (glasses) Meds Allergies Allergy/AdvReac Type Severity Reaction Status Date / Time No Known Allergies Allergy Verified 06/11/23 09:12 [No Known Allergies*] Active Medications: Current Medications Acetaminophen (Acetaminophen 325 Mg Tablet) 650 mg PO Q6H PRN PRN Reason: Pain, Mild (Pain Scale 1-3) Acetazolamide (Acetazolamide 250 Mg Tablet) 500 mg PO BID [facility] Last Admin: 06/16/23 09:04 Dose: Not Given Albuterol Sulfate (Albuterol Sulfate (0.083%) 2.5 Mg/3 Ml Vial.Neb) 2.5 mg INHALE Q6H PRN PRN Reason: Wheezing Albuterol/Ipratropium (Albuterol/Iprat 2.5/0.5mg 3 Ml Ampul.Neb) 3 ml INHALE RQ4H WHILE AWAKE [facility] Last Admin: 06/16/23 07:56 Dose: 3 ml Amlodipine Besylate (Amlodipine Besylate 5 Mg Tablet) 5 mg PO DAILY [facility]; Protocol Last Admin: 06/16/23 09:05 Dose: Not Given Apixaban (Apixaban 5 Mg Tablet) 5 mg PO BID [facility] Last Admin: 06/16/23 09:03 Dose: 5 mg Aspirin (Aspirin Enteric Coated 81 Mg Tablet.Dr) 81 mg PO DAILY [facility] Last Admin: 06/16/23 09:05 Dose: Not Given Atorvastatin Calcium (Atorvastatin Calcium 80 Mg Tablet) 80 mg PO DAILY [facility] Last Admin: 06/16/23 09:05 Dose: Not Given Dextrose (Dextrose 50 % 25 Gm/50 Ml Syringe) 25 gm IVPUSH Q15M PRN; Protocol PRN Reason: per Hypoglycemia Standing Ord. Fluticasone/Vilanterol (Fluticasone/Vilanterol 200/25 Blst.W.Dev) 1 puff INHALE RDAILY [facility] Last Admin: 06/16/23 09:28 Dose: 1 puff Furosemide (Furosemide 40 Mg/4 Ml Vial) 40 mg IVPUSH DAILY [facility]; Protocol Last Admin: 06/16/23 08:02 Dose: 40 mg Glucose (Glucose Gel 15 Gm Gel..Gram.) 15 gm PO Q15M PRN; Protocol PRN Reason: per Hypoglycemia Standing Ord. Insulin Human Lispro (Insulin Lispro 100 Unit/Ml 3 Ml Vial) 0 unit SUBCUT QIDACHS [facility]; Protocol Last Admin: 06/16/23 07:52 Dose: Not Given Metoprolol Tartrate (Metoprolol Tartrate 50 Mg Tablet) 50 mg PO BID [facility]; Protocol Last Admin: 06/16/23 09:05 Dose: Not Given Multivitamins/Vitamin C (Multivitamin Tablet) 1 tab PO DAILY [facility] Last Admin: 06/16/23 09:05 Dose: Not Given Omeprazole (Omeprazole 20 Mg Capsule.) 20 mg PO DAILY@0630 [facility] Last Admin: 06/16/23 05:34 Dose: Not Given Ondansetron HCl (Ondansetron Hcl 4 Mg/2 Ml Vial) 4 mg IVPUSH Q8H PRN PRN Reason: Nausea and Vomiting Senna (Sennosides 8.6 Mg Tablet) 17.2 mg PO BEDTIME PRN PRN Reason: Constipation Last Admin: 06/15/23 17:54 Dose: 17.2 mg Sodium Chloride (0.9 % Sodium Chloride Flush 3 Ml Syringe) 3 ml IVFLUSH QSHIFT [facility] Last Admin: 06/16/23 08:02 Dose: 3 ml Home Medications Medication Instructions Recorded Confirmed Last Taken Type atorvastatin 80 mg tablet 80 mg PO DAILY 04/21/20 06/11/23 06/11/23 History omeprazole magnesium 20 mg 20 mg PO DAILY@0630 04/21/20 06/11/23 06/11/23 History tablet,delayed release aspirin 81 mg tablet,delayed 81 mg PO DAILY 01/30/22 06/11/23 06/11/23 History release (Adult Low Dose Aspirin) albuterol sulfate 2.5 mg/3 mL 2.5 mg inhalation Q6H PRN Wheezing 04/01/22 0 06/11/23 06/11/23 History (0.083 %) solution for nebulization vitamins A,C,V-pawu-vqjihy 4,296 1 cap PO BID 04/01/22 06/11/23 06/11/23 History mcg-226 mg-90 mg capsule (PreserVision AREDS) amlodipine 5 mg tablet 5 mg PO DAILY 12/11/22 06/11/23 06/11/23 History metoprolol tartrate 50 mg tablet 50 mg PO BID 12/11/22 06/11/23 06/11/23 History budesonide-formoterol HFA 160 2 puff inhalation BID 05/24/23 06/11/23 06/11/23 History mcg-4.5 mcg/actuation aerosol inhaler (Symbicort) Exam Height,Weight and Vital Signs: Height 6 ft Weight 76 kg Last Vital Signs Temp 98.1 F 06/16/23 08:00 Pulse 89 06/16/23 09:00 Resp 11 L 06/16/23 09:00 BP 124/57 L 06/16/23 09:00 Pulse Ox 95 06/16/23 09:00 O2 Del Method Nasal Cannula 06/16/23 09:00 O2 Flow Rate 1 06/16/23 09:00 FiO2 21 06/16/23 08:00 Oxygen Flow Rate 2 06/15/23 08:19 Pertinent Lab Results Pertinent Lab Results: Laboratory Tests 06/11/23 06/11/23 06/11/23 09:43 09:47 10:51 WBC 7.1 RBC 3.95 L Hgb 11.7 L Hct 38.1 L MCV 96.5 MCH 29.6 MCHC 30.7 L RDW 13.9 Plt Count 224 MPV 9.7 Immature Gran % (Auto) 0.3 Neut % (Auto) 75.2 H Lymph % (Auto) 12.5 L Bailey % (Auto) 7.6 Eos % (Auto) 3.8 Baso % (Auto) 0.6 Lymph # (Auto) 0.9 L Bailey # (Auto) 0.5 Eos # (Auto) 0.3 Baso # (Auto) 0.0 Abs Immat Gran (auto) 0.02 Absolute Neuts (auto) 5.4 Absolute Nucleated RBC 0.000 Nucleated RBC % (auto) 0.0 Hold Purple Top PT 16.9 H D INR 1.4 H O2 Saturation ABG pH at Pt Temp ABG pCO2 at Pt Temp ABG pO2 at Pt Temp ABG HCO3 ABG Base Excess (Actual) VBG pH VBG pCO2 VBG pO2 VBG HCO3 VBG O2 Saturation VBG Base Excess Sodium 142 Potassium 4.3 Chloride 93 L Carbon Dioxide 38 H Anion Gap 15 BUN 21 H Creatinine 0.92 Estim Creat Clear Calc 66.7 Estimated GFR > 60 POC Glucose Random Glucose 234 H Fasting Glucose Lactic Acid Calcium 9.3 Phosphorus Magnesium Total Bilirubin 0.8 Direct Bilirubin 0.3 AST 18 ALT 26 Alkaline Phosphatase 113 Troponin I High Sens 23.0 B-Natriuretic Peptide 411 H Total Protein 6.7 Albumin 3.7 Lipase 21 Urine Color Yellow Urine Appearance Clear Urine pH 6.0 Ur Specific [place] 1.010 Urine Protein Negative Urine Glucose (UA) Negative Urine Ketones Negative Urine Blood Negative Urine Nitrite Negative Ur Leukocyte Esterase Negative Influenza Type A (PCR) NEGATIVE Influenza Type B (PCR) NEGATIVE RSV RNA Qual (PCR) NEGATIVE SARS-CoV-2 RNA (RT-PCR) NEGATIVE 06/11/23 06/11/23 06/12/23 19:13 22:02 06:56 WBC RBC Hgb Hct MCV MCH MCHC RDW Plt Count MPV Immature Gran % (Auto) Neut % (Auto) Lymph % (Auto) Bailey % (Auto) Eos % (Auto) Baso % (Auto) Lymph # (Auto) Bailey # (Auto) Eos # (Auto) Baso # (Auto) Abs Immat Gran (auto) Absolute Neuts (auto) Absolute Nucleated RBC Nucleated RBC % (auto) Hold Purple Top PT INR O2 Saturation ABG pH at Pt Temp ABG pCO2 at Pt Temp ABG pO2 at Pt Temp ABG HCO3 ABG Base Excess (Actual) VBG pH VBG pCO2 VBG pO2 VBG HCO3 VBG O2 Saturation VBG Base Excess Sodium Potassium Chloride Carbon Dioxide Anion Gap BUN Creatinine Estim Creat Clear Calc Estimated GFR POC Glucose 204 H 243 H 127 H Random Glucose Fasting Glucose Lactic Acid Calcium Phosphorus Magnesium Total Bilirubin Direct Bilirubin AST ALT Alkaline Phosphatase Troponin I High Sens B-Natriuretic Peptide Total Protein Albumin Lipase Urine Color Urine Appearance Urine pH Ur Specific [place] Urine Protein Urine Glucose (UA) Urine Ketones Urine Blood Urine Nitrite Ur Leukocyte Esterase Influenza Type A (PCR) Influenza Type B (PCR) RSV RNA Qual (PCR) SARS-CoV-2 RNA (RT-PCR) 06/12/23 06/12/23 06/12/23 07:11 10:53 16:05 WBC 7.4 RBC 4.02 L Hgb 12.0 L Hct 38.7 L MCV 96.3 MCH 29.9 MCHC 31.0 RDW 13.8 Plt Count 229 MPV 9.7 Immature Gran % (Auto) 0.3 Neut % (Auto) 71.4 Lymph % (Auto) 15.8 L Bailey % (Auto) 6.6 Eos % (Auto) 5.0 H Baso % (Auto) 0.9 Lymph # (Auto) 1.2 Bailey # (Auto) 0.5 Eos # (Auto) 0.4 Baso # (Auto) 0.1 Abs Immat Gran (auto) 0.02 Absolute Neuts (auto) 5.3 Absolute Nucleated RBC 0.000 Nucleated RBC % (auto) 0.0 Hold Purple Top PT INR O2 Saturation ABG pH at Pt Temp ABG pCO2 at Pt Temp ABG pO2 at Pt Temp ABG HCO3 ABG Base Excess (Actual) VBG pH VBG pCO2 VBG pO2 VBG HCO3 VBG O2 Saturation VBG Base Excess Sodium 141 Potassium 4.1 Chloride 90 L Carbon Dioxide 41 H* Anion Gap 14 BUN 19 H Creatinine 0.80 Estim Creat Clear Calc 76.7 Estimated GFR > 60 POC Glucose 193 H 240 H Random Glucose 130 H Fasting Glucose Lactic Acid Calcium 9.5 Phosphorus Magnesium Total Bilirubin Direct Bilirubin AST ALT Alkaline Phosphatase Troponin I High Sens B-Natriuretic Peptide 258 H Total Protein Albumin Lipase Urine Color Urine Appearance Urine pH Ur Specific [place] Urine Protein Urine Glucose (UA) Urine Ketones Urine Blood Urine Nitrite Ur Leukocyte Esterase Influenza Type A (PCR) Influenza Type B (PCR) RSV RNA Qual (PCR) SARS-CoV-2 RNA (RT-PCR) 06/12/23 06/13/23 06/13/23 20:24 06:57 08:53 WBC 6.4 RBC 3.76 L Hgb 11.3 L Hct 36.4 L MCV 96.8 MCH 30.1 MCHC 31.0 RDW 13.5 Plt Count 225 MPV 10.2 Immature Gran % (Auto) Neut % (Auto) Lymph % (Auto) Bailey % (Auto) Eos % (Auto) Baso % (Auto) Lymph # (Auto) Bailey # (Auto) Eos # (Auto) Baso # (Auto) Abs Immat Gran (auto) Absolute Neuts (auto) Absolute Nucleated RBC 0.000 Nucleated RBC % (auto) 0.0 Hold Purple Top PT INR O2 Saturation ABG pH at Pt Temp ABG pCO2 at Pt Temp ABG pO2 at Pt Temp ABG HCO3 ABG Base Excess (Actual) VBG pH VBG pCO2 VBG pO2 VBG HCO3 VBG O2 Saturation VBG Base Excess Sodium 136 Potassium 3.9 Chloride 92 L Carbon Dioxide 39 H Anion Gap 9 L BUN 17 H Creatinine 0.88 Estim Creat Clear Calc 69.8 Estimated GFR > 60 POC Glucose 186 H 172 H Random Glucose Fasting Glucose 204 H Lactic Acid Calcium 9.4 Phosphorus Magnesium 1.5 L Total Bilirubin Direct Bilirubin AST ALT Alkaline Phosphatase Troponin I High Sens B-Natriuretic Peptide Total Protein Albumin Lipase Urine Color Urine Appearance Urine pH Ur Specific [place] Urine Protein Urine Glucose (UA) Urine Ketones Urine Blood Urine Nitrite Ur Leukocyte Esterase Influenza Type A (PCR) Influenza Type B (PCR) RSV RNA Qual (PCR) SARS-CoV-2 RNA (RT-PCR) 06/13/23 06/13/23 06/13/23 11:07 16:03 20:19 WBC RBC Hgb Hct MCV MCH MCHC RDW Plt Count MPV Immature Gran % (Auto) Neut % (Auto) Lymph % (Auto) Bailey % (Auto) Eos % (Auto) Baso % (Auto) Lymph # (Auto) Bailey # (Auto) Eos # (Auto) Baso # (Auto) Abs Immat Gran (auto) Absolute Neuts (auto) Absolute Nucleated RBC Nucleated RBC % (auto) Hold Purple Top PT INR O2 Saturation ABG pH at Pt Temp ABG pCO2 at Pt Temp ABG pO2 at Pt Temp ABG HCO3 ABG Base Excess (Actual) VBG pH VBG pCO2 VBG pO2 VBG HCO3 VBG O2 Saturation VBG Base Excess Sodium Potassium Chloride Carbon Dioxide Anion Gap BUN Creatinine Estim Creat Clear Calc Estimated GFR POC Glucose 230 H 213 H 256 H Random Glucose Fasting Glucose Lactic Acid Calcium Phosphorus Magnesium Total Bilirubin Direct Bilirubin AST ALT Alkaline Phosphatase Troponin I High Sens B-Natriuretic Peptide Total Protein Albumin Lipase Urine Color Urine Appearance Urine pH Ur Specific [place] Urine Protein Urine Glucose (UA) Urine Ketones Urine Blood Urine Nitrite Ur Leukocyte Esterase Influenza Type A (PCR) Influenza Type B (PCR) RSV RNA Qual (PCR) SARS-CoV-2 RNA (RT-PCR) 06/14/23 06/14/23 06/14/23 06:48 07:58 10:59 WBC RBC Hgb Hct MCV MCH MCHC RDW Plt Count MPV Immature Gran % (Auto) Neut % (Auto) Lymph % (Auto) Bailey % (Auto) Eos % (Auto) Baso % (Auto) Lymph # (Auto) Bailey # (Auto) Eos # (Auto) Baso # (Auto) Abs Immat Gran (auto) Absolute Neuts (auto) Absolute Nucleated RBC Nucleated RBC % (auto) Hold Purple Top PT INR O2 Saturation ABG pH at Pt Temp ABG pCO2 at Pt Temp ABG pO2 at Pt Temp ABG HCO3 ABG Base Excess (Actual) VBG pH VBG pCO2 VBG pO2 VBG HCO3 VBG O2 Saturation VBG Base Excess Sodium 137 Potassium 4.3 Chloride 96 Carbon Dioxide 32 H Anion Gap 13 BUN 17 H Creatinine 0.81 Estim Creat Clear Calc 70.9 Estimated GFR > 60 POC Glucose 187 H 292 H Random Glucose 193 H Fasting Glucose Lactic Acid Calcium 9.7 Phosphorus Magnesium Total Bilirubin Direct Bilirubin AST ALT Alkaline Phosphatase Troponin I High Sens B-Natriuretic Peptide 215 H Total Protein Albumin Lipase Urine Color Urine Appearance Urine pH Ur Specific [place] Urine Protein Urine Glucose (UA) Urine Ketones Urine Blood Urine Nitrite Ur Leukocyte Esterase Influenza Type A (PCR) Influenza Type B (PCR) RSV RNA Qual (PCR) SARS-CoV-2 RNA (RT-PCR) 06/14/23 06/14/23 06/15/23 16:28 20:36 07:20 WBC RBC Hgb Hct MCV MCH MCHC RDW Plt Count MPV Immature Gran % (Auto) Neut % (Auto) Lymph % (Auto) Bailey % (Auto) Eos % (Auto) Baso % (Auto) Lymph # (Auto) Bailey # (Auto) Eos # (Auto) Baso # (Auto) Abs Immat Gran (auto) Absolute Neuts (auto) Absolute Nucleated RBC Nucleated RBC % (auto) Hold Purple Top PT INR O2 Saturation ABG pH at Pt Temp ABG pCO2 at Pt Temp ABG pO2 at Pt Temp ABG HCO3 ABG Base Excess (Actual) VBG pH VBG pCO2 VBG pO2 VBG HCO3 VBG O2 Saturation VBG Base Excess Sodium Potassium Chloride Carbon Dioxide Anion Gap BUN Creatinine Estim Creat Clear Calc Estimated GFR POC Glucose 208 H 135 H 206 H Random Glucose Fasting Glucose Lactic Acid Calcium Phosphorus Magnesium Total Bilirubin Direct Bilirubin AST ALT Alkaline Phosphatase Troponin I High Sens B-Natriuretic Peptide Total Protein Albumin Lipase Urine Color Urine Appearance Urine pH Ur Specific [place] Urine Protein Urine Glucose (UA) Urine Ketones Urine Blood Urine Nitrite Ur Leukocyte Esterase Influenza Type A (PCR) Influenza Type B (PCR) RSV RNA Qual (PCR) SARS-CoV-2 RNA (RT-PCR) 06/15/23 06/15/23 06/15/23 12:07 12:15 16:02 WBC 6.5 RBC 4.15 L Hgb 12.3 L Hct 40.9 L MCV 98.6 H MCH 29.6 MCHC 30.1 L RDW 12.9 Plt Count 208 MPV 9.9 Immature Gran % (Auto) Neut % (Auto) Lymph % (Auto) Bailey % (Auto) Eos % (Auto) Baso % (Auto) Lymph # (Auto) Bailey # (Auto) Eos # (Auto) Baso # (Auto) Abs Immat Gran (auto) Absolute Neuts (auto) Absolute Nucleated RBC 0.000 Nucleated RBC % (auto) 0.0 Hold Purple Top PT INR O2 Saturation ABG pH at Pt Temp ABG pCO2 at Pt Temp ABG pO2 at Pt Temp ABG HCO3 ABG Base Excess (Actual) VBG pH VBG pCO2 VBG pO2 VBG HCO3 VBG O2 Saturation VBG Base Excess Sodium 136 Potassium 3.9 Chloride 95 L Carbon Dioxide 32 H Anion Gap 13 BUN 25 H Creatinine 0.84 Estim Creat Clear Calc 71.6 Estimated GFR > 60 POC Glucose 217 H 273 H Random Glucose 221 H Fasting Glucose Lactic Acid Calcium 9.6 Phosphorus Magnesium Total Bilirubin Direct Bilirubin AST ALT Alkaline Phosphatase Troponin I High Sens B-Natriuretic Peptide 242 H Total Protein Albumin Lipase Urine Color Urine Appearance Urine pH Ur Specific [place] Urine Protein Urine Glucose (UA) Urine Ketones Urine Blood Urine Nitrite Ur Leukocyte Esterase Influenza Type A (PCR) NEGATIVE Influenza Type B (PCR) NEGATIVE RSV RNA Qual (PCR) NEGATIVE SARS-CoV-2 RNA (RT-PCR) NEGATIVE 06/15/23 06/15/23 06/15/23 19:54 20:03 20:51 WBC 6.2 RBC 3.87 L Hgb 11.6 L Hct 37.2 L MCV 96.1 MCH 30.0 MCHC 31.2 RDW 13.1 Plt Count 188 MPV 10.0 Immature Gran % (Auto) 0.3 Neut % (Auto) 79.8 H Lymph % (Auto) 9.9 L Bailey % (Auto) 9.4 Eos % (Auto) 0.3 Baso % (Auto) 0.3 Lymph # (Auto) 0.6 L [place] # (Auto) 0.6 Eos # (Auto) 0.0 Baso # (Auto) 0.0 Abs Immat Gran (auto) 0.02 Absolute Neuts (auto) 4.9 Absolute Nucleated RBC 0.000 Nucleated RBC % (auto) 0.0 Hold Purple Top PT INR O2 Saturation 96.0 ABG pH at Pt Temp 7.22 L ABG pCO2 at Pt Temp 84 H* ABG pO2 at Pt Temp 86 ABG HCO3 34 H ABG Base Excess (Actual) 4.3 VBG pH VBG pCO2 VBG pO2 VBG HCO3 VBG O2 Saturation VBG Base Excess Sodium Cancelled Potassium Chloride Carbon Dioxide Anion Gap BUN Creatinine Estim Creat Clear Calc Estimated GFR POC Glucose 359 H* Random Glucose Fasting Glucose Lactic Acid Calcium Phosphorus Magnesium Total Bilirubin Direct Bilirubin AST ALT Alkaline Phosphatase Troponin I High Sens B-Natriuretic Peptide Total Protein Albumin Lipase Urine Color Urine Appearance Urine pH Ur Specific [place] Urine Protein Urine Glucose (UA) Urine Ketones Urine Blood Urine Nitrite Ur Leukocyte Esterase Influenza Type A (PCR) Influenza Type B (PCR) RSV RNA Qual (PCR) SARS-CoV-2 RNA (RT-PCR) 06/15/23 06/15/23 06/15/23 20:51 20:51 20:51 WBC RBC Hgb Hct MCV MCH MCHC RDW Plt Count MPV Immature Gran % (Auto) Neut % (Auto) Lymph % (Auto) Bailey % (Auto) Eos % (Auto) Baso % (Auto) Lymph # (Auto) Bailey # (Auto) Eos # (Auto) Baso # (Auto) Abs Immat Gran (auto) Absolute Neuts (auto) Absolute Nucleated RBC Nucleated RBC % (auto) Hold Purple Top PT INR O2 Saturation ABG pH at Pt Temp ABG pCO2 at Pt Temp ABG pO2 at Pt Temp ABG HCO3 ABG Base Excess (Actual) VBG pH VBG pCO2 VBG pO2 VBG HCO3 VBG O2 Saturation VBG Base Excess Sodium 133 L Potassium Cancelled 4.0 Chloride Cancelled 94 L Carbon Dioxide Cancelled Anion Gap BUN Creatinine Estim Creat Clear Calc Estimated GFR POC Glucose Random Glucose Fasting Glucose Lactic Acid Calcium Phosphorus Magnesium Total Bilirubin Direct Bilirubin AST ALT Alkaline Phosphatase Troponin I High Sens B-Natriuretic Peptide Total Protein Albumin Lipase Urine Color Urine Appearance Urine pH Ur Specific [place] Urine Protein Urine Glucose (UA) Urine Ketones Urine Blood Urine Nitrite Ur Leukocyte Esterase Influenza Type A (PCR) Influenza Type B (PCR) RSV RNA Qual (PCR) SARS-CoV-2 RNA (RT-PCR) 06/15/23 06/15/23 06/15/23 20:51 20:51 20:51 WBC RBC Hgb Hct MCV MCH MCHC RDW Plt Count MPV Immature Gran % (Auto) Neut % (Auto) Lymph % (Auto) Bailey % (Auto) Eos % (Auto) Baso % (Auto) Lymph # (Auto) Bailey # (Auto) Eos # (Auto) Baso # (Auto) Abs Immat Gran (auto) Absolute Neuts (auto) Absolute Nucleated RBC Nucleated RBC % (auto) Hold Purple Top PT INR O2 Saturation ABG pH at Pt Temp ABG pCO2 at Pt Temp ABG pO2 at Pt Temp ABG HCO3 ABG Base Excess (Actual) VBG pH VBG pCO2 VBG pO2 VBG HCO3 VBG O2 Saturation VBG Base Excess Sodium Potassium Chloride Carbon Dioxide 32 H Anion Gap Cancelled 11 L BUN Cancelled 29 H Creatinine Cancelled Estim Creat Clear Calc Estimated GFR POC Glucose Random Glucose Fasting Glucose Lactic Acid Calcium Phosphorus Magnesium Total Bilirubin Direct Bilirubin AST ALT Alkaline Phosphatase Troponin I High Sens B-Natriuretic Peptide Total Protein Albumin Lipase Urine Color Urine Appearance Urine pH Ur Specific [place] Urine Protein Urine Glucose (UA) Urine Ketones Urine Blood Urine Nitrite Ur Leukocyte Esterase Influenza Type A (PCR) Influenza Type B (PCR) RSV RNA Qual (PCR) SARS-CoV-2 RNA (RT-PCR) 06/15/23 06/15/23 06/15/23 20:51 20:51 20:51 WBC RBC Hgb Hct MCV MCH MCHC RDW Plt Count MPV Immature Gran % (Auto) Neut % (Auto) Lymph % (Auto) [place] % (Auto) Eos % (Auto) Baso % (Auto) Lymph # (Auto) Bailey # (Auto) Eos # (Auto) Baso # (Auto) Abs Immat Gran (auto) Absolute Neuts (auto) Absolute Nucleated RBC Nucleated RBC % (auto) Hold Purple Top PT INR O2 Saturation ABG pH at Pt Temp ABG pCO2 at Pt Temp ABG pO2 at Pt Temp ABG HCO3 ABG Base Excess (Actual) VBG pH VBG pCO2 VBG pO2 VBG HCO3 VBG O2 Saturation VBG Base Excess Sodium Potassium Chloride Carbon Dioxide Anion Gap BUN Creatinine 1.16 Estim Creat Clear Calc Cancelled 51.8 Estimated GFR Cancelled > 60 POC Glucose Random Glucose Cancelled Fasting Glucose Lactic Acid Calcium Phosphorus Magnesium Total Bilirubin Direct Bilirubin AST ALT Alkaline Phosphatase Troponin I High Sens B-Natriuretic Peptide Total Protein Albumin Lipase Urine Color Urine Appearance Urine pH Ur Specific [place] Urine Protein Urine Glucose (UA) Urine Ketones Urine Blood Urine Nitrite Ur Leukocyte Esterase Influenza Type A (PCR) Influenza Type B (PCR) RSV RNA Qual (PCR) SARS-CoV-2 RNA (RT-PCR) 06/15/23 06/15/23 06/15/23 20:51 20:51 20:51 WBC RBC Hgb Hct MCV MCH MCHC RDW Plt Count MPV Immature Gran % (Auto) Neut % (Auto) Lymph % (Auto) [place] % (Auto) Eos % (Auto) Baso % (Auto) Lymph # (Auto) Bailey # (Auto) Eos # (Auto) Baso # (Auto) Abs Immat Gran (auto) Absolute Neuts (auto) Absolute Nucleated RBC Nucleated RBC % (auto) Hold Purple Top PT INR O2 Saturation ABG pH at Pt Temp ABG pCO2 at Pt Temp ABG pO2 at Pt Temp ABG HCO3 ABG Base Excess (Actual) VBG pH VBG pCO2 VBG pO2 VBG HCO3 VBG O2 Saturation VBG Base Excess Sodium Potassium Chloride Carbon Dioxide Anion Gap BUN Creatinine Estim Creat Clear Calc Estimated GFR POC Glucose Random Glucose 367 H* Fasting Glucose Lactic Acid Cancelled Calcium Cancelled 9.9 Phosphorus 3.7 Magnesium 1.9 Total Bilirubin Cancelled 0.6 Direct Bilirubin AST Cancelled ALT Alkaline Phosphatase Troponin I High Sens B-Natriuretic Peptide Total Protein Albumin Lipase Urine Color Urine Appearance Urine pH Ur Specific [place] Urine Protein Urine Glucose (UA) Urine Ketones Urine Blood Urine Nitrite Ur Leukocyte Esterase Influenza Type A (PCR) Influenza Type B (PCR) RSV RNA Qual (PCR) SARS-CoV-2 RNA (RT-PCR) 06/15/23 06/15/23 06/15/23 20:51 20:51 20:51 WBC RBC Hgb Hct MCV MCH MCHC RDW Plt Count MPV Immature Gran % (Auto) Neut % (Auto) Lymph % (Auto) [place] % (Auto) Eos % (Auto) Baso % (Auto) Lymph # (Auto) [place] # (Auto) Eos # (Auto) Baso # (Auto) Abs Immat Gran (auto) Absolute Neuts (auto) Absolute Nucleated RBC Nucleated RBC % (auto) Hold Purple Top PT INR O2 Saturation ABG pH at Pt Temp ABG pCO2 at Pt Temp ABG pO2 at Pt Temp ABG HCO3 ABG Base Excess (Actual) VBG pH VBG pCO2 VBG pO2 VBG HCO3 VBG O2 Saturation VBG Base Excess Sodium Potassium Chloride Carbon Dioxide Anion Gap BUN Creatinine Estim Creat Clear Calc Estimated GFR POC Glucose Random Glucose Fasting Glucose Lactic Acid Calcium Phosphorus Magnesium Total Bilirubin Direct Bilirubin AST 21 ALT Cancelled 24 Alkaline Phosphatase Cancelled 123 H Troponin I High Sens 217.4 H* D B-Natriuretic Peptide 328 H Total Protein Cancelled Albumin Lipase Urine Color Urine Appearance Urine pH Ur Specific [place] Urine Protein Urine Glucose (UA) Urine Ketones Urine Blood Urine Nitrite Ur Leukocyte Esterase Influenza Type A (PCR) Influenza Type B (PCR) RSV RNA Qual (PCR) SARS-CoV-2 RNA (RT-PCR) 06/15/23 06/15/23 06/15/23 20:51 20:51 20:59 WBC RBC Hgb Hct MCV MCH MCHC RDW Plt Count MPV Immature Gran % (Auto) Neut % (Auto) Lymph % (Auto) [place] % (Auto) Eos % (Auto) Baso % (Auto) Lymph # (Auto) Bailey # (Auto) Eos # (Auto) Baso # (Auto) Abs Immat Gran (auto) Absolute Neuts (auto) Absolute Nucleated RBC Nucleated RBC % (auto) Hold Purple Top PT INR O2 Saturation ABG pH at Pt Temp ABG pCO2 at Pt Temp ABG pO2 at Pt Temp ABG HCO3 ABG Base Excess (Actual) VBG pH VBG pCO2 VBG pO2 VBG HCO3 VBG O2 Saturation VBG Base Excess Sodium Potassium Chloride Carbon Dioxide Anion Gap BUN Creatinine Estim Creat Clear Calc Estimated GFR POC Glucose 281 H Random Glucose Fasting Glucose Lactic Acid Calcium Phosphorus Magnesium Total Bilirubin Direct Bilirubin AST ALT Alkaline Phosphatase Troponin I High Sens B-Natriuretic Peptide Total Protein 6.9 Albumin Cancelled 3.5 Lipase Urine Color Urine Appearance Urine pH Ur Specific [place] Urine Protein Urine Glucose (UA) Urine Ketones Urine Blood Urine Nitrite Ur Leukocyte Esterase Influenza Type A (PCR) Influenza Type B (PCR) RSV RNA Qual (PCR) SARS-CoV-2 RNA (RT-PCR) 06/15/23 06/15/23 06/16/23 21:28 21:52 00:36 WBC RBC Hgb Hct MCV MCH MCHC RDW Plt Count MPV Immature Gran % (Auto) Neut % (Auto) Lymph % (Auto) [place] % (Auto) Eos % (Auto) Baso % (Auto) Lymph # (Auto) [place] # (Auto) Eos # (Auto) Baso # (Auto) Abs Immat Gran (auto) Absolute Neuts (auto) Absolute Nucleated RBC Nucleated RBC % (auto) Hold Purple Top SEE NOTE PT INR O2 Saturation 91.0 ABG pH at Pt Temp 7.34 L ABG pCO2 at Pt Temp 62 H* ABG pO2 at Pt Temp 62 L ABG HCO3 34 H ABG Base Excess (Actual) 6.4 VBG pH VBG pCO2 VBG pO2 VBG HCO3 VBG O2 Saturation VBG Base Excess Sodium Cancelled Potassium Cancelled Chloride Cancelled Carbon Dioxide Cancelled Anion Gap Cancelled BUN Cancelled Creatinine Cancelled Estim Creat Clear Calc Cancelled Estimated GFR Cancelled POC Glucose Random Glucose Cancelled Fasting Glucose Lactic Acid 1.0 Calcium Cancelled Phosphorus Cancelled Magnesium Cancelled Total Bilirubin Cancelled Direct Bilirubin AST Cancelled ALT Cancelled Alkaline Phosphatase Cancelled Troponin I High Sens 471.1 H* D B-Natriuretic Peptide Total Protein Cancelled Albumin Cancelled Lipase Urine Color Urine Appearance Urine pH Ur Specific [place] Urine Protein Urine Glucose (UA) Urine Ketones Urine Blood Urine Nitrite Ur Leukocyte Esterase Influenza Type A (PCR) Influenza Type B (PCR) RSV RNA Qual (PCR) SARS-CoV-2 RNA (RT-PCR) 06/16/23 06/16/23 06/16/23 04:33 04:35 07:16 WBC 6.7 RBC 3.60 L Hgb 10.6 L Hct 34.0 L MCV 94.4 MCH 29.4 MCHC 31.2 RDW 12.9 Plt Count 180 MPV 10.1 Immature Gran % (Auto) 0.3 Neut % (Auto) 66.1 Lymph % (Auto) 19.4 L Bailey % (Auto) 11.9 H Eos % (Auto) 1.8 Baso % (Auto) 0.5 Lymph # (Auto) 1.3 [place] # (Auto) 0.8 Eos # (Auto) 0.1 Baso # (Auto) 0.0 Abs Immat Gran (auto) 0.02 Absolute Neuts (auto) 4.4 Absolute Nucleated RBC 0.000 Nucleated RBC % (auto) 0.0 Hold Purple Top PT INR O2 Saturation ABG pH at Pt Temp ABG pCO2 at Pt Temp ABG pO2 at Pt Temp ABG HCO3 ABG Base Excess (Actual) VBG pH 7.51 H VBG pCO2 40 VBG pO2 33 VBG HCO3 32 H VBG O2 Saturation 66.0 VBG Base Excess 8.7 Sodium 135 Potassium 3.5 Chloride 97 Carbon Dioxide 29 Anion Gap 13 BUN 31 H Creatinine 0.87 Estim Creat Clear Calc 69.1 Estimated GFR > 60 POC Glucose 200 H Random Glucose 254 H Fasting Glucose Lactic Acid Calcium 9.7 Phosphorus 1.9 L Magnesium 1.9 Total Bilirubin 0.8 Direct Bilirubin AST 19 ALT 22 Alkaline Phosphatase 114 Troponin I High Sens B-Natriuretic Peptide Total Protein 6.4 L Albumin 3.4 L Lipase Urine Color Urine Appearance Urine pH Ur Specific [place] Urine Protein Urine Glucose (UA) Urine Ketones Urine Blood Urine Nitrite Ur Leukocyte Esterase Influenza Type A (PCR) Influenza Type B (PCR) RSV RNA Qual (PCR) SARS-CoV-2 RNA (RT-PCR) Airway Mallampati Class: II TM Dist: >3cm Partial: Upper Loose/Missing/Broken Teeth: No Heart: Irrr Lungs: CTA Assessment and Plan Assessment Anesthesia Assessment: Anesthesia Plan Discussed and Chart Reviewed Final Anesthetic Review Family History of Problems with Anesthesia: No History of Problems with Anesthesia: No NPO: Yes ASA Class: III Final Preanesthetic Review: No Changes in Pt Med Stat, Meds/Allgs Chart Reviewed, Consent Obtained/Reviewed and Anes Risks/Benef Reviewed Patient Risk: High Procedure Risk: Low Anesthetic Plan Anesthetic Plan: MAC: Disposition: Inp. Admit - ICU
--- NOTE | 2023-06-16 11:14 | ECG_ITS ---
Test Reason : post cardioversion Blood Pressure : / mmHG Vent. Rate : 106 BPM Atrial Rate : 000 BPM P-R Int : 000 ms QRS Dur : 106 ms QT Int : 296 ms P-R-T Axes : 000 047 162 degrees QTc Int : 393 ms Possible Normal sinus rhythm with frequent Premature atrial complexes Minimal voltage criteria for LVH, may be normal variant ( Mychal product ) Nonspecific ST and T wave abnormality Abnormal ECG When compared with ECG of 16-JUN-2023 01:31, Rhythm change Referred By: Mely Sampson Electronically Signed By:MELY SAMPSON
[2023-06-16 11:35] LABS: Glucose, Whole Blood 248 mg/dL (60-115)
[2023-06-16] MEDS: Amiodarone HCL 200 MG TABLET 400 MG PO ×2 (12:08→20:56)
[2023-06-16] MEDS: Metoprolol Tartrate 25 MG TABLET PO ×2 (13:57→20:58)
[2023-06-16 16:29] LABS: Glucose, Whole Blood 357 mg/dL (60-115)
[2023-06-16] MEDS: Insulin Lispro 100 UNIT/ML 3 ML VIAL SUBCUT ×2 (16:54→21:03)
[2023-06-16] MEDS: acetaZOLAMIDE 250 MG TABLET 500 MG PO (20:56)
[2023-06-16 21:50] LABS: Glucose, Whole Blood 263 mg/dL (60-115)
--- NOTE | 2023-06-17 | ECG_ITS ---
Test Reason : Aflutter Blood Pressure : / mmHG Vent. Rate : 085 BPM Atrial Rate : 000 BPM P-R Int : 000 ms QRS Dur : 110 ms QT Int : 374 ms P-R-T Axes : 000 015 125 degrees QTc Int : 445 ms Multifocal atrial tachycardia Incomplete left bundle branch block Minimal voltage criteria for LVH, may be normal variant ( Mychal product ) ST & T wave abnormality, consider lateral ischemia Abnormal ECG When compared with ECG of 16-JUN-2023 11:12, ST no longer depressed in Anterior leads T wave inversion now evident in Lateral leads Referred By: Brice Singleton Electronically Signed By:Indio Ann
[2023-06-17 04:00] VITALS: BP 118/54; PULSE 95; RESP 20; TEMP 36.7; O2SAT 97
[2023-06-17] MEDS: Omeprazole 20 MG CAPSULE.DR PO (04:46)
[2023-06-17 04:51] VITALS: BMI 22.0
[2023-06-17] MEDS: Sennosides 8.6 MG TABLET 17.2 MG PO (04:58)
[2023-06-17 06:09] LABS: MANUAL DIFF FLAG NO
[2023-06-17 06:15] LABS: VBG Base Excess 5.3 mmol/L; VBG HCO3 30 mmol/L (22-26); VBG pCO2 45 mmHg; VBG pH 7.43 (7.32-7.43); VBG pO2 50 mmHg
[2023-06-17 06:25] LABS: Venous Blood Gas Refer to POC result
[2023-06-17 06:28] LABS: Basophils Absolute Auto 0.1 X10*3/uL (0.0-0.2); Basophils Percent Auto 1.3 % (0-2); Eosinophils Absolute Auto 0.3 X10*3/uL (0.0-0.4); Eosinophils Percent Auto 4.9 % (0-4); Hematocrit 34.2 % (42.0-52.0); Imm Gran Abs Auto 0.01 X10*3/uL (0.00-0.03); Imm Gran Pct Auto 0.2 % (0.0-0.4); Lymphocytes Absolute Auto 1.4 X10*3/uL (1.2-4.9); Lymphocytes Percent Auto 25.1 % (20-40); Mean Corpuscular HGB Conc 32.2 g/dl (31.0-36.0); Mean Corpuscular Hemoglobin 29.8 pg (27.0-33.0); Mean Corpuscular Volume 92.7 fL (80.0-98.0); Mean Platelet Volume 9.9 fL (9.4-12.4); Monocytes Absolute Auto 0.6 X10*3/uL (0.1-1.2); Monocytes Percent Auto 10.2 % (2-11); Neutrophils Absolute Auto 3.2 x10*3/uL (2.0-8.3); Neutrophils Percent Auto 58.3 % (45-73); Platelet Count 194 X10*3/uL (160-400); Red Blood Count 3.69 X10*6/uL (4.60-5.80); Red Cell Distribution Width 13.3 % (11.0-16.0); White Blood Count 5.5 X10*3/uL (4.8-10.8)
[2023-06-17 06:29] LABS: Anion Gap 15 (12-20); Blood Urea Nitrogen 30 mg/dL (9-16); Calcium 9.6 mg/dL (8.4-10.2); Carbon Dioxide 29 mmol/L (22-29); Chloride 99 mmol/L (96-108); Creatinine Clr Calc Pharmacy 71.8; Estimated Glomerular Filt Rate > 60; Glucose Random 179 mg/dL (60-115); Magnesium 1.8 mg/dL (1.6-2.6); Phosphorus 2.8 mg/dL (2.7-4.5); Potassium 3.6 mmol/L (3.3-5.1); Sodium 139 mmol/L (135-145)
[2023-06-17 06:59] VITALS: BP 118/51; PULSE 71; RESP 18; TEMP 36.9; O2SAT 95
[2023-06-17 08:04] LABS: Glucose, Whole Blood 173 mg/dL (60-115)
[2023-06-17] MEDS: Aspirin Enteric Coated 81 MG TABLET.DR PO (08:14)
[2023-06-17] MEDS: Apixaban 5 MG TABLET PO (08:14)
[2023-06-17] MEDS: Atorvastatin Calcium 80 MG TABLET PO (08:14)
[2023-06-17] MEDS: Multivitamin TABLET 1 TAB PO (08:14)
[2023-06-17] MEDS: Insulin Lispro 100 UNIT/ML 3 ML VIAL SUBCUT (08:15)
[2023-06-17] MEDS: Amiodarone HCL 200 MG TABLET 400 MG PO (08:15)
[2023-06-17] MEDS: acetaZOLAMIDE 250 MG TABLET 500 MG PO (08:15)
[2023-06-17] MEDS: amLODIPine Besylate 5 MG TABLET PO (08:15)
[2023-06-17] MEDS: Metoprolol Tartrate 25 MG TABLET PO (08:15)
[2023-06-17] MEDS: Furosemide 40 MG/4 ML VIAL IVPUSH (08:15)
[2023-06-17] MEDS: 0.9 % Sodium Chloride Flush 3 ML SYRINGE IVFLUSH (08:16)
[2023-06-17] MEDS: Albuterol/Iprat 2.5/0.5MG 3 ML AMPUL.NEB INHALE (08:23)
[2023-06-17] MEDS: Fluticasone/Vilanterol 200/25 BLST.W.DEV 1 PUFF INHALE (08:35)
[2023-06-17 08:36] VITALS: PULSE 91; RESP 18; O2SAT 100
--- NOTE | 2023-06-17 10:04 | P.PNCA_ITS ---
Subjective Subjective Date of Service: 06/17/23 Interval history: He states he is feeling fine. No new complaints. Review of Systems Review of Systems Yes all other systems are reviewed and are negative Constitutional: Reports as per HPI and Reports no additional constitutional complaints Eyes: Reports as per HPI and Denies no additional eye complaints Denies system reviewed and no additional complaints, except as documented and Reports as per HPI Cardiovascular: Reports as per HPI, Reports no additional cardiovascular complaints, Denies acrocyanosis, Denies cool extremities, Denies chest pain, Denies leg edema, Denies lightheadedness, Denies palpitations and Denies dyspnea Respiratory: Reports as per HPI, Denies no additional respiratory complaints and Denies dyspnea Gastrointestinal: Reports as per HPI and Denies no additional gastrointestinal complaints Genitourinary: Reports no additional male genitourinary complaints and Reports as per HPI Musculoskeletal: Reports no additional musculoskeletal complaints and Reports as per HPI Skin/Breast: Reports system reviewed and no additional complaints, except as docu Reports system reviewed and no additional complaints, except as documented and Reports as per HPI Psychiatric: Reports no additional psychiatric complaints and Reports as per HPI Endocrine: Reports no additional endocrine complaints, Reports as per HPI and Denies palpitations Hematologic/Lymphatic: Reports no additional hematologic/lymphatic complaints and Reports as per HPI Allergic/Immunologic: Reports no additional allergic/immunologic complaints and Reports as per HPI Physical Exam Vital Signs: Last Vital Signs Temp 98.4 F 06/17/23 06:59 Pulse 91 06/17/23 08:36 Resp 18 06/17/23 08:36 BP 118/51 L 06/17/23 06:59 Pulse Ox 95 06/17/23 06:59 O2 Del Method Room Air 06/17/23 06:59 O2 Flow Rate 2 06/16/23 23:30 FiO2 21 06/16/23 08:00 Oxygen Flow Rate 2 06/16/23 23:00 BMI result Body Mass Index 22.0 Const General: comfortable and no acute distress Orientation/consciousness: patient oriented x3 HEENT Other: Unremarkable Head: Yes normal to inspection Neck Neck: Yes normal visual inspection Chest Chest palpation & inspection: normal inspection of the chest Resp Auscultation: clear to auscultation bilaterally Cardio Palpation: normal PMI Heart sounds: S1 normal heart sound present, S2 normal heart sound present, no gallops, no murmurs and no rubs GI Palpation (GI): Soft to palpation Back/Spine/Pelvis Other: unremarkable Skin General skin exam: no rashes or lesions noted Neuro General: patient oriented x3 Extrem General: Yes normal to inspection Psych Mental Status: mental status grossly normal Objective Labs and Meds 06/17/23 06:02 06/17/23 06:02 Lab results: Laboratory Results - last 24 hr 06/16/23 06/16/23 06/16/23 11:31 16:25 21:01 WBC RBC Hgb Hct MCV MCH MCHC RDW Plt Count MPV Immature Gran % (Auto) Neut % (Auto) Lymph % (Auto) [place] % (Auto) Eos % (Auto) Baso % (Auto) Lymph # (Auto) [place] # (Auto) Eos # (Auto) Baso # (Auto) Abs Immat Gran (auto) Absolute Neuts (auto) Absolute Nucleated RBC Nucleated RBC % (auto) VBG pH VBG pCO2 VBG pO2 VBG HCO3 VBG O2 Saturation VBG Base Excess Sodium Potassium Chloride Carbon Dioxide Anion Gap BUN Creatinine Estim Creat Clear Calc Estimated GFR POC Glucose 248 H 357 H* 263 H Random Glucose Calcium Phosphorus Magnesium 06/17/23 06/17/23 06/17/23 06:02 06:07 07:57 WBC 5.5 RBC 3.69 L Hgb 11.0 L Hct 34.2 L MCV 92.7 MCH 29.8 MCHC 32.2 RDW 13.3 Plt Count 194 MPV 9.9 Immature Gran % (Auto) 0.2 Neut % (Auto) 58.3 Lymph % (Auto) 25.1 [place] % (Auto) 10.2 Eos % (Auto) 4.9 H Baso % (Auto) 1.3 Lymph # (Auto) 1.4 [place] # (Auto) 0.6 Eos # (Auto) 0.3 Baso # (Auto) 0.1 Abs Immat Gran (auto) 0.01 Absolute Neuts (auto) 3.2 Absolute Nucleated RBC 0.000 Nucleated RBC % (auto) 0.0 VBG pH 7.43 VBG pCO2 45 VBG pO2 50 VBG HCO3 30 H VBG O2 Saturation 83.0 VBG Base Excess 5.3 Sodium 139 Potassium 3.6 Chloride 99 Carbon Dioxide 29 Anion Gap 15 BUN 30 H Creatinine 0.81 Estim Creat Clear Calc 71.8 Estimated GFR > 60 POC Glucose 173 H Random Glucose 179 H Calcium 9.6 Phosphorus 2.8 Magnesium 1.8 Progress Note: A&P Assessment and plan (1) Acute on chronic diastolic (congestive) heart failure: Status: Acute Assessment and Plan: He seems euvolemic. Continue diuretics. Can change to p.o. diuretics. In the recent echocardiogram, LVEF 51%. Basal inferior/inferolateral akinesis. Moderate diastolic dysfunction. [id number] aortic stenosis. Severe mitral annular calcification moderate pulmonary hypertension. (2) Atrial flutter: Status: Acute Assessment and Plan: He underwent transesophageal echocardiogram and cardioversion yesterday. There is a definite rhythm change but the new rhythm is not very clear. Suspect rather sinus with frequent PACs. He can continue amiodarone loading-400 mg b.i.d. for 2 weeks then 200 mg daily. Continue beta-blockers. Anticoagulation. Plan Will arrange follow-up in clinic. Discussed with Dr. Singleton. Time Spent With Patient Time: Total time managing care of this patient today ____ minutes. Progress Note: Quality Stroke Does the patient have a stroke diagnosis?: No Procedures Date of Service Date of Service: 06/17/23
[2023-06-17 11:06] VITALS: BP 127/58; PULSE 80; RESP 18; TEMP 36.8; O2SAT 96
--- NOTE | 2023-06-17 11:23 | PM.DS ---
DS: Providers Provider Date of Service: 06/17/23 Date of admission: 06/11/23 13:05 Primary care physician: Karri Mcnally PA-C Consults: 06/12/23 15:16 Consult to Cardiology Routine Consulting Provider: [facility] [place] [facility] Reason for consultation: chf DS: Diagnosis Discharge Diagnosis (1) Acute on chronic diastolic (congestive) heart failure: Status: Acute (2) Atrial flutter: Status: Acute (3) Pulmonary emphysema: Status: Acute (4) Acute respiratory failure with hypercapnia: Status: Acute (5) Atrial flutter with rapid ventricular response: Status: Acute DS: Summary Hospital Course Hospital Course: Admission note HPI 82 year old male with history of chronic hypoxic hypercapnic respiratory failure on 2L due to copd, CAD s/p CABG 2022, CHARLES, DM, HTN, hld, chronic systolic chf (EF 40-45%), persistent atrial flutter anticoagulated with eliquis presented to the ED for evaluation of worsening exertional dyspnea over the last 2 weeks. Also reports orthopnea and increased lower extremity edema. Has not required increase in supplemental O2 at home. Recent admission from 05/24-05/29 due to chf exacerbation discharged on lasix and eliquis. He had been trialed on digoxin but developed bradycardia. He has not been retrictring fluids and does not limit sodium intake. Denies weight gain. No lightheadedness, palpitations, sob at rest, wheezing, chest pain. On arrival, pt hypoxic to 83% on RA, but patient was placed back on home O2 at 2L maintaining oximetry 97%. Mild tachypnea, ,vitals otherwise stable. Hematology studies stable. Renal function baseline, lytes normal except for CO2 38 which is consistent with patient's baseline. Trop wnl. BNP 411. UA unremarkable. Negative for covid, flu, rsv. CXR stable compared to prior studies. In the ED, given 81mg asa, 40mg iv lasix, and 0.5inch nitropaste. Hospital course # acute on chronic systolic chf He was treated with IV lasix with minimal improvement as he continued to complain of dyspnea with any exertion. His symptoms of dyspnea thought to be related to ongoing Atrial flutter. He was evaluated by barrel polisher who did cardioversion with good response as he was weaned off O2 and was able to ambulare with less reported dyspnea or difficulties breathing. Continue Lasix on discharge. Acute on chronic hypoxic and hypercapneic respiratory failure due to copd with O2 narcosis. He was admitted to ICU overnight for Bipap treatment with good response. advised to avoid bringing his O2 level above 94% and to use O2 only if needed. persistent AFlutter with rapid ventricular response. developed Bradycardia while on Metoprolol that resolved after Holding BB. evaluated by Cardiology who did cardioversion on 06/16 with coverting to suspected sinus with PACs according to barrel polisher. Loaded patient with Amiodarone and restarted Metoprolol at 25 mg bid. Eliquis as blood thinner. Start Amiodarone 400 mg loading for 2 weeks then change to Amiodarone 200 mg daily Decrease Metoprolol to 25 mg daily Follow with Cardiology as outpatient; Dr Scott Time Attestation Discharge coordination time: Greater than 30 minutes Quality: Safe Use of Opioids Does Pt have an Active Cancer Diagnosis on the Problem List?: No Quality: Stroke Does the patient have a stroke diagnosis?: No Physical Exam Vital Signs: Vital Signs: Last Vital Signs Temp 98.2 F 06/17/23 11:06 Pulse 80 06/17/23 11:06 Resp 18 06/17/23 11:06 BP 127/58 L 06/17/23 11:06 Pulse Ox 96 06/17/23 11:06 O2 Del Method Room Air 06/17/23 11:06 O2 Flow Rate 2 06/16/23 23:30 FiO2 21 06/16/23 08:00 Oxygen Flow Rate 2 06/16/23 23:00 BMI result Body Mass Index 22.0 Const: Other: Constitutional : Awake, interactive, not in distress Neck : Normal inspection, Supple Cardiovascular : irregular , no LE edema Respiratory : good bilateral air entry, no crackles, wheezes or rhonchi Gastrointestinal: soft, lax, Normal bowel sounds, Non tender Skin : Warm, Dry Neurological : Alert & oriented to self and place , No focal deficit DS: Data Data Completed and Pending Labs on day of discharge: Laboratory Results - last 24 hr 06/16/23 06/16/23 06/16/23 11:31 16:25 21:01 WBC RBC Hgb Hct MCV MCH MCHC RDW Plt Count MPV Immature Gran % (Auto) Neut % (Auto) Lymph % (Auto) [place] % (Auto) Eos % (Auto) Baso % (Auto) Lymph # (Auto) [place] # (Auto) Eos # (Auto) Baso # (Auto) Abs Immat Gran (auto) Absolute Neuts (auto) Absolute Nucleated RBC Nucleated RBC % (auto) VBG pH VBG pCO2 VBG pO2 VBG HCO3 VBG O2 Saturation VBG Base Excess Sodium Potassium Chloride Carbon Dioxide Anion Gap BUN Creatinine Estim Creat Clear Calc Estimated GFR POC Glucose 248 H 357 H* 263 H Random Glucose Calcium Phosphorus Magnesium 06/17/23 06/17/23 06/17/23 06:02 06:07 07:57 WBC 5.5 RBC 3.69 L Hgb 11.0 L Hct 34.2 L MCV 92.7 MCH 29.8 MCHC 32.2 RDW 13.3 Plt Count 194 MPV 9.9 Immature Gran % (Auto) 0.2 Neut % (Auto) 58.3 Lymph % (Auto) 25.1 [place] % (Auto) 10.2 Eos % (Auto) 4.9 H Baso % (Auto) 1.3 Lymph # (Auto) 1.4 [place] # (Auto) 0.6 Eos # (Auto) 0.3 Baso # (Auto) 0.1 Abs Immat Gran (auto) 0.01 Absolute Neuts (auto) 3.2 Absolute Nucleated RBC 0.000 Nucleated RBC % (auto) 0.0 VBG pH 7.43 VBG pCO2 45 VBG pO2 50 VBG HCO3 30 H VBG O2 Saturation 83.0 VBG Base Excess 5.3 Sodium 139 Potassium 3.6 Chloride 99 Carbon Dioxide 29 Anion Gap 15 BUN 30 H Creatinine 0.81 Estim Creat Clear Calc 71.8 Estimated GFR > 60 POC Glucose 173 H Random Glucose 179 H Calcium 9.6 Phosphorus 2.8 Magnesium 1.8 Imaging Chest x-ray: Radiologist's impression: ITS Impressions Chest X-Ray 06/11/23 11:05 IMPRESSION: No interval change Chest X-Ray 06/15/23 12:18 IMPRESSION: 1. Bilateral calcified pleural plaques and right apical pleural thickening. No acute consolidation seen. Prominent interstitial markings are stable 2. There is mild spondylosis mid and lower dorsal spine. 3. 2. No major change from previous exam 06/11/2023. Chest X-Ray 06/15/23 20:25 IMPRESSION: 1. Hypoexpanded lungs with haziness in both lung bases likely pleural effusion/atelectasis. 2. Calcified pleural plaques and prominent interstitial markings are stable. Head CT 06/15/23 20:39 IMPRESSION: The posterior fossa and skull base are obscured by motion. No acute intracranial hemorrhage or territorial loss of wiley-white differentiation in the nondegraded aspects of the examination. Chest CT 06/15/23 20:40 IMPRESSION: No evidence of aspiration pneumonia, mass or consolidation. Emphysema, calcified pleural plaques or from previous stenosis exposure. There are small bilateral pleural effusions. There is chronic interstitial changes throughout both lungs more prominent in the lower lobes. Fleischner guidelines were followed. Discharge Plan Discharge Anticipated Discharge Date/Time: 06/17/23 10:49 Patient Disposition: Home Health Service Discharge Diagnosis: Aflutter with RvR Referrals: Karri Mcnally PA-C [Primary Care Provider] - 1 Week Discharge Medications: New amiodarone 200 mg Tablet 400 mg PO BID 14 Days Qty: 56 0RF metoprolol tartrate 25 mg Tablet 25 mg PO BID Qty: 60 0RF Protocol: Hold for SBP/HR < HOLD for SBP < : 90 HOLD for HR < : 60 amiodarone 200 mg tablet 200 mg PO DAILY Qty: 30 0RF Continued (DME) FreeStyle Lite Strips Strip See Rx Instructions .ROUTE .MEDSUPPLY Qty: 100 3RF Rx Instructions: As directed (DME) lancets [FreeStyle Lancets] 28 gauge misc See Rx Instructions .ROUTE .MEDSUPPLY Qty: 100 3RF Rx Instructions: As directed (DME) pen needle, diabetic [1st Tier Unifine Pentips Plus] 29 gauge x 1/2 needle See Rx Instructions .Route Qty: 100 3RF Rx Instructions: Use 1 pen needle once a day metformin 1,000 mg tablet 1,000 mg PO BID 90 Days Qty: 180 2RF PreserVision AREDS [id number] Capsule 1 cap PO BID albuterol sulfate 2.5 mg /3 mL (0.083 %) Solution For Nebulization 2.5 mg INHALATION Q6H PRN (Reason: Wheezing) budesonide-formoterol [Symbicort] 160-4.5 mcg/actuation HFA aerosol inhaler 2 puff inhalation BID Eliquis 5 mg Tablet 5 mg PO BID Qty: 60 0RF furosemide 40 mg tablet 40 mg PO DAILY Qty: 30 0RF atorvastatin 80 mg tablet 80 mg PO DAILY omeprazole magnesium 20 mg tablet,delayed release (DR/EC) 20 mg PO DAILY@0630 (DME) blood pressure test kit-large Kit See Rx Instructions .Route Qty: 1 0RF Rx Instructions: As directed aspirin [Adult Low Dose Aspirin] 81 mg tablet,delayed release (DR/EC) 81 mg PO DAILY amlodipine 5 mg tablet 5 mg PO DAILY glipizide 5 mg tablet extended release 24hr 5 mg PO DAILY 90 Days Qty: 90 2RF Discontinued metoprolol tartrate 50 mg tablet 50 mg PO BID Discharge Orders: Discharge Order (Routine); Ordered 06/17/23 Ordered By: Brice Singleton Diet: Advance to usual diet Activity on Discharge: As tolerated Stand Alone Forms: Patient Portal Discharge page Care Plan Goals: Read below Health Concerns: Read below Plan of Treatment: Read below Assessment: You were treated for heart failure and Atrial flutter with rapid heart rate. treated with IV and oral medicaitons with fair response as you were evaluated by barrel polisher who did cardioversion procedure with good result. You do not need the O2 supplement all the time as long as your O2 level above 90. Avoid getting your O2 level above 95%. Start Amiodarone 400 mg loading for 2 weeks then change to Amiodarone 200 mg daily Decrease Metoprolol to 25 mg daily Follow with Cardiology as outpatient; Dr Scott
[2023-06-17 11:46] LABS: Glucose, Whole Blood 251 mg/dL (60-115)
--- NOTE | 2023-06-17 11:54 | W.MHC.F2F ---
Service Date Service Date: 06/17/23 Encounter Date of encounter: 06/17/23 Reasons for Services Signs and symptoms assessed: Physical deconditioning Reason for nursing home: medication management and teach disease management Reason for physical therapy: home safety and mobility and therapeutic exercises Homebound: Leaving the home is medically contraindicated at this time without the asist of a device and/or another person due th the listed conditions above and below. Reason homebound: unable to drive Certification: Based on the above findings, I certify that this patient is confined to the home and needs intermittent nursing home care, physical therapy and/or speech therapy, or continues to need occupational therapy. The patient is under my care, and I have initiated the establishment of the plan of care. The patient will be followed by a physician who will periodically review the plan of care. Time Spent With Patient Time: Total time managing care of this patient today ____ minutes.
--- NOTE | 2023-06-17 12:13 | MHC.CM.PN ---
Second IMM given 06/17. Pt is medically cleared for D/C home with new [facility]. Pts daughter will transport him home.
--- NOTE | 2023-06-17 13:26 | HO.POSTANES ---
Post Anesthesia Evaluation Post Anesthesia Evaluation Date of Service: 06/17/23 Vital Signs: Vital Signs Temp Pulse Resp BP Pulse Ox O2 Del Method 06/17/23 11:06 98.2 F 80 18 127/58 L 96 Room Air 06/17/23 08:36 91 18 06/17/23 06:59 98.4 F 71 18 118/51 L 95 Room Air 06/17/23 04:00 98.1 F 95 20 118/54 L 97 Room Air Anesthesia: Monitored Mental Status: Awake Pain Control: Satisfactory Nausea/Vomiting: None Hydration: Adequate Anesthesia-Related Issues: No Anes. Related Issues
== END 2023-06-17 12:16 | disposition home health service (06) | DRG 291 ==
LOC: HO.ED 12:46 → HO.EDOVER 13:09 → HO.IMC 18:24 → HO.ICU 06-15 20:21 → HO.IMC 06-16 16:11
PROVIDERS: Internal Medicine; Internal Medicine Pulmonary Disease; Registered Nurse Community Health; Student in an Organized Health Care Education/Training Program; Admitting Provider Physician Assistant; Emergency Provider Emergency Medicine; PCP Physician Assistant; Visit Provider Student in an Organized Health Care Education/Training Program
PROC: 5A2204Z Restoration of Cardiac Rhythm, Single (ICD-10-PCS; CPT 93312; principal; 2023-06-16 10:00)
PROC: 5A2204Z Restoration of Cardiac Rhythm, Single (ICD-10-PCS; 2023-06-16 10:00)
DX: I11.0 Hypertensive heart disease with heart failure (principal); I50.23 Acute on chronic systolic (congestive) heart failure; J96.22 Acute and chronic respiratory failure with hypercapnia; J96.21 Acute and chronic respiratory failure with hypoxia; I48.92 Unspecified atrial flutter; R00.1 Bradycardia, unspecified; I35.0 Nonrheumatic aortic (valve) stenosis; J43.9 Emphysema, unspecified; I34.81 Nonrheumatic mitral (valve) annulus calcification; I27.20 Pulmonary hypertension, unspecified; E78.5 Hyperlipidemia, unspecified; I25.10 Atherosclerotic heart disease of native coronary artery without angina pectoris; Z20.822 Contact with and (suspected) exposure to COVID-19; Z95.1 Presence of aortocoronary bypass graft; Z99.81 Dependence on supplemental oxygen; Z79.82 Long term (current) use of aspirin; Z79.01 Long term (current) use of anticoagulants; Z79.84 Long term (current) use of oral hypoglycemic drugs; Z79.899 Other long term (current) drug therapy
CPT/HCPCS: 0241U; 36415; 36600; 70450; 71045; 71250; 80048; 80053; 80076; 81003; 82803; 82947; 83605; 83690; 83735; 83880; 84100; 84484; 85025; 85027; 85610; 92610; 92960; 93005; 94660; 94799; 97161; 99285; J1120; J1940; J2704; J3010; Q9957

== ENCOUNTER → 2023-06-11 09:29 | Outpatient (BNV) | payer MEDICARE, SELFPAY | PROVIDERS: Admitting Provider Physician Assistant; Emergency Provider Emergency Medicine; PCP Physician Assistant; Visit Provider Internal Medicine | DX: R94.31 Abnormal electrocardiogram [ECG] [EKG] (principal) | CPT/HCPCS: 93010 ==

== ENCOUNTER 2023-06-11 13:05 | Outpatient (BNV) | payer MEDICARE, SELFPAY | END 2023-06-16 10:00 | PROVIDERS: Admitting Provider Physician Assistant; Emergency Provider Emergency Medicine; PCP Physician Assistant; Visit Provider Internal Medicine | DX: I48.92 Unspecified atrial flutter (principal); I34.0 Nonrheumatic mitral (valve) insufficiency | CPT/HCPCS: 93312; 93320; 93325 ==

== ENCOUNTER 2023-06-11 13:05 | Outpatient (BNV) | payer MEDICARE, SELFPAY | END 2023-06-17 11:33 | PROVIDERS: Admitting Provider Physician Assistant; Emergency Provider Emergency Medicine; PCP Physician Assistant; Visit Provider Internal Medicine Cardiovascular Disease | DX: I48.92 Unspecified atrial flutter (principal); I44.7 Left bundle-branch block, unspecified | CPT/HCPCS: 93010 ==

== ENCOUNTER 2023-06-11 13:05 | Outpatient (BNV) | payer MEDICARE, SELFPAY | END 2023-06-15 | PROVIDERS: Admitting Provider Physician Assistant; Emergency Provider Emergency Medicine; PCP Physician Assistant; Visit Provider Internal Medicine | DX: I48.3 Typical atrial flutter (principal); I50.33 Acute on chronic diastolic (congestive) heart failure | CPT/HCPCS: 93010 ==

== ENCOUNTER → 2023-06-11 13:05 | Outpatient (BNV) | payer MEDICARE, SELFPAY | PROVIDERS: Admitting Provider Physician Assistant; Emergency Provider Emergency Medicine; PCP Physician Assistant; Visit Provider Registered Nurse Community Health | DX: I50.33 Acute on chronic diastolic (congestive) heart failure (principal); I48.3 Typical atrial flutter; J96.02 Acute respiratory failure with hypercapnia | CPT/HCPCS: 99291 ==

== ENCOUNTER → 2023-06-11 13:05 | Outpatient (BNV) | payer MEDICARE, SELFPAY | PROVIDERS: Admitting Provider Physician Assistant; Emergency Provider Emergency Medicine; PCP Physician Assistant; Visit Provider Internal Medicine Pulmonary Disease | DX: J43.9 Emphysema, unspecified (principal); J96.02 Acute respiratory failure with hypercapnia; I50.33 Acute on chronic diastolic (congestive) heart failure; I48.3 Typical atrial flutter; J98.4 Other disorders of lung; I25.10 Atherosclerotic heart disease of native coronary artery without angina pectoris; E11.65 Type 2 diabetes mellitus with hyperglycemia | CPT/HCPCS: 99232 ==

== ENCOUNTER → 2023-06-11 13:05 | Outpatient (BNV) | payer MEDICARE, SELFPAY | PROVIDERS: Admitting Provider Physician Assistant; Emergency Provider Emergency Medicine; PCP Physician Assistant; Visit Provider Physician Assistant | DX: I50.33 Acute on chronic diastolic (congestive) heart failure (principal); I48.3 Typical atrial flutter; J43.9 Emphysema, unspecified; J96.02 Acute respiratory failure with hypercapnia; I48.92 Unspecified atrial flutter | CPT/HCPCS: 99223; 99232; 99233; 99239; G0180 ==

== ENCOUNTER → 2023-06-11 13:05 | Outpatient (BNV) | payer MEDICARE, SELFPAY | PROVIDERS: Admitting Provider Physician Assistant; Emergency Provider Emergency Medicine; PCP Physician Assistant; Visit Provider Internal Medicine | DX: I50.33 Acute on chronic diastolic (congestive) heart failure (principal); I48.3 Typical atrial flutter | CPT/HCPCS: 92960; 99223; 99233 ==

== ENCOUNTER 2023-06-21 18:31 | Emergency (ER) | payer MEDICARE, SELFPAY ==
--- NOTE | ~2023-06-21 | CT_ITS ---
EXAMINATION: CT ABDOMEN AND PELVIS WITH CONTRAST CLINICAL INFORMATION: Upper abdominal pain. COMPARISON: CT chest dated 06/15/2023. TECHNIQUE: Multidetector volumetric images were obtained from the superior aspect of the liver through the pubic symphysis following administration 85 mL of Omnipaque 350 intravenous contrast. Sagittal and coronal reformatted images were obtained on the technologist's workstation. Oral Contrast: No. This CT examination was performed using dose optimization techniques as appropriate, variously including the following: *Automated exposure control. *Adjustment of mA and/or kV according to patient size (this includes techniques or standardized protocols for targeted exams where dose is matched to indication/reason for exam; i.e. extremities or head). *Use of iterative reconstruction technique. DLP: 482 mGy-cm FINDINGS: LUNG BASES: Bilateral pleural thickening with a trace right-sided pleural effusion and bilateral pleural calcifications, unchanged. LIVER, GALLBLADDER, AND BILIARY TREE: The liver is normal in size, shape, and attenuation. Right subcentimeter hepatic hypodensity, too small to characterize. No additional focal hepatic lesion or biliary ductal dilatation is present. Status post cholecystectomy. PANCREAS: Unremarkable. SPLEEN: Unremarkable. ADRENAL GLANDS: Unremarkable. KIDNEYS AND URETERS: The kidneys are normal in size, shape, and attenuation. No hydronephrosis, hydroureter, or calculi seen. Simple left renal cysts. Findings are not clinically significant and no dedicated follow-up imaging is recommended. No perinephric stranding. BLADDER: Unremarkable. GASTROINTESTINAL TRACT: No small or large bowel obstruction. Sigmoid diverticulosis without evidence of acute diverticulitis. No bowel wall thickening or inflammatory change. Unremarkable appendix. PERITONEAL CAVITY: No intra-abdominal free air or free fluid. ABDOMINAL WALL: No significant hernia is appreciated. LYMPH NODES: No significant lymphadenopathy. VASCULAR: No abdominal aortic dilatation or dissection. Atherosclerotic calcifications. PELVIC VISCERA: Prostatomegaly. OSSEOUS STRUCTURES: Unremarkable. CT/CT abdomen pelvis w IV con IMPRESSION: 1. No acute intra-abdominal findings to explain the patient's pain. 2. Diverticulosis without evidence of acute diverticulitis. No small or large bowel obstruction. Unremarkable appendix. 3. No intra-abdominal mass, lymphadenopathy, or ascites. 5. Additional chronic findings are unchanged. Fleischner guidelines were followed.
--- NOTE | ~2023-06-21 | XR_ITS ---
EXAMINATION: XR CHEST CLINICAL INFORMATION: Chest pain. COMPARISON: CT chest 06/15/2023. Chest radiograph 06/15/2023. TECHNIQUE: 2 views of the chest were obtained. FINDINGS: Again noted background of extensive fibrosis and calcified pleural plaques, limiting evaluation of details. Scattered reticulonodular opacities appear decreased compared to 06/15/2023. Bilateral pleural effusions are also decreased. Chronic asymmetric right apical subpleural scarring. No pneumothorax. Stable prominence of the cardiomediastinal silhouette with redemonstration of the sternal wires, mediastinal surgical clips and atrial appendage clip. Multiple surgical clips in the upper abdomen. Again noted abscess in left posterior sixth rib. No acute osseous findings. XR/XR chest 2V IMPRESSION: Complex examination with background of fibrosis and calcified pleural plaques limiting the examination. However, accounting for these limitations, multifocal reticulonodular opacities and bilateral pleural effusions are decreased compared to 06/15/2023. No discrete new focal airspace density. Continued follow-up with wafer polishing lead worker consultation is recommended this patient with high risk factors for lung malignancy.
--- NOTE | 2023-06-21 18:42 | ECG_ITS ---
Test Reason : chest pain Blood Pressure : / mmHG Vent. Rate : 081 BPM Atrial Rate : 000 BPM P-R Int : 000 ms QRS Dur : 116 ms QT Int : 448 ms P-R-T Axes : 000 020 119 degrees QTc Int : 520 ms Poor data quality Minimal voltage criteria for LVH, may be normal variant ( Mychal product ) ST & T wave abnormality, consider lateral ischemia Prolonged QT Abnormal ECG When compared with ECG of 17-JUN-2023 11:33, Poor data quality in current ECG precludes serial comparison Referred By: Shereen Nguyen Electronically Signed By:Indio Ann
--- NOTE | 2023-06-21 19:39 | ED.GENADULT ---
HPI - General Adult General Chief complaint: Abdominal Pain Stated complaint: chest pain Time Seen by Provider: 06/21/23 20:55 Source: patient, family and old records reviewed Mode of arrival: ambulatory Limitations: no limitations History of Present Illness HPI narrative: 82 yo male with PMH Of afib on eliquis, CHF, acute resp failure on home O2, COPD, NSVT, DM, bronchitis, vertigo, just admitted here for CHF and afib elevated troponins up to 400 was diuresed medications were changed and on 06/16 attempt at cardioversion though mariely still appears to be in afib. He comes in today with c/o upper abdominal discomfort no n/v/d. He notes he is having a BM today and passing gas. The discomfort just won't go away. His family encouraged him to get checked out. He is eager to go home. MD complaint: upper abdominal pain Onset (ago): day(s) (since waking this AM) Location: abdomen Radiation: non-radiation Severity: mild Quality: dull Pain Consistency: constant Relieving factors: none Exacerbating factors: none Associated symptoms: denies other symptoms Treatments prior to arrival: none Related Data Home Medications Medication Instructions Recorded Confirmed atorvastatin 80 mg tablet 80 mg PO DAILY 04/21/20 06/11/23 omeprazole magnesium 20 mg 20 mg PO DAILY@0630 04/21/20 06/11/23 tablet,delayed release aspirin 81 mg tablet,delayed 81 mg PO DAILY 01/30/22 06/11/23 release (Adult Low Dose Aspirin) albuterol sulfate 2.5 mg/3 mL 2.5 mg inhalation Q6H PRN Wheezing 04/01/22 06/11/23 (0.083 %) solution for nebulization vitamins A,C,K-axps-wopuhb 4,296 1 cap PO BID 04/01/22 06/11/23 mcg-226 mg-90 mg capsule (PreserVision AREDS) amlodipine 5 mg tablet 5 mg PO DAILY 12/11/22 06/11/23 budesonide-formoterol HFA 160 2 puff inhalation BID 05/24/23 06/11/23 mcg-4.5 mcg/actuation aerosol inhaler (Symbicort) Previous Rx's Medication Instructions Recorded blood pressure test kit-large #1 ea 03/14/21 blood sugar diagnostic (FreeStyle #100 ea 08/29/21 Lite Strips) lancets 28 gauge (FreeStyle #100 ea 08/29/21 Lancets) pen needle, diabetic 29 gauge x #100 ea 06/22/22 1/2 (1st Tier Unifine Pentips Plus) glipizide 5 mg tablet, extended 5 mg PO DAILY 90 days #90 tabs 12/11/22 release 24 hr metformin 1,000 mg tablet 1,000 mg PO BID 90 days #180 tabs 02/02/23 amiodarone 200 mg tablet 200 mg PO DAILY #30 tabs 06/17/23 amiodarone 200 mg tablet 400 mg (2 x 200 mg) PO BID 14 days 06/17/23 #56 tabs apixaban 5 mg tablet (Eliquis) 5 mg PO BID #60 tabs 06/17/23 furosemide 40 mg tablet 40 mg PO DAILY #30 tabs 06/17/23 metoprolol tartrate 25 mg tablet 25 mg PO BID #60 tabs 06/17/23 Allergies Allergy/AdvReac Type Severity Reaction Status Date / Time No Known Allergies Allergy Verified 06/21/23 19:39 [No Known Allergies*] Review of Systems Review of Systems: Constitutional : No Weight loss, No Fever, No Chills ENT/Mouth : No sore throat, No Rhinorrhea Eyes: No Swelling, No Redness Cardiovascular : No Chest Pain, No SOB, NoEdema Respiratory : No Cough, No Sputum, No Wheezing Gastrointestinal : no Nausea, no Vomiting, no Diarrhea, positive abdominal Pain, No Hematochezia, No Melena Genitourinary : No Dysuria, No Urinary Frequency, No Hematuria, No Urgency Musculoskeletal : No joint pain, No Myalgias, No Joint Swelling Skin : No Skin Lesions, No rash Neuro : No Weakness, No Numbness, No Dizziness, No Headache Psych : No Anxiety/Panic, No Depression All other systems reviewed and are negative. [facility] Past Medical History Attestation statement: The following information was validated with the patient. Source: old records reviewed Medical History Afib COPD (chronic obstructive pulmonary disease) Coronary artery disease CAD (coronary artery disease) DMII (diabetes mellitus, type 2) HTN (hypertension) Surgical History History of colonoscopy History of lung surgery History of cholecystectomy Family History Family History Father No problems noted. Mother No problems noted. Social History Social History Household Members: Spouse Housing: House Do you presently have visiting nurse or other home services: No Alcohol intake: current Alcohol intake frequency: 0-2 drinks per day Comment: OOB/ amb independently Patient Tobacco Use Status: Never used Tobacco Tobacco use type: Cigarette e-Cigarette/Vaping Use: Never Used Second Hand Smoke Exposure: No Advance Directives: No Advance Directives Information Provided: No service: No Current occupational status: retired Cognitive needs: No Hearing needs: No Vision needs: Yes (glasses) Physical Exam ED Vital Signs: Vital Signs - 24 hr 06/21/23 19:40 06/21/23 20:47 Temperature 98.5 F 98.5 F Pulse Rate 92 83 Respiratory Rate 18 20 Blood Pressure 106/47 L 137/57 L Pulse Oximetry 95 99 Oxygen Delivery Method Room Air Nasal Cannula Oxygen Flow Rate 2 BMI result Body Mass Index 21.7 Appearance: Alert. Oriented X3. No acute distress. Eyes: Pupils equal, round and reactive to light. ENT: Pharynx normal. Neck: Normal inspection. Neck supple. CVS: irregular heart rate and rhythm. Pulses normal. Respiratory: No respiratory distress. Breath sounds diminished throughout Abdomen: Soft and nontender. neg bethea's sign Skin: Skin warm and dry. pale skin color. Normal skin turgor. Extremities: trace pitting ankle lower extremity edema. Neuro: Oriented X 3. No motor deficit. No sensory deficit. Course Course Course Narrative: This is a rapid medical exam: Additional HPI, ROS, PE not included below will be deferred to primary provider. Patient is an 82-year-old male with history of chronic hypoxic respiratory failure on 3lpm at home, COPD, CAD, s/p CABG 2022, DM, HTN, systolic HF, afib presenting to the emergency department with complaint of lower abdominal pain and difficulty urinating. Was recently admitted for CHF. Plan: EKG, labs, UA, CXR 20:35 Received critical troponin from lab, credit charge authorizer notified, will bring patient back to main ED Medications Administered Discontinued Medications Generic Name Dose Route Start Last Admin Trade Name Sabino PRN Reason Stop Dose Admin Iohexol 85 ml 06/21/23 21:50 06/21/23 21:51 Iohexol 350 Mg/Ml 100 Ml Infus..Btl IV 06/21/23 21:51 85 ml ONCE ONE Administration Medical Decision Making Medical Decision Making [facility] Narrative: 82 yo male with PMH Of afib on eliquis, CHF, acute resp failure on home O2, COPD, NSVT, DM, bronchitis, vertigo, just admitted here for CHF and afib elevated troponins here with c/o upper abdominal pain that is mild and lingering - denies n/v/d and states he is having normal BMs at this time overall exam benign still has elevated troponins will trend. His BNP is still high. He does not want to be here. At this time given mild bump in LFTs which could be related to his CHF will obtain CT scan of abdomen to look for any concerning biliary pathology/infection. Differential Diagnosis Differential Diagnoses: The differential diagnosis associated with the presentation includes gastritis, constipation, ACS, CHF, abdominal pain, biliary pathology Admission/Observation Consideration of admission/observation: Escalation of care including admission/observation considered trop trending down from 400s flat at his baseline, BNP slightly elevated no acute change on CXR - EKG appears similar trace R pleural effusion no acute findings on CT scan and urine after reviewing findings they do not want to stay his biggest issue is feeling like he has to strain to urinate since leaving he notes he had a catheter plan is to wait and see if he can void better in the next few days and if not will call PCP to start flomax. patient does not want to be hospitalized Lab Data [facility] Lab Attestation statement: I reviewed the patient's lab results. 06/21/23 20:03 06/21/23 20:03 Labs: Lab Results 06/21/23 06/21/23 Range/Units 20:03 22:41 WBC 7.2 (4.8-10.8) X10*3/uL RBC 4.48 L D (4.60-5.80) X10*6/uL Hgb 13.3 L D (14.0-18.0) g/dl Hct 41.2 L D (42.0-52.0) % MCV 92.0 (80.0-98.0) fL MCH 29.7 (27.0-33.0) pg MCHC 32.3 (31.0-36.0) g/dl RDW 13.7 (11.0-16.0) % Plt Count 325 D (160-400) X10*3/uL MPV 9.6 (9.4-12.4) fL Immature Gran % (Auto) 0.3 (0.0-0.4) % Neut % (Auto) 67.1 (45-73) % Lymph % (Auto) 19.1 L (20-40) % [place] % (Auto) 9.2 (2-11) % Eos % (Auto) 3.6 (0-4) % Baso % (Auto) 0.7 (0-2) % Lymph # (Auto) 1.4 (1.2-4.9) X10*3/uL [place] # (Auto) 0.7 (0.1-1.2) X10*3/uL Eos # (Auto) 0.3 (0.0-0.4) X10*3/uL Baso # (Auto) 0.1 (0.0-0.2) X10*3/uL Abs Immat Gran (auto) 0.02 (0.00-0.03) X10*3/uL Absolute Neuts (auto) 4.8 (2.0-8.3) x10*3/uL Absolute Nucleated RBC 0.000 (0.0-0.012) X10*3/uL Nucleated RBC % (auto) 0.0 (0.0-0.2) /100WBC PT 14.3 H (11.1-13.3) SEC INR 1.2 H (0.9-1.1) Sodium 136 (135-145) mmol/L Potassium 4.0 (3.3-5.1) mmol/L Chloride 95 L (96-108) mmol/L Carbon Dioxide 31 H (22-29) mmol/L Anion Gap 14 (12-20) BUN 26 H (9-16) mg/dL Creatinine 1.14 (0.5-1.4) mg/dL Estim Creat Clear Calc 50.3 Estimated GFR > 60 Random Glucose 280 H (60-115) mg/dL Calcium 10.2 D (8.4-10.2) mg/dL Total Bilirubin 0.6 (0.0-1.0) mg/dL AST 30 (5-37) U/L ALT 44 H (0-40) U/L Alkaline Phosphatase 140 H (39-117) U/L Troponin I High Sens 292.6 H* (<3.5-35.0) ng/L B-Natriuretic Peptide 403 H (<100) pg/mL Total Protein 7.4 (6.5-8.0) g/dL Albumin 3.9 (3.5-5.0) g/dL Lipase 19 (8-78) U/L Urine Color Yellow Urine Appearance Clear Urine pH 6.0 (5.0-9.0) Ur Specific [place] >= 1.030 H (1.005-1.025) Urine Protein 30 (1+) H (Neg-Trace) mg/dL Urine Glucose (UA) Negative (Negative) mg/dL Urine Ketones Trace (Negative) mg/dL Urine Blood Negative (Negative) Urine Nitrite Negative (Negative) Ur Leukocyte Esterase Negative (Negative) COVID-19 (PATRICIA) Negative (Negative) COVID-19 Clin Com See Note Influenza Type A (MIREYA) Negative (Negative) Influenza Type B (MIREYA) Negative (Negative) Influenza A & B Note See Note Independent Interpretation I performed an independent interpretation of an: EKG, Plain X-Ray (no pneumonia) and CT Scan (no acute findings) Interpretation: Rate: 81 Rhythm: afib [place]: normal Normal QRS complex. q waves inf leads ST T wave : no DHARMESH, lots of artifac very poor tracing qTC: 520 prior studies: seems similar to recent tracing The study has been interpreted contemporaneously by me. . Radiology Impression Discussion of test interpretation with radiology: I have reviewed the radiologist's reading. Independent Historian Clinical information obtained from an independent historian. History obtained from or confirmed by: Other (son) External Record Review External record reviewed: Inpatient record Discharge Plan Discharge Clinical Impression: Abdominal pain Qualifiers: Abdominal location: lower abdomen, unspecified Qualified Code(s): R10.30 - Lower abdominal pain, unspecified Patient Disposition: Home, Self-Care Instructions: Abdominal Pain (ED) Additional Instructions: return for worsening symptoms - vomiting, fevers, confusion, chest pain, difficulty breathing or any other concerns - such as weight gain, edema, need for increased O2 use. if the urination continues to be an issue you might need to add on flomax post catheterization follow up with providers this week. Prescriptions: No Action (DME) FreeStyle Lite Strips Strip See Rx Instructions .ROUTE .MEDSUPPLY Qty: 100 3RF Rx Instructions: As directed (DME) lancets [FreeStyle Lancets] 28 gauge misc See Rx Instructions .ROUTE .MEDSUPPLY Qty: 100 3RF Rx Instructions: As directed (DME) pen needle, diabetic [1st Tier Unifine Pentips Plus] 29 gauge x 1/2 needle See Rx Instructions .Route Qty: 100 3RF Rx Instructions: Use 1 pen needle once a day metformin 1,000 mg tablet 1,000 mg PO BID 90 Days Qty: 180 2RF PreserVision AREDS [id number] Capsule 1 cap PO BID albuterol sulfate 2.5 mg /3 mL (0.083 %) Solution For Nebulization 2.5 mg INHALATION Q6H PRN (Reason: Wheezing) amiodarone 200 mg Tablet 400 mg PO BID 14 Days Qty: 56 0RF metoprolol tartrate 25 mg Tablet 25 mg PO BID Qty: 60 0RF Protocol: Hold for SBP/HR < HOLD for SBP < : 90 HOLD for HR < : 60 amiodarone 200 mg tablet 200 mg PO DAILY Qty: 30 0RF furosemide 40 mg tablet 40 mg PO DAILY Qty: 30 0RF Eliquis 5 mg Tablet 5 mg PO BID Qty: 60 0RF budesonide-formoterol [Symbicort] 160-4.5 mcg/actuation HFA aerosol inhaler 2 puff inhalation BID atorvastatin 80 mg tablet 80 mg PO DAILY omeprazole magnesium 20 mg tablet,delayed release (DR/EC) 20 mg PO DAILY@0630 (DME) blood pressure test kit-large Kit See Rx Instructions .Route Qty: 1 0RF Rx Instructions: As directed aspirin [Adult Low Dose Aspirin] 81 mg tablet,delayed release (DR/EC) 81 mg PO DAILY amlodipine 5 mg tablet 5 mg PO DAILY glipizide 5 mg tablet extended release 24hr 5 mg PO DAILY 90 Days Qty: 90 2RF
[2023-06-21 19:40] VITALS: BP 106/47; PULSE 92; RESP 18; TEMP 36.9; O2SAT 95; BMI 21.7
[2023-06-21 20:09] LABS: MANUAL DIFF FLAG NO
[2023-06-21 20:15] LABS: Basophils Absolute Auto 0.1 X10*3/uL (0.0-0.2); Basophils Percent Auto 0.7 % (0-2); Eosinophils Absolute Auto 0.3 X10*3/uL (0.0-0.4); Eosinophils Percent Auto 3.6 % (0-4); Hematocrit 41.2 % (42.0-52.0); Hemoglobin 13.3 g/dl (14.0-18.0); Imm Gran Abs Auto 0.02 X10*3/uL (0.00-0.03); Imm Gran Pct Auto 0.3 % (0.0-0.4); Lymphocytes Absolute Auto 1.4 X10*3/uL (1.2-4.9); Lymphocytes Percent Auto 19.1 % (20-40); Mean Corpuscular HGB Conc 32.3 g/dl (31.0-36.0); Mean Corpuscular Hemoglobin 29.7 pg (27.0-33.0); Mean Platelet Volume 9.6 fL (9.4-12.4); Monocytes Absolute Auto 0.7 X10*3/uL (0.1-1.2); Monocytes Percent Auto 9.2 % (2-11); Neutrophils Absolute Auto 4.8 x10*3/uL (2.0-8.3); Neutrophils Percent Auto 67.1 % (45-73); Platelet Count 325 X10*3/uL (160-400); Red Blood Count 4.48 X10*6/uL (4.60-5.80); Red Cell Distribution Width 13.7 % (11.0-16.0); White Blood Count 7.2 X10*3/uL (4.8-10.8)
[2023-06-21 20:20] LABS: INTERNATIONAL NORM RATIO 1.2 (0.9-1.1); Prothrombin Time 14.3 SEC (11.1-13.3)
[2023-06-21 20:25] LABS: Alanine Aminotransferase 44 U/L (0-40); Albumin Level 3.9 g/dL (3.5-5.0); Alkaline Phosphatase 140 U/L (39-117); Anion Gap 14 (12-20); Aspartate Amino Transferase 30 U/L (5-37); Bilirubin Total 0.6 mg/dL (0.0-1.0); Blood Urea Nitrogen 26 mg/dL (9-16); Calcium 10.2 mg/dL (8.4-10.2); Carbon Dioxide 31 mmol/L (22-29); Chloride 95 mmol/L (96-108); Creatinine Clr Calc Pharmacy 50.3; Estimated Glomerular Filt Rate > 60; Glucose Random 280 mg/dL (60-115); Sodium 136 mmol/L (135-145); Total Protein 7.4 g/dL (6.5-8.0)
[2023-06-21 20:26] LABS: COVID-19 Test Negative (Negative); IDNOW Serial# 08D9AD1C
[2023-06-21 20:28] LABS: IDNOW Serial# 152EDE1D; Influenza A Negative (Negative); Influenza B2 Negative (Negative)
[2023-06-21 20:31] LABS: B Type Natriuretic Peptide 403 pg/mL (<100)
[2023-06-21 20:34] LABS: Troponin-I High Sensitivity 292.6 ng/L (<3.5-35.0)
[2023-06-21 20:47] VITALS: BP 137/57; PULSE 83; RESP 20; TEMP 36.9; O2SAT 99
[2023-06-21 21:22] LABS: Lipase 19 U/L (8-78)
[2023-06-21] MEDS: iohexoL 350 MG/ML 100 ML INFUS..BTL 85 ML IV (21:51)
[2023-06-21 22:53] LABS: Appearance Urine Clear; Color Urine Yellow; Glucose Urine UA Negative (Negative); Leukocyte Esterase Urine Negative (Negative); Nitrite Urine Negative (Negative); Specific Gravity - Urine >= 1.030 (1.005-1.025); UMIC TRIGGER UACC YES; Urine Blood Negative (Negative); Urine Ketones Trace mg/dL (Negative); Urine Protein 30 (1+) mg/dL (Neg-Trace)
[2023-06-21 22:58] LABS: Troponin-I High Sensitivity 279.4 ng/L (<3.5-35.0)
[2023-06-21 22:58] LABS: Bacteria Urine None Seen (None Seen); Hyaline Casts Urine 0-2 /LPF (0-2); RBC Urine 0-2 /HPF (0-2); Squamous Epithelial Cell Urine 0-2 /HPF (0-2); UACC Culture Trigger YES
[2023-06-21 23:07] VITALS: BP 114/60; PULSE 85; RESP 17; TEMP 36.4; O2SAT 92
== END 2023-06-21 23:27 | disposition home or self-care (01) ==
PROVIDERS: Registered Nurse Emergency; Emergency Provider Emergency Medicine; PCP Physician Assistant
DX: R10.30 Lower abdominal pain, unspecified (principal); R60.0 Localized edema; E11.9 Type 2 diabetes mellitus without complications; I48.91 Unspecified atrial fibrillation; I11.0 Hypertensive heart disease with heart failure; I50.32 Chronic diastolic (congestive) heart failure; J96.11 Chronic respiratory failure with hypoxia; Z99.81 Dependence on supplemental oxygen; Z11.52 Encounter for screening for COVID-19; J44.9 Chronic obstructive pulmonary disease, unspecified; Z95.1 Presence of aortocoronary bypass graft; Z79.899 Other long term (current) drug therapy
CPT/HCPCS: 36415; 71046; 74177; 80053; 81001; 83690; 83880; 84484; 85025; 85610; 87086; 87502; 87635; 93005; 99284; 99285; Q9967

== ENCOUNTER → 2023-06-21 18:42 | Outpatient (BNV) | payer MEDICARE, SELFPAY | PROVIDERS: Emergency Provider Emergency Medicine; PCP Physician Assistant; Visit Provider Internal Medicine Cardiovascular Disease | DX: R94.31 Abnormal electrocardiogram [ECG] [EKG] (principal) | CPT/HCPCS: 93010 ==

== ENCOUNTER 2023-06-26 10:39 | Outpatient (AMB) | payer MEDICARE, SELFPAY ==
[2023-06-26 10:42] VITALS: PULSE 103; RESP 16; O2SAT 84; BMI 22.1
--- NOTE | 2023-06-26 10:42 | A.OFFPC_ITS ---
Vital Signs 06/26/23 10:42 06/26/23 10:56 Height 6 ft Weight 163 lb BMI 22.1 Blood Pressure Location Lt brachial Position Sitting Respiration 16 Pulse 103 H 50 Pulse Source Pulse Oximeter Pulse Oximeter Pulse Oximetry (%) 84 L 99 Oxygen Delivery Method Room Air Nasal Cannula Oxygen Flow Rate 1 Intake Visit Reasons: HDF Intake Note: Patient is here for hospital discharge follow up. Patient was discharged from [facility] on 06/19/23 for heart failure and Atrial flutter with rapid heart rate. [employer] Consultant Required: No Accompanied by: Spouse Allergies No Known Allergies [No Known Allergies*] Allergy (Verified 06/26/23 11:12) Medication List - Last Reconciled 06/26/23 by Karri Mcnally PA-C albuterol sulfate 2.5 mg inhalation Q6H PRN amiodarone 400 mg (2 x 200 mg) PO BID 14 days amiodarone 200 mg PO DAILY amlodipine 5 mg PO DAILY apixaban (Eliquis) 5 mg PO BID aspirin (Adult Low Dose Aspirin) 81 mg PO DAILY atorvastatin 80 mg PO DAILY blood pressure test kit-large As directed blood sugar diagnostic (FreeStyle Lite Strips) As directed budesonide-formoterol 160-4.5 mcg/actuation (Symbicort) 2 puffs inhalation BID furosemide 40 mg PO DAILY glipizide ER 5 mg PO DAILY 90 days lancets (FreeStyle Lancets) As directed metformin 1,000 mg PO BID 90 days metoprolol tartrate 25 mg See Protocol PO BID omeprazole magnesium 20 mg PO DAILY@0630 pen needle, diabetic (1st Tier Unifine Pentips Plus) Use 1 pen needle once a day tamsulosin 0.4 mg PO BEDTIME vitamins A,C,H-ulzb-wafolz 4,296 mcg-226 mg-90 mg (PreserVision AREDS) 1 cap PO BID Tobacco use date assessed: 06/26/23 HPI HDF HPI Details Patient is an 82-year-old male here today for hospital discharge follow-up. Patient has a past medical history significant for diabetes, hypertension, hyperlipidemia and a flutter. Was seen at the [facility] for exertional dyspnea progressively worsening over the prior 2 weeks. Was found to be in a flutter and patient underwent cardioversion which reduced his shortness of breath. He was started on amiodarone and reducing metoprolol 25 b.i.d. While in the hospital he is found to be hypercapnic which required ICU admission for BiPAP, his O2 flow was reduced down to 1L via nasal cannula. [facility] Medical History (Updated 06/26/23 @ 13:51 by Karri Mcnally PA-C) CHF (congestive heart failure) Atrial flutter Pulmonary emphysema Acute respiratory failure with hypercapnia Chronic lung disease Afib COPD (chronic obstructive pulmonary disease) Coronary artery disease CAD (coronary artery disease) DMII (diabetes mellitus, type 2) HTN (hypertension) Surgical History History of colonoscopy History of lung surgery History of cholecystectomy Family History Father No problems noted. Mother No problems noted. Social History Household Members: Spouse Housing: House Do you presently have visiting nurse or other home services: No Alcohol intake: current Alcohol intake frequency: 0-2 drinks per day Comment: OOB/ amb independently Patient Tobacco Use Status: Never used Tobacco Tobacco use type: Cigarette e-Cigarette/Vaping Use: Never Used Second Hand Smoke Exposure: No service: No Current occupational status: retired Cognitive needs: No Hearing needs: No Vision needs: Yes (glasses) Questionnaire PHQ-9 Over the last 2 weeks, how often have you been bothered by any of the following problems? 1. Little interest or pleasure in doing things: not at all 2. Feeling down, depressed, or hopeless: not at all 3. Trouble falling or staying asleep, or sleeping too much: not at all 4. Feeling tired or having little energy: not at all 5. Poor appetite or overeating: not at all 6. Feeling bad about yourself - or that you are a failure or have let yourself or your family down: not at all 7. Trouble concentrating on things, such as reading the newspaper or watching television: not at all 8. Moving or speaking so slowly that other people could have noticed. Or the opposite - being so fidgety or restless that you have been moving around a lot more than usual: not at all 9. Thoughts that you would be better off or of hurting yourself in some way: not at all Total score: 0 Depression Screening Interpretation: Negative Depression Screening Done: Yes 80637 - PHQ-9 Billing: Yes Source: Developed by Drs. Gordon Neal, Daisy Kincaid, Luis Hickey and colleagues, with an educational jung from [employer]. Thrive Questionnaire Date Thrive assessed: 06/12/23 AUDIT C Alcohol Use Questionnaire (AUDIT-C) 1. How often do you have a drink containing alcohol?: Never 3. How often do you have six or more drinks on one occasion?: Never Total Score: 0 SHRADDHA-7 AMB Questionnaire SHRADDHA-7 Date SHRADDHA - 7 assessed: 06/26/23 Feeling nervous, anxious, or on edge: 0 = Not at all Not being able to stop or control worryin = Not at all Worrying too much about different things: 0 = Not at all Trouble relaxin = Not at all Being so restless that it is hard to sit still: 0 = Not at all Becoming easily annoyed or irritable: 0 = Not at all Feeling afraid as if something awful might happen: 0 = Not at all Total SHRADDHA-7 score (0-4 normal; 5-9 mild; 10-14 moderate; 15-21 severe): 0 Source: Developed by Drs. Gordon Neal, Diasy Kincaid, Luis Hickey and colleagues, with an educational jung from [employer]. SHRADDHA-7 Assessment Billing SHRADDHA-7 Assessment Tool: SHRADDHA-7 Assessment 77215 Review of Systems Const Denies headache(s) Eyes Denies loss of vision ENT Denies vertigo, Denies dizziness, Denies headache(s) and Denies sore throat Card Denies chest pain, Denies leg edema and Denies lightheadedness Resp Denies cough, Denies hemoptysis and Denies wheezing GI Denies abdominal pain, Denies melena, Denies constipation, Denies diarrhea and Denies vomiting Denies dysuria, Denies urinary frequency and Denies urinary urgency Musc Denies arthralgias, Denies joint swelling, Denies numbness and Denies tingling Neuro Denies Abnormal speech present, Denies behavioral changes, Denies vertigo, Denies dizziness, Denies headache(s), Denies loss of vision, Denies memory loss, Denies numbness and Denies tingling Psych Denies anxiety, Denies behavioral changes, Denies depression, Denies memory loss and Denies panic attacks Anil/Lymph Denies easy bleeding and Denies easy bruising Aller/Immun Denies wheezing Physical exam (Primary Care) Vital Signs: Last Vital Signs Pulse 50 06/26/23 10:56 Resp 16 06/26/23 10:42 Pulse Ox 99 06/26/23 10:56 Oxygen Delivery Method Nasal Cannula 06/26/23 10:56 Oxygen Flow Rate 1 06/26/23 10:56 BMI result Body Mass Index 22.1 Tobacco/Smoking Status: Tobacco use Status Tobacco use date assessed 06/26/23 06/26/23 10:45 Patient Tobacco Use Status Never used Tobacco 06/26/23 10:42 Tobacco use type Cigarette 06/26/23 10:42 e-Cigarette/Vaping Use Never Used 06/26/23 10:42 PHQ-9: PHQ-9 Score PHQ-9: Total score 0 06/26/23 11:15 Depression Screening Interpretation: Negative Thrive Assessment: Date of Thrive Assessment Date Thrive assessed 06/12/23 06/26/23 10:42 Const Other: APPEARS THIN General: healthy appearing, no acute distress, alert and awake Nutritional Appearance: well nourished Orientation/consciousness: oriented to person, oriented to place and oriented to time HENMT Ears: TM's normal bilaterally General nose exam: Normal nasal mucous membranes and turbinates present Eyes Conjunctivae: conjunctivae normal Sclerae: sclerae normal Pupils: Equal, round and reactive pupils present Neck Neck: Yes no lymphadenopathy and Yes no JVD Thyroid: Thyroid normal Carotids: no bruits Resp Effort & Inspection: normal respiratory effort and not tachypneic Auscultation: no crackles, no rales, no rhonchi and no wheezes Cardio Rate: regular rate Rhythm: regular rhythm Heart sounds: no murmurs and normal S1 and S2 GI Palpation (GI): Soft to palpation, nontender, no hepatomegaly and no splenome nancie Auscultation: normal bowel sounds Skin General skin exam: no rashes or lesions noted and dry skin Neuro General: oriented to person, oriented to place and oriented to time Cranial nerves: Yes Equal, round and reactive pupils present Speech: No Abnormal speech present Gait exam (Neuro): Normal gait present Motor exam (neuro): no tremor noted Extrem Right upper extremity: full ROM Left upper extremity: full ROM Right lower extremity: full ROM; no edema Left lower extremity: full ROM; no edema Psych Mental Status: mental status grossly normal Speech and movement: Normal speech and movement present Affect: normal affect Attitude: cooperative Thought process: Normal thought process present Results AMB Hemoglobin A1c AMB Hemoglobin A1c 8.3 % Last Edit by ROBIN Quevedo on 06/26/23 11:15 Results Reviewed Results Reviewed: Laboratory Last Values Hgb A1c (Clinic) 8.3 % (4.0-6.0) H 06/26/23 11:04 Assessment and Plan Assessment & Plan (1) Hospital discharge follow-up: Code(s): Z09 - Encounter for follow-up examination after completed treatment for conditions other than malignant neoplasm (2) COPD (chronic obstructive pulmonary disease): Code(s): J44.9 - Chronic obstructive pulmonary disease, unspecified Qualifiers: COPD type: chronic bronchitis Chronic bronchitis type: simple Qualified Code(s): J41.0 - Simple chronic bronchitis Plan: Now on can use O2 at 1 L during exercise. Has a history of lung resection surgery many years ago. Again was found to have hypercapnia that resulted in some altered mentation. He was placed on BiPAP while in the hospital and recovered. Now on only 1 liters/minute via nasal cannula during exertion. Has home nurses coming to the house doing therapy with him. He does like to have prednisone and amoxicillin on hand in case of a COPD exacerbation. (3) Atrial flutter: Code(s): I48.92 - Unspecified atrial flutter Qualifiers: Atrial flutter type: typical Qualified Code(s): I48.3 - Typical atrial flutter Plan: Found have a flutter with fast rate. Was placed on amiodarone. Is metoprolol is now 25 mg b.i.d. He will be following up with Cardiology Since hospitalization he does report feeling better with less shortness of breath though still does have fatigue to which he attributes to cardiac medications side effects. (4) CHF (congestive heart failure): Code(s): I50.9 - Heart failure, unspecified Qualifiers: Heart failure chronicity: chronic Heart failure type: diastolic Qualified Code(s): I50.32 - Chronic diastolic (congestive) heart failure Plan: Appears to be euvolemic on physical exam today. Continues on furosemide 40 mg daily. Advised to continue low-sodium diet and taking his weight daily. Advised to call the office if gains more than 4 lb in a 24 hour. 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 Panel Today I50.32 - Chronic diastolic (congestive) heart failure Medications: New prednisone for acute COPD exacerbation. Take 3 tablets x3 days, 2 tablets x3 days, 1 tablet x3 days 10 mg PO DIRECTED 9 days 18 tabs 0RF J41.0 - Simple chronic bronchitis amoxicillin 875 mg PO BID 7 days 14 tabs 0RF J41.0 - Simple chronic bronchitis Coding Level of Care Code Est Pt Level 4 (29039) Diagnoses Hospital discharge follow-up Z09 Simple chronic bronchitis J41.0 COPD type: chronic bronchitis Chronic bronchitis type: simple Typical atrial flutter I48.3 Atrial flutter type: typical Chronic diastolic congestive heart failure I50.32 Heart failure chronicity: chronic Heart failure type: diastolic Additional Codes SHRADDHA-7 Assessment Billing - SHRADDHA-7 Assessment Tool: SHRADDHA-7 Assessment [id number] ([id number])
[2023-06-26 10:56] VITALS: PULSE 50; O2SAT 99
== END 2023-06-26 11:33 | disposition home or self-care (01) ==
PROVIDERS: PCP Physician Assistant; Visit Provider Physician Assistant
DX: J41.0 Simple chronic bronchitis (principal); I48.3 Typical atrial flutter; I50.32 Chronic diastolic (congestive) heart failure; E11.9 Type 2 diabetes mellitus without complications; Z09 Encounter for follow-up examination after completed treatment for conditions other than malignant neoplasm
CPT/HCPCS: 83036; 99214

== ENCOUNTER 2023-07-04 14:41 | Outpatient (AMB) | payer MEDICARE, SELFPAY ==
--- NOTE | 2023-07-04 14:45 | MHC.OFFVIS ---
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 Drug Department Worker: Drug Department Worker Present Accompanied by: Spouse Allergies No Known Allergies [No Known Allergies*] Allergy (Verified 06/26/23 11:12) Medication List - Last Reconciled 07/04/23 by Nestor Scott MD albuterol sulfate 2.5 mg inhalation Q6H PRN amiodarone 200 mg PO DAILY amlodipine 5 mg PO DAILY amoxicillin 875 mg PO BID PRN apixaban (Eliquis) 5 mg PO BID aspirin (Adult Low Dose Aspirin) 81 mg PO DAILY atorvastatin 80 mg PO DAILY blood pressure test kit-large As directed blood sugar diagnostic (FreeStyle Lite Strips) As directed budesonide-formoterol 160-4.5 mcg/actuation (Symbicort) 2 puffs inhalation BID furosemide 40 mg PO DAILY glipizide ER 5 mg PO DAILY 90 days lancets (FreeStyle Lancets) As directed metformin 1,000 mg PO BID 90 days omeprazole magnesium 20 mg PO DAILY@0630 pen needle, diabetic (1st Tier Unifine Pentips Plus) Use 1 pen needle once a day prednisone 10 mg PO DIRECTED PRN vitamins A,C,S-cpit-nfarpq 4,296 mcg-226 mg-90 mg (PreserVision AREDS) 1 cap PO BID HPI HPI Comments History of Present Illness Details Yossi returns for follow-up after recent hospitalizations. He generally follows up with [facility] cardiology but would like to switch here. He was admitted twice recently to the hospital. Both for congestive heart failure with + COPD exacerbation. He was in atrial flutter with rapid response. Initially rate control was attempted but as he was still symptomatic, he did undergo a transesophageal echocardiogram/cardioversion. states that he is actually feeling much better. Lot more energy and overall improved. Shortness of breath has not changed a lot as there is most likely some COPD component. He is also on supplemental oxygen. Otherwise, no significant leg swelling. No angina. [facility] Medical History (Updated 07/04/23 @ 15:38 by Nestor Scott MD) CHF (congestive heart failure) Atrial flutter Pulmonary emphysema Acute respiratory failure with hypercapnia Chronic lung disease Afib COPD (chronic obstructive pulmonary disease) Coronary artery disease CAD (coronary artery disease) DMII (diabetes mellitus, type 2) HTN (hypertension) Surgical History History of colonoscopy History of lung surgery History of cholecystectomy Family History Father No problems noted. Mother No problems noted. Social History Household Members: Spouse Housing: House Do you presently have visiting nurse or other home services: No Alcohol intake: current Alcohol intake frequency: 0-2 drinks per day Comment: OOB/ amb independently Patient Tobacco Use Status: Never used Tobacco Tobacco use type: Cigarette e-Cigarette/Vaping Use: Never Used Second Hand Smoke Exposure: No service: No Current occupational status: retired Cognitive needs: No Hearing needs: No Vision needs: Yes (glasses) Review of Systems Const Denies chills, Denies fatigue, Denies fever(s), Denies frequent falls, Denies weakness, Denies weight gain and Denies weight loss ENT Denies dizziness Card Denies chest pain, Denies leg edema, Denies lightheadedness, Denies palpitations, Denies dyspnea, Denies dyspnea on exertion, Denies orthopnea and Denies other (loss of consciousness) Resp Denies cough, Denies dyspnea and Denies dyspnea on exertion GI Denies hematochezia and Denies change in stool character Musc Denies abnormal gait, Denies muscle weakness, Denies numbness, Denies radiating pain into limb and Denies tingling Neuro Denies abnormal gait, Denies dizziness, Denies frequent falls, Denies numbness, Denies tingling and Denies weakness Endo Denies fatigue and Denies palpitations Physical Exam Vital Signs: Last Vital Signs Pulse 83 07/04/23 14:47 BP 104/56 L 07/04/23 14:47 BMI result Body Mass Index 21.8 Const General: comfortable and no acute distress Orientation/consciousness: patient oriented x3 HEENT Other: Unremarkable Head: Yes normal to inspection Neck Neck: Yes normal visual inspection Chest Chest palpation & inspection: normal inspection of the chest Resp Auscultation: clear to auscultation bilaterally Cardio Palpation: normal PMI Heart sounds: S1 normal heart sound present, S2 normal heart sound present, no gallops, Murmur heart sound present systolic II/ and at the right sternal border and no rubs GI Palpation (GI): Soft to palpation Back/Spine/Pelvis Other: unremarkable Skin General skin exam: no rashes or lesions noted Neuro General: patient oriented x3 Extrem General: Yes normal to inspection Psych Mental Status: mental status grossly normal Office Procedures EKG Details: EKG with sinus rhythm at 83/Min; CA prolongation to 212 milliseconds; [place]. [id number], Complete Assessment & Plan Assessment & Plan (1) Chronic diastolic (congestive) heart failure: Code(s): I50.32 - Chronic diastolic (congestive) heart failure Plan: Seems stable. Continue diuretics. (2) Typical atrial flutter: Code(s): I48.3 - Typical atrial flutter Plan: Status post recent SAMREEN/cardioversion. He has also had left atrial appendage ligation during CABG. Continue amiodarone for the foreseeable future. He does have chronic lung disease and hence need to weigh the risks/benefits for long-term use. Otherwise, continue anticoagulation. Check thyroid function. We discussed about that today. There is already an order for that. Beta-blockers were stopped due to sinus bradycardia. (3) Atherosclerotic cardiovascular disease: Code(s): I25.10 - Atherosclerotic heart disease of [place] coronary artery without angina pectoris Plan: Status post CABG. Clinically, no angina. Continue statins. Echocardiogram shows wall motion abnormalities but they have been noticed before. (4) Mitral annular calcification: Code(s): I34.81 - Nonrheumatic mitral (valve) annulus calcification Plan: Echocardiogram shows severe mitral annular calcification. No significant valvular dysfunction. No specific management at this time. (5) Nonrheumatic aortic (valve) stenosis: Code(s): I35.0 - Nonrheumatic aortic (valve) stenosis Plan: Cilu-ni-fzqbasgo aortic stenosis. Can be followed. (6) Pulmonary hypertension: Code(s): I27.20 - Pulmonary hypertension, unspecified Plan: Likely related to some components of left heart dysfunction, coronary disease, atrial flutter, COPD. No specific management. Plan Discussed with . Medications: Changed From amoxicillin 875 mg PO BID 7 days 14 tabs 0RF J41.0 - Simple chronic bronchitis To amoxicillin 875 mg PO BID PRN J41.0 - Simple chronic bronchitis From prednisone for acute COPD exacerbation. Take 3 tablets x3 days, 2 tablets x3 days, 1 tablet x3 days 10 mg PO DIRECTED 9 days 18 tabs 0RF J41.0 - Simple chronic bronchitis To prednisone for acute COPD exacerbation. Take 3 tablets x3 days, 2 tablets x3 days, 1 tablet x3 days 10 mg PO DIRECTED PRN J41.0 - Simple chronic bronchitis From furosemide 40 mg PO DAILY 30 tabs 0RF To furosemide 40 mg PO DAILY 90 tabs 3RF 90 days From apixaban (Eliquis) 5 mg PO BID 60 tabs 0RF To apixaban (Eliquis) 5 mg PO BID 180 tabs 3RF 90 days From amiodarone 200 mg PO DAILY 30 tabs 0RF To amiodarone 200 mg PO DAILY 90 tabs 3RF 90 days Coding Level of Care Code Est Pt Level 4 (96416) Diagnoses Chronic diastolic (congestive) heart failure I50.32 Typical atrial flutter I48.3 Atherosclerotic cardiovascular disease I25.10 Mitral annular calcification I34.81 Nonrheumatic aortic (valve) stenosis I35.0 Pulmonary hypertension I27.20 CPT Codes EKG - CPT: 04401-[id number], Complete ([id number])
[2023-07-04 14:47] VITALS: BP 104/56; PULSE 83; BMI 21.8
== END 2023-07-04 15:21 | disposition home or self-care (01) ==
PROVIDERS: PCP Physician Assistant; Visit Provider Internal Medicine
DX: I50.32 Chronic diastolic (congestive) heart failure (principal); I48.3 Typical atrial flutter; I25.10 Atherosclerotic heart disease of native coronary artery without angina pectoris; I34.81 Nonrheumatic mitral (valve) annulus calcification; I35.0 Nonrheumatic aortic (valve) stenosis; I27.20 Pulmonary hypertension, unspecified
CPT/HCPCS: 93010; 99214

== ENCOUNTER → 2023-07-04 14:41 | Outpatient (BNVA) | payer MEDICARE, SELFPAY | PROVIDERS: PCP Physician Assistant; Visit Provider Internal Medicine | DX: I50.32 Chronic diastolic (congestive) heart failure (principal); I48.3 Typical atrial flutter; I25.10 Atherosclerotic heart disease of native coronary artery without angina pectoris; I34.81 Nonrheumatic mitral (valve) annulus calcification; I35.0 Nonrheumatic aortic (valve) stenosis; I27.20 Pulmonary hypertension, unspecified | CPT/HCPCS: 93005; 99212 ==

== ENCOUNTER 2023-08-07 02:40 | Emergency (ER) | payer MEDICARE, SELFPAY ==
--- NOTE | 2023-08-07 | ECG_ITS ---
Test Reason : CHEST PAIN Blood Pressure : / mmHG Vent. Rate : 104 BPM Atrial Rate : 104 BPM P-R Int : 240 ms QRS Dur : 102 ms QT Int : 364 ms P-R-T Axes : 000 032 107 degrees QTc Int : 478 ms Sinus tachycardia with 1st degree A-V block with Premature atrial complexes Minimal voltage criteria for LVH, may be normal variant ( [place] product ) Nonspecific ST and T wave abnormality Abnormal ECG When compared with ECG of 21-JUN-2023 18:42, Previous ECG has undetermined rhythm, needs review Referred By: Generic ED Physician Electronically Signed By:HELIO BOBO MD
--- NOTE | ~2023-08-07 | XR_ITS ---
EXAMINATION: XR CHEST CLINICAL INFORMATION: Chest pain. COMPARISON: 06/21/2023 TECHNIQUE: 2 views of the chest were obtained. FINDINGS: The cardiomediastinal silhouette is stable. There has been a previous median sternotomy. Bilateral pleural plaques are again seen. There is scarring at both lung bases with blunting of the costophrenic angles. The bony structures and soft tissues are unremarkable. XR/XR chest 2V IMPRESSION: Bilateral pleural plaques and scarring at the lung bases. No acute process identified..
[2023-08-07 02:51] VITALS: BP 119/53; PULSE 107; RESP 20; TEMP 36.6; O2SAT 92; BMI 21.2
[2023-08-07 02:54] LABS: Basophils Absolute Auto 0.1 X10*3/uL (0.0-0.2); Basophils Percent Auto 0.9 % (0-2); Eosinophils Absolute Auto 0.6 X10*3/uL (0.0-0.4); Eosinophils Percent Auto 7.7 % (0-4); Hematocrit 40.4 % (42.0-52.0); Hemoglobin 13.1 g/dl (14.0-18.0); Imm Gran Abs Auto 0.02 X10*3/uL (0.00-0.03); Imm Gran Pct Auto 0.3 % (0.0-0.4); Lymphocytes Absolute Auto 1.5 X10*3/uL (1.2-4.9); MANUAL DIFF FLAG NO; Mean Corpuscular HGB Conc 32.4 g/dl (31.0-36.0); Mean Corpuscular Hemoglobin 29.7 pg (27.0-33.0); Mean Corpuscular Volume 91.6 fL (80.0-98.0); Mean Platelet Volume 9.1 fL (9.4-12.4); Monocytes Absolute Auto 0.9 X10*3/uL (0.1-1.2); Monocytes Percent Auto 11.6 % (2-11); Neutrophils Absolute Auto 4.8 x10*3/uL (2.0-8.3); Neutrophils Percent Auto 60.5 % (45-73); Platelet Count 310 X10*3/uL (160-400); Red Blood Count 4.41 X10*6/uL (4.60-5.80); Red Cell Distribution Width 12.8 % (11.0-16.0)
[2023-08-07 03:09] LABS: Alanine Aminotransferase 22 U/L (0-40); Albumin Level 3.3 g/dL (3.5-5.0); Alkaline Phosphatase 118 U/L (39-117); Anion Gap 17 (12-20); Aspartate Amino Transferase 18 U/L (5-37); Bilirubin Total 0.4 mg/dL (0.0-1.0); Blood Urea Nitrogen 24 mg/dL (9-16); Calcium 9.6 mg/dL (8.4-10.2); Carbon Dioxide 36 mmol/L (22-29); Chloride 93 mmol/L (96-108); Creatinine Clr Calc Pharmacy 67.1; Estimated Glomerular Filt Rate > 60; Glucose Random 141 mg/dL (60-115); Potassium 4.1 mmol/L (3.3-5.1); Sodium 142 mmol/L (135-145); Total Protein 7.1 g/dL (6.5-8.0)
[2023-08-07 03:15] VITALS: BP 129/69; PULSE 104; RESP 18; TEMP 36.9; O2SAT 93
[2023-08-07 03:16] LABS: Troponin-I High Sensitivity 18.3 ng/L (<3.5-35.0)
--- NOTE | 2023-08-07 03:16 | MHC.EDTECH ---
THIS PCT JUST ASSUMED CARE OF PATIENT ,PATIENT WAS CHANGE INTO HOSPITAL ATTIRE ,PATIENT WAS HOOKED UP TO [facility] ,VITALS TAKEN ,PT SON AT BEDSIDE ,CALL ESPARZA WITHIN PT REACH .
[2023-08-07 04:33] VITALS: BP 137/67; PULSE 97; RESP 15; TEMP 37; O2SAT 96
[2023-08-07 05:06] LABS: Troponin-I High Sensitivity 21.5 ng/L (<3.5-35.0)
[2023-08-07 06:00] VITALS: BP 128/64; PULSE 98; RESP 20; TEMP 36.9; O2SAT 93
--- NOTE | 2023-08-07 06:36 | ED.CHESTPAIN ---
HPI - Chest Pain General Chief Complaint: Chest Pain Stated Complaint: chest pain Time Seen by Provider: 08/07/23 06:33 Source: patient Mode of arrival: ambulatory Limitations: no limitations History of Present Illness HPI narrative: Patient is an 83 year old assigned male at with a history of CHF, COPD on chronic oxygenation, and heart disease presenting to the emergency department today with left sided rib pain. Patient states that over the last week he has had left sided rib pain. Patient states that it is intermittent and feels sharp. Patient states that times he can't tolerate his t-shirt against the area. Patient states that he is vaccinated for shingles. Patient denies any dizziness, lightheadedness, abdominal pain, nausea, vomiting, fever, chills, blurry vision, double vision, loss of vision, chest pain, difficulty breathing, shortness of breath, back pain, night sweats, pain with urination, increased urinary frequency, increased urinary urgency, blood in his urine or stool, syncope or a near syncopal episode, recent trauma or falls, bowel incontinence, bladder incontinence, bowel retention, bladder retention, or any other complaints at this time. Pain radiation: none Relieving factors: nothing Exacerbating factors: palpation Treatment prior to arrival: none Risk Factors Coronary artery disease risk factors: diabetes Related Data Home Medications Medication Instructions Recorded Confirmed atorvastatin 80 mg tablet 80 mg PO DAILY 04/21/20 07/04/23 omeprazole magnesium 20 mg 20 mg PO DAILY@0630 04/21/20 07/04/23 tablet,delayed release aspirin 81 mg tablet,delayed 81 mg PO DAILY 01/30/22 07/04/23 release (Adult Low Dose Aspirin) albuterol sulfate 2.5 mg/3 mL 2.5 mg inhalation Q6H PRN Wheezing 04/01/22 07/04/23 (0.083 %) solution for nebulization vitamins A,C,X-chgq-phcxji 4,296 1 cap PO BID 04/01/22 07/04/23 mcg-226 mg-90 mg capsule (PreserVision AREDS) amlodipine 5 mg tablet 5 mg PO DAILY 12/11/22 07/04/23 budesonide-formoterol HFA 160 2 puff inhalation BID 05/24/23 07/04/23 mcg-4.5 mcg/actuation aerosol inhaler (Symbicort) amoxicillin 875 mg tablet 875 mg PO BID PRN 07/04/23 07/04/23 prednisone 10 mg tablet 10 mg PO DIRECTED PRN 07/04/23 07/04/23 Previous Rx's Medication Instructions Recorded blood pressure test kit-large #1 ea 03/14/21 blood sugar diagnostic (FreeStyle #100 ea 08/29/21 Lite Strips) lancets 28 gauge (FreeStyle #100 ea 08/29/21 Lancets) pen needle, diabetic 29 gauge x #100 ea 06/22/2205/08 (1st Tier Unifine Pentips Plus) glipizide 5 mg tablet, extended 5 mg PO DAILY 90 days #90 tabs 12/11/22 release 24 hr metformin 1,000 mg tablet 1,000 mg PO BID 90 days #180 tabs 02/02/23 amiodarone 200 mg tablet 200 mg PO DAILY 90 days #90 tabs 07/04/23 apixaban 5 mg tablet (Eliquis) 5 mg PO BID 90 days #180 tabs 07/04/23 furosemide 40 mg tablet 40 mg PO DAILY 90 days #90 tabs 07/04/23 prednisone 20 mg tablet 20 mg PO DAILY 7 days #7 tabs 08/07/23 Allergies Allergy/AdvReac Type Severity Reaction Status Date / Time No Known Allergies Allergy Verified 08/07/23 02:50 [No Known Allergies*] Review of Systems Constitutional: Constitutional: Reports no additional constitutional complaints, Denies chills, Denies fever(s) and Denies night sweats Eyes: Eyes: Reports no additional eye complaints, Denies blurry vision, Denies change in vision, Denies diplopia, Denies eye discharge, Denies loss of vision and Denies eye pain ENT: Denies dizziness Cardiovascular: Cardiovascular: Reports no additional cardiovascular complaints, Denies lightheadedness, Denies Loss of Consciousness and Denies dyspnea Respiratory: Respiratory: Reports no additional respiratory complaints and Denies dyspnea Gastrointestinal: Gastrointestinal: Reports no additional gastrointestinal complaints, Denies abdominal pain, Denies melena, Denies hematochezia, Denies change in bowel habits and Denies change in stool character Genitourinary: Genitourinary: Reports no additional male genitourinary complaints, Denies hematuria, Denies oliguria, Denies difficulty urinating, Denies dysuria, Denies urinary frequency, Denies urinary hesitancy, Denies urinary incontinence and Denies urinary urgency Musculoskeletal: Musculoskeletal: Reports no additional musculoskeletal complaints, Denies numbness and Denies tingling Comments: left sided rib pain Neurologic: Denies dizziness, Denies loss of vision, Denies numbness and Denies tingling Psychiatric: Psychiatric: Reports no additional psychiatric complaints Endocrine: Endocrine: Reports no additional endocrine complaints Hematologic/Lymphatic: Hematologic/Lymphatic: Reports no additional hematologic/lymphatic complaints Allergic/Immunologic: Allergic/Immunologic: Reports no additional allergic/immunologic complaints PMFSH Past Medical History Attestation statement: The following information was validated with the patient. (patient's son validated all information) Source: old records reviewed, obtained from family (patient's son provided additional history and confirmed the history provided by the patient.) and nursing notes reviewed Medical History CHF (congestive heart failure) Atrial flutter Pulmonary emphysema Acute respiratory failure with hypercapnia Chronic lung disease Afib COPD (chronic obstructive pulmonary disease) Coronary artery disease CAD (coronary artery disease) DMII (diabetes mellitus, type 2) HTN (hypertension) Surgical History History of colonoscopy History of lung surgery History of cholecystectomy Family History Family History Father No problems noted. Mother No problems noted. Social History Social History Household Members: Spouse Housing: House Do you presently have visiting nurse or other home services: No Alcohol intake: current Alcohol intake frequency: 0-2 drinks per day Comment: OOB/ amb independently Patient Tobacco Use Status: Never used Tobacco Tobacco use type: Cigarette e-Cigarette/Vaping Use: Never Used Second Hand Smoke Exposure: No Advance Directives: No Advance Directives Information Provided: Yes service: No Current occupational status: retired Cognitive needs: No Hearing needs: No Vision needs: Yes (glasses) Physical Exam Vital Signs: Vital Signs: Last Vital Signs Temp 97.8 F 08/07/23 08:11 Pulse 88 08/07/23 08:11 Resp 18 08/07/23 08:11 BP 140/69 H 08/07/23 08:11 Pulse Ox 94 08/07/23 08:11 O2 Del Method Nasal Cannula 08/07/23 08:11 O2 Flow Rate 2 08/07/23 08:11 Oxygen Flow Rate 2 08/07/23 02:51 BMI result Body Mass Index 21.2 Const: General: cooperative, no acute distress, alert and awake Nutritional Appearance: well nourished Orientation/consciousness: patient oriented x3 Limitations: no limitations HEENT: Head: Yes normal to inspection and Yes atraumatic Ears: hearing grossly normal bilaterally and external ears normal General nose exam: Normal external nose present, no nasal discharge noted and no epistaxis Face and sinus: Yes normal facial exam, No abrasion and No laceration Mouth: Normal oral and palatal mucosa present, no drooling and no muffled voice Eyes: General: appearance normal, both eyes and all related structures Periorbital: periorbital findings normal Eyelids: Yes eyelids normal Conjunctivae: conjunctivae normal Pupils: Equal, round and reactive pupils present EOM: EOMs intact bilaterally Neck: Neck: Yes normal visual inspection, Yes full ROM and Yes no lymphadenopathy Chest: Chest palpation & inspection: normal inspection of the chest Resp: Effort & Inspection: normal respiratory effort and able to speak in complete sentences GI: Inspection: Yes normal to inspection Neuro: General: patient oriented x3 and moves all extremities Cranial nerves: Yes Equal, round and reactive pupils present Cognition (Neuro): normal cognition Motor exam (neuro): 5/5 motor strength present throughout Sensory Exam: Normal double simultaneous stimulation for sensation Coordination: [id number] test normal Extrem: General: Yes normal to inspection, Yes full ROM and Yes capillary refill normal Psych: Appearance: grossly normal Mental Status: mental status grossly normal Affect: normal affect Attitude: cooperative Thought process: Normal thought process present Thought content: Normal thought content present Insight: Good insight present (Psych) Medical Decision Making Medical Decision Making MDM Narrative: Patient is an 83 year old assigned male at with a history of CHF, COPD on chronic oxygenation, and heart disease presenting to the emergency department today with left sided rib pain. Patient's physical exam was unremarkable. Patient's blood work was unremarkable. Patient's EKG was unremarkable. Patient's chest x-ray showed no acute process. Patient's clinical presentation is most consistent with neuralgia / possible shingles. There is no current rash however, the patient's description of the pain sounds herpetic in nature. I explained my physical exam findings as well as all test results to the patient and the patient's son. I answered all questions asked by the patient and the patient's son. I stressed the importance of the patient taking his medication as prescribed. I stressed the importance of the patient following up with his primary care provider. I stressed the importance of the patient returning to the emergency department immediately if his symptoms were to worsen or if he were to develop any dizziness, shortness of breath, difficulty breathing, chest pain, blurry vision, loss of vision, nausea, vomiting, abdominal pain, fever, chills, back pain, or any other complaints. Patient and the patient's son verbalized agreement and understanding with this treatment plan and discharge. Differential Diagnosis Differential Diagnoses: The differential diagnosis associated with the presentation includes Left sided rib pain NSTEMI STEMI Shingles Neuralgia Costochondritis Admission/Observation Consideration of admission/observation: Escalation of care including admission/observation considered Patient would have been admitted to the hospital had his work up had any findings where hospital admission was appropriate and his clinical presentation warranted hospital admission. Lab Data [facility] Lab Attestation statement: I reviewed the patient's lab results. My interpretation of these results are in the [facility] Rationale portion of this note. 08/07/23 02:49 08/07/23 02:49 Labs: Lab Results 08/07/23 08/07/23 Range/Units 02:49 04:40 WBC 8.0 (4.8-10.8) X10*3/uL RBC 4.41 L (4.60-5.80) X10*6/uL Hgb 13.1 L (14.0-18.0) g/dl Hct 40.4 L (42.0-52.0) % MCV 91.6 (80.0-98.0) fL MCH 29.7 (27.0-33.0) pg MCHC 32.4 (31.0-36.0) g/dl RDW 12.8 (11.0-16.0) % Plt Count 310 (160-400) X10*3/uL MPV 9.1 L (9.4-12.4) fL Immature Gran % (Auto) 0.3 (0.0-0.4) % Neut % (Auto) 60.5 (45-73) % Lymph % (Auto) 19.0 L (20-40) % Chambers % (Auto) 11.6 H (2-11) % Eos % (Auto) 7.7 H (0-4) % Baso % (Auto) 0.9 (0-2) % Lymph # (Auto) 1.5 (1.2-4.9) X10*3/uL Chambers # (Auto) 0.9 (0.1-1.2) X10*3/uL Eos # (Auto) 0.6 H (0.0-0.4) X10*3/uL Baso # (Auto) 0.1 (0.0-0.2) X10*3/uL Abs Immat Gran (auto) 0.02 (0.00-0.03) X10*3/uL Absolute Neuts (auto) 4.8 (2.0-8.3) x10*3/uL Absolute Nucleated RBC 0.000 (0.0-0.012) X10*3/uL Nucleated RBC % (auto) 0.0 (0.0-0.2) /100WBC Sodium 142 (135-145) mmol/L Potassium 4.1 (3.3-5.1) mmol/L Chloride 93 L (96-108) mmol/L Carbon Dioxide 36 H (22-29) mmol/L Anion Gap 17 (12-20) BUN 24 H (9-16) mg/dL Creatinine 0.82 (0.5-1.4) mg/dL Estim Creat Clear Calc 67.1 Estimated GFR > 60 Random Glucose 141 H (60-115) mg/dL Calcium 9.6 (8.4-10.2) mg/dL Total Bilirubin 0.4 (0.0-1.0) mg/dL AST 18 (5-37) U/L ALT 22 (0-40) U/L Alkaline Phosphatase 118 H (39-117) U/L Troponin I High Sens 18.3 D 21.5 (<3.5-35.0) ng/L Total Protein 7.1 (6.5-8.0) g/dL Albumin 3.3 L (3.5-5.0) g/dL Independent Interpretation I performed an independent interpretation of an: EKG and Plain X-Ray Interpretation: My interpretation is in agreement with the radiologist's impression of this imaging study. EXAMINATION: XR CHEST CLINICAL INFORMATION: Chest pain. COMPARISON: 06/21/2023 TECHNIQUE: 2 views of the chest were obtained. FINDINGS: The cardiomediastinal silhouette is stable. There has been a previous median sternotomy. Bilateral pleural plaques are again seen. There is scarring at both lung bases with blunting of the costophrenic angles. The bony structures and soft tissues are unremarkable. XR/XR chest 2V IMPRESSION: Bilateral pleural plaques and scarring at the lung bases. No acute process identified.. Dictated By: Gordon Friend Signed By: Electronically signed by Gordon Friend 08/07/23 0342 Vent. Rate: 104 BPM Atrial Rate: 104 BPM P-R Int: 240 ms QRS Dur: 102 ms QT Int: 364 ms P-R-T Axes: 000 032 107 degrees QTc Int: 478 ms Sinus tachycardia with 1st degree A-V block with Premature atrial complexes Minimal voltage criteria for LVH, may be normal variant ( Mychal product ) Nonspecific ST and T wave abnormality Abnormal ECG When compared with ECG of 21-JUN-2023 18:42, Previous ECG has undetermined rhythm, needs review Electronically Signed By:DEION BOBO MD Dictated By: Deion Bobo MD Signed By: Electronically signed by Deion Bobo MD 08/07/23 1115 Radiology Impression Discussion of test interpretation with radiology: I have reviewed the radiologist's reading. Independent Historian Clinical information obtained from an independent historian. History obtained from or confirmed by: Other (patient's son provided additional history and confirmed the history provided by the patient) Chronic Conditions Patient?s care impacted by: Diabetes and Other (COPD) Discharge Plan Discharge Clinical Impression: Chest wall pain Patient Disposition: Home, Self-Care Instructions: Chest Wall Pain (ED) Additional Instructions: Your sugars will be elevated while on the prednisone - this is NORMAL and they will normalize again after you complete your treatment. Follow up with your primary care provider. Return to the emergency department immediately if your symptoms worsen or if you develop any dizziness, shortness of breath, difficulty breathing, chest pain, blurry vision, loss of vision, nausea, vomiting, abdominal pain, fever, chills, back pain, or any other complaints. Prescriptions: New prednisone 20 mg tablet 20 mg PO DAILY 7 Days Qty: 7 0RF No Action (DME) FreeStyle Lite Strips Strip See Rx Instructions .ROUTE .MEDSUPPLY Qty: 100 3RF Rx Instructions: As directed (DME) lancets [FreeStyle Lancets] 28 gauge misc See Rx Instructions .ROUTE .MEDSUPPLY Qty: 100 3RF Rx Instructions: As directed (DME) pen needle, diabetic [1st Tier Unifine Pentips Plus] 29 gauge x 1/2 needle See Rx Instructions .Route Qty: 100 3RF Rx Instructions: Use 1 pen needle once a day metformin 1,000 mg tablet 1,000 mg PO BID 90 Days Qty: 180 2RF PreserVision AREDS [id number] Capsule 1 cap PO BID albuterol sulfate 2.5 mg /3 mL (0.083 %) Solution For Nebulization 2.5 mg INHALATION Q6H PRN (Reason: Wheezing) budesonide-formoterol [Symbicort] 160-4.5 mcg/actuation HFA aerosol inhaler 2 puff inhalation BID atorvastatin 80 mg tablet 80 mg PO DAILY omeprazole magnesium 20 mg tablet,delayed release (DR/EC) 20 mg PO DAILY@0630 (DME) blood pressure test kit-large Kit See Rx Instructions .Route Qty: 1 0RF Rx Instructions: As directed aspirin [Adult Low Dose Aspirin] 81 mg tablet,delayed release (DR/EC) 81 mg PO DAILY amlodipine 5 mg tablet 5 mg PO DAILY glipizide 5 mg tablet extended release 24hr 5 mg PO DAILY 90 Days Qty: 90 2RF prednisone 10 mg tablet 10 mg PO DIRECTED PRN Rx Instructions: for acute COPD exacerbation. Take 3 tablets x3 days, 2 tablets x3 days, 1 tablet x3 days amoxicillin 875 mg tablet 875 mg PO BID PRN furosemide 40 mg tablet 40 mg PO DAILY 90 Days Qty: 90 3RF Eliquis 5 mg tablet 5 mg PO BID 90 Days Qty: 180 3RF amiodarone 200 mg tablet 200 mg PO DAILY 90 Days Qty: 90 3RF Referrals: [facility] [Provider Group] (Call to establish and follow up with a pain specialist if this pain persists.) Karri Mcnally PA-C [Physician Vacation Planner] - Interventions: ED Discharge Assessment Last Done: 08/07/23 08:11 Discharge Date/Time: 08/07/23 08:12 Print Language: Yakut
[2023-08-07 07:49] VITALS: BP 140/59; PULSE 88; RESP 18; TEMP 36.6; O2SAT 94
[2023-08-07 08:11] VITALS: BP 140/69; PULSE 88; RESP 18; TEMP 36.6; O2SAT 94
== END 2023-08-07 08:12 | disposition home or self-care (01) ==
PROVIDERS: Emergency Medicine; Emergency Provider Emergency Medicine
DX: R07.89 Other chest pain (principal); I11.0 Hypertensive heart disease with heart failure; I50.9 Heart failure, unspecified; E11.9 Type 2 diabetes mellitus without complications; J44.9 Chronic obstructive pulmonary disease, unspecified; Z99.81 Dependence on supplemental oxygen
CPT/HCPCS: 36415; 71046; 80053; 84484; 85025; 93005; 99283; 99285

== ENCOUNTER → 2023-08-07 02:41 | Outpatient (BNV) | payer MEDICARE, SELFPAY | PROVIDERS: Emergency Provider Emergency Medicine; Visit Provider Internal Medicine Cardiovascular Disease | DX: R00.0 Tachycardia, unspecified (principal); I44.0 Atrioventricular block, first degree | CPT/HCPCS: 93010 ==

== ENCOUNTER 2023-10-04 12:53 | Outpatient (AMB) | payer MEDICARE, SELFPAY ==
--- NOTE | 2023-10-04 13:01 | A.OFFVIS_ITS ---
Vital Signs 10/04/23 13:03 Height 6 ft Weight 153 lb 14.122 oz BMI 20.9 BP 120/50 L Blood Pressure Location Lt brachial Position Sitting Pulse 70 Intake Visit Reasons: 3 mth f/up Device Sales Consultant Required: No Accompanied by: Self / Same As Patient Allergies No Known Allergies [No Known Allergies*] Allergy (Verified 08/07/23 02:50) Medication List - Last Reconciled 10/04/23 by Nestor Scott MD albuterol sulfate 2.5 mg inhalation Q6H PRN amiodarone 200 mg PO DAILY 90 days amlodipine 5 mg PO DAILY amoxicillin 875 mg PO BID PRN apixaban (Eliquis) 5 mg PO BID 90 days atorvastatin 80 mg PO DAILY blood pressure test kit-large As directed blood sugar diagnostic (FreeStyle Lite Strips) As directed budesonide-formoterol 160-4.5 mcg/actuation (Symbicort) 2 puffs inhalation BID furosemide 40 mg PO DAILY 90 days glipizide ER 5 mg PO DAILY 90 days lancets (FreeStyle Lancets) As directed metformin 1,000 mg PO BID 90 days omeprazole magnesium 20 mg PO DAILY@0630 pen needle, diabetic (1st Tier Unifine Pentips Plus) Use 1 pen needle once a day vitamins A,C,U-drfp-oocsfu 4,296 mcg-226 mg-90 mg (PreserVision AREDS) 1 cap PO BID HPI Comments Details: Yossi returns for follow-up regarding various cardiac issues. He generally follows up with [facility], but would like to switch here. He was admitted twice recently to the hospital. Both for congestive heart failure with + COPD exacerbation. He was in atrial flutter with rapid response. Initially rate control was attempted but as he was still symptomatic, he did undergo SAMREEN/cardioversion. Since last seen, he is actually doing very good. No cardiac symptoms whatsoever. Breathing is also at baseline. 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 No concerns. [facility] Medical History CHF (congestive heart failure) Atrial flutter Pulmonary emphysema Acute respiratory failure with hypercapnia Chronic lung disease Afib COPD (chronic obstructive pulmonary disease) Coronary artery disease CAD (coronary artery disease) DMII (diabetes mellitus, type 2) HTN (hypertension) Surgical History History of colonoscopy History of lung surgery History of cholecystectomy Family History Father No problems noted. Mother No problems noted. Social History Household Members: Spouse Housing: House Do you presently have visiting nurse or other home services: No Alcohol intake: current Alcohol intake frequency: 0-2 drinks per day Comment: OOB/ amb independently Patient Tobacco Use Status: Never used Tobacco Tobacco use type: Cigarette e-Cigarette/Vaping Use: Never Used Second Hand Smoke Exposure: No service: No Current occupational status: retired Cognitive needs: No Hearing needs: No Vision needs: Yes (glasses) Review of Systems Const Denies chills, Denies fatigue, Denies fever(s), Denies frequent falls, Denies weakness, Denies weight gain and Denies weight loss ENT Denies dizziness Card Denies chest pain, Denies leg edema, Denies lightheadedness, Denies palpitations, Denies dyspnea and Denies dyspnea on exertion Resp Denies cough, Denies dyspnea and Denies dyspnea on exertion GI Denies hematochezia Musc Denies abnormal gait, Denies muscle weakness, Denies numbness, Denies radiating pain into limb and Denies tingling Neuro Denies abnormal gait, Denies dizziness, Denies frequent falls, Denies numbness, Denies tingling and Denies weakness Endo Denies fatigue and Denies palpitations Physical Exam Vital Signs: Last Vital Signs Pulse 70 10/04/23 13:03 BP 120/50 L 10/04/23 13:03 BMI result Body Mass Index 20.9 Const General: comfortable and no acute distress Orientation/consciousness: patient oriented x3 HEENT Other: Unremarkable Head: Yes normal to inspection Neck Neck: Yes normal visual inspection Chest Chest palpation & inspection: normal inspection of the chest Resp Auscultation: clear to auscultation bilaterally Cardio Palpation: normal PMI Heart sounds: S1 normal heart sound present, S2 normal heart sound present, no gallops, Murmur heart sound present systolic II/ and at the right sternal border and no rubs GI Palpation (GI): Soft to palpation Back/Spine/Pelvis Other: unremarkable Skin General skin exam: no rashes or lesions noted Neuro General: patient oriented x3 Extrem General: Yes normal to inspection Psych Mental Status: mental status grossly normal Office Procedures EKG Details: EKG with sinus rhythm at 70/Min; left posterior fascicular block; inferior as well as anterolateral downsloping ST with T inversion[place]. [id number], Complete Assessment & Plan Assessment & Plan (1) Chronic diastolic (congestive) heart failure: Code(s): I50.32 - Chronic diastolic (congestive) heart failure Category: Medical Plan: Euvolemic. Continue diuretics. (2) Typical atrial flutter: Code(s): I48.3 - Typical atrial flutter Category: Medical Plan: Status post recent SAMREEN/cardioversion. Amiodarone for the foreseeable future. Long-term, either reduce the dose to 100 mg daily or 3 times weekly. Of note, he also has chronic lung disease and needs oxygen. Hence will need to weigh the risks and benefits. Advised him to do blood work including thyroid panel. Of note, he also underwent left atrial appendage ligation during CABG. In the past, he was also on beta-blockers but off due to bradycardia. (3) Atherosclerotic cardiovascular disease: Code(s): I25.10 - Atherosclerotic heart disease of [place] coronary artery without angina pectoris Category: Medical Plan: Status post CABG. Clinically, no angina. EKG as above. Echocardiogram shows wall motion abnormalities, but they have been noticed before. We did discuss stress testing etc, but considering his age, frailty, dependence on oxygen, lack of symptoms, would just treat him conservatively. He also states he had a bad experience in the past with stress testing and would rather not have anything done. (4) Mitral annular calcification: Code(s): I34.81 - Nonrheumatic mitral (valve) annulus calcification Category: Medical Plan: Echocardiogram shows severe mitral annular calcification. No significant valvular dysfunction. No specific management at this time. (5) Nonrheumatic aortic (valve) stenosis: Code(s): I35.0 - Nonrheumatic aortic (valve) stenosis Category: Medical Plan: [id number] aortic stenosis. Can be followed on echocardiograms. (6) Pulmonary hypertension: Code(s): I27.20 - Pulmonary hypertension, unspecified Category: Medical Plan: Likely related to some components of left heart dysfunction, coronary disease, a trial flutter, COPD. No specific management. (7) Dependence on supplemental oxygen: Code(s): Z99.81 - Dependence on supplemental oxygen Category: Medical Plan Discussed with who came for appointment. Coding Level of Care Code Est Pt Level 4 (48311) Diagnoses Chronic diastolic (congestive) heart failure I50.32 Typical atrial flutter I48.3 Atherosclerotic cardiovascular disease I25.10 Mitral annular calcification I34.81 Nonrheumatic aortic (valve) stenosis I35.0 Pulmonary hypertension I27.20 Dependence on supplemental oxygen Z99.81 CPT Codes EKG - CPT: 57332-[id number], Complete ([id number])
[2023-10-04 13:03] VITALS: BP 120/50; PULSE 70; BMI 20.9
== END 2023-10-04 13:35 | disposition home or self-care (01) ==
PROVIDERS: PCP Physician Assistant; Visit Provider Internal Medicine
DX: I50.32 Chronic diastolic (congestive) heart failure (principal); I48.3 Typical atrial flutter; I25.10 Atherosclerotic heart disease of native coronary artery without angina pectoris; I34.81 Nonrheumatic mitral (valve) annulus calcification; I35.0 Nonrheumatic aortic (valve) stenosis; I27.20 Pulmonary hypertension, unspecified; Z99.81 Dependence on supplemental oxygen
CPT/HCPCS: 93010; 99214

== ENCOUNTER → 2023-10-04 12:53 | Outpatient (BNVA) | payer MEDICARE, SELFPAY | PROVIDERS: PCP Physician Assistant; Visit Provider Internal Medicine | DX: I50.32 Chronic diastolic (congestive) heart failure (principal); I48.3 Typical atrial flutter; I25.10 Atherosclerotic heart disease of native coronary artery without angina pectoris; I34.81 Nonrheumatic mitral (valve) annulus calcification; I35.0 Nonrheumatic aortic (valve) stenosis; I27.20 Pulmonary hypertension, unspecified; Z99.81 Dependence on supplemental oxygen | CPT/HCPCS: 93005; 99212 ==

== ENCOUNTER 2023-10-09 06:43 | Outpatient (REF) | payer MEDICARE, SELFPAY ==
[2023-10-09 08:09] LABS: Hematocrit 38.2 % (42.0-52.0); Hemoglobin 12.2 g/dl (14.0-18.0); Mean Corpuscular HGB Conc 31.9 g/dl (31.0-36.0); Mean Corpuscular Hemoglobin 29.9 pg (27.0-33.0); Mean Corpuscular Volume 93.6 fL (80.0-98.0); Platelet Count 270 X10*3/uL (160-400); Red Blood Count 4.08 X10*6/uL (4.60-5.80); Red Cell Distribution Width 14.4 % (11.0-16.0); White Blood Count 8.5 X10*3/uL (4.8-10.8)
[2023-10-09 08:53] LABS: Alanine Aminotransferase 23 U/L (0-40); Albumin Level 3.6 g/dL (3.5-5.0); Alkaline Phosphatase 110 U/L (39-117); Anion Gap 17 (12-20); Aspartate Amino Transferase 21 U/L (5-37); Bilirubin Total 0.5 mg/dL (0.0-1.0); Blood Urea Nitrogen 20 mg/dL (9-16); Calcium 9.6 mg/dL (8.4-10.2); Carbon Dioxide 29 mmol/L (22-29); Chloride 95 mmol/L (96-108); Cholesterol 125 mg/dL (<200); Estimated Glomerular Filt Rate > 60; Glucose Fasting 121 mg/dL (60-99); Glucose Random 120 mg/dL (60-115); HDL Cholesterol 52 mg/dL (>40); LDL Cholesterol Calculated 60 mg/dL (<100); Potassium 3.8 mmol/L (3.3-5.1); Sodium 137 mmol/L (135-145); Total Protein 6.7 g/dL (6.5-8.0); Triglycerides 67 mg/dL (<150)
[2023-10-09 09:08] LABS: TSH reflex Free T4 2.05 uIU/mL (0.32-4.0)
[2023-10-09 09:10] LABS: Estimated Average Glucose 160 mg/dL; Hemoglobin A1c % 7.2 % (<6.0)
[2023-10-09 09:38] LABS: Creatinine Urine 66.54 mg/dL; Microalbum/Creatinine Ratio Ur 108.2 ug/mg cr (<30)
[2023-10-14 23:53] LABS: NT-proBNP 640 pg/mL (<450)
== END 2023-10-09 06:44 | disposition home or self-care (01) ==
LOC: HO.LAB 06:43
PROVIDERS: PCP Physician Assistant; Visit Provider Physician Assistant
DX: I50.32 Chronic diastolic (congestive) heart failure (principal); I25.10 Atherosclerotic heart disease of native coronary artery without angina pectoris; E11.65 Type 2 diabetes mellitus with hyperglycemia; Z79.899 Other long term (current) drug therapy
CPT/HCPCS: 36415; 80053; 80061; 82043; 82570; 83036; 83880; 84443; 85027

== ENCOUNTER 2023-10-10 11:36 | Outpatient (AMB) | payer MEDICARE, SELFPAY ==
[2023-10-10 11:41] VITALS: BP 116/58; PULSE 78; O2SAT 92
--- NOTE | 2023-10-10 11:41 | MHC.PC.OV ---
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 Accompanied by: Spouse Allergies No Known Allergies [No Known Allergies*] Allergy (Verified 10/10/23 11:55) Medication List - Last Reconciled 10/10/23 by Karri Mcnally PA-C albuterol sulfate 2.5 mg inhalation Q6H PRN amiodarone 200 mg PO DAILY 90 days amlodipine 5 mg PO DAILY apixaban (Eliquis) 5 mg PO BID 90 days atorvastatin 80 mg PO DAILY blood pressure test kit-large As directed blood sugar diagnostic (FreeStyle Lite Strips) As directed budesonide-formoterol 160-4.5 mcg/actuation (Symbicort) 2 puffs inhalation BID furosemide 40 mg PO DAILY 90 days glipizide ER 5 mg PO DAILY 90 days lancets (FreeStyle Lancets) As directed metformin 1,000 mg PO BID 90 days omeprazole magnesium 20 mg PO DAILY@0630 pen needle, diabetic (1st Tier Unifine Pentips Plus) Use 1 pen needle once a day vitamins A,C,N-ankr-qmesvq 4,296 mcg-226 mg-90 mg (PreserVision AREDS) 1 cap PO BID Tobacco use date assessed: 06/26/23 Dental Screening Dental Screen Date: 10/10/23 HPI f/u HTN/ DMII / CAD HPI Details Yossi is a 83 y/o here today for a f/u visit.. ? Pmhx significant for COPD, DMII, HLD, HTN, GERD, AFLUTTER, CAD. ? .. ? HTN: Doesn't monitor his blood pressure at home. Blood pressure today in office acceptable. Deneis any CP, SOB, lower extremity edema. .. A flutter: Continues to follow [facility]. For now will continue amiodarone for rhythm control. Continues on Eliquis 5 mg b.i.d. without any overt signs of bleeding. He does report having some balance issues and feeling shaky at times. He is interested in physical therapy to help regain strength in his lower extremities ? .. ? DMII: Most recent A1c is 7.2. Does not regularly check his sugars at home.? Has lost a significant amount of weight since his health has been declining. ? Has been placed back on glipizide 5 mg and A1c much improved. ?Seen his eye doctor =- No retinopathy. ? .. ? CAD:Recently was seen at [facility] for a non ST CT end up having a cardiac catheterization in March.? He was found to have worsening left main vessel disease with severe 3 vessel disease with InStent restenosis in the circumflex stents. He underwent a bypass surgery in early April 2023. ?Is followed by a uniform cap operator twice per year.? Today's blood pressure in office acceptable. ? Most recent 04/2020--> LDL well controlled at 66 ? .. ? COPD: Followed by Dr Coto,Has done a PFT recently showing moderate COPD.? Patient does have history of a lobectomy in the distant past. ?Patient reports his breathing has been somewhat of a problem. He is now on continuous O2. Has upcoming appointment for pulmonary function test and pulmonology follow-up. A few times a year he does need prednisone taper and amoxicillin for acute bronchitis.? He has been using his maintenance inhalers and home nebulizer on a p.r.n. basis. Laboratory Tests 11/01/21 09/06/22 08/07/23 07:00 06:54 02:49 RBC 4.41 L Hgb 13.1 L Creatinine Random Glucose 141 H Hemoglobin A1c % 6.9 Cholesterol LDL Cholesterol, C alc TSH Urine Microalbumin 47.0 10/09/23 10/09/23 06:50 06:55 RBC 4.08 L Hgb 12.2 L Creatinine 0.86 Random Glucose 120 H Hemoglobin A1c % 7.2 H Cholesterol 125 LDL Cholesterol, C alc 60 TSH 2.05 Urine Microalbumin 72.0 [facility] Medical History (Updated 10/10/23 @ 12:05 by Karri Mcnally PA-C) CHF (congestive heart failure) Atrial flutter Pulmonary emphysema Acute respiratory failure with hypercapnia Chronic lung disease COPD (chronic obstructive pulmonary disease) Coronary artery disease CAD (coronary artery disease) DMII (diabetes mellitus, type 2) HTN (hypertension) Surgical History History of colonoscopy History of lung surgery History of cholecystectomy Family History Father No problems noted. Mother No problems noted. Social History Household Members: Spouse Housing: House Do you presently have visiting nurse or other home services: No Alcohol intake: current Alcohol intake frequency: 0-2 drinks per day Comment: OOB/ amb independently Patient Tobacco Use Status: Never used Tobacco Tobacco use type: Cigarette e-Cigarette/Vaping Use: Never Used Second Hand Smoke Exposure: No service: No Current occupational status: retired Cognitive needs: No Hearing needs: No Vision needs: Yes (glasses) Questionnaire Thrive Questionnaire Date Thrive assessed: 06/12/23 SHRADDHA-7 AMB Questionnaire SHRADDHA-7 Date SHRADDHA - 7 assessed: 06/26/23 Source: Developed by Drs. Gordon Neal, Daisy Kincaid, Luis Hickey and colleagues, with an educational jung from [employer]. Physical exam (Primary Care) Vital Signs: Last Vital Signs Pulse 78 10/10/23 11:41 BP 116/58 L 10/10/23 11:41 Pulse Ox 92 10/10/23 11:41 Oxygen Delivery Method Nasal Cannula 10/10/23 11:41 Oxygen Flow Rate 1 10/10/23 11:41 Tobacco/Smoking Status: Tobacco use Status Tobacco use date assessed 06/26/23 10/10/23 11:45 Patient Tobacco Use Status Never used Tobacco 10/10/23 11:45 Tobacco use type Cigarette 10/10/23 11:45 e-Cigarette/Vaping Use Never Used 10/10/23 11:45 Thrive Assessment: Date of Thrive Assessment Date Thrive assessed 06/12/23 10/10/23 11:45 Assessment and Plan Assessment & Plan (1) COPD (chronic obstructive pulmonary disease): Code(s): J44.9 - Chronic obstructive pulmonary disease, unspecified Qualifiers: COPD type: chronic bronchitis Chronic bronchitis type: simple Qualified Code(s): J41.0 - Simple chronic bronchitis Plan: Now on can use O2 at 1 L during exercise. Has a history of lung resection surgery many years ago. Again was found to have hypercapnia that resulted in some altered mentation. He was placed on BiPAP while in the hospital and recovered. Now on only 1 liters/minute via nasal cannula during exertion. He does like to have prednisone and amoxicillin on hand in case of a COPD exacerbation. (2) Atrial flutter: Code(s): I48.92 - Unspecified atrial flutter Qualifiers: Atrial flutter type: typical Qualified Code(s): I48.3 - Typical atrial flutter Plan: Found have a flutter with fast rate. Continues on amiodarone for rate control. Also continues on Eliquis 5 mg b.i.d. without any overt signs of bleeding. He will be following up with Cardiology (3) CHF (congestive heart failure): Code(s): I50.9 - Heart failure, unspecified Qualifiers: Heart failure chronicity: chronic Heart failure type: diastolic Qualified Code(s): I50.32 - Chronic diastolic (congestive) heart failure Plan: Appears to be euvolemic on physical exam today. Continues on furosemide 40 mg daily. Advised to continue low-sodium diet and taking his weight daily. Advised to call the office if gains more than 4 lb in a 24 hour. (4) Balance disorder: Code(s): R26.89 - Other abnormalities of gait and mobility Plan: Does issues with his balance. Does have lower extremity weakness likely secondary to some physical deconditioned due to his comorbidities. He would likely benefit from balance training from physical therapy. Given paper order for physical therapy Orders: Orders PT Evaluation and Treatment Today R26.89 - Other abnormalities of gait and mobility Comprehensive [place]. Panel Fast 3 Months I48.3 - Typical atrial flutter Complete Blood Count no Diff 3 Months I48.3 - Typical atrial flutter NT-proBNP 3 Months I50.32 - Chronic diastolic (congestive) heart failure Prostate Specific Antigen Scr Today J41.0 - Simple chronic bronchitis, Z12.5 - Encounter for screening for malignant neoplasm of prostate Coding Level of Care Code Est Pt Level 4 (01070) Complex EM visit Add On G2211 Diagnoses Simple chronic bronchitis J41.0 COPD type: chronic bronchitis Chronic bronchitis type: simple Typical atrial flutter I48.3 Atrial flutter type: typical Chronic diastolic congestive heart failure I50.32 Heart failure chronicity: chronic Heart failure type: diastolic Balance disorder R26.89
== END 2023-10-10 12:26 | disposition home or self-care (01) ==
PROVIDERS: PCP Physician Assistant; Visit Provider Physician Assistant
DX: J41.0 Simple chronic bronchitis (principal); I48.3 Typical atrial flutter; I50.32 Chronic diastolic (congestive) heart failure; E11.65 Type 2 diabetes mellitus with hyperglycemia; R26.89 Other abnormalities of gait and mobility
CPT/HCPCS: 99214; G2211

== ENCOUNTER 2023-11-20 17:29 | Inpatient (IN) | payer MEDICARE, SELFPAY ==
[2023-11-20] VITALS (8 sets, daily range): BP systolic 117–167; BP diastolic 48–63; PULSE 73–98; RESP 15–24; TEMP 36.6–36.8; O2SAT 80–99; BMI 20.3; BMI 21.0
--- NOTE | ~2023-11-20 | XR_ITS ---
EXAMINATION: XR CHEST CLINICAL INFORMATION: Cough and SOB. COMPARISON: None available. TECHNIQUE: Chest AP upright portable FINDINGS: The lungs are hypoexpanded with haziness in both lung bases similar previous study from 08/25/2023. There are bilateral calcified pleural plaques. Heart size and pulmonary vascularity is normal. A left atrial appendage, median sternotomy sutures and mediastinal ian are unchanged. XR/XR chest 1V IMPRESSION: Hypoexpanded lungs with haziness in both lung bases likely chronic changes. There are bilateral calcified pleural plaques. There are no new findings compared to 08/07/2023
--- NOTE | 2023-11-20 17:31 | ED.SOB ---
HPI - SOB/Dyspnea General Chief Complaint: Dyspnea Stated Complaint: hx of copd, heart condition Time Seen by Provider: 11/20/23 18:19 Source: patient Mode of arrival: ambulatory Limitations: no limitations History of Present Illness ED Provider: Dr. Austin Tate HPI Narrative: 83-year-old male who presents emergency department for evaluation of cough x2 days and shortness of breath. The patient states he has had a cough which is productive of clear thick mucus with no blood in the mucus. He states that he has been feeling short of breath and this is got progressively worse. The patient has not been using his nebulizer or his inhalers for his shortness of breath. He states that today his shortness of breath got worse and he increased his chronic oxygen from 1.5 L to 5 L via nasal cannula. He states that this did improve his shortness of breath. He denied fever or chills but he states he did have shakes. He states he feels short of breath at rest and short of breath with exertion. He states he did call his PCP who prescribed amoxicillin and prednisone but he states that he did not start these medications. Related Data Home Medications ?Medication ?Instructions ?Recorded ?Confirmed atorvastatin 80 mg tablet 80 mg PO DAILY 04/21/20 11/20/23 albuterol sulfate 2.5 mg/3 mL 2.5 mg inhalation Q6H PRN Wheezing 04/01/22 11/20/23 (0.083 %) solution for nebulization vitamins A,C,J-wixy-ydwgdv 4,296 1 cap PO BID 04/01/22 11/20/23 mcg-226 mg-90 mg capsule (PreserVision AREDS) amlodipine 5 mg tablet 5 mg PO DAILY 12/11/22 11/20/23 Previous Rx's ?Medication ?Instructions ?Recorded blood pressure test kit-large #1 ea 03/14/21 blood sugar diagnostic (FreeStyle #100 ea 08/29/21 Lite Strips) lancets 28 gauge (FreeStyle #100 ea 08/29/21 Lancets) pen needle, diabetic 29 gauge x #100 ea 06/22/22 1 (1st Tier Unifine Pentips Plus) amiodarone 200 mg tablet 200 mg PO DAILY 90 days #90 tabs 07/04/23 apixaban 5 mg tablet (Eliquis) 5 mg PO BID 90 days #180 tabs 07/04/23 furosemide 40 mg tablet 40 mg PO DAILY 90 days #90 tabs 07/04/23 glipizide 5 mg tablet, extended 5 mg PO DAILY 90 days #90 tabs 09/17/23 release 24 hr metformin 1,000 mg tablet 1,000 mg PO BID 90 days #180 tabs 10/08/23 Allergies Allergy/AdvReac Type Severity Reaction Status Date / Time No Known Allergies Allergy Verified 11/20/23 17:35 [No Known Allergies*] Review of Systems Review of Systems: Yes all other systems are reviewed and are negative [facility] Past Medical History [facility] Narrative: Social history: The patient denies tobacco use. He has a greater than 50 pack-year history of smoking. He occasionally drinks alcohol. Medical History CHF (congestive heart failure) Atrial flutter Pulmonary emphysema Acute respiratory failure with hypercapnia Chronic lung disease COPD (chronic obstructive pulmonary disease) Coronary artery disease CAD (coronary artery disease) DMII (diabetes mellitus, type 2) HTN (hypertension) Surgical History History of colonoscopy History of lung surgery History of cholecystectomy Family History Family History Father No problems noted. Mother No problems noted. Social History Social History Household Members: Spouse Housing: House Do you presently have visiting nurse or other home services: No Alcohol intake: current Alcohol intake frequency: 0-2 drinks per day Comment: OOB/ amb independently Patient Tobacco Use Status: Never used Tobacco Tobacco use type: Cigarette e-Cigarette/Vaping Use: Never Used Second Hand Smoke Exposure: No Advance Directives: No Advance Directives Information Provided: Yes Do you have a plan to hurt others: No Plan service: No Current occupational status: retired Cognitive needs: No Hearing needs: No Vision needs: Yes (glasses) Physical Exam Vital Signs: Vital Signs: Last Vital Signs Temp 98.2 F 11/20/23 20:22 Pulse 93 11/20/23 20:22 Resp 20 11/20/23 20:22 BP 134/48 L 11/20/23 20:22 Pulse Ox 98 11/20/23 20:22 O2 Del Method Nasal Cannula 11/20/23 20:22 O2 Flow Rate 2 11/20/23 20:22 Oxygen Flow Rate 1.5 11/20/23 17:34 BMI result Body Mass Index 20.3 Initial vital signs revealed an elevated respiratory rate of 21, O2 saturation on 1.5 L was 95% Exam: General: Awake, alert appears tachypneic and dyspneic, is able to talk in full sentences Head: Normocephalic, atraumatic EENT: PERRL, Lids normal, sclera normal, conjunctiva normal, nose normal , ears normal, throat without erythema or exudates Neck: Supple, no adenopathy Lung: breath sounds symmetric, diffuse wheezing and rhonchi, no rales Chest: symmetric movement, nontender Heart: regular rate and rhythm, normal S1, S2 , 3/6 systolic murmur best heard at the left lower sternal border Abdomen: soft, non-tender, nondistended, normal bowel sounds Back: no vertebral tenderness, no CVAT Extremities: no deformities, moves all extremities symmetrically Neuro: Awake, alert, oriented, normal speech, cranial nerves intact, moves all extremities symmetrically Psych: Pleasant, cooperative Course Course Course Narrative: This is a Rapid Medical Examination (RME) performed by Lora Daniel PA-C in triage. Full HPI, ROS, assessment and treatment plan per primary provider in the Main ED. 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 Turned up his O2 at home to 5L with no relief. SOB, dry heaving mucus in triage. SpO2 81% on 5L NC, dyspneic. Plan: brought back to treatment room now Medications Administered Generic Name Dose Route Start Last Admin Trade Name Freq PRN Reason Stop Dose Admin Albuterol/Ipratropium 3 ml 11/20/23 20:00 11/20/23 19:28 Albuterol/Iprat 2.5/0.5mg 3 Ml Ampul.Neb INHALE Not Given RQ4H WHILE AWAKE ANGÉLICA Azithromycin 500 mg/ Sodium 250 mls @ 125 mls/hr 11/20/23 20:00 11/20/23 20:27 Chloride IV 125 mls/hr Q24H ANGÉLICA Administration Discontinued Medications Generic Name Dose Route Start Last Admin Trade Name Sabino PRN Reason Stop Dose Admin Albuterol Sulfate 5 mg 11/20/23 18:39 11/20/23 19:05 Albuterol Sulfate (0.083%) 2.5 Mg/3 Ml Vial.Neb INHALE 11/20/23 18:40 5 mg ONCE ONE Administration Albuterol Sulfate 2.5 mg/ 0 mg 11/20/23 17:52 11/20/23 17:58 Albuterol/Ipratropium 3 ml INHALE 11/20/23 17:53 1 dose ONCE ONE Administration Methylprednisolone Sodium Succinate 125 mg 11/20/23 18:39 11/20/23 19:44 Methylprednisolone Sod Succ 125 Mg/2 Ml Vial IVPUSH 11/20/23 18:40 125 mg ONCE ONE Administration Medical Decision Making Medical Decision Making [facility] Narrative: 83-year-old male who presents emergency department for evaluation of cough x2 days and shortness of breath associated with dyspnea tachypnea and shortness of breath. Patient does have nebulizer treatments at home as well as inhalers that he has not been using. Vital signs revealed an elevated respiratory rate. Physical examination revealed that he was dyspneic with diffuse wheezing and rhonchi. 19:37 Differential diagnosis: ?Includes but is not limited to pneumonia, chronic lung disease exacerbation, bronchitis, anemia, electrolyte abnormalities Following evaluation was ordered: Patient was initially treated with the followin.5 mg with ipratropium nebulizer, albuterol 5 mg nebulizer, Solu-Medrol 125 mg IV Course: 19:37 Anemia with an H&H of 11.2 and 35.1. VBG: PH 7.42, pCO2 elevated at 61-patient has had similar values in the past, bicarb elevated at 40-similar elevations in the past. CO2 elevated 32, BUN elevated 22, creatinine normal at 1.02. LFTs were normal. BNP elevated 135-similar elevations in the past with several values being higher in the past. Chest x-ray is consistent with his chronic lung disease Patient did demonstrate improvement with the above treatment but still has wheezing at the end of expiration. I did discuss admission with the covering hospitalist, Dr. Diamond the patient will be admitted for further management of his exacerbation of his chronic lung disease. This time I do not think that he has an infectious process or severe sepsis as the cause of his exacerbation. Admission/Observation Consideration of admission/observation: Escalation of care including admission/observation considered Consult Healthcare Provider Management of the patient was discussed with: Hospitalist (Dr. Diaomnd) Lab Data MDM Lab Attestation statement: I reviewed the patient's lab results. 11/20/23 17:54 11/20/23 17:54 Labs: Lab Results 11/20/23 11/20/23 11/20/23 Range/Units 17:53 17:54 17:56 WBC 8.2 (4.8-10.8) X10*3/uL RBC 3.73 L (4.60-5.80) X10*6/uL Hgb 11.2 L (14.0-18.0) g/dl Hct 35.1 L (42.0-52.0) % MCV 94.1 (80.0-98.0) fL MCH 30.0 (27.0-33.0) pg MCHC 31.9 (31.0-36.0) g/dl RDW 13.2 (11.0-16.0) % Plt Count 225 (160-400) X10*3/uL MPV 9.4 (9.4-12.4) fL Immature Gran % (Auto) 0.1 (0.0-0.4) % Neut % (Auto) 55.2 (45-73) % Lymph % (Auto) 24.1 (20-40) % Kinney % (Auto) 9.6 (2-11) % Eos % (Auto) 10.1 H (0-4) % Baso % (Auto) 0.9 (0-2) % Lymph # (Auto) 2.0 (1.2-4.9) X10*3/uL Kinney # (Auto) 0.8 (0.1-1.2) X10*3/uL Eos # (Auto) 0.8 H (0.0-0.4) X10*3/uL Baso # (Auto) 0.1 (0.0-0.2) X10*3/uL Abs Immat Gran (auto) 0.01 (0.00-0.03) X10*3/uL Absolute Neuts (auto) 4.5 (2.0-8.3) x10*3/uL Absolute Nucleated RBC 0.000 (0.0-0.012) X10*3/uL Nucleated RBC % (auto) 0.0 (0.0-0.2) /100WBC VBG pH 7.42 (7.32-7.43) VBG pCO2 61 mmHg VBG pO2 40 mmHg VBG HCO3 40 H (22-26) mmol/L VBG O2 Saturation 69.0 % VBG Base Excess 13.3 mmol/L Sodium 139 (135-145) mmol/L Potassium 4.5 (3.3-5.1) mmol/L Chloride 93 L (96-108) mmol/L Carbon Dioxide 32 H (22-29) mmol/L Anion Gap 19 (12-20) BUN 23 H (9-16) mg/dL Creatinine 1.02 (0.5-1.4) mg/dL Estim Creat Clear Calc 51.8 Estimated GFR > 60 Random Glucose 103 (60-115) mg/dL Calcium 9.9 (8.4-10.2) mg/dL Magnesium 1.7 (1.6-2.6) mg/dL Total Bilirubin 0.4 (0.0-1.0) mg/dL Direct Bilirubin 0.1 (0.0-0.5) mg/dL AST 20 (5-37) U/L ALT 24 (0-40) U/L Alkaline Phosphatase 107 (39-117) U/L Troponin I High Sens 10.7 D (<3.5-35.0) ng/L B-Natriuretic Peptide 135 H (<100) pg/mL Total Protein 7.2 (6.5-8.0) g/dL Albumin 3.9 (3.5-5.0) g/dL Procalcitonin 0.05 ng/mL COVID-19 (PATRICIA) Negative (Negative) COVID-19 Clin Com See Note Independent Interpretation I performed an independent interpretation of an: Plain X-Ray Interpretation: My interpretation of the patient's chest x-ray is as follows: COPD changes My interpretation patient's 12 EKG done at 17:55 hours is as follows: Sinus rhythm with a rate of 74, first-degree AV block with a MA interval of 228 milliseconds, normal QRS duration and QTC interval, Q-waves lead 1, 2, aVL, aVF, no ST segment elevation, no ST segment depression, no significant T-wave abnormalities Radiology Impression Discussion of test interpretation with radiology: I have reviewed the radiologist's reading. Radiologist Impression: XR chest 1V IMPRESSION: Hypoexpanded lungs with haziness in both lung bases likely chronic changes. There are bilateral calcified pleural plaques. There are no new findings compared to 08/07/2023 Dictated By: Douglas Lucas MD External Record Review External record reviewed: Inpatient record Chronic Conditions Patient?s care impacted by: Other (COPD) Discharge Plan Discharge Clinical Impression: COPD (chronic obstructive pulmonary disease) Qualifiers: COPD type: chronic bronchitis Chronic bronchitis type: simple Qualified Code(s): J41.0 - Simple chronic bronchitis Patient Disposition: Admitted As Inpatient
--- NOTE | 2023-11-20 17:35 | ECG_ITS ---
Test Reason : SOB Blood Pressure : / mmHG Vent. Rate : 074 BPM Atrial Rate : 074 BPM P-R Int : 228 ms QRS Dur : 098 ms QT Int : 412 ms P-R-T Axes : 062 196 092 degrees QTc Int : 457 ms Suspect limb lead reversal, interpretation assumes no reversal Sinus rhythm with 1st degree A-V block Lateral infarct , age undetermined Inferior infarct , age undetermined Abnormal ECG When compared with ECG of 07-AUG-2023 02:41, Premature atrial complexes are no longer Present Questionable change in QRS axis Lateral infarct is now Present Inferior infarct is now Present ST no longer depressed in Lateral leads Repeat EKG Referred By: Komal Daniel Electronically Signed By:HELIO BOBO MD
[2023-11-20] MEDS: Albuterol Sulfate 2.5 MG, Albuterol/Iprat 2.5/0.5MG 3 ML 3 ML INHALE (17:58)
--- NOTE | 2023-11-20 17:59 | PC.NURSE ---
Pt comes from home for productive cough since yesterday. Pt states he is usually on 1.5L NC at home, but had to bump it up to 5L to maintain his O2 sat. Upon arrival pt O2 was in the 80s, placed on O2 NC 5L. Pt O2 titrated down to 2L, currently maintaining his O2 sat at 93-94%. Respiratory at bedside for breathing treatment. A/ox4, respirations even and unlabored, wheezing heard throughout all lung [place], s1 and s2 heard, pt placed on radiographer cardiac catheterization, nsr at this time. 20g IV placed in right ac, labs obtained, EKG obtained, awaiting further orders at this time.
[2023-11-20 18:04] LABS: Venous Blood Gas Refer to POC result
[2023-11-20 18:04] LABS: VBG Base Excess 13.3 mmol/L; VBG HCO3 40 mmol/L (22-26); VBG pCO2 61 mmHg; VBG pH 7.42 (7.32-7.43); VBG pO2 40 mmHg
[2023-11-20 18:04] LABS: MANUAL DIFF FLAG NO
[2023-11-20 18:06] LABS: Basophils Absolute Auto 0.1 X10*3/uL (0.0-0.2); Basophils Percent Auto 0.9 % (0-2); Eosinophils Absolute Auto 0.8 X10*3/uL (0.0-0.4); Eosinophils Percent Auto 10.1 % (0-4); Hematocrit 35.1 % (42.0-52.0); Hemoglobin 11.2 g/dl (14.0-18.0); Imm Gran Abs Auto 0.01 X10*3/uL (0.00-0.03); Imm Gran Pct Auto 0.1 % (0.0-0.4); Lymphocytes Percent Auto 24.1 % (20-40); Mean Corpuscular HGB Conc 31.9 g/dl (31.0-36.0); Mean Corpuscular Volume 94.1 fL (80.0-98.0); Mean Platelet Volume 9.4 fL (9.4-12.4); Monocytes Absolute Auto 0.8 X10*3/uL (0.1-1.2); Monocytes Percent Auto 9.6 % (2-11); Neutrophils Absolute Auto 4.5 x10*3/uL (2.0-8.3); Neutrophils Percent Auto 55.2 % (45-73); Platelet Count 225 X10*3/uL (160-400); Red Blood Count 3.73 X10*6/uL (4.60-5.80); Red Cell Distribution Width 13.2 % (11.0-16.0); White Blood Count 8.2 X10*3/uL (4.8-10.8)
--- NOTE | 2023-11-20 18:08 | PC.NURSE ---
Pt sarah Sy requesting updates [phone]
[2023-11-20 18:19] LABS: COVID-19 Test Negative (Negative); IDNOW Serial# 08D9AD1C
[2023-11-20 18:26] LABS: Alanine Aminotransferase 24 U/L (0-40); Albumin Level 3.9 g/dL (3.5-5.0); Alkaline Phosphatase 107 U/L (39-117); Anion Gap 19 (12-20); Aspartate Amino Transferase 20 U/L (5-37); Bilirubin Direct 0.1 mg/dL (0.0-0.5); Bilirubin Total 0.4 mg/dL (0.0-1.0); Blood Urea Nitrogen 23 mg/dL (9-16); Calcium 9.9 mg/dL (8.4-10.2); Carbon Dioxide 32 mmol/L (22-29); Chloride 93 mmol/L (96-108); Creatinine Clr Calc Pharmacy 51.8; Estimated Glomerular Filt Rate > 60; Glucose Random 103 mg/dL (60-115); Magnesium 1.7 mg/dL (1.6-2.6); Potassium 4.5 mmol/L (3.3-5.1); Sodium 139 mmol/L (135-145); Total Protein 7.2 g/dL (6.5-8.0); Troponin-I High Sensitivity 10.7 ng/L (<3.5-35.0)
[2023-11-20 18:27] LABS: B Type Natriuretic Peptide 135 pg/mL (<100)
[2023-11-20 18:40] LABS: Procalcitonin 0.05 ng/mL
[2023-11-20] MEDS: Albuterol Sulfate (0.083%) 2.5 MG/3 ML VIAL.NEB 5 MG INHALE (19:05)
--- NOTE | 2023-11-20 19:18 | PM.IMHP ---
History of Present Illness Date of Service: 11/20/23 Chief Complaint: Dyspnea This is a 83-year-old male with pertinent history of chronic hypoxic respiratory failure due to COPD on 2 L baseline supplemental oxygen, CAD status post CABG in 2022, znu-rlpbvlf-pbrwygqjq diabetes mellitus, mixed hyperlipidemia, congestive heart failure with reduced ejection fraction, persistent atrial flutter on Eliquis who presents to the emergency department for evaluation of dyspnea. Patient states his symptoms started 1 day prior to presentation. He has been having dyspnea which is worse with exertion. Also has been having wheezing and productive cough with yellowish sputum production. No fevers or chills. Patient increased his home oxygen from 2 L to 5 L with some relief. Did not use nebulizer at home. No chest discomfort. He denies palpitations, abdominal pain, changes in urinary or bowel habits. In the emergency department, patient with wheezing despite multiple DuoNeb treatments. Requiring 5 L supplemental oxygen. Review of Systems Constitutional: Constitutional: Reports fatigue and Reports malaise Cardiovascular: Cardiovascular: Reports dyspnea on exertion Respiratory: Respiratory: Reports cough, Reports dyspnea on exertion and Reports wheezing Gastrointestinal: Gastrointestinal: Reports no additional gastrointestinal complaints Genitourinary: Genitourinary: Reports no additional male genitourinary complaints Endocrine: Endocrine: Reports fatigue Allergic/Immunologic: Allergic/Immunologic: Reports wheezing [facility] Medical History CHF (congestive heart failure) Atrial flutter Pulmonary emphysema Acute respiratory failure with hypercapnia Chronic lung disease COPD (chronic obstructive pulmonary disease) Coronary artery disease CAD (coronary artery disease) DMII (diabetes mellitus, type 2) HTN (hypertension) Family History Father No problems noted. Mother No problems noted. Surgical History History of colonoscopy History of lung surgery History of cholecystectomy Social History Household Members: Spouse Housing: House Do you presently have visiting nurse or other home services: No Alcohol intake: current Alcohol intake frequency: 0-2 drinks per day Comment: OOB/ amb independently Patient Tobacco Use Status: Never used Tobacco Tobacco use type: Cigarette e-Cigarette/Vaping Use: Never Used Second Hand Smoke Exposure: No Advance Directives: No Advance Directives Information Provided: Yes Do you have a plan to hurt others: No Plan service: No Current occupational status: retired Cognitive needs: No Hearing needs: No Vision needs: Yes (glasses) Meds Allergies Allergy/AdvReac Type Severity Reaction Status Date / Time No Known Allergies Allergy Verified 11/20/23 17:35 [No Known Allergies*] Home Medications ?Medication ?Instructions ?Recorded ?Confirmed ?Last Taken ?Type atorvastatin 80 mg tablet 80 mg PO DAILY 04/21/20 10/10/23 06/11/23 History omeprazole magnesium 20 mg 20 mg PO DAILY@0630 04/21/20 10/10/23 06/11/23 History tablet,delayed release albuterol sulfate 2.5 mg/3 mL 2.5 mg inhalation Q6H PRN Wheezing 04/01/22 10/10/23 06/11/23 History (0.083 %) solution for nebulization vitamins A,C,A-bdna-alrfue 4,296 1 cap PO BID 04/01/22 10/10/23 06/11/23 History mcg-226 mg-90 mg capsule (PreserVision AREDS) amlodipine 5 mg tablet 5 mg PO DAILY 12/11/22 10/10/23 06/11/23 History budesonide-formoterol HFA 160 2 puff inhalation BID 05/24/23 10/10/23 06/11/23 History mcg-4.5 mcg/actuation aerosol inhaler (Symbicort) Physical Exam Vital Signs and Narrative: Vital Signs: Last Vital Signs Temp 98.1 F 11/20/23 18:25 Pulse 86 11/20/23 19:05 Resp 21 H 11/20/23 19:05 BP 126/51 L 11/20/23 18:25 Pulse Ox 95 11/20/23 18:25 O2 Del Method Room Air 11/20/23 18:25 O2 Flow Rate 2 11/20/23 18:25 Oxygen Flow Rate 1.5 11/20/23 17:34 BMI result Body Mass Index 20.3 Elderly male lying in bed in mild distress on supplemental oxygen Neck supple, no JVD Irregularly irregular, S1-S2 heard Bilateral wheezing with tachypnea Abdomen soft nontender, no guarding, no rigidity Patient is awake, alert and oriented to self, place, time and person ; no focal motor deficit Psych: Normal mood No pedal edema Results Labs 11/20/23 17:54 11/20/23 17:54 Labs: Laboratory Results - last 24 hr 11/20/23 11/20/23 11/20/23 17:53 17:54 17:56 MCV 94.1 MCH 30.0 MCHC 31.9 RDW 13.2 Plt Count 225 MPV 9.4 Immature Gran % (Auto) 0.1 Neut % (Auto) 55.2 Lymph % (Auto) 24.1 [place] % (Auto) 9.6 Eos % (Auto) 10.1 H Baso % (Auto) 0.9 Lymph # (Auto) 2.0 [place] # (Auto) 0.8 Eos # (Auto) 0.8 H Baso # (Auto) 0.1 Abs Immat Gran (auto) 0.01 Absolute Neuts (auto) 4.5 Absolute Nucleated RBC 0.000 Nucleated RBC % (auto) 0.0 VBG pH 7.42 VBG pCO2 61 VBG pO2 40 VBG HCO3 40 H VBG O2 Saturation 69.0 VBG Base Excess 13.3 Anion Gap 19 Estim Creat Clear Calc 51.8 Estimated GFR > 60 Random Glucose 103 Calcium 9.9 Magnesium 1.7 Total Bilirubin 0.4 Direct Bilirubin 0.1 AST 20 ALT 24 Alkaline Phosphatase 107 Troponin I High Sens 10.7 D B-Natriuretic Peptide 135 H Total Protein 7.2 Albumin 3.9 Procalcitonin 0.05 COVID-19 (PATRICIA) Negative COVID-19 Clin Com See Note Assessment and Plan (1) COPD exacerbation: Status: Acute (2) Hypoxia: Status: Acute Plan This is a 83-year-old male with pertinent history of chronic hypoxic respiratory failure due to COPD on 2 L baseline supplemental oxygen, CAD status post CABG in 2022, oqp-chvwgzi-whtzmstve diabetes mellitus, mixed hyperlipidemia, congestive heart failure with reduced ejection fraction, persistent atrial flutter on Eliquis who presents to the emergency department for evaluation of dyspnea. #. Acute on chronic hypoxic respiratory failure due to acute exacerbation of COPD: Will admit patient with supplemental oxygen. Currently on 5 L, at baseline 2 L at home. Initiating IV steroids. Scheduled and p.r.nJose Ortabs. Initiating azithromycin for pleiotropic effect. Continue home inhalers #. Tachypnea and tachycardia due to above: No sepsis #. Congestive heart failure with reduced ejection fraction: No decompensation during admission. Continue Lasix and beta-caden. Not on Thanh or Arb #. Persistent atrial flutter: On amiodarone, Eliquis and beta-caden. Rate controlled in the ER #. Ipg-wxzkzhk-qlpknkprl diabetes mellitus: Initiating Accu-Cheks with sliding scale insulin #. Coronary artery disease: On aspirin, beta-caden and statin #. Mixed hyperlipidemia: On statin Med rec pending DVT prophylaxis: Eliquis Full code. Discussed with patient and family at bedside Admit as inpatient and will require two night minimum hospital stay for supplemental oxygen, IV steroids (as above), which is not possible in a lesser acute setting. Quality Stroke Does the patient have a stroke diagnosis?: No VTE Prior VTE?: No VTE Risk Level:: Medical - moderate - high VTE Device Contraindication: Treatment Not Indicated VTE Drug Contraindication: N/A - Med Ordered
[2023-11-20] MEDS: methylPREDNISolone Sod Succ 125 MG/2 ML VIAL IVPUSH (19:44)
[2023-11-20] MEDS: Azithromycin 500 MG in 0.9 % Sodium Chloride 250 ML 125 MG IV (20:27)
[2023-11-20 20:49] LABS: Glucose, Whole Blood 260 mg/dL (60-115)
--- NOTE | 2023-11-20 20:58 | PHA.MEDREC ---
Pharmacy Consult ? Medication Reconciliation Pharmacy has completed the medication reconciliation. Spoke to patient and at bedside to confirm med list. Patient knew all patients medications. She states he no longer takes Omeprazole magnesium 20 mg daily, and Symbicort 2 puffs bid. Patient says he never started Amoxicillin 875 mg-potassium clavulanate 125 mg bid and Prednisone 20 mg bid, because it was just picked today. Patient was told to start them tomorrow..
[2023-11-20] MEDS: Apixaban 5 MG TABLET PO (21:38)
[2023-11-20] MEDS: Insulin Lispro 100 UNIT/ML 3 ML VIAL SUBCUT (21:38)
[2023-11-20 21:59] LABS: Appearance Urine Clear; Color Urine Yellow; Glucose Urine UA 500 mg/dL (Negative); Leukocyte Esterase Urine Small (1+) (Negative); Nitrite Urine Negative (Negative); PH 5.5 (5.0-9.0); Specific Gravity - Urine 1.025 (1.005-1.025); UMIC TRIGGER UACC YES; Urine Blood Negative (Negative); Urine Ketones Trace mg/dL (Negative); Urine Protein 100 (2+) mg/dL (Neg-Trace)
[2023-11-20 22:04] LABS: Bacteria Urine None Seen (None Seen); RBC Urine 0-2 /HPF (0-2); Squamous Epithelial Cell Urine 0-2 /HPF (0-2); UACC Culture Trigger YES
[2023-11-21] VITALS (8 sets, daily range): BP systolic 106–129; BP diastolic 52–58; PULSE 79–110; RESP 16–20; TEMP 36.4–36.9; O2SAT 92–98; BMI 21.0
[2023-11-21 06:36] LABS: MANUAL DIFF FLAG NO
[2023-11-21 06:45] LABS: Hematocrit 32.5 % (42.0-52.0); Hemoglobin 10.4 g/dl (14.0-18.0); Imm Gran Abs Auto 0.01 X10*3/uL (0.00-0.03); Imm Gran Pct Auto 0.3 % (0.0-0.4); Lymphocytes Absolute Auto 0.3 X10*3/uL (1.2-4.9); Lymphocytes Percent Auto 9.8 % (20-40); Mean Corpuscular Hemoglobin 29.6 pg (27.0-33.0); Mean Corpuscular Volume 92.6 fL (80.0-98.0); Neutrophils Absolute Auto 2.7 x10*3/uL (2.0-8.3); Neutrophils Percent Auto 88.9 % (45-73); Platelet Count 216 X10*3/uL (160-400); Red Blood Count 3.51 X10*6/uL (4.60-5.80); Red Cell Distribution Width 13.4 % (11.0-16.0); White Blood Count 3.1 X10*3/uL (4.8-10.8)
[2023-11-21 07:01] LABS: Anion Gap 16 (12-20); Blood Urea Nitrogen 28 mg/dL (9-16); Calcium 9.3 mg/dL (8.4-10.2); Carbon Dioxide 31 mmol/L (22-29); Chloride 94 mmol/L (96-108); Estimated Glomerular Filt Rate > 60; Glucose Random 281 mg/dL (60-115); Potassium 4.1 mmol/L (3.3-5.1); Sodium 137 mmol/L (135-145)
[2023-11-21] MEDS: 0.9 % Sodium Chloride Flush 3 ML SYRINGE IVFLUSH ×3 (07:01→19:49)
[2023-11-21 07:07] LABS: Glucose, Whole Blood 262 mg/dL (60-115)
[2023-11-21] MEDS: Insulin Lispro 100 UNIT/ML 3 ML VIAL SUBCUT ×4 (07:35→20:02)
[2023-11-21] MEDS: methylPREDNISolone Sod Succ 40 MG/ML VIAL IVPUSH ×2 (07:36→19:48)
[2023-11-21] MEDS: Apixaban 5 MG TABLET PO ×2 (07:38→20:58)
[2023-11-21] MEDS: Multivitamin TABLET 1 TAB PO (07:38)
[2023-11-21] MEDS: glipiZIDE XL 5 MG TAB.ER.24 PO (07:39)
[2023-11-21] MEDS: Atorvastatin Calcium 80 MG TABLET PO (07:39)
[2023-11-21] MEDS: Furosemide 40 MG TABLET PO (07:39)
[2023-11-21] MEDS: amLODIPine Besylate 5 MG TABLET PO (07:39)
[2023-11-21] MEDS: Amiodarone HCL 200 MG TABLET PO (07:39)
[2023-11-21] MEDS: metFORMIN HCl 1,000 MG TABLET 1000 MG PO ×2 (07:42→16:07)
[2023-11-21] MEDS: Albuterol/Iprat 2.5/0.5MG 3 ML AMPUL.NEB INHALE ×4 (07:52→20:59)
--- NOTE | 2023-11-21 10:50 | MHC.CLN ---
NUTRITION CONSULT FOR WEIGHT LOSS. DIET=CARDIAC. REPORTS THAT EATING WELL. TAKES ENSURE SUPPLEMENT AT HOME BUT DOES NOT WANT WHILE HERE. REPORTS WEIGHT LOSS DUE TO DECREASED INTAKE AND APPETITE WITH DIMINISHED SENSE OF TASTE. QUALIFIES MODERATELY MALNOURISHED IN THE CONTEXT OF CHRONIC ILLNESS. MILD DEPLETION OF MUSCLE MASS AND BODY FAT NOTED. SIGNIFICANT WEIGHT LOSS X 6 MONTHS -13.7%. WEIGHT IS 87% OF IBW. CONTINUE CARDIAC DIET AND MONITOR INTAKE. SEE CLINICAL NUTRITION ASSESSMENT 11/21/23.
[2023-11-21 11:00] LABS: Glucose, Whole Blood 222 mg/dL (60-115)
--- NOTE | 2023-11-21 11:36 | HO.PM.IMPN ---
Subjective Subjective Date of Service: 11/21/23 Interval History: sob improving Physical Exam Vital Signs: Vital Signs: Last Vital Signs Temp 97.5 F 11/21/23 07:03 Pulse 82 11/21/23 11:28 Resp 16 11/21/23 11:28 BP 120/58 L 11/21/23 07:03 Pulse Ox 95 11/21/23 07:03 O2 Del Method Nasal Cannula 11/21/23 07:03 O2 Flow Rate 2 11/21/23 07:03 Oxygen Flow Rate 1.5 11/20/23 17:34 BMI result Body Mass Index 21.0 General: AO X 3, no acute distress Resp: diminshedbilateral, no accessory muscles used CVS: S1,S2,RRR GI: soft, non tender, non distended Neuro: motor grossly intact, alert Psych: appropriate affect, appropriate insight Objective Data Active Medications Acetaminophen (Acetaminophen 325 Mg Tablet) 650 mg PO Q6H PRN PRN Reason: Pain, Mild (Pain Scale 1-3), fever or headache Albuterol/Ipratropium (Albuterol/Iprat 2.5/0.5mg 3 Ml Ampul.Neb) 3 ml INHALE RQ4H WHILE AWAKE [facility] Last Admin: 11/21/23 11:28 Dose: 3 ml Documented By: FRANKLIN Albuterol/Ipratropium (Albuterol/Iprat 2.5/0.5mg 3 Ml Ampul.Neb) 3 ml INHALE Q4H PRN PRN Reason: Wheezing Amiodarone HCl (Amiodarone Hcl 200 Mg Tablet) 200 mg PO DAILY [facility] Last Admin: 11/21/23 07:39 Dose: 200 mg Documented By: BESSY Amlodipine Besylate (Amlodipine Besylate 5 Mg Tablet) 5 mg PO DAILY [facility]; Protocol Last Admin: 11/21/23 07:39 Dose: 5 mg Documented By: BESSY Apixaban (Apixaban 5 Mg Tablet) 5 mg PO BID [facility] Last Admin: 11/21/23 07:38 Dose: 5 mg Documented By: BESSY Atorvastatin Calcium (Atorvastatin Calcium 80 Mg Tablet) 80 mg PO DAILY [facility] Last Admin: 11/21/23 07:39 Dose: 80 mg Documented By: BESSY Calcium Carbonate (Calcium Carbonate 750 Mg Tab.Chew) 750 mg PO Q4H PRN PRN Reason: Heartburn Furosemide (Furosemide 40 Mg Tablet) 40 mg PO DAILY [facility]; Protocol Last Admin: 11/21/23 07:39 Dose: 40 mg Documented By: BESSY Glipizide (Glipizide Xl 5 Mg Tab.Er.24) 5 mg PO DAILY [facility] Last Admin: 11/21/23 07:39 Dose: 5 mg Documented By: BESSY Glucose (Glucose Gel 15 Gm Gel..Gram.) 15 gm PO Q15M PRN; Protocol PRN Reason: per Hypoglycemia Standing Ord. Dextrose (D10) 250 mls @ 750 mls/hr IV Q15M PRN; Protocol PRN Reason: per Hypoglycemia Standing Ord. Azithromycin 500 mg/ Sodium (Chloride) 250 mls @ 125 mls/hr IV Q24H [facility] Last Infusion: 11/20/23 22:37 Dose: Infused Documented By: POLO Insulin Human Lispro (Insulin Lispro 100 Unit/Ml 3 Ml Vial) 0 unit SUBCUT QIDACHS [facility]; Protocol Last Admin: 11/21/23 11:13 Dose: 4 unit Documented By: ELIE Magnesium Hydroxide (Milk Of Magnesia 30 Ml Oral.Susp) 30 ml PO DAILY PRN PRN Reason: Constipation Melatonin (Melatonin 3 Mg Tablet) 6 mg PO BEDTIME PRN PRN Reason: Insomnia Metformin HCl (Metformin Hcl 1,000 Mg Tablet) 1,000 mg PO BIDWM [facility] Last Admin: 11/21/23 07:42 Dose: 1,000 mg Documented By: BESSY Methylprednisolone Sodium Succinate (Methylprednisolone Sod Succ 40 Mg/Ml Vial) 40 mg IVPUSH Q12H [facility] Last Admin: 11/21/23 07:36 Dose: 40 mg Documented By: BESSY Multivitamins/Vitamin C (Multivitamin Tablet) 1 tab PO DAILY [facility] Last Admin: 11/21/23 07:38 Dose: 1 tab Documented By: BESSY Ondansetron HCl (Ondansetron Hcl 4 Mg/2 Ml Vial) 4 mg IVPUSH Q8H PRN PRN Reason: Nausea and Vomiting Sodium Chloride (0.9 % Sodium Chloride Flush 3 Ml Syringe) 3 ml IVFLUSH QSHIFT [facility] Last Admin: 11/21/23 07:01 Dose: 3 ml Documented By: BESSY Labs 11/21/23 05:51 11/21/23 05:51 Labs: Laboratory Results - last 24 hr 11/20/23 11/20/23 11/20/23 17:53 17:54 17:56 MCV 94.1 MCH 30.0 MCHC 31.9 RDW 13.2 Plt Count 225 MPV 9.4 Immature Gran % (Auto) 0.1 Neut % (Auto) 55.2 Lymph % (Auto) 24.1 [place] % (Auto) 9.6 Eos % (Auto) 10.1 H Baso % (Auto) 0.9 Lymph # (Auto) 2.0 [place] # (Auto) 0.8 Eos # (Auto) 0.8 H Baso # (Auto) 0.1 Abs Immat Gran (auto) 0.01 Absolute Neuts (auto) 4.5 Absolute Nucleated RBC 0.000 Nucleated RBC % (auto) 0.0 VBG pH 7.42 VBG pCO2 61 VBG pO2 40 VBG HCO3 40 H VBG O2 Saturation 69.0 VBG Base Excess 13.3 Anion Gap 19 Estim Creat Clear Calc 51.8 Estimated GFR > 60 POC Glucose Random Glucose 103 Calcium 9.9 Magnesium 1.7 Total Bilirubin 0.4 Direct Bilirubin 0.1 AST 20 ALT 24 Alkaline Phosphatase 107 Troponin I High Sens 10.7 D B-Natriuretic Peptide 135 H Total Protein 7.2 Albumin 3.9 Procalcitonin 0.05 Urine Color Urine Appearance Urine pH Ur Specific Shiro Urine Protein Urine Glucose (UA) Urine Ketones Urine Blood Urine Nitrite Ur Leukocyte Esterase Urine RBC Urine WBC Ur Squamous Epith Cells Urine Bacteria Hyaline Casts COVID-19 (PATRIICA) Negative COVID-19 Clin Com See Note 11/20/23 11/20/23 11/21/23 20:45 21:50 05:51 MCV 92.6 MCH 29.6 MCHC 32.0 RDW 13.4 Plt Count 216 MPV 10.0 Immature Gran % (Auto) 0.3 Neut % (Auto) 88.9 H Lymph % (Auto) 9.8 L [place] % (Auto) 1.0 L Eos % (Auto) 0.0 Baso % (Auto) 0.0 Lymph # (Auto) 0.3 L [place] # (Auto) 0.0 L Eos # (Auto) 0.0 Baso # (Auto) 0.0 Abs Immat Gran (auto) 0.01 Absolute Neuts (auto) 2.7 Absolute Nucleated RBC 0.000 Nucleated RBC % (auto) 0.0 VBG pH VBG pCO2 VBG pO2 VBG HCO3 VBG O2 Saturation VBG Base Excess Anion Gap 16 Estim Creat Clear Calc 55.0 Estimated GFR > 60 POC Glucose 260 H Random Glucose 281 H Calcium 9.3 D Magnesium Total Bilirubin Direct Bilirubin AST ALT Alkaline Phosphatase Troponin I High Sens B-Natriuretic Peptide Total Protein Albumin Procalcitonin Urine Color Yellow Urine Appearance Clear Urine pH 5.5 Ur Specific [place] 1.025 Urine Protein 100 (2+) H Urine Glucose (UA) 500 H Urine Ketones Trace Urine Blood Negative Urine Nitrite Negative Ur Leukocyte Esterase Small (1+) H Urine RBC 0-2 Urine WBC 6-10 H Ur Squamous Epith Cells 0-2 Urine Bacteria None Seen Hyaline Casts 3-5 COVID-19 (PATRICIA) COVID-19 Z[employer]ocal 11/21/23 11/21/23 07:01 10:57 MCV MCH MCHC RDW Plt Count MPV Immature Gran % (Auto) Neut % (Auto) Lymph % (Auto) [place] % (Auto) Eos % (Auto) Baso % (Auto) Lymph # (Auto) [place] # (Auto) Eos # (Auto) Baso # (Auto) Abs Immat Gran (auto) Absolute Neuts (auto) Absolute Nucleated RBC Nucleated RBC % (auto) VBG pH VBG pCO2 VBG pO2 VBG HCO3 VBG O2 Saturation VBG Base Excess Anion Gap Estim Creat Clear Calc Estimated GFR POC Glucose 262 H 222 H Random Glucose Calcium Magnesium Total Bilirubin Direct Bilirubin AST ALT Alkaline Phosphatase Troponin I High Sens B-Natriuretic Peptide Total Protein Albumin Procalcitonin Urine Color Urine Appearance Urine pH Ur Specific [place] Urine Protein Urine Glucose (UA) Urine Ketones Urine Blood Urine Nitrite Ur Leukocyte Esterase Urine RBC Urine WBC Ur Squamous Epith Cells Urine Bacteria Hyaline Casts COVID-19 (PATRICIA) COVID-19 Clin Com Microbiology Microbiology Results: Microbiology 11/20/23 22:05 Urine Culture - Preliminary Urine clean catch - Clean Catch Midstream No growth to date. Assessment and Plan (1) Hypoxia: Status: Acute Plan 83M PMH chronic hypoxic respiratory failure due to COPD on 2 L home O2, coronary disease status post CABG in 2022, diabetes, hyperlipidemia, hfref, paroxysmal atrial flutter presented with shortness of breath Acute on chronic hypoxic and hypercapnic respiratory failure due to COPD with acute decompensation Continue IV steroids, DuoNebs, azithromycin, wean O2 as tolerated Chronic systolic CHF Euvolemic, continue maintenance Lasix Paroxysmal atrial flutter Continue amiodarone, Eliquis Diabetes Continue insulin sliding scale Coronary artery disease Continue aspirin, statin, Eliquis DVT prophylaxis on Eliquis Full code reason for continued hospitalization: Still shortness breath Quality Stroke Does the patient have a stroke diagnosis?: No VTE Prior VTE?: No VTE Risk Level:: Medical - moderate - high VTE Device Contraindication: Treatment Not Indicated VTE Drug Contraindication: N/A - Med Ordered
--- NOTE | 2023-11-21 15:01 | MHC.CM.PN ---
IMM delivered. Patient lives in a home w/ . Functionally independent. Home O2 @ 2L via [employer]. PCP Karri MCGOWAN HCP on file and verified. HCA is . DP: Goal is home self care. Has used [facility] services in the past and would be open to using again if recommended. Family transport. CM will continue to follow.
[2023-11-21 16:03] LABS: Glucose, Whole Blood 243 mg/dL (60-115)
[2023-11-21 19:25] LABS: Glucose, Whole Blood 197 mg/dL (60-115)
[2023-11-21] MEDS: Azithromycin 500 MG in 0.9 % Sodium Chloride 250 ML 125 MG IV (19:49)
[2023-11-22] MEDS: Calcium Carbonate 750 MG TAB.CHEW PO (01:39)
[2023-11-22 04:00] VITALS: BP 154/69; PULSE 87; RESP 16; TEMP 36.2; O2SAT 98
[2023-11-22 05:53] LABS: Venous Blood Gas Refer to POC result
[2023-11-22 05:58] LABS: VBG Base Excess 12.4 mmol/L; VBG HCO3 39 mmol/L (22-26); VBG pCO2 61 mmHg; VBG pH 7.41 (7.32-7.43); VBG pO2 38 mmHg
[2023-11-22 06:07] LABS: Hematocrit 34.7 % (42.0-52.0); Hemoglobin 11.2 g/dl (14.0-18.0); Mean Corpuscular HGB Conc 32.3 g/dl (31.0-36.0); Mean Platelet Volume 9.6 fL (9.4-12.4); Platelet Count 256 X10*3/uL (160-400); Red Blood Count 3.73 X10*6/uL (4.60-5.80); Red Cell Distribution Width 13.4 % (11.0-16.0); White Blood Count 14.3 X10*3/uL (4.8-10.8)
[2023-11-22 06:18] LABS: Anion Gap 14 (12-20); Blood Urea Nitrogen 39 mg/dL (9-16); Calcium 10.1 mg/dL (8.4-10.2); Carbon Dioxide 36 mmol/L (22-29); Chloride 91 mmol/L (96-108); Creatinine Clr Calc Pharmacy 47.4; Estimated Glomerular Filt Rate > 60; Glucose Fasting 248 mg/dL (60-99); Magnesium 1.8 mg/dL (1.6-2.6); Potassium 4.8 mmol/L (3.3-5.1); Sodium 136 mmol/L (135-145)
[2023-11-22 06:56] LABS: Glucose, Whole Blood 218 mg/dL (60-115)
[2023-11-22] MEDS: 0.9 % Sodium Chloride Flush 3 ML SYRINGE IVFLUSH (07:19)
[2023-11-22 07:22] VITALS: BP 125/57; PULSE 76; RESP 16; TEMP 36; O2SAT 97
[2023-11-22] MEDS: Insulin Lispro 100 UNIT/ML 3 ML VIAL SUBCUT (07:52)
[2023-11-22] MEDS: methylPREDNISolone Sod Succ 40 MG/ML VIAL IVPUSH (07:53)
[2023-11-22] MEDS: Amiodarone HCL 200 MG TABLET PO (07:56)
[2023-11-22] MEDS: amLODIPine Besylate 5 MG TABLET PO (07:56)
[2023-11-22] MEDS: glipiZIDE XL 5 MG TAB.ER.24 PO (07:56)
[2023-11-22] MEDS: Atorvastatin Calcium 80 MG TABLET PO (07:56)
[2023-11-22] MEDS: Apixaban 5 MG TABLET PO (07:56)
[2023-11-22] MEDS: metFORMIN HCl 1,000 MG TABLET 1000 MG PO (07:56)
[2023-11-22] MEDS: Multivitamin TABLET 1 TAB PO (07:57)
[2023-11-22] MEDS: Furosemide 40 MG TABLET PO (07:57)
[2023-11-22 08:34] VITALS: PULSE 76; RESP 16; O2SAT 94
[2023-11-22] MEDS: Albuterol/Iprat 2.5/0.5MG 3 ML AMPUL.NEB INHALE (08:34)
--- NOTE | 2023-11-22 10:44 | PM.DS ---
DS: Providers Provider Date of Service: 11/22/23 Date of admission: 11/20/23 19:17 Primary care physician: Karri Mcnally PA-C DS: Diagnosis Discharge Diagnosis (1) Hypoxia: Status: Acute DS: Summary Hospital Course Hospital Course: from initial hpi: 83-year-old male with pertinent history of chronic hypoxic respiratory failure due to COPD on 2 L baseline supplemental oxygen, CAD status post CABG in 2022, qiy-vrnwdaf-ijokzlfmg diabetes mellitus, mixed hyperlipidemia, congestive heart failure with reduced ejection fraction, persistent atrial flutter on Eliquis who presents to the emergency department for evaluation of dyspnea. Patient states his symptoms started 1 day prior to presentation. He has been having dyspnea which is worse with exertion. Also has been having wheezing and productive cough with yellowish sputum production. No fevers or chills. Patient increased his home oxygen from 2 L to 5 L with some relief. Did not use nebulizer at home. No chest discomfort. He denies palpitations, abdominal pain, changes in urinary or bowel habits. In the emergency department, patient with wheezing despite multiple DuoNeb treatments. Requiring 5 L supplemental oxygen. hospital course: Patient was admitted for acute on chronic hypoxic and hypercapnic respiratory failure due to COPD with acute decompensation. Was treated with IV steroids, DuoNebs, azithromycin. He was weaned back down to his baseline O2 and his shortness of breath significantly improved. He is now close to baseline will be discharged home on 5 more days of prednisone. For chronic systolic CHF he remained euvolemic and was continued on maintenance Lasix. For paroxysmal atrial flutter was continue amiodarone and Eliquis. For diabetes was continue insulin sliding scale. For coronary disease was continue aspirin statin Eliquis. Patient is feeling better will be discharged home. Time Attestation Discharge Coordination Time (in mins): 34 Quality: Safe Use of Opioids Does Pt have an Active Cancer Diagnosis on the Problem List?: No Quality: Stroke Does the patient have a stroke diagnosis?: No Physical Exam Vital Signs: Vital Signs: Last Vital Signs Temp 96.8 F 11/22/23 07:22 Pulse 76 11/22/23 08:34 Resp 16 11/22/23 08:34 BP 125/57 L 11/22/23 07:22 Pulse Ox 97 11/22/23 07:22 O2 Del Method Nasal Cannula 11/22/23 07:22 O2 Flow Rate 2 11/22/23 07:22 Oxygen Flow Rate 1.5 11/20/23 17:34 BMI result Body Mass Index 21.0 General: AO X 3, no acute distress Resp: CTA bilateral, no accessory muscles used CVS: S1,S2,RRR GI: soft, non tender, non distended Neuro: motor grossly intact, alert Psych: appropriate affect, appropriate insight DS: Data Data Completed and Pending Completed studies during hospitalization [Text1]: Procedures Assistance with Respiratory Ventilation, Less than 24 Consecutive Hours, Continuous Positive Airway Pressure (06/11/23) Latter Day of Cardiac Rhythm, Single (06/11/23) Ultrasonography of Heart with Aorta, Transesophageal (06/11/23) Labs on day of discharge: Laboratory Results - last 24 hr 11/21/23 11/21/23 11/21/23 10:57 15:59 19:19 WBC RBC Hgb Hct MCV MCH MCHC RDW Plt Count MPV Absolute Nucleated RBC Nucleated RBC % (auto) VBG pH VBG pCO2 VBG pO2 VBG HCO3 VBG O2 Saturation VBG Base Excess Sodium Potassium Chloride Carbon Dioxide Anion Gap BUN Creatinine Estim Creat Clear Calc Estimated GFR POC Glucose 222 H 243 H 197 H Fasting Glucose Calcium Magnesium 11/22/23 11/22/23 11/22/23 05:34 05:48 06:53 WBC 14.3 H RBC 3.73 L Hgb 11.2 L Hct 34.7 L MCV 93.0 MCH 30.0 MCHC 32.3 RDW 13.4 Plt Count 256 MPV 9.6 Absolute Nucleated RBC 0.000 Nucleated RBC % (auto) 0.0 VBG pH 7.41 VBG pCO2 61 VBG pO2 38 VBG HCO3 39 H VBG O2 Saturation 58.0 VBG Base Excess 12.4 Sodium 136 Potassium 4.8 Chloride 91 L Carbon Dioxide 36 H Anion Gap 14 BUN 39 H Creatinine 1.15 Estim Creat Clear Calc 47.4 Estimated GFR > 60 POC Glucose 218 H Fasting Glucose 248 H Calcium 10.1 D Magnesium 1.8 Discharge Plan Discharge Anticipated Discharge Date/Time: 11/22/23 10:42 Patient Disposition: Home, Self-Care Discharge Diagnosis: copd Referrals: Karri Mcnally PA-C [Primary Care Provider] - 1 Week Discharge Medications: New prednisone 20 mg tablet 40 mg PO DAILY Qty: 10 0RF Continued (DME) FreeStyle Lite Strips Strip See Rx Instructions .ROUTE .MEDSUPPLY Qty: 100 3RF Rx Instructions: As directed (DME) lancets [FreeStyle Lancets] 28 gauge misc See Rx Instructions .ROUTE .MEDSUPPLY Qty: 100 3RF Rx Instructions: As directed (DME) pen needle, diabetic [1st Tier Unifine Pentips Plus] 29 gauge x 1/2 needle See Rx Instructions .Route Qty: 100 3RF Rx Instructions: Use 1 pen needle once a day glipizide 5 mg tablet extended release 24hr 5 mg PO DAILY 90 Days Qty: 90 2RF metformin 1,000 mg tablet 1,000 mg PO BID 90 Days Qty: 180 2RF PreserVision AREDS [id number] pnet-ij-lnos Capsule 1 cap PO BID albuterol sulfate 2.5 mg /3 mL (0.083 %) Solution For Nebulization 2.5 mg INHALATION Q6H PRN (Reason: Wheezing) atorvastatin 80 mg tablet 80 mg PO DAILY (DME) blood pressure test kit-large Kit See Rx Instructions .Route Qty: 1 0RF Rx Instructions: As directed amlodipine 5 mg tablet 5 mg PO DAILY furosemide 40 mg tablet 40 mg PO DAILY 90 Days Qty: 90 3RF Eliquis 5 mg tablet 5 mg PO BID 90 Days Qty: 180 3RF amiodarone 200 mg tablet 200 mg PO DAILY 90 Days Qty: 90 3RF Discharge Orders: Discharge Order (Routine); Ordered 11/22/23 Ordered By: Fabio Anderson Diet: Advance to usual diet Activity on Discharge: As tolerated Stand Alone Forms: Patient Portal Discharge page Print Language: Malaysian Care Plan Goals: recovery Health Concerns: copd Plan of Treatment: prednisone for 5 days Assessment: see above
--- NOTE | 2023-11-22 11:07 | MHC.CM.PN ---
Patient medically cleared for dc home self care. Son will provide transport home. RN aware.
== END 2023-11-22 11:45 | disposition home or self-care (01) | DRG 190 ==
LOC: HO.ED 19:46 → HO.EDOVER 20:14 → HO.S3 21:22
PROVIDERS: Physician Assistant; Admitting Provider Student in an Organized Health Care Education/Training Program; Emergency Provider Emergency Medicine Emergency Medical Services; PCP Physician Assistant; Visit Provider Internal Medicine
DX: J43.9 Emphysema, unspecified (principal); J96.21 Acute and chronic respiratory failure with hypoxia; I50.22 Chronic systolic (congestive) heart failure; I48.92 Unspecified atrial flutter; E11.9 Type 2 diabetes mellitus without complications; E78.2 Mixed hyperlipidemia; I25.10 Atherosclerotic heart disease of native coronary artery without angina pectoris; Z20.822 Contact with and (suspected) exposure to COVID-19; Z99.81 Dependence on supplemental oxygen; Z95.1 Presence of aortocoronary bypass graft; Z79.01 Long term (current) use of anticoagulants; Z79.84 Long term (current) use of oral hypoglycemic drugs; Z79.899 Other long term (current) drug therapy
CPT/HCPCS: 36415; 71045; 80048; 80076; 81001; 82803; 82947; 83735; 83880; 84145; 84484; 85025; 85027; 87086; 87635; 93005; 94640; 99285; J0456; J2919

== ENCOUNTER → 2023-11-20 17:35 | Outpatient (BNV) | payer MEDICARE, SELFPAY | PROVIDERS: Admitting Provider Student in an Organized Health Care Education/Training Program; Emergency Provider Emergency Medicine Emergency Medical Services; PCP Physician Assistant; Visit Provider Internal Medicine Cardiovascular Disease | DX: R94.31 Abnormal electrocardiogram [ECG] [EKG] (principal) | CPT/HCPCS: 93010 ==

== ENCOUNTER → 2023-11-20 18:10 | Outpatient (BNV) | payer MEDICARE, SELFPAY | PROVIDERS: Emergency Provider Emergency Medicine Emergency Medical Services; PCP Physician Assistant; Visit Provider Student in an Organized Health Care Education/Training Program | DX: R09.02 Hypoxemia (principal) | CPT/HCPCS: 99222; 99232; 99239 ==

== ENCOUNTER 2023-11-29 12:52 | Outpatient (AMB) | payer MEDICARE, SELFPAY ==
--- NOTE | 2023-11-29 12:56 | A.OFFPC_ITS ---
Vital Signs 11/29/23 13:02 Height 6 ft Weight 150 lb 6 oz BMI 20.4 BP 106/50 L Blood Pressure Location Lt brachial Position Sitting Pulse 86 Pulse Source Pulse Oximeter Pulse Oximetry (%) 100 Oxygen Delivery Method Room Air Intake [place] [facility] [place] COPD Anesthesiologist Attending Required: No Accompanied by: Spouse Allergies No Known Allergies [No Known Allergies*] Allergy (Verified 11/29/23 13:09) Medication List - Last Reconciled 11/29/23 by Karri Mcnally PA-C albuterol sulfate 2.5 mg inhalation Q6H PRN amiodarone 200 mg PO DAILY 90 days amlodipine 5 mg PO DAILY apixaban (Eliquis) 5 mg PO BID 90 days atorvastatin 80 mg PO DAILY blood pressure test kit-large As directed blood sugar diagnostic (FreeStyle Lite Strips) As directed furosemide 40 mg PO DAILY 90 days glipizide ER 5 mg PO DAILY 90 days lancets (FreeStyle Lancets) As directed metformin 1,000 mg PO BID 90 days pen needle, diabetic (1st Tier Unifine Pentips Plus) Use 1 pen needle once a day prednisone 40 mg (2 x 20 mg) PO DAILY vitamins A,C,X-uxpi-ohsqxk 4,296 mcg-226 mg-90 mg (PreserVision AREDS) 1 cap PO BID Tobacco use date assessed: 06/26/23 Fall risk assessment: No Falls in past year Last assessed Fall Risk: 11/29/23 Dental Screening Dental Screen Date: 10/10/23 [place] [facility] [place] COPD HPI Details Yossi is a 83 y/o here today for a hospital discharge follow-up. ? Pmhx significant for COPD, DMII, HLD, HTN, GERD, AFLUTTER, CAD. Patient recently admitted to [facility] for acute COPD exacerbation. Repo rted respiratory distress with increase need for O2 at 5 liters/minute while in the ER. He was treated with IV steroids, DuoNebs in his azithromycin. Patient was discharged home with 20 medical history prednisone. Currently doing much better reports he is breathing well. He is now on his last few days of prednisone. He does have a analysis or research safety inspector in [place](Dr. Sebastian) though has been difficult to make it to appointments He is interested in getting a 2nd opinion from a local analysis or research safety inspector. [facility] Medical History CHF (congestive heart failure) Atrial flutter Pulmonary emphysema Acute respiratory failure with hypercapnia Chronic lung disease COPD (chronic obstructive pulmonary disease) Coronary artery disease CAD (coronary artery disease) DMII (diabetes mellitus, type 2) HTN (hypertension) Surgical History History of colonoscopy History of lung surgery History of cholecystectomy Family History Father No problems noted. Mother No problems noted. Social History Household Members: Family Housing: House Do you presently have visiting nurse or other home services: No Alcohol intake: current Alcohol intake frequency: 0-2 drinks per day Comment: OOB/ amb independently Patient Tobacco Use Status: Never used Tobacco Tobacco use type: Cigarette e-Cigarette/Vaping Use: Never Used Second Hand Smoke Exposure: No service: No Current occupational status: retired Cognitive needs: No Hearing needs: No Vision needs: Yes (glasses) Questionnaire Thrive Questionnaire Date Thrive assessed: 11/21/23 SHRADDHA-7 AMB Questionnaire SHRADDHA-7 Date SHRADDHA - 7 assessed: 06/26/23 Source: Developed by Drs. Gordon Neal, Daisy Kincaid, Luis Hickey and colleagues, with an educational jung from [employer]. Review of Systems Const Denies headache(s) Eyes Denies loss of vision ENT Denies vertigo, Denies dizziness, Denies headache(s) and Denies sore throat Card Denies chest pain, Denies leg edema and Denies lightheadedness Resp Denies cough, Denies hemoptysis and Denies wheezing GI Denies abdominal pain, Denies melena, Denies constipation, Denies diarrhea and Denies vomiting Denies dysuria, Denies urinary frequency and Denies urinary urgency Musc Denies arthralgias, Denies joint swelling, Denies numbness and Denies tingling Neuro Denies Abnormal speech present, Denies behavioral changes, Denies vertigo, Denies dizziness, Denies headache(s), Denies loss of vision, Denies memory loss, Denies numbness and Denies tingling Psych Denies anxiety, Denies behavioral changes, Denies depression, Denies memory loss and Denies panic attacks Anil/Lymph Denies easy bleeding and Denies easy bruising Aller/Immun Denies wheezing Physical exam (Primary Care) Vital Signs: Last Vital Signs Pulse 86 11/29/23 13:02 BP 106/50 L 11/29/23 13:02 Pulse Ox 100 11/29/23 13:02 Oxygen Delivery Method Room Air 11/29/23 13:02 BMI result Body Mass Index 20.4 Tobacco/Smoking Status: Tobacco use Status Tobacco use date assessed 06/26/23 11/29/23 12:58 Patient Tobacco Use Status Never used Tobacco 11/29/23 12:58 Tobacco use type Cigarette 11/29/23 12:58 e-Cigarette/Vaping Use Never Used 11/29/23 12:58 Thrive Assessment: Date of Thrive Assessment Date Thrive assessed 11/21/23 11/29/23 12:58 Const General: healthy appearing, no acute distress, alert and awake Nutritional Appearance: well nourished Orientation/consciousness: oriented to person, oriented to place and oriented to time HENMT Ears: TM's normal bilaterally General nose exam: Normal nasal mucous membranes and turbinates present Eyes Conjunctivae: conjunctivae normal Sclerae: sclerae normal Pupils: Equal, round and reactive pupils present Neck Neck: Yes no lymphadenopathy and Yes no JVD Thyroid: Thyroid normal Carotids: no bruits Resp Effort & Inspection: normal respiratory effort and not tachypneic Auscultation: no crackles, no rales, no rhonchi and no wheezes Cardio Rate: regular rate Rhythm: regular rhythm Heart sounds: no murmurs and normal S1 and S2 GI Palpation (GI): Soft to palpation, nontender, no hepatomegaly and no splenomegaly Auscultation: normal bowel sounds Skin General skin exam: no rashes or lesions noted and dry skin Neuro General: oriented to person, oriented to place and oriented to time Cranial nerves: Yes Equal, round and reactive pupils present Speech: No Abnormal speech present Gait exam (Neuro): Normal gait present Motor exam (neuro): no tremor noted Extrem Right upper extremity: full ROM Left upper extremity: full ROM Right lower extremity: full ROM; no edema Left lower extremity: full ROM; no edema Psych Mental Status: mental status grossly normal Speech and movement: Normal speech and movement present Affect: normal affect Attitude: cooperative Thought process: Normal thought process present Assessment and Plan Assessment & Plan (1) Hospital discharge follow-up: Code(s): Z09 - Encounter for follow-up examination after completed treatment for conditions other than malignant neoplasm Plan: As per HPI (2) COPD exacerbation: Code(s): J44.1 - Chronic obstructive pulmonary disease with (acute) exacerbation Plan: As per HPI (3) COPD (chronic obstructive pulmonary disease): Code(s): J44.9 - Chronic obstructive pulmonary disease, unspecified Qualifiers: COPD type: chronic bronchitis Chronic bronchitis type: simple Qualified Code(s): J41.0 - Simple chronic bronchitis Plan: Has pretty severe COPD. Was referred for a fighter and previously had a lobectomy Now O2 dependent via nasal cannula at 2 liters/minute. Does have analysis or research safety inspector at [place] though would like a more local analysis or research safety inspector. Will refer to [place] pulmonology. Will supply patient with prednisone for emergency use only. Orders: Referrals Pulmonology Referral J41.0 - Simple chronic bronchitis, Z99.81 - Dependence on supplemental oxygen Medications: New prednisone take 3 tabs x 3 days , take 2 tabs x 3 days , take 1 tabs x 3 days 10 mg PO DIRECTED 9 days 18 tabs 0RF J44.1 - Chronic obstructive pulmonary disease w ith (acute) exacerbation Coding Level of Care Code Est Pt Level 3 (23335) Diagnoses Hospital discharge follow-up Z09 COPD exacerbation J44.1 Simple chronic bronchitis J41.0 COPD type: chronic bronchitis Chronic bronchitis type: simple
[2023-11-29 13:02] VITALS: BP 106/50; PULSE 86; O2SAT 100; BMI 20.4
== END 2023-11-29 13:27 | disposition home or self-care (01) ==
PROVIDERS: PCP Physician Assistant; Visit Provider Physician Assistant
DX: Z09 Encounter for follow-up examination after completed treatment for conditions other than malignant neoplasm (principal); J44.1 Chronic obstructive pulmonary disease with (acute) exacerbation; J41.0 Simple chronic bronchitis
CPT/HCPCS: 99213

== ENCOUNTER 2023-12-05 02:32 | Emergency (ER) | payer MEDICARE, SELFPAY ==
--- NOTE | ~2023-12-05 | XR_ITS ---
EXAMINATION: XR CHEST CLINICAL INFORMATION: Shortness of breath COMPARISON: 11/20/2023 TECHNIQUE: Frontal view of the chest was obtained. FINDINGS: Lungs are mildly hypoinflated. Extensive bilateral calcified pleural plaques are redemonstrated. No definite acute consolidation is seen. No evidence of pneumothorax. Chronic blunting of the costophrenic angles is suspected to reflect pleural thickening. No overt pulmonary edema. Cardiac size is within normal limits. Calcification is present at the aortic arch. Sternal wires, left atrial appendage clip, and mediastinal clips are noted. No acute osseous findings are seen. XR/XR chest 1V IMPRESSION: No definite acute findings. 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
[2023-12-05 02:34] VITALS: BP 115/61; PULSE 84; RESP 22; TEMP 36.4; O2SAT 95; BMI 20.1
--- NOTE | 2023-12-05 02:42 | ECG_ITS ---
Test Reason : DYSPNEA Blood Pressure : / mmHG Vent. Rate : 081 BPM Atrial Rate : 081 BPM P-R Int : 292 ms QRS Dur : 108 ms QT Int : 426 ms P-R-T Axes : 101 -01 119 degrees QTc Int : 494 ms Sinus rhythm with 1st degree A-V block Minimal voltage criteria for LVH, may be normal variant ( [place] product ) T wave abnormality, consider lateral ischemia Inferior infarct Prolonged QT Abnormal ECG When compared with ECG of 20-NOV-2023 17:55, Non-specific change in ST segment in Lateral leads Referred By: Generic ED Physician Electronically Signed By:Indio Ann
[2023-12-05 03:06] VITALS: BP 118/60; PULSE 75; RESP 15; O2SAT 99
[2023-12-05 04:01] LABS: Influenza A PCR NEGATIVE (Negative); Influenza B PCR NEGATIVE (Negative); Resp Syncy Virus RNA Qual PCR NEGATIVE (Negative); SARS COV2 PCR INHOUSE NEGATIVE (Negative)
--- NOTE | 2023-12-05 05:10 | ED.SOB ---
HPI - SOB/Dyspnea General Chief Complaint: Dyspnea Stated Complaint: SOB Time Seen by Provider: 12/05/23 04:17 History of Present Illness HPI Narrative: Patient is an 83-year-old male presents today with having shortness of breath coughing. Patient baseline is on 1.5 L of oxygen. Has a history of COPD. Has a history of congestive heart failure. Status post CABG. Has same symptoms 2 weeks ago. Patient claims that he is coughing feels generally weak. Unable to cough up sputum. Patient is from home. Had a previous history of exposure to asbestos. Denies any chest pain denies any leg swelling. There is no new medication. Patient lives with an elderly and also his son. Related Data Home Medications ?Medication ?Instructions ?Recorded ?Confirmed atorvastatin 80 mg tablet 80 mg PO DAILY 04/21/20 11/29/23 albuterol sulfate 2.5 mg/3 mL 2.5 mg inhalation Q6H PRN Wheezing 04/01/22 11/29/23 (0.083 %) solution for nebulization vitamins A,C,F-wrlp-zzxlvu 4,296 1 cap PO BID 04/01/22 11/29/23 mcg-226 mg-90 mg capsule (PreserVision AREDS) amlodipine 5 mg tablet 5 mg PO DAILY 12/11/22 11/29/23 Previous Rx's ?Medication ?Instructions ?Recorded blood pressure test kit-large #1 ea 03/14/21 blood sugar diagnostic (FreeStyle #100 ea 08/29/21 Lite Strips) lancets 28 gauge (FreeStyle #100 ea 08/29/21 Lancets) pen needle, diabetic 29 gauge x #100 ea 06/22/22 1/2 (1st Tier Unifine Pentips Plus) amiodarone 200 mg tablet 200 mg PO DAILY 90 days #90 tabs 07/04/23 apixaban 5 mg tablet (Eliquis) 5 mg PO BID 90 days #180 tabs 07/04/23 furosemide 40 mg tablet 40 mg PO DAILY 90 days #90 tabs 07/04/23 glipizide 5 mg tablet, extended 5 mg PO DAILY 90 days #90 tabs 09/17/23 release 24 hr metformin 1,000 mg tablet 1,000 mg PO BID 90 days #180 tabs 10/08/23 prednisone 20 mg tablet 40 mg (2 x 20 mg) PO DAILY #10 tabs 11/22/23 prednisone 10 mg tablet 10 mg PO DIRECTED 9 days #18 11/29/23 tabs Allergies Allergy/AdvReac Type Severity Reaction Status Date / Time No Known Allergies Allergy Verified 12/05/23 02:38 [No Known Allergies*] Review of Systems Review of Systems: Positive shortness of breath Yes all other systems are reviewed and are negative PMFSH Past Medical History Attestation statement: The following information was validated with the patient. Source: unable to obtain Medical History CHF (congestive heart failure) Atrial flutter Pulmonary emphysema Acute respiratory failure with hypercapnia Chronic lung disease COPD (chronic obstructive pulmonary disease) Coronary artery disease CAD (coronary artery disease) DMII (diabetes mellitus, type 2) HTN (hypertension) Surgical History History of colonoscopy History of lung surgery History of cholecystectomy Family History Family History Father No problems noted. Mother No problems noted. Social History Social History Household Members: Family Housing: House Do you presently have visiting nurse or other home services: No Alcohol intake: current Alcohol intake frequency: holidays/special occasions only Comment: OOB/ amb independently Patient Tobacco Use Status: Never used Tobacco Tobacco use type: Cigarette Smoked in Last 30 Days: No e-Cigarette/Vaping Use: Never Used Second Hand Smoke Exposure: No Use of substances other than those prescribed or required for medical reasons: No Advance Directives: No Advance Directives Information Provided: Yes service: No Current occupational status: retired Cognitive needs: No Hearing needs: No Vision needs: Yes (glasses) Physical Exam Vital Signs: Vital Signs: Last Vital Signs Temp 97.5 F 12/05/23 06:08 Pulse 66 12/05/23 06:27 Resp 18 12/05/23 06:27 BP 129/57 L 12/05/23 06:08 Pulse Ox 100 12/05/23 06:35 O2 Del Method Nasal Cannula 12/05/23 06:35 O2 Flow Rate 2 12/05/23 06:35 Oxygen Flow Rate 1.5 12/05/23 02:34 BMI result Body Mass Index 20.1 Appearance: Alert. Oriented X3. No acute distress. Eyes: Pupils equal, round and reactive to light. ENT: Pharynx normal. Neck: Normal inspection. Neck supple. No lymph nodes noted. No crepitus CVS: Normal heart rate and rhythm. Pulses normal. Normal S1 and S2 Respiratory: No respiratory distress. Diminished breath sounds bilaterally Abdomen: Soft and nontender. No rigidity. No distention. good BS x4 Skin: Skin warm and dry. Normal skin color. Normal skin turgor. Extremities: No lower extremity edema. Neurovascular intact to all extremities. No Lacerations. No Rash Neuro: Oriented X 3. No motor deficit. No sensory deficit. Moving all extermities. No slurred speech Medications Administered Discontinued Medications Generic Name Dose Route Start Last Admin Trade Name Freq PRN Reason Stop Dose Admin Albuterol/Ipratropium 3 ml 12/05/23 05:17 12/05/23 06:26 Albuterol/Iprat 2.5/0.5mg 3 Ml Ampul.Neb INHALE 12/05/23 05:18 3 ml ONCE ONE Administration Medical Decision Making Medical Decision Making [facility] Narrative: My interpretation patient's venous blood gas showed no CO2 retention. Patient's O2 sat is 99% on 2 L. white count is 12. Patient is on steroids. Patient's electrolytes showed an elevated BUN and creatinine but this is chronic. Sugar is 140. BNP is 181 no evidence of bad CHF. Patient is COVID flu RSV were all negative. I reviewed radiology's reading of the chest x-ray which showed no acute disease. Patient ambulated in the ED after neb treatment. Sat maintained at 99%. He was able to ambulate briskly with a walker which is baseline. Joint decision was made with patient and discharge him home. Continue current steroid continue current treatment close follow-up on an outpatient basis Differential Diagnosis Differential Diagnoses: The differential diagnosis associated with the presentation includes Pneumonia, COPD, CHF Admission/Observation Consideration of admission/observation: Escalation of care including admission/observation considered Lab Data [facility] Lab Attestation statement: I reviewed the patient's lab results. 12/05/23 05:30 12/05/23 05:29 Labs: Lab Results 12/05/23 12/05/23 12/05/23 Range/Units 03:19 05:29 05:30 WBC 12.1 H (4.8-10.8) X10*3/uL RBC 3.96 L (4.60-5.80) X10*6/uL Hgb 12.1 L (14.0-18.0) g/dl Hct 36.5 L (42.0-52.0) % MCV 92.2 (80.0-98.0) fL MCH 30.6 (27.0-33.0) pg MCHC 33.2 (31.0-36.0) g/dl RDW 13.0 (11.0-16.0) % Plt Count 228 (160-400) X10*3/uL MPV 9.1 L (9.4-12.4) fL Immature Gran % (Auto) 0.4 (0.0-0.4) % Neut % (Auto) 80.7 H (45-73) % Lymph % (Auto) 13.8 L (20-40) % [place] % (Auto) 5.0 (2-11) % Eos % (Auto) 0.0 (0-4) % Baso % (Auto) 0.1 (0-2) % Lymph # (Auto) 1.7 (1.2-4.9) X10*3/uL [place] # (Auto) 0.6 (0.1-1.2) X10*3/uL Eos # (Auto) 0.0 (0.0-0.4) X10*3/uL Baso # (Auto) 0.0 (0.0-0.2) X10*3/uL Abs Immat Gran (auto) 0.05 H (0.00-0.03) X10*3/uL Absolute Neuts (auto) 9.8 H (2.0-8.3) x10*3/uL Absolute Nucleated RBC 0.000 (0.0-0.012) X10*3/uL Nucleated RBC % (auto) 0.0 (0.0-0.2) /100WBC VBG pH (7.32-7.43) VBG pCO2 mmHg VBG pO2 mmHg VBG HCO3 (22-26) mmol/L VBG O2 Saturation % VBG Base Excess mmol/L Sodium 142 (135-145) mmol/L Potassium 4.9 (3.3-5.1) mmol/L Chloride 96 (96-108) mmol/L Carbon Dioxide 37 H (22-29) mmol/L Anion Gap 14 (12-20) BUN 36 H (9-16) mg/dL Creatinine 0.91 (0.5-1.4) mg/dL Estim Creat Clear Calc 57.3 Estimated GFR > 60 Random Glucose 142 H (60-115) mg/dL Calcium 10.0 (8.4-10.2) mg/dL Troponin I High Sens 18.0 D (<3.5-35.0) ng/L B-Natriuretic Peptide 181 H (<100) pg/mL Influenza Type A (PCR) NEGATIVE (Negative) Influenza Type B (PCR) NEGATIVE (Negative) RSV RNA Qual (PCR) NEGATIVE (Negative) SARS-CoV-2 RNA (RT-PCR) NEGATIVE (Negative) 12/05/23 Range/Units 05:32 WBC (4.8-10.8) X10*3/uL RBC (4.60-5.80) X10*6/uL Hgb (14.0-18.0) g/dl Hct (42.0-52.0) % MCV (80.0-98.0) fL MCH (27.0-33.0) pg MCHC (31.0-36.0) g/dl RDW (11.0-16.0) % Plt Count (160-400) X10*3/uL MPV (9.4-12.4) fL Immature Gran % (Auto) (0.0-0.4) % Neut % (Auto) (45-73) % Lymph % (Auto) (20-40) % [place] % (Auto) (2-11) % Eos % (Auto) (0-4) % Baso % (Auto) (0-2) % Lymph # (Auto) (1.2-4.9) X10*3/uL [place] # (Auto) (0.1-1.2) X10*3/uL Eos # (Auto) (0.0-0.4) X10*3/uL Baso # (Auto) (0.0-0.2) X10*3/uL Abs Immat Gran (auto) (0.00-0.03) X10*3/uL Absolute Neuts (auto) (2.0-8.3) x10*3/uL Absolute Nucleated RBC (0.0-0.012) X10*3/uL Nucleated RBC % (auto) (0.0-0.2) /100WBC VBG pH 7.39 (7.32-7.43) VBG pCO2 66 mmHg VBG pO2 32 mmHg VBG HCO3 41 H (22-26) mmol/L VBG O2 Saturation 49.0 % VBG Base Excess 13.4 mmol/L Sodium (135-145) mmol/L Potassium (3.3-5.1) mmol/L Chloride (96-108) mmol/L Carbon Dioxide (22-29) mmol/L Anion Gap (12-20) BUN (9-16) mg/dL Creatinine (0.5-1.4) mg/dL Estim Creat Clear Calc Estimated GFR Random Glucose (60-115) mg/dL Calcium (8.4-10.2) mg/dL Troponin I High Sens (<3.5-35.0) ng/L B-Natriuretic Peptide (<100) pg/mL Influenza Type A (PCR) (Negative) Influenza Type B (PCR) (Negative) RSV RNA Qual (PCR) (Negative) SARS-CoV-2 RNA (RT-PCR) (Negative) Independent Interpretation I performed an independent interpretation of an: EKG (Sinus sinus heart rate is 80 FL QRS QTC normal EKG not significantly changed from prior.) Radiology Impression Discussion of test interpretation with radiology: I have reviewed the radiologist's reading. External Record Review External record reviewed: Inpatient record Chronic Conditions COPD Social Determinants Patient?s care significantly limited by Social Determinants of Health including: Problems related to primary support group Discharge Plan Discharge Clinical Impression: COPD (chronic obstructive pulmonary disease) Qualifiers: COPD type: chronic bronchitis Chronic bronchitis type: simple Qualified Code(s): J41.0 - Simple chronic bronchitis Patient Disposition: Home, Self-Care Instructions: COPD (Chronic Obstructive Pulmonary Disease) (ED) Prescriptions: No Action (DME) FreeStyle Lite Strips Strip See Rx Instructions .ROUTE .MEDSUPPLY Qty: 100 3RF Rx Instructions: As directed (DME) lancets [FreeStyle Lancets] 28 gauge misc See Rx Instructions .ROUTE .MEDSUPPLY Qty: 100 3RF Rx Instructions: As directed (DME) pen needle, diabetic [1st Tier Unifine Pentips Plus] 29 gauge x 1/2 needle See Rx Instructions .Route Qty: 100 3RF Rx Instructions: Use 1 pen needle once a day glipizide 5 mg tablet extended release 24hr 5 mg PO DAILY 90 Days Qty: 90 2RF metformin 1,000 mg tablet 1,000 mg PO BID 90 Days Qty: 180 2RF PreserVision AREDS 14320-226-200 [id number] Capsule 1 cap PO BID albuterol sulfate 2.5 mg /3 mL (0.083 %) Solution For Nebulization 2.5 mg INHALATION Q6H PRN (Reason: Wheezing) prednisone 20 mg tablet 40 mg PO DAILY Qty: 10 0RF atorvastatin 80 mg tablet 80 mg PO DAILY (DME) blood pressure test kit-large Kit See Rx Instructions .Route Qty: 1 0RF Rx Instructions: As directed amlodipine 5 mg tablet 5 mg PO DAILY prednisone 10 mg tablet 10 mg PO DIRECTED 9 Days Qty: 18 0RF Rx Instructions: take 3 tabs x 3 days , take 2 tabs x 3 days , take 1 tabs x 3 days furosemide 40 mg tablet 40 mg PO DAILY 90 Days Qty: 90 3RF Eliquis 5 mg tablet 5 mg PO BID 90 Days Qty: 180 3RF amiodarone 200 mg tablet 200 mg PO DAILY 90 Days Qty: 90 3RF Referrals: Karri Mcnally PA-C [Primary Care Provider] - 12/07/23 Print Language: Lebanese
[2023-12-05 05:34] LABS: Venous Blood Gas Refer to POC result
[2023-12-05 05:35] LABS: Basophils Percent Auto 0.1 % (0-2); Hematocrit 36.5 % (42.0-52.0); Hemoglobin 12.1 g/dl (14.0-18.0); Imm Gran Abs Auto 0.05 X10*3/uL (0.00-0.03); Imm Gran Pct Auto 0.4 % (0.0-0.4); Lymphocytes Absolute Auto 1.7 X10*3/uL (1.2-4.9); Lymphocytes Percent Auto 13.8 % (20-40); MANUAL DIFF FLAG NO; Mean Corpuscular HGB Conc 33.2 g/dl (31.0-36.0); Mean Corpuscular Hemoglobin 30.6 pg (27.0-33.0); Mean Corpuscular Volume 92.2 fL (80.0-98.0); Mean Platelet Volume 9.1 fL (9.4-12.4); Monocytes Absolute Auto 0.6 X10*3/uL (0.1-1.2); Neutrophils Absolute Auto 9.8 x10*3/uL (2.0-8.3); Neutrophils Percent Auto 80.7 % (45-73); Platelet Count 228 X10*3/uL (160-400); Red Blood Count 3.96 X10*6/uL (4.60-5.80); White Blood Count 12.1 X10*3/uL (4.8-10.8)
[2023-12-05 05:40] LABS: VBG Base Excess 13.4 mmol/L; VBG HCO3 41 mmol/L (22-26); VBG pCO2 66 mmHg; VBG pH 7.39 (7.32-7.43); VBG pO2 32 mmHg
[2023-12-05 05:47] LABS: Anion Gap 14 (12-20); Blood Urea Nitrogen 36 mg/dL (9-16); Carbon Dioxide 37 mmol/L (22-29); Chloride 96 mmol/L (96-108); Creatinine Clr Calc Pharmacy 57.3; Estimated Glomerular Filt Rate > 60; Glucose Random 142 mg/dL (60-115); Potassium 4.9 mmol/L (3.3-5.1); Sodium 142 mmol/L (135-145)
[2023-12-05 05:54] LABS: B Type Natriuretic Peptide 181 pg/mL (<100)
[2023-12-05 06:08] VITALS: BP 129/57; PULSE 66; RESP 26; TEMP 36.4; O2SAT 99
[2023-12-05] MEDS: Albuterol/Iprat 2.5/0.5MG 3 ML AMPUL.NEB INHALE (06:26)
[2023-12-05 06:27] VITALS: PULSE 66; RESP 18; O2SAT 98
[2023-12-05 06:35] VITALS: O2SAT 100
[2023-12-05 06:52] VITALS: BP 122/62; PULSE 75; RESP 22; TEMP 36.8; O2SAT 100
== END 2023-12-05 06:54 | disposition home or self-care (01) ==
PROVIDERS: Emergency Provider Emergency Medicine Emergency Medical Services; PCP Physician Assistant
DX: J41.0 Simple chronic bronchitis (principal); I44.0 Atrioventricular block, first degree; R94.31 Abnormal electrocardiogram [ECG] [EKG]; R06.02 Shortness of breath; Z79.899 Other long term (current) drug therapy; Z03.818 Encounter for observation for suspected exposure to other biological agents ruled out
CPT/HCPCS: 0241U; 36415; 71045; 80048; 82803; 83880; 84484; 85025; 93005; 94640; 99284; 99285

== ENCOUNTER → 2023-12-05 02:42 | Outpatient (BNV) | payer MEDICARE, SELFPAY | PROVIDERS: Emergency Provider Emergency Medicine Emergency Medical Services; PCP Physician Assistant; Visit Provider Internal Medicine Cardiovascular Disease | DX: R94.31 Abnormal electrocardiogram [ECG] [EKG] (principal) | CPT/HCPCS: 93010 ==

== ENCOUNTER 2023-12-20 04:30 | Inpatient (IN) | payer MEDICARE, SELFPAY ==
[2023-12-20] VITALS (12 sets, daily range): BP systolic 121–155; BP diastolic 41–94; PULSE 56–79; RESP 15–36; TEMP 36.6–37.2; O2SAT 93–100; BMI 22.7
--- NOTE | ~2023-12-20 | XR_ITS ---
EXAMINATION: XR CHEST CLINICAL INFORMATION: Shortness of breath. COMPARISON: 12/05/2023 TECHNIQUE: Frontal view of the chest was obtained. FINDINGS: The cardiomediastinal silhouette is stable. Extensive pleural calcifications are again seen. There appears to be patchy basilar consolidation which appears new/progressed compared to prior study particularly on the right. There is chronic blunting of the costophrenic angles. The bony structures and soft tissues are unremarkable. XR/XR chest 1V IMPRESSION: Extensive pleural calcifications. There appears to be patchy basilar consolidation which appears to be new/progressed from the prior study particularly on the right. Consider edema versus pneumonia.
--- NOTE | ~2023-12-20 | CT_ITS ---
EXAMINATION: CT CHEST WITHOUT CONTRAST CLINICAL INFORMATION: Worsening infiltrate without for pneumonia versus CHF COMPARISON: CT chest from 06/15/2023, chest radiograph from 12/20/2023 TECHNIQUE: Multidetector volumetric CT imaging of the chest was done. Axial MIP volume rendering provided. Sagittal and coronal reformatted images were obtained. This CT examination was performed using dose optimization techniques as appropriate, variously including the following: *Automated exposure control *Adjustment of mA and/or kV according to patient size (this includes techniques or standardized protocols for targeted exams where dose is matched to indication/reason for exam; i.e. extremities or head) *Use of iterative reconstruction technique DLP: 211 mGy-cm FINDINGS: LUNGS/PLEURA: Emphysematous changes. Biapical pleural parenchymal scarring, right greater than left. Peripheral reticular nodular opacity. Interval development of multiple bilateral pulmonary nodules the largest in the right lung apex (series 4, image 78) measuring 9 mm. Stable peripheral reticular nodular opacities. Bronchiectasis bilateral lower lobes. Pleural plaques. No overt honeycombing bibasilar atelectasis, right greater than left. No pneumothorax. Small bilateral pleural effusions. MEDIASTINUM: Heart is enlarged. No pericardial effusion. Coronary artery and valvular calcifications are noted. Aorta is nonaneurysmal. Pulmonary arteries enlarged suggesting elements of pulmonary arterial hypertension. No enlarged lymph nodes per size criteria. Visualized portions of the thyroid are unremarkable. Sternotomy wires. AXILLA: No lymphadenopathy. UPPER ABDOMEN: Status post cholecystectomy. OSSEOUS STRUCTURES: Osteopenia with multilevel degenerative changes of the thoracolumbar spine. CT/CT chest wo IV con IMPRESSION: 1. Interval development of multiple bilateral pulmonary nodules the largest in the right lung apex measuring 9 mm. Follow-up as per Fleischner criteria. 2. Emphysematous changes. Biapical pleural parenchymal scarring, right greater than left. Peripheral reticular nodular opacity. Bronchiectasis bilateral lower lobes. Pleural plaques. No overt honeycombing. Bibasilar atelectasis, right greater than left. 3. Heart is enlarged. Pulmonary arteries enlarged suggesting elements of pulmonary arterial hypertension. 4. Status post cholecystectomy. 5. Osteopenia with multilevel degenerative changes of the thoracolumbar spine. According to the UPDATED 2017 Fleischner Society recommendations, the advised follow-up imaging for multiple solid nodules, the largest measuring 6 mm or greater, is: HIGH RISK PATIENT: CT at 3-6 months, then at 18-24 months.
--- NOTE | 2023-12-20 04:40 | ECG_ITS ---
Test Reason : SOB Blood Pressure : / mmHG Vent. Rate : 078 BPM Atrial Rate : 078 BPM P-R Int : 232 ms QRS Dur : 102 ms QT Int : 388 ms P-R-T Axes : 000 038 153 degrees QTc Int : 442 ms Sinus rhythm with 1st degree A-V block ST & T wave abnormality, consider lateral ischemia Abnormal ECG When compared with ECG of 05-DEC-2023 02:52, Nonspecific T wave abnormality now evident in Inferior leads Referred By: Nafisa Rosales Electronically Signed By:LORENZO GUILLEN
--- NOTE | 2023-12-20 05:03 | ED_ITS ---
HPI - SOB/Dyspnea General Chief Complaint: Dyspnea Stated Complaint: ams Time Seen by Provider: 12/20/23 04:40 Source: patient and EMS Mode of arrival: EMS Limitations: no limitations History of Present Illness ED Provider: Dr. Nafisa Rosales HPI Narrative: Patient comes to the emergency room complaining of shortness of breath. According to the patient, he has been having progressively difficulty breathing. Patient states that he has history of CHF and COPD, uses 3 L of oxygen at home. Patient states that this morning his checked his heart rate and it was ?very fast?, states that his panicked and called 911. When EMS arrived, patient's oxygen saturation was in the 80s on his 3 L of oxygen. Heart rate between 60 and 70. Patient denies any chest pain, complaining of shortness of breath. No palpitations. Patient states that about a month ago he was admitted to the hospital for respiratory failure secondary to COPD. Related Data Home Medications ?Medication ?Instructions ?Recorded ?Confirmed atorvastatin 80 mg tablet 80 mg PO DAILY 04/21/20 11/29/23 albuterol sulfate 2.5 mg/3 mL 2.5 mg inhalation Q6H PRN Wheezing 04/01/22 11/29/23 (0.083 %) solution for nebulization vitamins A,C,G-gvqq-cpapxt 4,296 1 cap PO BID 04/01/22 11/29/23 mcg-226 mg-90 mg capsule (PreserVision AREDS) amlodipine 5 mg tablet 5 mg PO DAILY 12/11/22 11/29/23 Previous Rx's ?Medication ?Instructions ?Recorded blood pressure test kit-large #1 ea 03/14/21 blood sugar diagnostic (FreeStyle #100 ea 08/29/21 Lite Strips) lancets 28 gauge (FreeStyle #100 ea 08/29/21 Lancets) pen needle, diabetic 29 gauge x #100 ea 06/22/2205/08 (1st Tier Unifine Pentips Plus) amiodarone 200 mg tablet 200 mg PO DAILY 90 days #90 tabs 07/04/23 apixaban 5 mg tablet (Eliquis) 5 mg PO BID 90 days #180 tabs 07/04/23 furosemide 40 mg tablet 40 mg PO DAILY 90 days #90 tabs 07/04/23 glipizide 5 mg tablet, extended 5 mg PO DAILY 90 days #90 tabs 09/17/23 release 24 hr metformin 1,000 mg tablet 1,000 mg PO BID 90 days #180 tabs 10/08/23 prednisone 20 mg tablet 40 mg (2 x 20 mg) PO DAILY #10 tabs 11/22/23 prednisone 10 mg tablet 10 mg PO DIRECTED 9 days #18 11/29/23 tabs Allergies Allergy/AdvReac Type Severity Reaction Status Date / Time No Known Allergies Allergy Verified 12/20/23 04:55 [No Known Allergies*] Review of Systems 2 Review of Systems: Constitutional : No Weight loss, No Fever, No Chills, No Night Sweats, No Fatigue, No Malaise ENT/Mouth : No Hearing loss, No Ear Pain, No Nasal Congestion, No Sinus Pain, No Hoarseness, No sore throat, No Rhinorrhea, No Swallowing Difficulty Eyes: No Eye Pain, No Swelling, No Redness, No Foreign Body, No Discharge, No Vision Changes Cardiovascular : No Chest Pain, complaining of dyspnea on exertion, complaining of orthopnea and worsening lower extremity edema and palpitations intermittently Respiratory : Complaining of coughing, shortness of breath Gastrointestinal : No Nausea, No Vomiting, No Diarrhea, No Constipation, No abdominal Pain, No Hematochezia, No Melena Genitourinary : no irregular bleeding, No Dysuria, No Urinary Frequency, No Hematuria, No Urinary Incontinence, No Urgency, No Flank Pain, No Urinary Flow Changes, No Hesitancy Musculoskeletal : No joint pain, No Myalgias, No Joint Swelling Skin : No Skin Lesions, No rash Neuro : No Weakness, No Numbness, No Paresthesias, No Loss of Consciousness, No Dizziness, No Headache Psych : No Anxiety/Panic, No Depression, No SI/HI/AH/VH, No Social Issues, Heme/Lymph: No Bruising, No Bleeding,No Lymphadenopathy Endocrine : No Polyuria, No Polydipsia, No Temperature Intolerance [facility] Past Medical History Medical History CHF (congestive heart failure) Atrial flutter Pulmonary emphysema Acute respiratory failure with hypercapnia Chronic lung disease COPD (chronic obstructive pulmonary disease) Coronary artery disease CAD (coronary artery disease) DMII (diabetes mellitus, type 2) HTN (hypertension) Surgical History History of colonoscopy History of lung surgery History of cholecystectomy Family History Family History Father No problems noted. Mother No problems noted. Social History Social History Household Members: Family Housing: House Do you presently have visiting nurse or other home services: No Alcohol intake: current Alcohol intake frequency: holidays/special occasions only Comment: OOB/ amb independently Patient Tobacco Use Status: Never used Tobacco Tobacco use type: Cigarette Smoked in Last 30 Days: No e-Cigarette/Vaping Use: Never Used Second Hand Smoke Exposure: No Use of substances other than those prescribed or required for medical reasons: No Advance Directives: No Advance Directives Information Provided: Yes Do you have a plan to hurt others: No Plan service: No Current occupational status: retired Cognitive needs: No Hearing needs: No Vision needs: Yes (glasses) Physical Exam 2 Vital Signs: Vital Signs: Last Vital Signs Temp 98.7 F 12/20/23 04:56 Pulse 66 12/20/23 04:56 Resp 30 H 12/20/23 04:56 BP 126/45 L 12/20/23 05:10 Pulse Ox 93 12/20/23 04:56 O2 Del Method Nasal Cannula 12/20/23 04:56 O2 Flow Rate 3 12/20/23 04:56 Oxygen Flow Rate 3 12/20/23 04:52 BMI result Body Mass Index 22.7 Const: Other: Appearance: Alert. Oriented X3. No acute distress. Eyes: Pupils equal, round and reactive to light. ENT: Pharynx normal. Neck: Normal inspection. Neck supple. No lymph nodes noted. No crepitus CVS: Normal heart rate and rhythm. Pulses normal. Normal S1 and S2 Respiratory: Patient is speaking full sentences, tachypneic respiratory rate in the 30s on 3 L nasal cannula, oxygen saturation 93-94%. Bilateral crackles, no rales Abdomen: Soft and nontender. No rigidity. No distention. Skin: Skin warm and dry. Normal skin color. Normal skin turgor. Multiple ecchymosis in various stages of healing Extremities: +2 pitting edema bilaterally No Lacerations. No Rash Neuro: Oriented X 3. No motor deficit. No sensory deficit. Moving all extremities. No slurred speech. CN 2 through 12 grossly intact Psych: calm, cooperative, normal affect Course Course Course Narrative: -all of patient's labs and imaging pending -patient is finishing up his nebulization treatment that was started by EMS Medications Administered Discontinued Medications Generic Name Dose Route Start Last Admin Trade Name Sabino PRN Reason Stop Dose Admin Dexamethasone Sodium Phosphate 6 mg 12/20/23 06:20 12/20/23 06:45 Dexamethasone Sod Phosphate 4 Mg/Ml Vial IVPUSH 12/20/23 06:21 6 mg ONCE ONE Administration Furosemide 60 mg 12/20/23 04:55 12/20/23 05:10 Furosemide 100 Mg/10 Ml Vial IVPUSH 12/20/23 04:56 60 mg ONCE ONE Administration Protocol Medical Decision Making Medical Decision Making [facility] Narrative: -bedside chest x-ray my interpretation: Possible pulmonary edema, chronic starting of the long -all of patient's labs pending -patient will be given 60 mg of IV Lasix. My interpretation of labs: Normal white blood cell count, normal coagulation time, no new abnormalities in blood gases, chemistry within normal limits, troponin negative, BNP 185 which is chronic for the patient. Serology positive for COVID -patient already received Lasix. Patient did have lower extremity edema, chest x-ray did resemble CHF. -also patient received a dose of Decadron. -patient has a significant past medical history. Patient's oxygen saturation was in the mid 80s on his usual 3 L, intermittently requiring more oxygen than his baseline. -radiology report of chest x-ray: Edema versus pneumonia. More likely that this is edema. However, given patient's past medical history, we will empirically treat with antibiotics, IV ceftriaxone and azithromycin. At this time, patient's blood pressure is fairly stable, no fever, normal white blood cell count and normal lactic acid, sepsis is not suspected. We will not be covering with IV fluids since patient likely has edema and patient may decompensate -I discussed the patient with Dr. Diamond from the hospitalist team, patient being admitted Differential Diagnosis Differential Diagnoses: The differential diagnosis associated with the presentation includes (CHF, chronic lung disease, hypoxic respiratory failure) Admission/Observation Consideration of admission/observation: Escalation of care including admission/observation considered Consult Healthcare Provider Management of the patient was discussed with: Hospitalist Lab Data [facility] Lab Attestation statement: I reviewed the patient's lab results. 12/20/23 05:01 12/20/23 05:01 Labs: Lab Results 12/20/23 12/20/23 Range/Units 05:01 05:03 WBC 10.0 (4.8-10.8) X10*3/uL RBC 3.80 L (4.60-5.80) X10*6/uL Hgb 11.7 L (14.0-18.0) g/dl Hct 35.6 L (42.0-52.0) % MCV 93.7 (80.0-98.0) fL MCH 30.8 (27.0-33.0) pg MCHC 32.9 (31.0-36.0) g/dl RDW 13.5 (11.0-16.0) % Plt Count 224 (160-400) X10*3/uL MPV 9.7 (9.4-12.4) fL Immature Gran % (Auto) 0.4 (0.0-0.4) % Neut % (Auto) 69.7 (45-73) % Lymph % (Auto) 17.9 L (20-40) % [place] % (Auto) 9.8 (2-11) % Eos % (Auto) 1.8 (0-4) % Baso % (Auto) 0.4 (0-2) % Lymph # (Auto) 1.8 (1.2-4.9) X10*3/uL [place] # (Auto) 1.0 (0.1-1.2) X10*3/uL Eos # (Auto) 0.2 (0.0-0.4) X10*3/uL Baso # (Auto) 0.0 (0.0-0.2) X10*3/uL Abs Immat Gran (auto) 0.04 H (0.00-0.03) X10*3/uL Absolute Neuts (auto) 7.0 (2.0-8.3) x10*3/uL Absolute Nucleated RBC 0.000 (0.0-0.012) X10*3/uL Nucleated RBC % (auto) 0.0 (0.0-0.2) /100WBC PT 12.5 (11.1-13.3) SEC INR 1.0 (0.9-1.1) VBG pH 7.40 (7.32-7.43) VBG pCO2 59 mmHg VBG pO2 37 mmHg VBG HCO3 37 H (22-26) mmol/L VBG O2 Saturation 56.0 % VBG Base Excess 10.3 mmol/L Sodium 140 (135-145) mmol/L Potassium 4.6 (3.3-5.1) mmol/L Chloride 97 (96-108) mmol/L Carbon Dioxide 32 H (22-29) mmol/L Anion Gap 16 (12-20) BUN 19 H (9-16) mg/dL Creatinine 0.98 (0.5-1.4) mg/dL Estim Creat Clear Calc 56.9 Estimated GFR > 60 Random Glucose 169 H (60-115) mg/dL Lactic Acid 2.0 (0.5-2.0) mmol/L Calcium 9.9 (8.4-10.2) mg/dL Total Bilirubin 0.6 (0.0-1.0) mg/dL Direct Bilirubin 0.3 (0.0-0.5) mg/dL AST 15 (5-37) U/L ALT 24 (0-40) U/L Alkaline Phosphatase 87 (39-117) U/L Troponin I High Sens 17.3 (<3.5-35.0) ng/L B-Natriuretic Peptide 185 H (<100) pg/mL Total Protein 7.0 (6.5-8.0) g/dL Albumin 3.8 (3.5-5.0) g/dL COVID-19 (PATRICIA) Positive A (Negative) COVID-19 Clin Com See Note Independent Interpretation I performed an independent interpretation of an: Plain X-Ray Radiology Impression Discussion of test interpretation with radiology: I have reviewed the radiologist's reading. Radiologist Impression: The cardiomediastinal silhouette is stable. Extensive pleural calcifications are again seen. There appears to be patchy basilar consolidation which appears new/progressed compared to prior study particularly on the right. There is chronic blunting of the costophrenic angles. The bony structures and soft tissues are unremarkable. XR/XR chest 1V IMPRESSION: Extensive pleural calcifications. There appears to be patchy basilar consolidation which appears to be new/progressed from the prior study particularly on the right. Consider edema versus pneumonia. Independent Historian Clinical information obtained from an independent historian. History obtained from or confirmed by: EMS Critical Care Time Critical Care Time Critical Care Time: Yes Total Critical Care Time: 75 Attestation: I have personally provided critical care time. Time includes review of lab data, radiology results, discussion with consultants, and monitoring for potential decompensation. Intervention performed as documented. Discharge Plan Discharge Clinical Impression: COVID, Pneumonia Patient Disposition: Admitted As Inpatient Prescriptions: No Action (DME) FreeStyle Lite Strips Strip See Rx Instructions .ROUTE .MEDSUPPLY Qty: 100 3RF Rx Instructions: As directed (DME) lancets [FreeStyle Lancets] 28 gauge misc See Rx Instructions .ROUTE .MEDSUPPLY Qty: 100 3RF Rx Instructions: As directed (DME) pen needle, diabetic [1st Tier Unifine Pentips Plus] 29 gauge x 1/2 needle See Rx Instructions .Route Qty: 100 3RF Rx Instructions: Use 1 pen needle once a day glipizide 5 mg tablet extended release 24hr 5 mg PO DAILY 90 Days Qty: 90 2RF metformin 1,000 mg tablet 1,000 mg PO BID 90 Days Qty: 180 2RF PreserVision AREDS [id number] Capsule 1 cap PO BID albuterol sulfate 2.5 mg /3 mL (0.083 %) Solution For Nebulization 2.5 mg INHALATION Q6H PRN (Reason: Wheezing) prednisone 20 mg tablet 40 mg PO DAILY Qty: 10 0RF atorvastatin 80 mg tablet 80 mg PO DAILY (DME) blood pressure test kit-large Kit See Rx Instructions .Route Qty: 1 0RF Rx Instructions: As directed amlodipine 5 mg tablet 5 mg PO DAILY prednisone 10 mg tablet 10 mg PO DIRECTED 9 Days Qty: 18 0RF Rx Instructions: take 3 tabs x 3 days , take 2 tabs x 3 days , take 1 tabs x 3 days furosemide 40 mg tablet 40 mg PO DAILY 90 Days Qty: 90 3RF Eliquis 5 mg tablet 5 mg PO BID 90 Days Qty: 180 3RF amiodarone 200 mg tablet 200 mg PO DAILY 90 Days Qty: 90 3RF Print Language: Indian
[2023-12-20 05:07] LABS: Venous Blood Gas Refer to POC result
--- NOTE | 2023-12-20 05:07 | MHC.EDTECH ---
Patient was BIBA,changed into hospital attire placed on the hair stylist,vitals done,EKG taken per order and signed by provider,blood cultures,labs,and covid swab obtained and sent to lab,call molina in reach
[2023-12-20 05:09] LABS: Basophils Percent Auto 0.4 % (0-2); Eosinophils Absolute Auto 0.2 X10*3/uL (0.0-0.4); Eosinophils Percent Auto 1.8 % (0-4); Hematocrit 35.6 % (42.0-52.0); Hemoglobin 11.7 g/dl (14.0-18.0); Imm Gran Abs Auto 0.04 X10*3/uL (0.00-0.03); Imm Gran Pct Auto 0.4 % (0.0-0.4); Lymphocytes Absolute Auto 1.8 X10*3/uL (1.2-4.9); Lymphocytes Percent Auto 17.9 % (20-40); MANUAL DIFF FLAG NO; Mean Corpuscular HGB Conc 32.9 g/dl (31.0-36.0); Mean Corpuscular Hemoglobin 30.8 pg (27.0-33.0); Mean Corpuscular Volume 93.7 fL (80.0-98.0); Mean Platelet Volume 9.7 fL (9.4-12.4); Monocytes Percent Auto 9.8 % (2-11); Neutrophils Percent Auto 69.7 % (45-73); Platelet Count 224 X10*3/uL (160-400); Red Cell Distribution Width 13.5 % (11.0-16.0)
[2023-12-20] MEDS: Furosemide 100 MG/10 ML VIAL 60 MG IVPUSH (05:10)
[2023-12-20 05:11] LABS: VBG Base Excess 10.3 mmol/L; VBG HCO3 37 mmol/L (22-26); VBG pCO2 59 mmHg; VBG pO2 37 mmHg
[2023-12-20 05:15] LABS: Prothrombin Time 12.5 SEC (11.1-13.3)
[2023-12-20 05:17] LABS: COVID-19 Test Positive (Negative); IDNOW Serial# 6674DD1D
--- NOTE | 2023-12-20 05:18 | MHC.EDTECH ---
Belongings list completed,copy placed in chart
[2023-12-20 05:27] LABS: Alanine Aminotransferase 24 U/L (0-40); Albumin Level 3.8 g/dL (3.5-5.0); Alkaline Phosphatase 87 U/L (39-117); Anion Gap 16 (12-20); Aspartate Amino Transferase 15 U/L (5-37); Bilirubin Direct 0.3 mg/dL (0.0-0.5); Bilirubin Total 0.6 mg/dL (0.0-1.0); Blood Urea Nitrogen 19 mg/dL (9-16); Calcium 9.9 mg/dL (8.4-10.2); Carbon Dioxide 32 mmol/L (22-29); Chloride 97 mmol/L (96-108); Creatinine Clr Calc Pharmacy 56.9; Estimated Glomerular Filt Rate > 60; Glucose Random 169 mg/dL (60-115); Potassium 4.6 mmol/L (3.3-5.1); Sodium 140 mmol/L (135-145)
[2023-12-20 05:32] LABS: Troponin-I High Sensitivity 17.3 ng/L (<3.5-35.0)
[2023-12-20 05:33] LABS: B Type Natriuretic Peptide 185 pg/mL (<100)
[2023-12-20] MEDS: dexAMETHasone sod phosphate 4 MG/ML VIAL 6 MG IVPUSH (06:45)
[2023-12-20] MEDS: cefTRIAXone sodium 1 GM in 0.9 % Sodium Chloride 50 ML IV (07:11)
[2023-12-20] MEDS: Azithromycin 500 MG in 0.9 % Sodium Chloride 250 ML 125 MG IV (08:22)
--- NOTE | 2023-12-20 08:31 | PHA.MEDREC ---
Addendum entered by Gretel Bhatt RPh 12/20/23 08:53: Reviewed by [facility]. Original Note: Pharmacy Consult ? Medication Reconciliation Pharmacy has completed the medication reconciliation. Confirmed medications with patient. Patient was able to verify his Eliquis 5mg BID tablet and he took that along with his other medications yesterday. Patient confirmed he completed his Prednisone regimens and is not taking any other steroids at the moment.
[2023-12-20 09:09] LABS: Procalcitonin 0.05 ng/mL
--- NOTE | 2023-12-20 09:27 | P.HPHOSP_ITS ---
History of Present Illness Date of Service: 12/20/23 Chief Complaint: Shortness of breaths, cough The patient is 83-year-old male with a past medical history of chronic hypoxic and hypercarbic respiratory failure on 1-3 L of supplemental oxygen at home, CAD status post CABG in 2022, gcc-ssvoepi-ilvomsqaz diabetes mellitus, hyperlipidemia, HFrEF with last EF between 50-55% who was hospitalized last month for a COPD exacerbation. He now returns with a several day history of worsening cough and shortness of breath. He reports that on the night prior to admission his pulse ox reading at home showed a heart rate over 300 and hence he presented to the emergency room. Upon further questioning, he endorses increasing cough for the last several days with associated shortness of breath. Describes the cough as thick and mucousy. He denies any fevers or chills. He denies any anginal symptoms. He does endorse some orthopnea the last several days as well. Denies any lower extremity swelling. Denies any sick contacts. In the emergency room with the patient was found to be tachypneic with saturations in the 80s on 3 L. workup in the emergency room showed a chest x-ray with worsening infiltrate representing pneumonia versus edema. He was also noted to be COVID positive. He has been given a dose of IV Decadron IV antibiotics and IV Lasix. He will now be admitted for further treatment. Review of Systems 2 Review of Systems: Negative except HPI [facility] Medical History CHF (congestive heart failure) Atrial flutter Pulmonary emphysema Acute respiratory failure with hypercapnia Chronic lung disease COPD (chronic obstructive pulmonary disease) Coronary artery disease CAD (coronary artery disease) DMII (diabetes mellitus, type 2) HTN (hypertension) Family History Father No problems noted. Mother No problems noted. Surgical History History of colonoscopy History of lung surgery History of cholecystectomy Social History Household Members: Family Housing: House Do you presently have visiting nurse or other home services: No Alcohol intake: current Alcohol intake frequency: holidays/special occasions only Comment: OOB/ amb independently Patient Tobacco Use Status: Never used Tobacco Tobacco use type: Cigarette Smoked in Last 30 Days: No e-Cigarette/Vaping Use: Never Used Second Hand Smoke Exposure: No Use of substances other than those prescribed or required for medical reasons: No Advance Directives: No Advance Directives Information Provided: Yes Do you have a plan to hurt others: No Plan service: No Current occupational status: retired Cognitive needs: No Hearing needs: No Vision needs: Yes (glasses) Meds Allergies Allergy/AdvReac Type Severity Reaction Status Date / Time No Known Allergies Allergy Verified 12/20/23 04:55 [No Known Allergies*] Active Medications: Current Medications Acetaminophen (Acetaminophen 325 Mg Tablet) 650 mg PO Q6H PRN PRN Reason: Pain, Mild (Pain Scale 1-3), fever or headache Calcium Carbonate (Calcium Carbonate 750 Mg Tab.Chew) 750 mg PO Q4H PRN PRN Reason: Heartburn Dexamethasone Sodium Phosphate (Dexamethasone Sod Phosphate 4 Mg/Ml Vial) 6 mg IVPUSH DAILY [facility] Stop: 12/30/23 09:01 Ceftriaxone Sodium 1 gm/ (Sodium Chloride) 50 mls @ 100 mls/hr IV Q24H ANGÉLICA Doxycycline Hyclate 100 mg/ (Sodium Chloride) 250 mls @ 166.67 mls/hr IV Q12H ANGÉLICA Magnesium Hydroxide (Milk Of Magnesia 30 Ml Oral.Susp) 30 ml PO DAILY PRN PRN Reason: Constipation Melatonin (Melatonin 3 Mg Tablet) 6 mg PO BEDTIME PRN PRN Reason: Insomnia Polyethylene Glycol (Polyethylene Glycol 3350 17 Gm Powd.Pack) 17 gm PO DAILY PRN PRN Reason: Constipation Sodium Chloride (0.9 % Sodium Chloride Flush 3 Ml Syringe) 3 ml IVFLUSH QSHIFT [facility] Home Medications ?Medication ?Instructions ?Recorded ?Confirmed ?Last Taken ?Type atorvastatin 80 mg tablet 80 mg PO DAILY 04/21/20 12/20/23 12/19/23 History albuterol sulfate 2.5 mg/3 mL 2.5 mg inhalation Q6H PRN Wheezing 04/01/22 12/20/23 11/20/23 History (0.083 %) solution for nebulization vitamins A,C,L-hmwr-mktebt 4,296 1 cap PO BID 04/01/22 12/20/23 12/19/23 History mcg-226 mg-90 mg capsule (PreserVision AREDS) amlodipine 5 mg tablet 5 mg PO DAILY 12/11/22 12/20/23 12/19/23 History Physical Exam 2 Vital Signs and Narrative: Vital Signs: Last Vital Signs Temp 98.3 F 12/20/23 07:11 Pulse 62 12/20/23 08:53 Resp 18 12/20/23 08:53 BP 134/63 12/20/23 08:53 Pulse Ox 100 12/20/23 08:53 O2 Del Method Nasal Cannula 12/20/23 08:53 O2 Flow Rate 2 12/20/23 08:53 Oxygen Flow Rate 3 12/20/23 04:52 BMI result Body Mass Index 22.7 Const: Other: Awake and alert, speaking in full sentences, appears comfortable S1-S2, regular rate and rhythm, no JVD appreciated Lungs with scattered rhonchi and trace rales at the bases Abdomen soft nontender with positive bowel sounds Extremities without significant edema Neuro nonfocal, alert and oriented x3 Results Labs 12/20/23 05:01 12/20/23 05:01 Labs: Laboratory Results - last 24 hr 12/20/23 12/20/23 05:01 05:03 MCV 93.7 MCH 30.8 MCHC 32.9 RDW 13.5 Plt Count 224 MPV 9.7 Immature Gran % (Auto) 0.4 Neut % (Auto) 69.7 Lymph % (Auto) 17.9 L [place] % (Auto) 9.8 Eos % (Auto) 1.8 Baso % (Auto) 0.4 Lymph # (Auto) 1.8 [place] # (Auto) 1.0 Eos # (Auto) 0.2 Baso # (Auto) 0.0 Abs Immat Gran (auto) 0.04 H Absolute Neuts (auto) 7.0 Absolute Nucleated RBC 0.000 Nucleated RBC % (auto) 0.0 PT 12.5 INR 1.0 VBG pH 7.40 VBG pCO2 59 VBG pO2 37 VBG HCO3 37 H VBG O2 Saturation 56.0 VBG Base Excess 10.3 Anion Gap 16 Estim Creat Clear Calc 56.9 Estimated GFR > 60 Random Glucose 169 H Lactic Acid 2.0 Calcium 9.9 Total Bilirubin 0.6 Direct Bilirubin 0.3 AST 15 ALT 24 Alkaline Phosphatase 87 Troponin I High Sens 17.3 B-Natriuretic Peptide 185 H Total Protein 7.0 Albumin 3.8 Procalcitonin 0.05 COVID-19 (PATRICIA) Positive A COVID-19 Clin Com See Note Imaging Radiologist's Impressions: Impressions Chest X-Ray 12/20/23 04:55 IMPRESSION: Extensive pleural calcifications. There appears to be patchy basilar consolidation which appears to be new/progressed from the prior study particularly on the right. Consider edema versus pneumonia. Assessment and Plan (1) COVID: Status: Acute (2) Pneumonia: Status: Acute Plan This is a 83-year-old male with a past medical history of COPD and CHF, CAD status post CABG, chronic respiratory failure with hypercarbia and hypoxia who presents to the hospital with a several day history of shortness of breath and cough. Workup in the emergency room shows COVID positive serology along with possible infiltrate on chest x-ray. He will be admitted for further treatment. 1. Acute on chronic respiratory failure with hypoxia and hypercarbia Arrived with saturations in the 80s on his baseline 3 L and rates around 30, now improved and on 1-2 L with sats in the 90s Likely due to underlying pneumonia and COVID , CHF less likely 2. Suspected pneumonia Given IV ceftriaxone and azithromycin in the emergency room, will continue ceftriaxone and give doxy Follow cultures 3. COVID positive Unclear duration of symptoms, will treat with IV Decadron 4. HFrEF Given a dose of IV Lasix in the emergency room, does not appear to be volume overloaded at this time Unclear if he is on diuretics at home, we will continue if he is 5. PAF On amnio and apixaban We will continue 6. Lid-cvuzcyr-issvwuolo diabetes mellitus Hold orals, we will treat with point of cares and sliding scales Patient wishes to be a full code DVT prophylaxis, Eliquis Patient with underlying advanced COPD and heart failure with reduced ejection fraction now presenting with acute on chronic hypoxia and suspected pneumonia plus COVID, therefore expected to require at a minimum 2 midnights in the hospital for treatment. Hence, he will be admitted as inpatient. Quality Stroke Does the patient have a stroke diagnosis?: No VTE Prior VTE?: No VTE Risk Level:: Medical - moderate - high VTE Device Contraindication: N/A - Device Ordered VTE Drug Contraindication: N/A - Med Ordered
[2023-12-20] MEDS: Atorvastatin Calcium 80 MG TABLET PO (10:04)
[2023-12-20] MEDS: amLODIPine Besylate 5 MG TABLET PO (10:04)
[2023-12-20] MEDS: Apixaban 5 MG TABLET PO ×2 (10:04→20:31)
[2023-12-20] MEDS: Amiodarone HCL 200 MG TABLET PO (10:04)
[2023-12-20 12:08] LABS: Glucose, Whole Blood 196 mg/dL (60-115)
[2023-12-20] MEDS: Insulin Lispro 100 UNIT/ML 3 ML VIAL SUBCUT ×3 (12:26→20:32)
[2023-12-20] MEDS: Albuterol/Iprat 2.5/0.5MG 3 ML AMPUL.NEB INHALE ×2 (13:48→19:50)
--- NOTE | 2023-12-20 15:37 | MHC.EDTECH ---
This pct just assumed care of pt ,vitals taken ,pt comfortable ,no apparent distress noted ,plan of care continue .
[2023-12-20 16:32] LABS: Glucose, Whole Blood 382 mg/dL (60-115)
--- NOTE | 2023-12-20 16:32 | PC.NURSE ---
Pt.'s POC = 382. Per sliding scale protocol, Cale Brown MD notified and aware that this RN is medicating pt. with 10U insulin.
--- NOTE | 2023-12-20 16:35 | PC.NURSE ---
Waiting for dinner tray to give 16:30 insulin. Pt. is not eating at this time.
[2023-12-20 18:06] LABS: Glucose, Whole Blood 334 mg/dL (60-115)
--- NOTE | 2023-12-20 19:18 | PC.NURSE ---
this rn assumed care of pt, pt a&ox, respirations even and unlabored. pt denies pain at this time.pt on 2L nasal cannula sating 98%. no acute distress noted, normal sinus on tele 62-64bpm.
[2023-12-20 20:29] LABS: Glucose, Whole Blood 373 mg/dL (60-115)
--- NOTE | 2023-12-20 20:34 | PC.NURSE ---
aware of POC 373, pt medicated per mar, tolerated well with water.
--- NOTE | 2023-12-20 22:34 | MHC.EDTECH ---
PATIENT WAS MOVED INTO HOSPITAL ,PATIENT REFUSED TO WEAR RED SOCKED AND REFUSED TO HAVE BED ALARM ON BED ,RN CAROL AWARE ,PATIENT ALERT AND ORIENTED ,CALL ESPARZA WITHIN PT REACH ,FRESH PITCHER ICE WATER GIVEN AND VITALS TAKEN .
--- NOTE | 2023-12-20 23:19 | MHC.EDTECH ---
This tech took over care of patient at 2300,rounds completed,patient is resting quietly at this time,call molina in reach
[2023-12-21] VITALS (11 sets, daily range): BP systolic 105–131; BP diastolic 44–65; PULSE 45–80; RESP 16–22; TEMP 36.2–37.4; O2SAT 93–100; BMI 22.8
[2023-12-21] MEDS: 0.9 % Sodium Chloride Flush 3 ML SYRINGE IVFLUSH ×4 (00:10→21:26)
--- NOTE | 2023-12-21 00:49 | MHC.EDTECH ---
Emptied urinal ,patient voided 250MLS of yellow urine,vitals completed,call molina in reach
--- NOTE | 2023-12-21 02:48 | PC.NURSE ---
this rn noted abnormal rhythm on tele, appears to be a flutter. dr. silva notified, no new orders at this time, ekg not needed. pt devin 42-50bpm.
--- NOTE | 2023-12-21 03:55 | MHC.EDTECH ---
Hourly rounds and vitals completed,HR is low at 45bpm ,RN aware,patient is resting quietly at this time call molina in reach
[2023-12-21] MEDS: cefTRIAXone sodium 1 GM in 0.9 % Sodium Chloride 50 ML IV (06:43)
[2023-12-21 06:45] LABS: Hematocrit 32.1 % (42.0-52.0); Hemoglobin 10.6 g/dl (14.0-18.0); Mean Corpuscular Hemoglobin 31.2 pg (27.0-33.0); Mean Corpuscular Volume 94.4 fL (80.0-98.0); Mean Platelet Volume 9.7 fL (9.4-12.4); Platelet Count 218 X10*3/uL (160-400); Red Cell Distribution Width 13.7 % (11.0-16.0); White Blood Count 8.7 X10*3/uL (4.8-10.8)
[2023-12-21 07:01] LABS: Anion Gap 13 (12-20); Blood Urea Nitrogen 30 mg/dL (9-16); Calcium 9.4 mg/dL (8.4-10.2); Carbon Dioxide 35 mmol/L (22-29); Chloride 98 mmol/L (96-108); Creatinine Clr Calc Pharmacy 54.2; Estimated Glomerular Filt Rate > 60; Glucose Random 173 mg/dL (60-115); Potassium 5.5 mmol/L (3.3-5.1); Sodium 140 mmol/L (135-145)
[2023-12-21] MEDS: Albuterol/Iprat 2.5/0.5MG 3 ML AMPUL.NEB INHALE ×3 (07:26→19:01)
[2023-12-21 07:47] LABS: Glucose, Whole Blood 154 mg/dL (60-115)
[2023-12-21] MEDS: Insulin Lispro 100 UNIT/ML 3 ML VIAL SUBCUT ×4 (07:55→21:27)
[2023-12-21] MEDS: Doxycycline Hyclate 100 MG in 0.9 % Sodium Chloride 250 ML 166.67 MG IV ×2 (07:56→21:27)
--- NOTE | 2023-12-21 09:11 | MHC.CM.PN ---
IMM 12/21/23, EMR REVIEWED, PT ADMITTED SOB AND FOUND TO HAVE PNA/COVID, CM MET W/PT HE WAS JUST HERE LAST WEEK AND CAME BACK D/T SOB/COUGH, PT REPORTS HE LIVES W/, HAS HOME O2 FROM [facility], OTHERWISE PT IS INDEP W/ALL CARE AND HAS NO HOME SERVICES. GOAL FOR DC IS HOME AND PT OPEN TO [facility] SERVICES, HAS HAD [facility] IN PAST. PCP VERIFIED GUILLERMO DUMONT AND HCP IS PT'S STACIA AND ON FILE FROM PREVIOUS ADMIT.
[2023-12-21] MEDS: dexAMETHasone sod phosphate 4 MG/ML VIAL 6 MG IVPUSH (10:00)
[2023-12-21] MEDS: amLODIPine Besylate 5 MG TABLET PO (10:00)
[2023-12-21] MEDS: Apixaban 5 MG TABLET PO ×2 (10:00→21:27)
[2023-12-21] MEDS: Amiodarone HCL 200 MG TABLET PO (10:00)
[2023-12-21] MEDS: Atorvastatin Calcium 80 MG TABLET PO (10:00)
--- NOTE | 2023-12-21 10:04 | P.PNIM_ITS ---
Subjective Subjective Date of Service: 12/21/23 Interval History: seen and examined this AM reports feeling improved, still with some cough/WADSWORTH denies cp or palp Review of Systems Negative except HPI/interval history. Physical Exam 2 Vital Signs: Vital Signs: Last Vital Signs Temp 97.2 F 12/21/23 08:41 Pulse 80 12/21/23 08:41 Resp 18 12/21/23 08:41 BP 123/63 12/21/23 08:41 Pulse Ox 93 12/21/23 08:41 O2 Del Method Nasal Cannula 12/21/23 08:41 O2 Flow Rate 2 12/21/23 08:41 Oxygen Flow Rate 3 12/20/23 04:52 BMI result Body Mass Index 22.7 Const: Other: General - no acute distress, appears comfortable Cardiovascular - regular rate and rhythm, S1-S2 Lungs - improving air entry, sats 93 on 2L Abdomen - soft, nontender, no rebound or guarding Extremities - no edema bilaterally Neuro - awake and alert, no focal deficits Objective Data Active Medications Acetaminophen (Acetaminophen 325 Mg Tablet) 650 mg PO Q6H PRN PRN Reason: Pain, Mild (Pain Scale 1-3), fever or headache Albuterol/Ipratropium (Albuterol/Iprat 2.5/0.5mg 3 Ml Ampul.Neb) 3 ml INHALE RQ6H WHILE AWAKE [facility] Last Admin: 12/21/23 07:26 Dose: 3 ml Documented By: FRANKLIN Amiodarone HCl (Amiodarone Hcl 200 Mg Tablet) 200 mg PO DAILY [facility] Last Admin: 12/21/23 10:00 Dose: 200 mg Documented By: EDUARDO Amlodipine Besylate (Amlodipine Besylate 5 Mg Tablet) 5 mg PO DAILY [facility]; Protocol Last Admin: 12/21/23 10:00 Dose: 5 mg Documented By: EDUARDO Apixaban (Apixaban 5 Mg Tablet) 5 mg PO BID [facility] Last Admin: 12/21/23 10:00 Dose: 5 mg Documented By: EDUARDO Atorvastatin Calcium (Atorvastatin Calcium 80 Mg Tablet) 80 mg PO DAILY [facility] Last Admin: 12/21/23 10:00 Dose: 80 mg Documented By: EDUARDO Calcium Carbonate (Calcium Carbonate 750 Mg Tab.Chew) 750 mg PO Q4H PRN PRN Reason: Heartburn Dexamethasone Sodium Phosphate (Dexamethasone Sod Phosphate 4 Mg/Ml Vial) 6 mg IVPUSH DAILY [facility] Stop: 12/30/23 09:01 Last Admin: 12/21/23 10:00 Dose: 6 mg Documented By: EDUARDO Ceftriaxone Sodium 1 gm/ (Sodium Chloride) 50 mls @ 100 mls/hr IV Q24H [facility] Last Admin: 12/21/23 06:43 Dose: 100 mls/hr Documented By: THERON Doxycycline Hyclate 100 mg/ (Sodium Chloride) 250 mls @ 166.67 mls/hr IV Q12H [facility] Last Admin: 12/21/23 07:56 Dose: 166.67 mls/hr Documented By: OMA Insulin Human Lispro (Insulin Lispro 100 Unit/Ml 3 Ml Vial) 0 unit SUBCUT QIDACHS [facility]; Protocol Last Admin: 12/21/23 07:55 Dose: 2 unit Documented By: OMA Magnesium Hydroxide (Milk Of Magnesia 30 Ml Oral.Susp) 30 ml PO DAILY PRN PRN Reason: Constipation Melatonin (Melatonin 3 Mg Tablet) 6 mg PO BEDTIME PRN PRN Reason: Insomnia Polyethylene Glycol (Polyethylene Glycol 3350 17 Gm Powd.Pack) 17 gm PO DAILY PRN PRN Reason: Constipation Sodium Chloride (0.9 % Sodium Chloride Flush 3 Ml Syringe) 3 ml IVFLUSH QSHIFT [facility] Last Admin: 12/21/23 08:07 Dose: 3 ml Documented By: OMA Labs 12/21/23 06:34 12/21/23 06:34 Labs: Laboratory Results - last 24 hr 12/20/23 12/20/23 12/20/23 12:04 16:28 17:42 MCV MCH MCHC RDW Plt Count MPV Absolute Nucleated RBC Nucleated RBC % (auto) Anion Gap Estim Creat Clear Calc Estimated GFR POC Glucose 196 H 382 H* 334 H Random Glucose Calcium 12/20/23 12/21/23 12/21/23 20:24 06:34 07:43 MCV 94.4 MCH 31.2 MCHC 33.0 RDW 13.7 Plt Count 218 MPV 9.7 Absolute Nucleated RBC 0.000 Nucleated RBC % (auto) 0.0 Anion Gap 13 Estim Creat Clear Calc 54.2 Estimated GFR > 60 POC Glucose 373 H* 154 H Random Glucose 173 H Calcium 9.4 Microbiology Microbiology Results: Microbiology 12/20/23 05:01 Blood Culture - Preliminary Blood - Venous No growth after 24 hours. 12/20/23 05:01 Blood Culture - Preliminary Blood - Venous No growth after 24 hours. Assessment and Plan (1) COVID: Status: Acute (2) Hypoxia: Status: Acute Plan This is a 83-year-old male with a past medical history of COPD and CHF, CAD status post CABG, chronic respiratory failure with hypercarbia and hypoxia who presents to the hospital with a several day history of shortness of breath and cough. Workup in the emergency room shows COVID positive serology along with possible infiltrate on chest x-ray. He will be admitted for further treatment. 1. Acute on chronic respiratory failure with hypoxia and hypercarbia on baseline O2 now, continue with goals 90-[address] done -- see full report (will need outpatient f/u on nodule) no significant infiltrate noted; will d/c rocephin and continue doxy 3. COVID positive IV decadron - day 2 4. HFrEF appears euvolemic does not appear to be on diuretics at baseline 5. PAF continue amio + apixiban 6. Vxe-tqynidt-aagtmkwiy diabetes mellitus sliding scale resume orals upon d/c Patient wishes to be a full code DVT prophylaxis, Eliquis continued reason for hospitalization: pt improved, but still with dyspnea; given advanced copd/chf -- will continue with inpatient treatment x 24 hours and re- eval Quality Stroke Does the patient have a stroke diagnosis?: No VTE Prior VTE?: No VTE Risk Level:: Medical - moderate - high VTE Device Contraindication: N/A - Device Ordered VTE Drug Contraindication: N/A - Med Ordered
[2023-12-21 11:39] LABS: Glucose, Whole Blood 238 mg/dL (60-115)
[2023-12-21 15:40] LABS: Glucose, Whole Blood 319 mg/dL (60-115)
[2023-12-21 21:12] LABS: Glucose, Whole Blood 338 mg/dL (60-115)
[2023-12-22] VITALS (9 sets, daily range): BP systolic 116–146; BP diastolic 53–65; PULSE 59–76; RESP 18–20; TEMP 36.6–37; O2SAT 92–100
--- NOTE | 2023-12-22 05:25 | PC.NURSE ---
BMP (K, Co2) reviewed with covering Dr. Diamond, orders for morning labs for reassessment requested by science writer with orders deferred to day MD. No EKG changes overnight. Patient denies chest pain or SOB.
[2023-12-22] MEDS: Albuterol/Iprat 2.5/0.5MG 3 ML AMPUL.NEB INHALE ×3 (07:38→19:31)
[2023-12-22 08:32] LABS: Glucose, Whole Blood 216 mg/dL (60-115)
[2023-12-22] MEDS: 0.9 % Sodium Chloride Flush 3 ML SYRINGE IVFLUSH ×3 (09:14→21:37)
[2023-12-22] MEDS: Doxycycline Hyclate 100 MG in 0.9 % Sodium Chloride 250 ML 166.67 MG IV ×2 (09:14→21:37)
[2023-12-22] MEDS: Apixaban 5 MG TABLET PO ×2 (09:15→21:36)
[2023-12-22] MEDS: amLODIPine Besylate 5 MG TABLET PO (09:15)
[2023-12-22] MEDS: Insulin Lispro 100 UNIT/ML 3 ML VIAL SUBCUT ×4 (09:15→21:36)
[2023-12-22] MEDS: Atorvastatin Calcium 80 MG TABLET PO (09:15)
[2023-12-22] MEDS: Amiodarone HCL 200 MG TABLET PO (09:15)
[2023-12-22] MEDS: dexAMETHasone sod phosphate 4 MG/ML VIAL 6 MG IVPUSH (09:15)
--- NOTE | 2023-12-22 09:40 | HO.PM.IMPN ---
Subjective Subjective Date of Service: 12/22/23 Interval History: sob, wheezy Physical Exam Vital Signs: Vital Signs: Last Vital Signs Temp 98.6 F 12/22/23 07:52 Pulse 62 12/22/23 07:52 Resp 18 12/22/23 07:52 BP 128/60 12/22/23 07:52 Pulse Ox 100 12/22/23 07:52 O2 Del Method Room Air 12/22/23 07:52 O2 Flow Rate 2 12/22/23 05:58 Oxygen Flow Rate 3 12/20/23 04:52 BMI result Body Mass Index 22.8 General: AO X 3, no acute distress Resp: diminished a bit wheezy bilateral, no accessory muscles used CVS: S1,S2,RRR GI: soft, non tender, non distended Neuro: motor grossly intact, alert Psych: appropriate affect, appropriate insight Objective Data Active Medications Acetaminophen (Acetaminophen 325 Mg Tablet) 650 mg PO Q6H PRN PRN Reason: Pain, Mild (Pain Scale 1-3), fever or headache Albuterol/Ipratropium (Albuterol/Iprat 2.5/0.5mg 3 Ml Ampul.Neb) 3 ml INHALE RQ6H WHILE AWAKE [facility] Last Admin: 12/22/23 07:38 Dose: 3 ml Documented By: REJI Amiodarone HCl (Amiodarone Hcl 200 Mg Tablet) 200 mg PO DAILY [facility] Last Admin: 12/22/23 09:15 Dose: 200 mg Documented By: EDUARDO Amlodipine Besylate (Amlodipine Besylate 5 Mg Tablet) 5 mg PO DAILY [facility]; Protocol Last Admin: 12/22/23 09:15 Dose: 5 mg Documented By: EDUARDO Apixaban (Apixaban 5 Mg Tablet) 5 mg PO BID [facility] Last Admin: 12/22/23 09:15 Dose: 5 mg Documented By: EDUARDO Atorvastatin Calcium (Atorvastatin Calcium 80 Mg Tablet) 80 mg PO DAILY [facility] Last Admin: 12/22/23 09:15 Dose: 80 mg Documented By: EDUARDO Calcium Carbonate (Calcium Carbonate 750 Mg Tab.Chew) 750 mg PO Q4H PRN PRN Reason: Heartburn Dexamethasone Sodium Phosphate (Dexamethasone Sod Phosphate 4 Mg/Ml Vial) 6 mg IVPUSH DAILY [facility] Stop: 12/30/23 09:01 Last Admin: 12/22/23 09:15 Dose: 6 mg Documented By: EDUARDO Doxycycline Hyclate 100 mg/ (Sodium Chloride) 250 mls @ 166.67 mls/hr IV Q12H [facility] Last Admin: 12/22/23 09:14 Dose: 166.67 mls/hr Documented By: EDUARDO Insulin Human Lispro (Insulin Lispro 100 Unit/Ml 3 Ml Vial) 0 unit SUBCUT QIDACHS [facility]; Protocol Last Admin: 12/22/23 09:15 Dose: 4 unit Documented By: EDUARDO Magnesium Hydroxide (Milk Of Magnesia 30 Ml Oral.Susp) 30 ml PO DAILY PRN PRN Reason: Constipation Melatonin (Melatonin 3 Mg Tablet) 6 mg PO BEDTIME PRN PRN Reason: Insomnia Polyethylene Glycol (Polyethylene Glycol 3350 17 Gm Powd.Pack) 17 gm PO DAILY PRN PRN Reason: Constipation Sodium Chloride (0.9 % Sodium Chloride Flush 3 Ml Syringe) 3 ml IVFLUSH QSHIFT [facility] Last Admin: 12/22/23 09:14 Dose: 3 ml Documented By: EDUARDO Labs 12/21/23 06:34 12/21/23 06:34 Labs: Laboratory Results - last 24 hr 12/21/23 12/21/23 12/21/23 11:33 15:37 20:57 POC Glucose 238 H 319 H 338 H 12/22/23 07:50 POC Glucose 216 H Microbiology Microbiology Results: Microbiology 12/20/23 05:01 Blood Culture - Preliminary Blood - Venous No growth after 48 hours. 12/20/23 05:01 Blood Culture - Preliminary Blood - Venous No growth after 48 hours. Assessment and Plan (1) COVID: Status: Acute (2) Hypoxia: Status: Acute Plan 83M PMH COPD and CHF, CAD status post CABG, chronic respiratory failure with hypercarbia and hypoxia who presented to the hospital with a several day history of shortness of breath and cough. Workup in the emergency room shows COVID positive serology along with possible infiltrate on chest x-ray. acute on chronic respiratory failure with hypoxia and hypercarbia due to covid and copd with acute decompensation at baseline O2 now, continue with goals 90-92 continue decadron day 3, doxy, nebs HFrEF appears euvolemic does not appear to be on diuretics at baseline PAF continue amio + apixiban Ecd-brlboeb-vascrquna diabetes mellitus sliding scale resume orals upon d/c Patient wishes to be a full code DVT prophylaxis, Eliquis reason for continued hospitalization:still sob and wheezy Quality Stroke Does the patient have a stroke diagnosis?: No VTE Prior VTE?: No VTE Risk Level:: Medical - moderate - high VTE Device Contraindication: N/A - Device Ordered VTE Drug Contraindication: N/A - Med Ordered
[2023-12-22 11:41] LABS: Glucose, Whole Blood 308 mg/dL (60-115)
[2023-12-22 16:36] LABS: Glucose, Whole Blood 351 mg/dL (60-115)
[2023-12-22] MEDS: Insulin Lispro 100 UNIT/ML 3 ML VIAL 7 UNIT SUBCUT (17:28)
[2023-12-22 20:54] LABS: Glucose, Whole Blood 341 mg/dL (60-115)
[2023-12-23] VITALS (10 sets, daily range): BP systolic 106–165; BP diastolic 50–75; PULSE 54–83; RESP 18–20; TEMP 36.1–36.4; O2SAT 93–98
[2023-12-23 07:02] LABS: Hematocrit 32.9 % (42.0-52.0); Hemoglobin 10.4 g/dl (14.0-18.0); Mean Corpuscular HGB Conc 31.6 g/dl (31.0-36.0); Mean Corpuscular Hemoglobin 30.1 pg (27.0-33.0); Mean Corpuscular Volume 95.1 fL (80.0-98.0); Mean Platelet Volume 9.9 fL (9.4-12.4); Platelet Count 255 X10*3/uL (160-400); Red Blood Count 3.46 X10*6/uL (4.60-5.80); Red Cell Distribution Width 13.6 % (11.0-16.0); White Blood Count 9.4 X10*3/uL (4.8-10.8)
[2023-12-23 07:09] LABS: Anion Gap 14 (12-20); Blood Urea Nitrogen 34 mg/dL (9-16); Calcium 9.8 mg/dL (8.4-10.2); Carbon Dioxide 32 mmol/L (22-29); Chloride 99 mmol/L (96-108); Creatinine Clr Calc Pharmacy 56.5; Estimated Glomerular Filt Rate > 60; Glucose Fasting 186 mg/dL (60-99); Potassium 4.8 mmol/L (3.3-5.1); Sodium 140 mmol/L (135-145)
[2023-12-23 08:02] LABS: Glucose, Whole Blood 187 mg/dL (60-115)
[2023-12-23] MEDS: Doxycycline Hyclate 100 MG in 0.9 % Sodium Chloride 250 ML 166.67 MG IV (08:08)
[2023-12-23] MEDS: dexAMETHasone sod phosphate 4 MG/ML VIAL 6 MG IVPUSH (08:09)
[2023-12-23] MEDS: 0.9 % Sodium Chloride Flush 3 ML SYRINGE IVFLUSH ×3 (08:09→20:42)
[2023-12-23] MEDS: amLODIPine Besylate 5 MG TABLET PO (08:09)
[2023-12-23] MEDS: Amiodarone HCL 200 MG TABLET PO (08:09)
[2023-12-23] MEDS: Apixaban 5 MG TABLET PO ×2 (08:09→20:41)
[2023-12-23] MEDS: Atorvastatin Calcium 80 MG TABLET PO (08:09)
[2023-12-23] MEDS: Albuterol/Iprat 2.5/0.5MG 3 ML AMPUL.NEB INHALE ×3 (08:10→18:48)
[2023-12-23] MEDS: Insulin Lispro 100 UNIT/ML 3 ML VIAL SUBCUT ×4 (08:10→20:41)
[2023-12-23 11:36] LABS: Glucose, Whole Blood 233 mg/dL (60-115)
--- NOTE | 2023-12-23 12:58 | P.PNIM_ITS ---
Subjective Subjective Date of Service: 12/24/23 Interval History: Patient had episode of significant shortness of breath and difficulty breathing last night, precipitating factor unclear Improved with DuoNeb Continues to experience SOB above baseline, but better than at time of admission Continues to complain of shallow breathing and WADSWORTH Physical Exam 2 Vital Signs: Vital Signs: Last Vital Signs Temp 97.1 F 12/23/23 11:09 Pulse 76 12/23/23 11:09 Resp 20 12/23/23 11:09 BP 146/68 H 12/23/23 11:09 Pulse Ox 95 12/23/23 11:09 O2 Del Method Nasal Cannula 12/23/23 11:09 O2 Flow Rate 2 12/23/23 11:09 Oxygen Flow Rate 3 12/20/23 04:52 BMI result Body Mass Index 22.8 General: AOx3, no acute distress Resp: Bilateral wheezing CVS: S1, S2, RRR GI: +BS, NT, no distention Skin: Warm, dry Neuro: Cranial nerves II-XII grossly intact bilaterally. Motor grossly intact bilaterally Extremities: No edema Psych: Appropriate affect Objective Data Active Medications Acetaminophen (Acetaminophen 325 Mg Tablet) 650 mg PO Q6H PRN PRN Reason: Pain, Mild (Pain Scale 1-3), fever or headache Albuterol/Ipratropium (Albuterol/Iprat 2.5/0.5mg 3 Ml Ampul.Neb) 3 ml INHALE RQ6H WHILE AWAKE [facility] Last Admin: 12/23/23 08:10 Dose: 3 ml Documented By: EDUARDO Amiodarone HCl (Amiodarone Hcl 200 Mg Tablet) 200 mg PO DAILY [facility] Last Admin: 12/23/23 08:09 Dose: 200 mg Documented By: EDUARDO Amlodipine Besylate (Amlodipine Besylate 5 Mg Tablet) 5 mg PO DAILY [facility]; Protocol Last Admin: 12/23/23 08:09 Dose: 5 mg Documented By: EDUARDO Apixaban (Apixaban 5 Mg Tablet) 5 mg PO BID [facility] Last Admin: 12/23/23 08:09 Dose: 5 mg Documented By: EDUARDO Atorvastatin Calcium (Atorvastatin Calcium 80 Mg Tablet) 80 mg PO DAILY [facility] Last Admin: 12/23/23 08:09 Dose: 80 mg Documented By: EDUARDO Calcium Carbonate (Calcium Carbonate 750 Mg Tab.Chew) 750 mg PO Q4H PRN PRN Reason: Heartburn Dexamethasone Sodium Phosphate (Dexamethasone Sod Phosphate 4 Mg/Ml Vial) 6 mg IVPUSH DAILY [facility] Stop: 12/30/23 09:01 Last Admin: 12/23/23 08:09 Dose: 6 mg Documented By: EDUARDO Doxycycline Hyclate 100 mg/ (Sodium Chloride) 250 mls @ 166.67 mls/hr IV Q12H [facility] Last Infusion: 12/23/23 09:38 Dose: Infused Documented By: EDUARDO Insulin Human Lispro (Insulin Lispro 100 Unit/Ml 3 Ml Vial) 0 unit SUBCUT QIDACHS [facility]; Protocol Last Admin: 12/23/23 12:06 Dose: 4 unit Documented By: EDUARDO Magnesium Hydroxide (Milk Of Magnesia 30 Ml Oral.Susp) 30 ml PO DAILY PRN PRN Reason: Constipation Melatonin (Melatonin 3 Mg Tablet) 6 mg PO BEDTIME PRN PRN Reason: Insomnia Polyethylene Glycol (Polyethylene Glycol 3350 17 Gm Powd.Pack) 17 gm PO DAILY PRN PRN Reason: Constipation Sodium Chloride (0.9 % Sodium Chloride Flush 3 Ml Syringe) 3 ml IVFLUSH QSHIFT [facility] Last Admin: 12/23/23 08:09 Dose: 3 ml Documented By: EDUARDO Labs 12/23/23 06:23 12/23/23 06:23 Labs: Laboratory Results - last 24 hr 12/22/23 12/22/23 12/23/23 16:09 20:26 06:23 MCV 95.1 MCH 30.1 MCHC 31.6 RDW 13.6 Plt Count 255 MPV 9.9 Absolute Nucleated RBC 0.000 Nucleated RBC % (auto) 0.0 Anion Gap 14 Estim Creat Clear Calc 56.5 Estimated GFR > 60 POC Glucose 351 H* 341 H Fasting Glucose 186 H Calcium 9.8 12/23/23 12/23/23 07:57 11:30 MCV MCH MCHC RDW Plt Count MPV Absolute Nucleated RBC Nucleated RBC % (auto) Anion Gap Estim Creat Clear Calc Estimated GFR POC Glucose 187 H 233 H Fasting Glucose Calcium Assessment and Plan (1) COPD exacerbation: Status: Acute (2) COVID: Status: Acute Plan 83M PMH COPD and CHF, CAD status post CABG, chronic respiratory failure with hypercarbia and hypoxia who presented to the hospital with a several day history of shortness of breath and cough. Workup in the emergency room shows COVID positive serology along with possible infiltrate on chest x-ray. Patient was admitted to hospital treatment and further evaluation acute COPD exacerbation in the setting of COVID infection. 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 Ventura DVT Prophylaxis: On Eliquis Pt will require continued hospitalization due to continued SOB, WADSWORTH, and continued wheezing upon auscultation. Re-evaluate in the morning to see patient is ready for discharge. Quality Stroke Does the patient have a stroke diagnosis?: No VTE Prior VTE?: No VTE Risk Level:: Medical - moderate - high VTE Device Contraindication: Treatment Not Indicated VTE Drug Contraindication: N/A - Med Ordered
[2023-12-23 16:13] LABS: Glucose, Whole Blood 460 mg/dL (60-115)
[2023-12-23 20:09] LABS: Glucose, Whole Blood 344 mg/dL (60-115)
[2023-12-23] MEDS: Doxycycline Hyclate 100 MG in 0.9 % Sodium Chloride 250 ML 166 MG IV (20:42)
[2023-12-24 03:14] VITALS: BP 145/56; PULSE 76; RESP 18; TEMP 36.1; O2SAT 93
[2023-12-24] MEDS: Albuterol/Iprat 2.5/0.5MG 3 ML AMPUL.NEB INHALE ×2 (07:43→13:25)
[2023-12-24 07:44] VITALS: PULSE 76; RESP 18; O2SAT 95
[2023-12-24 07:50] VITALS: BP 140/82; PULSE 80; RESP 20; TEMP 36.3; O2SAT 96
[2023-12-24 08:35] LABS: Glucose, Whole Blood 157 mg/dL (60-115)
[2023-12-24] MEDS: 0.9 % Sodium Chloride Flush 3 ML SYRINGE IVFLUSH (08:56)
[2023-12-24] MEDS: Doxycycline Hyclate 100 MG in 0.9 % Sodium Chloride 250 ML 166.67 MG IV (08:57)
[2023-12-24] MEDS: Insulin Lispro 100 UNIT/ML 3 ML VIAL SUBCUT ×2 (08:58→10:54)
[2023-12-24] MEDS: Atorvastatin Calcium 80 MG TABLET PO (08:59)
[2023-12-24] MEDS: amLODIPine Besylate 5 MG TABLET PO (08:59)
[2023-12-24] MEDS: Amiodarone HCL 200 MG TABLET PO (08:59)
[2023-12-24] MEDS: Apixaban 5 MG TABLET PO (08:59)
[2023-12-24] MEDS: dexAMETHasone sod phosphate 4 MG/ML VIAL 6 MG IVPUSH (08:59)
[2023-12-24] MEDS: Furosemide 40 MG TABLET PO (10:50)
[2023-12-24 11:05] LABS: Glucose, Whole Blood 322 mg/dL (60-115)
[2023-12-24 11:43] VITALS: BP 137/60; PULSE 80; RESP 20; TEMP 36.7; O2SAT 92
[2023-12-24 13:25] VITALS: PULSE 80; RESP 20; O2SAT 96
--- NOTE | 2023-12-24 13:57 | P.CONPL_ITS ---
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 Patient treated with IV systemic glucocorticoids, empiric antibiotics, diuretic with significant improvement. Review of Systems 2 Constitutional: Constitutional: Denies daytime sleepiness, Denies excessive sweating, Denies fatigue, Denies fever(s), Denies lethargy, Denies malaise, Denies night sweats, Denies snoring and Denies weight loss Eyes: Eyes: Denies blurry vision and Denies itchy eyes ENT: Denies nasal congestion, Denies post nasal drip, Denies sinus pain, Denies sinus pressure and Denies other ( Thrush) Cardiovascular: Cardiovascular: Denies chest pain, Denies pedal edema, Reports leg edema, Reports dyspnea, Reports dyspnea on exertion, Denies orthopnea and Denies paroxysmal nocturnal dyspnea Respiratory: Respiratory: Denies cough, Denies hemoptysis, Denies excessive phlegm production, Reports dyspnea, Reports dyspnea on exertion, Denies snoring and Denies wheezing Gastrointestinal: Gastrointestinal: Denies abdominal pain and Denies heartburn Musculoskeletal: Musculoskeletal: Denies myalgias, Denies arthralgias and Denies joint swelling Integumentary/Breasts: Skin/Breast: Denies rash Neurologic: Denies memory loss and Denies seizure-like activity Psychiatric: Psychiatric: Denies abnormal sleep pattern, Denies anxiety and Denies memory loss Endocrine: Endocrine: Denies excessive sweating, Denies fatigue and Denies heat intolerance Hematologic/Lymphatic: Hematologic/Lymphatic: Denies easy bruising Allergic/Immunologic: Allergic/Immunologic: Denies itchy eyes, Denies seasonal rhinorrhea and Denies wheezing PMFSH Past Medical History Medical History CHF (congestive heart failure) Atrial flutter Pulmonary emphysema Acute respiratory failure with hypercapnia Chronic lung disease COPD (chronic obstructive pulmonary disease) Coronary artery disease CAD (coronary artery disease) DMII (diabetes mellitus, type 2) HTN (hypertension) Family History Family History Father No problems noted. Mother No problems noted. Surgical History Surgical History History of colonoscopy History of lung surgery History of cholecystectomy Social History Social History Household Members: Spouse Housing: House Do you presently have visiting nurse or other home services: No Alcohol intake: current Alcohol intake frequency: holidays/special occasions only Comment: refuses bed alarm Patient Tobacco Use Status: Never used Tobacco Tobacco use type: Cigarette e-Cigarette/Vaping Use: Never Used Second Hand Smoke Exposure: No service: No Current occupational status: retired Cognitive needs: No Hearing needs: No Vision needs: Yes (glasses) Meds Allergies Allergy/AdvReac Type Severity Reaction Status Date / Time No Known Allergies Allergy Verified 12/20/23 04:55 [No Known Allergies*] Active Medications: Current Medications Acetaminophen (Acetaminophen 325 Mg Tablet) 650 mg PO Q6H PRN PRN Reason: Pain, Mild (Pain Scale 1-3), fever or headache Albuterol/Ipratropium (Albuterol/Iprat 2.5/0.5mg 3 Ml Ampul.Neb) 3 ml INHALE RQ6H WHILE AWAKE [facility] Last Admin: 12/24/23 13:25 Dose: 3 ml Albuterol/Ipratropium (Albuterol/Iprat 2.5/0.5mg 3 Ml Ampul.Neb) 3 ml INHALE RQ4H WHILE AWAKE PRN PRN Reason: Shortness of Breath/Wheezing Amiodarone HCl (Amiodarone Hcl 200 Mg Tablet) 200 mg PO DAILY [facility] Last Admin: 12/24/23 08:59 Dose: 200 mg Amlodipine Besylate (Amlodipine Besylate 5 Mg Tablet) 5 mg PO DAILY [facility]; Protocol Last Admin: 12/24/23 08:59 Dose: 5 mg Apixaban (Apixaban 5 Mg Tablet) 5 mg PO BID [facility] Last Admin: 12/24/23 08:59 Dose: 5 mg Atorvastatin Calcium (Atorvastatin Calcium 80 Mg Tablet) 80 mg PO DAILY [facility] Last Admin: 12/24/23 08:59 Dose: 80 mg Calcium Carbonate (Calcium Carbonate 750 Mg Tab.Chew) 750 mg PO Q4H PRN PRN Reason: Heartburn Dexamethasone Sodium Phosphate (Dexamethasone Sod Phosphate 4 Mg/Ml Vial) 6 mg IVPUSH DAILY [facility] Stop: 12/30/23 09:01 Last Admin: 12/24/23 08:59 Dose: 6 mg Furosemide (Furosemide 40 Mg Tablet) 40 mg PO DAILY [facility]; Protocol Last Admin: 12/24/23 10:50 Dose: 40 mg Doxycycline Hyclate 100 mg/ (Sodium Chloride) 250 mls @ 166.67 mls/hr IV Q12H [facility] Last Infusion: 12/24/23 10:27 Dose: Infused Insulin Human Lispro (Insulin Lispro 100 Unit/Ml 3 Ml Vial) 0 unit SUBCUT QIDACHS [facility]; Protocol Last Admin: 12/24/23 10:54 Dose: 8 unit Magnesium Hydroxide (Milk Of Magnesia 30 Ml Oral.Susp) 30 ml PO DAILY PRN PRN Reason: Constipation Melatonin (Melatonin 3 Mg Tablet) 6 mg PO BEDTIME PRN PRN Reason: Insomnia Polyethylene Glycol (Polyethylene Glycol 3350 17 Gm Powd.Pack) 17 gm PO DAILY PRN PRN Reason: Constipation Sodium Chloride (0.9 % Sodium Chloride Flush 3 Ml Syringe) 3 ml IVFLUSH QSHIFT [facility] Last Admin: 12/24/23 08:56 Dose: 3 ml Home Medications ?Medication ?Instructions ?Recorded ?Confirmed ?Last Taken ?Type atorvastatin 80 mg tablet 80 mg PO DAILY 04/21/20 12/20/23 12/19/23 History albuterol sulfate 2.5 mg/3 mL 2.5 mg inhalation Q6H PRN Wheezing 04/01/22 12/20/23 11/20/23 History (0.083 %) solution for nebulization vitamins A,C,B-xfwu-arggua 4,296 1 cap PO BID 04/01/22 12/20/23 12/19/23 History mcg-226 mg-90 mg capsule (PreserVision AREDS) amlodipine 5 mg tablet 5 mg PO DAILY 12/11/22 12/20/23 12/19/23 History Physical Exam 2 Vital Signs: Vital Signs: Last Vital Signs Temp 98.1 F 12/24/23 11:43 Pulse 80 12/24/23 13:25 Resp 20 12/24/23 13:25 BP 137/60 12/24/23 11:43 Pulse Ox 92 12/24/23 11:43 O2 Del Method Nasal Cannula 12/24/23 11:43 O2 Flow Rate 2 12/24/23 11:43 Oxygen Flow Rate 3 12/20/23 04:52 BMI result Body Mass Index 22.8 Const: General: no acute distress and alert Nutritional Appearance: not obese Orientation/consciousness: Other orientation findings ( oriented) HEENT: Head: Yes atraumatic Eyes: General: appearance normal, both eyes and all related structures S clerae: sclerae normal EOM: EOMs intact bilaterally Neck: Neck: Yes supple Lymphatic: no lymphadenopathy noted Resp: Effort & Inspection: normal respiratory effort and no use of accessory muscles Auscultation: crackles (Mild bilateral) Cardio: Rate: regular rate Rhythm: regular rhythm Heart sounds: no gallops, no murmurs and no rubs Skin: General skin exam: other ( warm) Extrem: General: No clubbing, No cyanosis and Yes edema (1+ bilateral) Results Laboratory Findings 12/23/23 06:23 12/23/23 06:23 ABG, PT/INR, D-dimer: PT/INR, D-dimer PT 12.5 SEC (11.1-13.3) 12/20/23 05:01 INR 1.0 (0.9-1.1) 12/20/23 05:01 Abnormal lab findings: Abnormal Labs 12/20/23 12/20/23 12/20/23 05:01 05:03 12:04 RBC 3.80 L Hgb 11.7 L Hct 35.6 L Lymph % (Auto) 17.9 L Abs Immat Gran (auto) 0.04 H VBG HCO3 37 H Potassium Carbon Dioxide 32 H BUN 19 H POC Glucose 196 H Random Glucose 169 H Fasting Glucose B-Natriuretic Peptide 185 H COVID-19 (PATRICIA) Positive A 12/20/23 12/20/23 12/20/23 16:28 17:42 20:24 RBC Hgb Hct Lymph % (Auto) Abs Immat Gran (auto) VBG HCO3 Potassium Carbon Dioxide BUN POC Glucose 382 H* 334 H 373 H* Random Glucose Fasting Glucose B-Natriuretic Peptide COVID-19 (PATRICIA) 12/21/23 12/21/23 12/21/23 06:34 07:43 11:33 RBC 3.40 L Hgb 10.6 L Hct 32.1 L Lymph % (Auto) Abs Immat Gran (auto) VBG HCO3 Potassium 5.5 H Carbon Dioxide 35 H BUN 30 H POC Glucose 154 H 238 H Random Glucose 173 H Fasting Glucose B-Natriuretic Peptide COVID-19 (PATRICIA) 12/21/23 12/21/23 12/22/23 15:37 20:57 07:50 RBC Hgb Hct Lymph % (Auto) Abs Immat Gran (auto) VBG HCO3 Potassium Carbon Dioxide BUN POC Glucose 319 H 338 H 216 H Random Glucose Fasting Glucose B-Natriuretic Peptide COVID-19 (PATRICIA) 12/22/23 12/22/23 12/22/23 11:24 16:09 20:26 RBC Hgb Hct Lymph % (Auto) Abs Immat Gran (auto) VBG HCO3 Potassium Carbon Dioxide BUN POC Glucose 308 H 351 H* 341 H Random Glucose Fasting Glucose B-Natriuretic Peptide COVID-19 (PATRICIA) 12/23/23 12/23/23 12/23/23 06:23 07:57 11:30 RBC 3.46 L Hgb 10.4 L Hct 32.9 L Lymph % (Auto) Abs Immat Gran (auto) VBG HCO3 Potassium Carbon Dioxide 32 H BUN 34 H POC Glucose 187 H 233 H Random Glucose Fasting Glucose 186 H B-Natriuretic Peptide COVID-19 (PATRICIA) 12/23/23 12/23/23 12/24/23 16:07 20:03 07:49 RBC Hgb Hct Lymph % (Auto) Abs Immat Gran (auto) VBG HCO3 Potassium Carbon Dioxide BUN POC Glucose 460 H* 344 H 157 H Random Glucose Fasting Glucose B-Natriuretic Peptide COVID-19 (PATRICIA) 12/24/23 10:51 RBC Hgb Hct Lymph % (Auto) Abs Immat Gran (auto) VBG HCO3 Potassium Carbon Dioxide BUN POC Glucose 322 H Random Glucose Fasting Glucose B-Natriuretic Peptide COVID-19 (PATRICIA) Microbiology: Microbiology 12/20/23 05:01 Blood - Venous Blood Culture - Preliminary No growth after 48 hours. 12/20/23 05:01 Blood - Venous Blood Culture - Preliminary No growth after 48 hours. Assessment and Plan (1) Chronic hypoxic respiratory failure: Status: Acute (2) COVID: Status: Acute (3) CHF (congestive heart failure): Qualifiers: Heart failure chronicity: chronic Heart failure type: diastolic Q ualified Code(s): I50.32 - Chronic diastolic (congestive) heart failure Status: Acute (4) Atrial flutter: Qualifiers: Atrial flutter type: typical Qualified Code(s): I48.3 - Typical atrial flutter Status: Acute (5) COPD (chronic obstructive pulmonary disease): Qualifiers: COPD type: chronic bronchitis Chronic bronchitis type: simple Q ualified Code(s): J41.0 - Simple chronic bronchitis Status: Acute Plan Impression: 83-year-old gentleman with underlying CHF, COPD on 2-3 L, chronic restrictive lung disease admitted with acute on chronic hypoxic respiratory failure secondary to exacerbation of underlying CHF/COPD background COVID, now improving. Recommendations: Agree with current empiric regimen systemic glucocorticoids and nebulized bronchodilators. Consider discontinuation of doxycycline. Continue discharging on Trelegy, DuoNebs, and albuterol MDI. Procedures Date of Service Date of Service: 12/24/23
--- NOTE | 2023-12-24 15:14 | PM.DS ---
DS: Providers Provider Date of Service: 12/24/23 Date of admission: 12/20/23 09:21 Primary care physician: Karri Mcnally PA-C Consults: 12/24/23 07:00 Consult to Pulmonology Routine Consulting Provider: [facility] Reason for consultation: COPD/ISLD 3 ED visits in past month, med optimization DS: Diagnosis Discharge Diagnosis (1) COPD exacerbation: Status: Acute (2) COVID: Status: Acute DS: Summary Hospital Course Hospital Course: From admission H&P: The patient is 83-year-old male with a past medical history of chronic hypoxic and hypercarbic respiratory failure on 1-3 L of supplemental oxygen at home, CAD status post CABG in 2022, oln-oxllhkv-dlytxwwko diabetes mellitus, hyperlipidemia, HFrEF with last EF between 50-55% who was hospitalized last month for a COPD exacerbation. He now returns with a several day history of worsening cough and shortness of breath. He reports that on the night prior to admission his pulse ox reading at home showed a heart rate over 300 and hence he presented to the emergency room. Upon further questioning, he endorses increasing cough for the last several days with associated shortness of breath. Describes the cough as thick and mucousy. He denies any fevers or chills. He denies any anginal symptoms. He does endorse some orthopnea the last several days as well. Denies any lower extremity swelling. Denies any sick contacts. In the emergency room with the patient was found to be tachypneic with saturations in the 80s on 3 L. workup in the emergency room showed a chest x-ray with worsening infiltrate representing pneumonia versus edema. He was also noted to be COVID positive. He has been given a dose of IV Decadron IV antibiotics and IV Lasix. He will now be admitted for further treatment. Hospital course: Patient was admitted to the hospital for acute on chronic hypoxic respiratory failure in the setting of COVID with acute COPD exacerbation. Patient was treated with dexamethasone 6 mg IV x5 days, DuoNebs, and doxycycline with continued improvement in shortness of breath and difficulty breathing. Was eventually weaned to baseline supplemental oxygen. This was patient's 3rd presentation to the ED in the past month for difficulty breathing shortness of breath, which included 1 hospitalization on 11/19-11/21. Patient was seen and evaluated by pulmonology for optimization of medical management. Recommended switching Symbicort to Trelegy and DuoNebs at home. For CHF continue home diuretics. For paroxysmal continue amiodarone and Eliquis. For qoy-wejxgvu-tnwfxozuv type 2 diabetes continue metformin and glipizide. For hypertension continue amlodipine. And for hyperlipidemia continue statin. Status at Discharge Functional status at discharge: independent ambulation Overall status at discharge: patient is back to baseline Time Attestation Discharge Coordination Time (in mins): 33 Quality: Safe Use of Opioids Does Pt have an Active Cancer Diagnosis on the Problem List?: No Quality: Stroke Does the patient have a stroke diagnosis?: No Physical Exam Vital Signs: Vital Signs: Last Vital Signs Temp 98.1 F 12/24/23 11:43 Pulse 80 12/24/23 13:25 Resp 20 12/24/23 13:25 BP 137/60 12/24/23 11:43 Pulse Ox 92 12/24/23 11:43 O2 Del Method Nasal Cannula 12/24/23 11:43 O2 Flow Rate 2 12/24/23 11:43 Oxygen Flow Rate 3 12/20/23 04:52 BMI result Body Mass Index 22.8 General: AOx3, no acute distress Resp: CTA bilaterally though diminished CVS: S1, S2, RRR GI: +BS, NT, no distention Skin: Warm, dry Neuro: Cranial nerves II-XII grossly intact bilaterally. Motor grossly intact bilaterally Extremities: 1+ bilateral pitting edema Psych: Appropriate affect DS: Data Data Completed and Pending Completed studies during hospitalization [Text1]: Procedures Assistance with Respiratory Ventilation, Less than 24 Consecutive Hours, Continuous Positive Airway Pressure (06/11/23) Voodoo of Cardiac Rhythm, Single (06/11/23) Ultrasonography of Heart with Aorta, Transesophageal (06/11/23) Labs on day of discharge: Laboratory Results - last 24 hr 12/23/23 12/23/23 12/24/23 16:07 20:03 07:49 POC Glucose 460 H* 344 H 157 H 12/24/23 10:51 POC Glucose 322 H Preliminary micro results at discharge 12/20/23 05:01 Blood Culture - Preliminary Blood - Venous No growth after 48 hours. 12/20/23 05:01 Blood Culture - Preliminary Blood - Venous No growth after 48 hours. Discharge Plan Discharge Anticipated Discharge Date/Time: 12/24/23 15:00 Patient Disposition: Home, Self-Care Discharge Diagnosis: Acute on chronic hypoxic respiratory failure in the setting of COVID and acute COPD exacerbation Referrals: Karri Mcnally PA-C [Primary Care Provider] - 1 Week Discharge Medications: New ipratropium-albuterol 0.5 mg-3 mg(2.5 mg base)/3 mL Solution For Nebulization 3 ml inhalation RQ4H WHILE AWAKE PRN (Reason: Shortness Of Breath/Wheezing) Qty: 90 2RF Trelegy Ellipta 100-62.5-25 mcg blister with device 1 inh inhalation DAILY Qty: 60 0RF Rx Instructions: One inhalation, once daily, at the same time Use Trelegy only once every 24 hours After inhalation, rinse mouth with water without swallowing to reduce risk of oropharyngeal candidiasis Treat acute symptoms with p.r.n. rescue inhaler Continued (DME) FreeStyle Lite Strips Strip See Rx Instructions .ROUTE .MEDSUPPLY Qty: 100 3RF Rx Instructions: As directed (DME) lancets [FreeStyle Lancets] 28 gauge misc See Rx Instructions .ROUTE .MEDSUPPLY Qty: 100 3RF Rx Instructions: As directed (DME) pen needle, diabetic [1st Tier Unifine Pentips Plus] 29 gauge x 1/2 needle See Rx Instructions .Route Qty: 100 3RF Rx Instructions: Use 1 pen needle once a day glipizide 5 mg tablet extended release 24hr 5 mg PO DAILY 90 Days Qty: 90 2RF metformin 1,000 mg tablet 1,000 mg PO BID 90 Days Qty: 180 2RF PreserVision AREDS [id number] [id number] Capsule 1 cap PO BID atorvastatin 80 mg tablet 80 mg PO DAILY (DME) blood pressure test kit-large Kit See Rx Instructions .Route Qty: 1 0RF Rx Instructions: As directed amlodipine 5 mg tablet 5 mg PO DAILY Eliquis 5 mg tablet 5 mg PO BID 90 Days Qty: 180 3RF amiodarone 200 mg tablet 200 mg PO DAILY 90 Days Qty: 90 3RF Discontinued albuterol sulfate 2.5 mg /3 mL (0.083 %) Solution For Nebulization 2.5 mg INHALATION Q6H PRN (Reason: Wheezing) Discharge Orders: Discharge Order (Routine); Ordered 12/24/23 Ordered By: Gilma Knox Activity on Discharge: As tolerated Stand Alone Forms: Patient Portal Discharge page Print Language: Faroese Care Plan Goals: Stop albuterol nebulizer solution Stop Symbicort Start new prescription for Trelegy daily Start new prescription for DuoNeb p.r.n. for wheezing Resume all other home meds Full recovery of shortness a breath back to baseline See below Health Concerns: Monitor O2 sats Monitor for shortness of breath and difficulty breathing Plan of Treatment: Stop Symbicort and albuterol nebulizer solution Start Trelegy daily and DuoNebs p.r.n. 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
== END 2023-12-24 16:33 | disposition home or self-care (01) | DRG 177 ==
LOC: HO.ED 06:55 → HO.EDOVER 09:28 → HO.IMC 17:31 → HO.EDOVER 18:51 → HO.IMC 12-21 07:37
PROVIDERS: Internal Medicine; Admitting Provider Family Medicine; Emergency Provider Emergency Medicine; PCP Physician Assistant; Visit Provider Student in an Organized Health Care Education/Training Program
DX: U07.1 COVID-19 (principal); J18.9 Pneumonia, unspecified organism; J96.21 Acute and chronic respiratory failure with hypoxia; J96.22 Acute and chronic respiratory failure with hypercapnia; I50.32 Chronic diastolic (congestive) heart failure; J43.9 Emphysema, unspecified; I48.0 Paroxysmal atrial fibrillation; I27.20 Pulmonary hypertension, unspecified; Z95.1 Presence of aortocoronary bypass graft; Z99.81 Dependence on supplemental oxygen; I25.10 Atherosclerotic heart disease of native coronary artery without angina pectoris; Z79.01 Long term (current) use of anticoagulants; Z79.84 Long term (current) use of oral hypoglycemic drugs; Z79.899 Other long term (current) drug therapy
CPT/HCPCS: 36415; 71045; 71250; 80048; 80076; 82803; 82947; 83605; 83880; 84145; 84484; 85025; 85027; 85610; 87040; 87635; 93005; 94640; 99285; J0456; J0696; J1100; J1940

== ENCOUNTER → 2023-12-20 09:21 | Outpatient (BNV) | payer MEDICARE, SELFPAY | PROVIDERS: Admitting Provider Family Medicine; Emergency Provider Emergency Medicine; Visit Provider Family Medicine | DX: J44.1 Chronic obstructive pulmonary disease with (acute) exacerbation (principal); U07.1 COVID-19 | CPT/HCPCS: 99223; 99232; 99239 ==

== ENCOUNTER → 2023-12-20 09:21 | Outpatient (BNV) | payer MEDICARE, SELFPAY | PROVIDERS: Admitting Provider Family Medicine; Emergency Provider Emergency Medicine; PCP Physician Assistant; Visit Provider Internal Medicine Pulmonary Disease | DX: J96.11 Chronic respiratory failure with hypoxia (principal); U07.1 COVID-19; I50.32 Chronic diastolic (congestive) heart failure; I48.3 Typical atrial flutter; J41.0 Simple chronic bronchitis | CPT/HCPCS: 99222 ==

== ENCOUNTER 2024-01-06 05:48 | Inpatient (IN) | payer MEDICARE, SELFPAY ==
[2024-01-06] VITALS (15 sets, daily range): BP systolic 116–152; BP diastolic 49–84; PULSE 72–100; RESP 15–23; TEMP 36.1–36.8; O2SAT 88–100; BMI 20.3
--- NOTE | 2024-01-06 | ECG_ITS ---
Test Reason : DYSPNEA Blood Pressure : / mmHG Vent. Rate : 077 BPM Atrial Rate : 078 BPM P-R Int : 170 ms QRS Dur : 120 ms QT Int : 384 ms P-R-T Axes : 000 046 175 degrees QTc Int : 434 ms Poor data quality, interpretation may be adversely affected Normal sinus rhythm Cannot rule out Anterior infarct , age undetermined ST & T wave abnormality, consider lateral ischemia Abnormal ECG When compared with ECG of 20-DEC-2023 04:39, SD interval has decreased Minimal criteria for Anterior infarct are now Present Referred By: Generic ED Physician Electronically Signed By:LORENZO GUILLEN
--- NOTE | ~2024-01-06 | XR_ITS ---
EXAMINATION: XR CHEST CLINICAL INFORMATION: Dyspnea COMPARISON: 12/20/2023 TECHNIQUE: Frontal view of the chest was obtained. FINDINGS: Redemonstrated right apical scarring and bilateral calcified pleural plaques. Persistent bibasilar opacities, right greater than left, similar to prior and favored to be due to atelectasis/scarring along with a small right pleural effusion; these findings are similar to prior. Pulmonary nodules identified on recent CT are not as well delineated radiographically. No appreciable pneumothorax. The cardiomediastinal silhouette is stable. Sternal wires and left atrial appendage clip are noted. Degenerative changes are noted in the spine. XR/XR chest 1V IMPRESSION: Persistent bibasilar opacities, right greater than left, and small right pleural effusion, similar to prior. Of note, evaluation for subtle superimposed acute parenchymal consolidation is limited given these chronic changes. Pulmonary nodules identified on recent CT are not as well delineated radiographically. Electronically signed by: Ranjit De Leon MD 01/06/2024 08:06 AM EDT
--- NOTE | ~2024-01-06 | CT_ITS ---
EXAMINATION: CT ANGIOGRAM OF THE CHEST WITH AND WITHOUT CONTRAST (CT PULMONARY ANGIOGRAM FOR PE) CLINICAL INFORMATION: p/w Dyspnea, s/p Cardiac Arrest, Shock COMPARISON: Plain films of 9-24 TECHNIQUE: Prior to contrast administration, noncontrast localization images were obtained. Subsequently, multidetector volumetric imaging was performed from the thoracic inlet to the pubic symphysis through the chest, following the administration of 65 mL Omnipaque 350 intravenous contrast. No contrast reaction reported Sagittal, coronal, and MIP oblique sagittal (through the chest only) reformatted images were obtained on the CT workstation, uploaded to PACS, and reviewed. Total exam dose-length product: 178 mGy-cm FINDINGS: QUALITY OF STUDY/CONTRAST BOLUS: Satisfactory. PULMONARY ARTERIES: No central or segmental pulmonary emboli. THORACIC AORTA: The aorta is atherosclerotic but no obvious dissection or aneurysm although contrast is suboptimal. There are no periaortic collections. LUNG: Lungs do appear to be hyperaerated with a fair amount of peripheral fibrotic change. There is atelectasis at the lung bases. No suspicious nodules or consolidations. 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 There are small bibasilar effusions. MEDIASTINUM: Heart size normal. No pericardial effusion. There is no significant mediastinal or hilar adenopathy. No evidence of septal bowing or right heart strain. Advanced coronary artery calcifications are noted. CHEST WALL/AXILLA: No axillary or internal mammary lymphadenopathy. Scans through the upper abdomen show no evidence for elevated IVC or right-sided cardiac pressures. Adrenals normal. OSSEOUS STRUCTURES: No acute or suspicious osseous abnormality. Spondylitic changes throughout the kyphotic thoracic spine but no fracture or destructive process. Poststernotomy noted. CT/CT angio chest PE protocol IMPRESSION: COPD. Asbestos-related pleural disease. No active disease. No acute PE. VTE: negative Electronically signed by: Kieran Rea MD 01/08/2024 01:18 PM EDT
--- NOTE | ~2024-01-06 | XR_ITS ---
EXAMINATION: PORTABLE CHEST 1 VIEW CLINICAL INFORMATION: s/p Intubation. COMPARISON: 01/06/2024. TECHNIQUE: Portable frontal view of the chest was obtained. FINDINGS: Endotracheal tube tip approximately 4 cm above the june. Nasogastric tube below the level of the diaphragm. Overlying pacing pads and EKG leads are seen. Patient is status post sternotomy and CABG with atrial appendage clip. Layering bilateral pleural effusions are again seen more so on the right. There is peribronchial cuffing and hazy airspace disease similar to yesterday's study. Overlying calcified pleural plaque is present. Chronic bony deformity to the left sixth rib XR/XR chest 1V IMPRESSION: Tubes and lines as described. Layering bilateral pleural effusions and hazy airspace disease similar to yesterday's study. Calcified pleural plaque again noted. Electronically signed by: Jerry Tan MD 01/07/2024 06:52 PM EDT RP
[2024-01-06 06:07] LABS: Venous Blood Gas Refer to POC result
[2024-01-06] MEDS: Albuterol Sulfate 7.5 MG, Albuterol Sulfate (0.083%) 2.5 MG 10 MG INHALE (06:07)
[2024-01-06 06:08] LABS: Basophils Percent Auto 0.4 % (0-2); Eosinophils Percent Auto 0.2 % (0-4); Hematocrit 31.9 % (42.0-52.0); Hemoglobin 10.2 g/dl (14.0-18.0); Imm Gran Abs Auto 0.03 X10*3/uL (0.00-0.03); Imm Gran Pct Auto 0.3 % (0.0-0.4); Lymphocytes Percent Auto 9.3 % (20-40); MANUAL DIFF FLAG NO; Mean Corpuscular Hemoglobin 31.1 pg (27.0-33.0); Mean Corpuscular Volume 97.3 fL (80.0-98.0); Mean Platelet Volume 9.6 fL (9.4-12.4); Monocytes Absolute Auto 0.5 X10*3/uL (0.1-1.2); Monocytes Percent Auto 4.7 % (2-11); Neutrophils Absolute Auto 8.9 x10*3/uL (2.0-8.3); Neutrophils Percent Auto 85.1 % (45-73); Platelet Count 276 X10*3/uL (160-400); Red Blood Count 3.28 X10*6/uL (4.60-5.80); Red Cell Distribution Width 13.5 % (11.0-16.0); White Blood Count 10.5 X10*3/uL (4.8-10.8)
[2024-01-06 06:13] LABS: VBG HCO3 46 mmol/L (22-26); VBG pCO2 78 mmHg; VBG pH 7.38 (7.32-7.43); VBG pO2 42 mmHg
[2024-01-06 06:24] LABS: Alanine Aminotransferase 24 U/L (0-40); Albumin Level 3.5 g/dL (3.5-5.0); Alkaline Phosphatase 82 U/L (39-117); Anion Gap 13 (12-20); Aspartate Amino Transferase 13 U/L (5-37); Bilirubin Total 0.6 mg/dL (0.0-1.0); Blood Urea Nitrogen 30 mg/dL (9-16); Calcium 9.6 mg/dL (8.4-10.2); Carbon Dioxide 42 mmol/L (22-29); Chloride 91 mmol/L (96-108); Creatinine Clr Calc Pharmacy 47.6; Estimated Glomerular Filt Rate > 60; Glucose Random 251 mg/dL (60-115); Potassium 4.7 mmol/L (3.3-5.1); Sodium 141 mmol/L (135-145); Total Protein 6.6 g/dL (6.5-8.0)
[2024-01-06] MEDS: Furosemide 40 MG/4 ML VIAL IVPUSH ×2 (06:24→18:40)
--- NOTE | 2024-01-06 06:25 | PC.NURSE ---
pt biba from home a&ox4, respirations even and unlabored. pt reporting onset of sudden shortness of breath, pt reports he is on 2L nasal cannula baseline which provided no relief. ems placed 20G in left ac, pt given duoneb prior to arriva. on arrival respiratory called to bedside, pt sating 80% on 5L nasal cannula, breathing treatment administered. dr woods aware, pt medicated per jul. pt placed on oxymax 6L sating 96%. 20G placed in right forearm.
[2024-01-06 06:27] LABS: B Type Natriuretic Peptide 439 pg/mL (<100)
[2024-01-06 06:28] LABS: Troponin-I High Sensitivity 31.3 ng/L (<3.5-35.0)
--- NOTE | 2024-01-06 06:28 | ED_ITS ---
HPI - General Adult General Chief complaint: Dyspnea Stated complaint: difficulty breathing Time Seen by Provider: 01/06/24 06:27 Source: patient, EMS and RN notes reviewed Mode of arrival: EMS Limitations: no limitations History of Present Illness ED Provider: rl HPI narrative: Patient is an 83-year-old male with history of CHF, COPD, atrial flutter, pulmonary emphysema, chronic lung disease on home O2, CAD s/p CABG, T2 DM, HTN, chronic hypoxic respiratory failure presenting to the emergency department with increasing shortness of breath. Worsening pedal edema. He denies chest pain or palpitations. Denies fevers. Denies symptoms as worsening of his chronic dyspnea, he because anxious and called 911. Denies recent medication changes or new medications. States he has been taking his medications as prescribed. MD complaint: dyspnea Onset (ago): day(s) Treatments prior to arrival: none Related Data Home Medications ?Medication ?Instructions ?Recorded ?Confirmed atorvastatin 80 mg tablet 80 mg PO DAILY 04/21/20 12/25/23 vitamins A,C,L-nwfg-rqzoxe 4,296 1 cap PO BID 04/01/22 12/25/23 mcg-226 mg-90 mg capsule (PreserVision AREDS) amlodipine 5 mg tablet 5 mg PO DAILY 12/11/22 12/25/23 Previous Rx's ?Medication ?Instructions ?Recorded blood pressure test kit-large #1 ea 03/14/21 blood sugar diagnostic (FreeStyle #100 ea 08/29/21 Lite Strips) lancets 28 gauge (FreeStyle #100 ea 08/29/21 Lancets) pen needle, diabetic 29 gauge x #100 ea 06/22/22 1/2 (1st Tier Unifine Pentips Plus) amiodarone 200 mg tablet 200 mg PO DAILY 90 days #90 tabs 07/04/23 apixaban 5 mg tablet (Eliquis) 5 mg PO BID 90 days #180 tabs 07/04/23 glipizide 5 mg tablet, extended 5 mg PO DAILY 90 days #90 tabs 09/17/23 release 24 hr metformin 1,000 mg tablet 1,000 mg PO BID 90 days #180 tabs 10/08/23 fluticasone fur. 100 mcg-umeclid 1 inh inhalation DAILY #60 ea 12/24/23 62.5 mcg-vilant 25 mcg inhalat.powder (Trelegy Ellipta) ipratropium 0.5 mg-albuterol 3 mg 3 ml inhalation RQ4H WHILE AWAKE 12/25/23 (2.5 mg base)/3 mL nebulization PRN Shortness Of Breath/Wheezing soln 30 days #90 mL albuterol sulfate 2.5 mg/3 mL 2.5 mg (3 mL) inhalation Q6H PRN 12/31/23 (0.083 %) solution for nebulization shortness of breath or wheezing 30 days #180 mL Allergies Allergy/AdvReac Type Severity Reaction Status Date / Time No Known Allergies Allergy Verified 01/06/24 05:58 [No Known Allergies*] Review of Systems 2 Review of Systems: As per HPI. Yes all other systems are reviewed and are negative Constitutional: Constitutional: Reports as per HPI [facility] Past Medical History Medical History CHF (congestive heart failure) Atrial flutter Pulmonary emphysema Acute respiratory failure with hypercapnia Chronic lung disease COPD (chronic obstructive pulmonary disease) Coronary artery disease CAD (coronary artery disease) DMII (diabetes mellitus, type 2) HTN (hypertension) Surgical History History of colonoscopy History of lung surgery History of cholecystectomy Family History Family History Father No problems noted. Mother No problems noted. Social History Social History Household Members: Spouse Housing: House Do you presently have visiting nurse or other home services: No Alcohol intake: current Alcohol intake frequency: holidays/special occasions only Comment: refuses bed alarm Patient Tobacco Use Status: Never used Tobacco Tobacco use type: Cigarette Smoked in Last 30 Days: No e-Cigarette/Vaping Use: Never Used Second Hand Smoke Exposure: No Use of substances other than those prescribed or required for medical reasons: No Advance Directives: Yes Advance Directives Information Provided: Yes Advance Directives on File: No Do you have a plan to hurt others: No Plan service: No Current occupational status: retired Cognitive needs: No Hearing needs: No Vision needs: Yes (glasses) Physical Exam ED Vital Signs: Vital Signs - 24 hr 01/06/24 05:53 01/06/24 06:03 01/06/24 06:24 Temperature 98.0 F Pulse Rate 100 77 Respiratory Rate 20 22 H Blood Pressure 143/52 H 134/51 L Pulse Oximetry 93 Oxygen Delivery Method Nasal Cannula Oxygen Flow Rate 01/06/24 06:28 01/06/24 06:29 01/06/24 08:00 Temperature 97.5 F Pulse Rate 77 76 Respiratory Rate 18 15 18 Blood Pressure 143/67 H 116/49 L Pulse Oximetry 98 97 98 Oxygen Delivery Method Oxymask Oxymask Oxymask Oxygen Flow Rate 6 2 01/06/24 08:43 Temperature Pulse Rate 73 Respiratory Rate 18 Blood Pressure 146/59 H Pulse Oximetry 94 Oxygen Delivery Method Oxymask Oxygen Flow Rate 2 BMI result Body Mass Index 20.3 Vital signs have been reviewed and appear to be correct. Blood pressure elevated. Heart rate normal. Respiratory rate tachypneic at times. Temperature normal. Oxygen saturation low on baseline O2. Const General: cooperative Orientation/consciousness: oriented to person, oriented to place, oriented to time and patient oriented x3 Limitations: no limitations HENNE Head: Yes normocephalic and Yes atraumatic Ears: external ears normal General nose exam: Normal external nose present Face and sinus: Yes face symmetric Mouth: oropharynx normal and moist mucous membranes Throat: Yes uvula midline Eyes Pupils: Equal, round and reactive pupils present Neck Neck: Yes normal visual inspection and Yes supple Resp Effort & Inspection: not able to speak in complete sentences and uses accessory muscles Auscultation: diminished lung sounds diffuse Cardio Rate: regular rate Rhythm: regular rhythm Heart sounds: S1 normal heart sound present and S2 normal heart sound present GI Palpation (GI): Soft to palpation and nontender Auscultation: normoactive bowel sounds General: Yes no CVA tenderness Back/Spine/Pelvis Back: no CVA tenderness Skin General skin exam: elasticity normal and turgor normal Neuro General: oriented to person, oriented to place, oriented to time, patient oriented x3, moves all extremities, no focal motor deficits and CN's II-XI intact bilaterally Cranial nerves: Yes Equal, round and reactive pupils present Cognition (Neuro): normal cognition Extrem General: Yes full ROM, Yes no calf tenderness and Yes edema (bilat pedal edema 3+ pitting) Psych Mental Status: mental status grossly normal Affect: normal affect Thought process: Normal thought process present Medications Administered Discontinued Medications Generic Name Dose Route Start Last Admin Trade Name Sabino PRN Reason Stop Dose Admin Albuterol Sulfate 7.5 mg/ 10 mg 01/06/24 06:05 01/06/24 06:07 Albuterol Sulfate 2.5 mg INHALE 01/06/24 06:06 10 mg ONCE ONE Administration Furosemide 40 mg 01/06/24 06:18 01/06/24 06:24 Furosemide 40 Mg/4 Ml Vial IVPUSH 01/06/24 06:19 40 mg ONCE ONE Administration Protocol Medical Decision Making Medical Decision Making [facility] Narrative: Patient is an 83-year-old male with history of CHF, COPD, atrial flutter, pulmonary emphysema, chronic lung disease on home O2, CAD s/p CABG, T2 DM, HTN, chronic hypoxic respiratory failure presenting to the emergency department with increasing shortness of breath. On exam patient is awake, tachypneic, hypoxic, afebrile, normal neurological exam without focal deficits, physical exam findings as above. Given reported symptoms and physical exam findings, initial differential includes CHF exacerbation, COPD exacerbation, viral illness, bronchitis, pneumonia. Labs notable for BNP elevation from baseline, chronic anemia not at transfusion level, hypercapnia on VBG, chronically elevated BUN, troponin 31.3, likely demand but will obtain repeat. X-ray chest notable for persistent bibasilar opacities and small right pleural effusion similar to prior. My interpretation is in agreement with the radiologist's interpretation. Case discussed with Dr. Brown who accepts admission to medicine. Differential Diagnosis Differential Diagnoses: The differential diagnosis associated with the presentation includes as per [facility] Admission/Observation Consideration of admission/observation: Escalation of care including admission/observation considered Consult Healthcare Provider Management of the patient was discussed with: Hospitalist (Dr. Brown) Lab Data [facility] Lab Attestation statement: I reviewed the patient's lab results. As per [facility] 01/06/24 06:01 01/06/24 06:01 Labs: Lab Results 01/06/24 01/06/24 Range/Units 06:01 06:08 WBC 10.5 (4.8-10.8) X10*3/uL RBC 3.28 L (4.60-5.80) X10*6/uL Hgb 10.2 L (14.0-18.0) g/dl Hct 31.9 L (42.0-52.0) % MCV 97.3 (80.0-98.0) fL MCH 31.1 (27.0-33.0) pg MCHC 32.0 (31.0-36.0) g/dl RDW 13.5 (11.0-16.0) % Plt Count 276 (160-400) X10*3/uL MPV 9.6 (9.4-12.4) fL Immature Gran % (Auto) 0.3 (0.0-0.4) % Neut % (Auto) 85.1 H (45-73) % Lymph % (Auto) 9.3 L (20-40) % [place] % (Auto) 4.7 (2-11) % Eos % (Auto) 0.2 (0-4) % Baso % (Auto) 0.4 (0-2) % Lymph # (Auto) 1.0 L (1.2-4.9) X10*3/uL [place] # (Auto) 0.5 (0.1-1.2) X10*3/uL Eos # (Auto) 0.0 (0.0-0.4) X10*3/uL Baso # (Auto) 0.0 (0.0-0.2) X10*3/uL Abs Immat Gran (auto) 0.03 (0.00-0.03) X10*3/uL Absolute Neuts (auto) 8.9 H (2.0-8.3) x10*3/uL Absolute Nucleated RBC 0.000 (0.0-0.012) X10*3/uL Nucleated RBC % (auto) 0.0 (0.0-0.2) /100WBC VBG pH 7.38 (7.32-7.43) VBG pCO2 78 mmHg VBG pO2 42 mmHg VBG HCO3 46 H (22-26) mmol/L VBG O2 Saturation 70.0 % VBG Base Excess 18.0 mmol/L Sodium 141 (135-145) mmol/L Potassium 4.7 (3.3-5.1) mmol/L Chloride 91 L (96-108) mmol/L Carbon Dioxide 42 H* D (22-29) mmol/L Anion Gap 13 (12-20) BUN 30 H (9-16) mg/dL Creatinine 1.11 (0.5-1.4) mg/dL Estim Creat Clear Calc 47.6 Estimated GFR > 60 Random Glucose 251 H (60-115) mg/dL Calcium 9.6 (8.4-10.2) mg/dL Total Bilirubin 0.6 (0.0-1.0) mg/dL AST 13 (5-37) U/L ALT 24 (0-40) U/L Alkaline Phosphatase 82 (39-117) U/L Troponin I High Sens 31.3 D (<3.5-35.0) ng/L B-Natriuretic Peptide 439 H (<100) pg/mL Total Protein 6.6 (6.5-8.0) g/dL Albumin 3.5 (3.5-5.0) g/dL Influenza Type A (PCR) NEGATIVE (Negative) Influenza Type B (PCR) NEGATIVE (Negative) RSV RNA Qual (PCR) NEGATIVE (Negative) SARS-CoV-2 RNA (RT-PCR) NEGATIVE (Negative) Independent Interpretation I performed an independent interpretation of an: Plain X-Ray Interpretation: X-ray chest notable for persistent bibasilar opacities and small right pleural effusion similar to prior. Radiology Impression Discussion of test interpretation with radiology: I have reviewed the radiologist's reading. Radiologist Impression: XR/XR chest 1V IMPRESSION: Persistent bibasilar opacities, right greater than left, and small right pleural effusion, similar to prior. Of note, evaluation for subtle superimposed acute parenchymal consolidation is limited given these chronic changes. Pulmonary nodules identified on recent CT are not as well delineated radiographically. External Record Review External record reviewed: Inpatient record, Office record and Outpatient record Discharge Plan Discharge Clinical Impression: Acute exacerbation of CHF (congestive heart failure) Patient Disposition: Admitted As Inpatient Print Language: Bengali
[2024-01-06 06:46] LABS: Influenza A PCR NEGATIVE (Negative); Influenza B PCR NEGATIVE (Negative); Resp Syncy Virus RNA Qual PCR NEGATIVE (Negative); SARS COV2 PCR INHOUSE NEGATIVE (Negative)
--- NOTE | 2024-01-06 08:00 | MHC.EDTECH ---
went to patient to do vitals gave patient orange juice
--- NOTE | 2024-01-06 10:00 | P.HPHOSP_ITS ---
History of Present Illness Date of Service: 01/06/24 Chief Complaint: Shortness of breath 83-year-old male with PAF on eliquis, chronic hypoxic and hypercarbic respiratory failure on 1-3 L of supplemental oxygen at home, CAD status post CABG in 2022, [id number]-[id number] diabetes mellitus, hyperlipidemia, HFrEF with last EF between 50-55% recent hospitalization covid pna, discharged on 12/22. He presents with progressive dyspnea, increase leg edema, PND and othropnea. BNP is higher than baseline and CXR suggest possible CHF Review of Systems 2 Review of Systems: Gen: no fever Resp: + sob, no cough CV: no chest, + [place], n+leg edema GI: No n/v, no abd pain Neuro: No confusion Yes all other systems are reviewed and are negative [facility] Medical History Chronic hypoxic respiratory failure Pneumonia Hypoxia COPD exacerbation CHF (congestive heart failure) Atrial flutter Pulmonary emphysema Acute respiratory failure with hypercapnia Chronic lung disease COPD (chronic obstructive pulmonary disease) Coronary artery disease CAD (coronary artery disease) DMII (diabetes mellitus, type 2) HTN (hypertension) Family History Father No problems noted. Mother No problems noted. Surgical History History of colonoscopy History of lung surgery History of cholecystectomy Social History Household Members: Spouse Housing: House Do you presently have visiting nurse or other home services: No Alcohol intake: current Alcohol intake frequency: holidays/special occasions only Comment: refuses bed alarm Patient Tobacco Use Status: Never used Tobacco Tobacco use type: Cigarette Smoked in Last 30 Days: No e-Cigarette/Vaping Use: Never Used Second Hand Smoke Exposure: No Use of substances other than those prescribed or required for medical reasons: No Advance Directives: Yes Advance Directives Information Provided: Yes Advance Directives on File: No Do you have a plan to hurt others: No Plan service: No Current occupational status: retired Cognitive needs: No Hearing needs: No Vision needs: Yes (glasses) Meds Allergies Allergy/AdvReac Type Severity Reaction Status Date / Time No Known Allergies Allergy Verified 01/06/24 05:58 [No Known Allergies*] Home Medications ?Medication ?Instructions ?Recorded ?Confirmed ?Last Taken ?Type atorvastatin 80 mg tablet 80 mg PO DAILY 04/21/20 01/06/24 12/19/23 History amlodipine 5 mg tablet 5 mg PO DAILY 12/11/22 01/06/24 12/19/23 History budesonide-formoterol HFA 160 2 puff inhalation BID PRN 01/06/24 01/06/24 Unknown History mcg-4.5 mcg/actuation aerosol Shortness Of Breath Or Wheezing inhaler (Symbicort) furosemide 40 mg tablet 40 mg PO DAILY 01/06/24 01/06/24 Unknown History omeprazole 20 mg capsule,delayed 20 mg PO DAILY 01/06/24 01/06/24 Unknown History release vit C 250 mg-vit E 90 mg-zinc 40 1 tab PO BID 01/06/24 01/06/24 Unknown History mg-copper 1 lt-tluurb-uqovfr capsule (PreserVision AREDS-2) Physical Exam 2 Vital Signs and Narrative: Vital Signs: Last Vital Signs Temp 97.5 F 01/06/24 08:00 Pulse 73 01/06/24 08:43 Resp 18 01/06/24 08:43 BP 146/59 H 01/06/24 08:43 Pulse Ox 94 01/06/24 08:43 O2 Del Method Oxymask 01/06/24 08:43 O2 Flow Rate 2 01/06/24 08:43 Oxygen Flow Rate 5 01/06/24 05:53 BMI result Body Mass Index 20.3 Constitutional: Alert, in no distress, overweight. Mental Status: Oriented to person, place and time. Eyes: Pupils are equal, round and reactive to light. Ear, Nose and Throat: Oropharynx clear, mucous membranes moist. Ears and nose without eformities. Trachea midline. Respiratory: Clear to auscultation. No wheezing, rales or rhonchi. Cardiovascular: S1 S2 regular. No murmurs, rubs or gallops. Gastrointestinal: Abdomen soft, non-tender, non-distended. Normal bowel sounds.? Neurologic: Cranial nerves II-XII grossly intact. No focal neurological deficits. Moves all extremities spontaneously.? Skin: No rashes or lesions.? Musculoskeletal: No cyanosis or clubbing. Psychiatric: Normal mood and affect? Results Labs 01/06/24 06:01 01/06/24 06:01 Labs: Laboratory Results - last 24 hr 01/06/24 01/06/24 06:01 06:08 MCV 97.3 MCH 31.1 MCHC 32.0 RDW 13.5 Plt Count 276 MPV 9.6 Immature Gran % (Auto) 0.3 Neut % (Auto) 85.1 H Lymph % (Auto) 9.3 L [place] % (Auto) 4.7 Eos % (Auto) 0.2 Baso % (Auto) 0.4 Lymph # (Auto) 1.0 L [place] # (Auto) 0.5 Eos # (Auto) 0.0 Baso # (Auto) 0.0 Abs Immat Gran (auto) 0.03 Absolute Neuts (auto) 8.9 H Absolute Nucleated RBC 0.000 Nucleated RBC % (auto) 0.0 VBG pH 7.38 VBG pCO2 78 VBG pO2 42 VBG HCO3 46 H VBG O2 Saturation 70.0 VBG Base Excess 18.0 Anion Gap 13 Estim Creat Clear Calc 47.6 Estimated GFR > 60 Random Glucose 251 H Calcium 9.6 Total Bilirubin 0.6 AST 13 ALT 24 Alkaline Phosphatase 82 Troponin I High Sens 31.3 D B-Natriuretic Peptide 439 H Total Protein 6.6 Albumin 3.5 Influenza Type A (PCR) NEGATIVE Influenza Type B (PCR) NEGATIVE RSV RNA Qual (PCR) NEGATIVE SARS-CoV-2 RNA (RT-PCR) NEGATIVE Imaging Radiologist's Impressions: Impressions Chest X-Ray 01/06/24 06:25 IMPRESSION: Persistent bibasilar opacities, right greater than left, and small right pleural effusion, similar to prior. Of note, evaluation for subtle superimposed acute parenchymal consolidation is limited given these chronic changes. Pulmonary nodules identified on recent CT are not as well delineated radiographically. Electronically signed by: Ranjit De Leon MD 01/06/2024 08:06 AM EDT Assessment and Plan (1) Acute heart failure with preserved ejection fraction (HFpEF): Status: Acute Plan 83-year-old male with a past medical history of COPD and CHF, CAD status post CABG, chronic respiratory failure with hypercarbia and hypoxia recent hospitalization for covid and released on 12/22 here with sob, elevated bnp, and leg edema with clinical presentation c/w with exacerbation of chf Acute HFpEF, uclear precipitant -IV Lasix 40 bid -repet echo -consider cardiology eval -measure I/O and BMP PAF -rate controlled -continue amnio and apixaban Soq-yohmwjq-pizcdkvos diabetes mellitus -hold glipizide and metformin -add ssi, diabetic diet Copd, no acute exacerbation -continue home inhalers HLD -Lipitor Code: full DVT prophylaxis, Eliquis admission for at least 2 midnights for management of acute heart failure needing IV diuretics and monitoring of electrolytes, bun/cr Quality Stroke Does the patient have a stroke diagnosis?: No VTE Prior VTE?: No VTE Risk Level:: Medical - moderate - high VTE Device Contraindication: Treatment Not Indicated VTE Drug Contraindication: N/A - Med Ordered
--- NOTE | 2024-01-06 10:00 | MHC.EDTECH ---
did patient vitals patient ask for water brought him a cup of water
[2024-01-06 11:31] LABS: Glucose, Whole Blood 314 mg/dL (60-115)
--- NOTE | 2024-01-06 11:54 | PHA.MEDREC ---
Addendum entered by Case Mireles RPh 01/06/24 12:31: Med rec was reviewed by [facility]. Original Note: Pharmacy Consult ? Medication Reconciliation Pharmacy has completed the medication reconciliation. Spoke with patient's over the phone (Mya) to confirm medications. She reports he is on the furosemide 40 mg daily. He stopped using the Trelegy because it added a coating to his mouth he did not like and made him feel unwell so she started him on Symbicort prn instead. He is now taking omeprazole again, started about a week ago. He is not taking baby aspirin. He did not take any medications today.
[2024-01-06 13:43] LABS: Glucose, Whole Blood 326 mg/dL (60-115)
[2024-01-06] MEDS: Insulin Lispro 100 UNIT/ML 3 ML VIAL SUBCUT ×3 (13:46→20:35)
--- NOTE | 2024-01-06 13:47 | MHC.EDTECH ---
did patients vital made sure he was comfortable
[2024-01-06] MEDS: Atorvastatin Calcium 80 MG TABLET PO (13:48)
[2024-01-06] MEDS: amLODIPine Besylate 5 MG TABLET PO (13:48)
[2024-01-06] MEDS: Amiodarone HCL 200 MG TABLET PO (13:49)
[2024-01-06] MEDS: Apixaban 5 MG TABLET PO ×2 (13:49→20:35)
[2024-01-06] MEDS: Omeprazole 20 MG CAPSULE.DR PO (13:49)
--- NOTE | 2024-01-06 13:56 | MHC.EDTECH ---
did patient vitals and gave him his lunch tray
--- NOTE | 2024-01-06 14:24 | MHC.EDTECH ---
did patient vital offered him a blanket
[2024-01-06 17:10] LABS: Glucose, Whole Blood 236 mg/dL (60-115)
[2024-01-06 20:23] LABS: Glucose, Whole Blood 189 mg/dL (60-115)
[2024-01-06] MEDS: 0.9 % Sodium Chloride Flush 3 ML SYRINGE IVFLUSH (20:35)
[2024-01-07] VITALS (21 sets, daily range): BP systolic 85–142; BP diastolic 26–74; PULSE 57–89; RESP 19–25; TEMP 35.2–37.6; O2SAT 93–100
--- NOTE | 2024-01-07 | ECG_ITS ---
Test Reason : post arrest Blood Pressure : / mmHG Vent. Rate : 068 BPM Atrial Rate : 204 BPM P-R Int : 000 ms QRS Dur : 094 ms QT Int : 402 ms P-R-T Axes : 249 093 156 degrees QTc Int : 427 ms Poor data quality, interpretation may be adversely affected Atrial flutter with 3:1 A-V conduction Rightward axis Low voltage QRS Nonspecific ST and T wave abnormality Abnormal ECG When compared with ECG of 06-JAN-2024 05:59, Atrial flutter has replaced Sinus rhythm Questionable change in QRS duration Minimal criteria for Anterior infarct are no longer Present Referred By: Rubia Garibay Electronically Signed By:LORENZO GUILLEN
--- NOTE | 2024-01-07 03:49 | PC.NURSE ---
Pt AOx3, able to make needs known. Pt placed on nc approx 0000 d/t O2 dropping to 70's, came up to mid 80's, increased O2 to 4L, pt sating in low 90's. When pt was desating, this RN found him sitting on the side of the bed. He stated he was fine, did not need or want help, and if he needed it he would press the call molina. Pt continues to refuse all high fall risk mediums - red socks, bracelet, and bed alarm. Call molina within reach.
[2024-01-07] MEDS: Albuterol Sulfate (0.083%) 2.5 MG/3 ML VIAL.NEB INHALE (04:42)
[2024-01-07] MEDS: Omeprazole 20 MG CAPSULE.DR PO (04:57)
[2024-01-07 07:07] LABS: Anion Gap 18 (12-20); Blood Urea Nitrogen 36 mg/dL (9-16); Calcium 9.9 mg/dL (8.4-10.2); Carbon Dioxide 34 mmol/L (22-29); Chloride 91 mmol/L (96-108); Creatinine Clr Calc Pharmacy 48.9; Estimated Glomerular Filt Rate > 60; Glucose Random 175 mg/dL (60-115); Potassium 5.2 mmol/L (3.3-5.1); Sodium 138 mmol/L (135-145)
[2024-01-07 07:14] LABS: B Type Natriuretic Peptide 744 pg/mL (<100)
[2024-01-07 07:24] LABS: Glucose, Whole Blood 179 mg/dL (60-115)
[2024-01-07] MEDS: amLODIPine Besylate 5 MG TABLET PO (08:27)
[2024-01-07] MEDS: glipiZIDE XL 5 MG TAB.ER.24 PO (08:28)
[2024-01-07] MEDS: Furosemide 40 MG/4 ML VIAL IVPUSH ×2 (08:28→16:18)
[2024-01-07] MEDS: Atorvastatin Calcium 80 MG TABLET PO (08:28)
[2024-01-07] MEDS: Apixaban 5 MG TABLET PO ×2 (08:28→22:29)
[2024-01-07] MEDS: Amiodarone HCL 200 MG TABLET PO (08:28)
[2024-01-07] MEDS: 0.9 % Sodium Chloride Flush 3 ML SYRINGE IVFLUSH ×2 (08:28→16:17)
[2024-01-07] MEDS: Insulin Lispro 100 UNIT/ML 3 ML VIAL SUBCUT ×4 (08:28→18:53)
--- NOTE | 2024-01-07 10:25 | P.PNIM_ITS ---
Subjective Subjective Date of Service: 01/07/24 Interval History: f/u acute on chronic heart failure with respiratory failure still feels sob, legs remains swollen o2 sat can be difficult to obtain d/t cold finger Physical Exam 2 Vital Signs: Vital Signs: Last Vital Signs Temp 97.0 F 01/07/24 08:00 Pulse 66 01/07/24 08:00 Resp 20 01/07/24 08:00 BP 106/50 L 01/07/24 08:00 Pulse Ox 96 01/07/24 08:19 O2 Del Method Nasal Cannula 01/07/24 08:19 O2 Flow Rate 2 01/07/24 08:19 Oxygen Flow Rate 5 01/06/24 05:53 BMI result Body Mass Index 20.3 General: AO X 3, no acute distress Resp: CTA bilateral CVS: S1,S2,RRR, 3+ pitteing leg edema GI: +BS, NT, no distention Skin: No rash Neuro: motor grossly intact Psych: appropriate affect Objective Data Active Medications Acetaminophen (Acetaminophen 325 Mg Tablet) 650 mg PO Q6H PRN PRN Reason: Pain, Mild (Pain Scale 1-3), fever or headache Albuterol Sulfate (Albuterol Sulfate (0.083%) 2.5 Mg/3 Ml Vial.Neb) 2.5 mg INHALE Q6H PRN PRN Reason: shortness of breath or wheezing Last Admin: 01/07/24 04:42 Dose: 2.5 mg Documented By: ANALIA Albuterol/Ipratropium (Albuterol/Iprat 2.5/0.5mg 3 Ml Ampul.Neb) 3 ml INHALE RQ4H WHILE AWAKE PRN PRN Reason: Shortness Of Breath/Wheezing Amiodarone HCl (Amiodarone Hcl 200 Mg Tablet) 200 mg PO DAILY [facility] Last Admin: 01/07/24 08:28 Dose: 200 mg Documented By: EDUARDO Amlodipine Besylate (Amlodipine Besylate 5 Mg Tablet) 5 mg PO DAILY [facility]; Protocol Last Admin: 01/07/24 08:27 Dose: 5 mg Documented By: EDUARDO Apixaban (Apixaban 5 Mg Tablet) 5 mg PO BID [facility] Last Admin: 01/07/24 08:28 Dose: 5 mg Documented By: EDUARDO Atorvastatin Calcium (Atorvastatin Calcium 80 Mg Tablet) 80 mg PO DAILY [facility] Last Admin: 01/07/24 08:28 Dose: 80 mg Documented By: EDUARDO Calcium Carbonate (Calcium Carbonate 750 Mg Tab.Chew) 750 mg PO Q4H PRN PRN Reason: Heartburn Fluticasone/Vilanterol (Fluticasone/Vilanterol 200/25 Blst.W.Dev) 1 puff INHALE DAILY PRN PRN Reason: Shortness Of Breath Or Wheezing Furosemide (Furosemide 40 Mg/4 Ml Vial) 40 mg IVPUSH BID@0900,1800 [facility]; Protocol Last Admin: 01/07/24 08:28 Dose: 40 mg Documented By: EDUARDO Glipizide (Glipizide Xl 5 Mg Tab.Er.24) 5 mg PO DAILY [facility] Last Admin: 01/07/24 08:28 Dose: 5 mg Documented By: EDUARDO Glucose (Glucose Gel 15 Gm Gel..Gram.) 15 gm PO Q15M PRN; Protocol PRN Reason: per Hypoglycemia Standing Ord. Dextrose (D10) 250 mls @ 750 mls/hr IV Q15M PRN; Protocol PRN Reason: per Hypoglycemia Standing Ord. Insulin Human Lispro (Insulin Lispro 100 Unit/Ml 3 Ml Vial) 0 unit SUBCUT QIDACHS [facility]; Protocol Last Admin: 01/07/24 08:28 Dose: 2 unit Documented By: EDUARDO Magnesium Hydroxide (Milk Of Magnesia 30 Ml Oral.Susp) 30 ml PO DAILY PRN PRN Reason: Constipation Melatonin (Melatonin 3 Mg Tablet) 6 mg PO BEDTIME PRN PRN Reason: Insomnia Omeprazole (Omeprazole 20 Mg Capsule.) 20 mg PO DAILY@0630 [facility] Last Admin: 01/07/24 04:57 Dose: 20 mg Documented By: HEATH Ondansetron HCl (Ondansetron Hcl 4 Mg/2 Ml Vial) 4 mg IVPUSH Q8H PRN PRN Reason: Nausea and Vomiting Polyethylene Glycol (Polyethylene Glycol 3350 17 Gm Powd.Pack) 17 gm PO DAILY PRN PRN Reason: Constipation Sodium Chloride (0.9 % Sodium Chloride Flush 3 Ml Syringe) [address] [facility] [address] Last Admin: 01/07/24 08:28 Dose: 3 ml Documented By: EDUARDO Labs 01/06/24 06:01 01/07/24 06:28 Labs: Laboratory Results - last 24 hr 01/06/24 01/06/24 01/06/24 11:28 13:40 17:07 Anion Gap Estim Creat Clear Calc Estimated GFR POC Glucose 314 H 326 H 236 H Random Glucose Calcium B-Natriuretic Peptide 01/06/24 01/07/24 01/07/24 20:19 06:28 07:14 Anion Gap 18 Estim Creat Clear Calc 48.9 Estimated GFR > 60 POC Glucose 189 H 179 H Random Glucose 175 H Calcium 9.9 B-Natriuretic Peptide 744 H Assessment and Plan (1) Acute heart failure with preserved ejection fraction (HFpEF): Status: Acute (2) Acute exacerbation of CHF (congestive heart failure): Status: Acute Plan 83-year-old male with a past medical history of COPD and CHF, CAD status post CABG, chronic respiratory failure with hypercarbia and hypoxia recent hospitalization for covid and released on 12/22 here with sob, elevated bnp, and leg edema with clinical presentation c/w with exacerbation of chf Acute HFpEF, uclear precipitant, still sob, BNP up -IV Lasix 40 bid -repet echo -cardiology eval -measure I/O/weight, and BMP PAF -rate controlled -continue amio and apixaban Irc-axdwmcz-[id number] diabetes mellitus - glipizide, SSI. Hold metformin, diabetic diet Copd, no acute exacerbation -continue home inhalers HLD -Lipitor Code: full DVT prophylaxis, Eliquis need for inpt:IV diuretics for acute chf, and close monitoring of electrolytes Quality Stroke Does the patient have a stroke diagnosis?: No VTE Prior VTE?: No VTE Risk Level:: Medical - moderate - high VTE Device Contraindication: Treatment Not Indicated VTE Drug Contraindication: N/A - Med Ordered
[2024-01-07 10:54] LABS: Glucose, Whole Blood 205 mg/dL (60-115)
--- NOTE | 2024-01-07 12:32 | PM.CNCAR ---
History of Present Illness History of Present Illness Date of Service: 01/07/24 Requesting physician: Nicholas Brown Consult reason: congestive heart failure Chief complaint: Acute resp failure d/t heart failure Narrative: I was consulted to see Yossi in cardiology consultation today for acute hypoxemic respiratory failure. Patient is 83-year-old male with significant past medical history including chronic respiratory failure due to COPD/interstitial lung disease on chronic home oxygen, patient and patient's not aware of using oxygen appropriately, heart failure preserved ejection fraction, CAD status post prior PCI and then three-vessel coronary artery bypass grafting 2022, atrial fibrillation status post SAMREEN guided cardioversion currently on oral anticoagulation therapy and now on amiodarone therapy, aortic stenosis which is [id number], frailty. Was recently admitted to the hospital with acute respiratory failure probably related to COVID. He subsequently discharged home. As per the family did not receive any Lasix all was inpatient. Subsequently started at home having leg edema although no weight gain. Started requiring increasing level of oxygen although this is confusing to me. As patient says when he is exerting himself going up and down cell her steps or walking around the house he does not use oxygen and subsequently when checks his oxygen level he is usually hypoxic and he gets anxious and panicky because not able to breathe and he ask for increased oxygen. However as per the recently he has been asking for more oxygen at home. His usual level of oxygen therapies at 2 L. He has been asking for 3 L to improve his breathing. He came to the hospital and was noted to be in decompensated congestive heart failure with elevated BNP. Has been receiving Lasix but does not notice any clear increased output. I am not sure if his intake and output chart have been adequately chart it. As per the family in the morning he was also confused but appears with adequate mentation at this point time. Denies any chest pain. He is not a good historian Review of Systems Constitutional: Constitutional: Reports weakness Cardiovascular: Cardiovascular: Denies chest pain, Reports pedal edema, Denies lightheadedness, Denies palpitations, Reports dyspnea on exertion and Reports orthopnea Respiratory: Respiratory: Denies cough, Reports dyspnea on exertion and Denies wheezing Genitourinary: Genitourinary: Reports no additional male genitourinary complaints Musculoskeletal: Musculoskeletal: Reports muscle weakness Neurologic: Reports weakness Psychiatric: Psychiatric: Reports no additional psychiatric complaints Endocrine: Endocrine: Denies palpitations Allergic/Immunologic: Allergic/Immunologic: Denies wheezing [facility] Past Medical History Medical History Chronic hypoxic respiratory failure Pneumonia Hypoxia COPD exacerbation CHF (congestive heart failure) Atrial flutter Pulmonary emphysema Acute respiratory failure with hypercapnia Chronic lung disease COPD (chronic obstructive pulmonary disease) Coronary artery disease CAD (coronary artery disease) DMII (diabetes mellitus, type 2) HTN (hypertension) Family History Family History Father No problems noted. Mother No problems noted. Surgical History Surgical History History of colonoscopy History of lung surgery History of cholecystectomy Social History Social History Household Members: Spouse and Children Household Members Other:: son and Housing: House Do you presently have visiting nurse or other home services: No Alcohol intake: current Alcohol intake frequency: holidays/special occasions only Comment: Pt refuses all fall risk interventions Patient Tobacco Use Status: Never used Tobacco Tobacco use type: Cigarette e-Cigarette/Vaping Use: Never Used Second Hand Smoke Exposure: No Advance Directives Date on File: 01/06/24 service: No Current occupational status: retired Cognitive needs: No Hearing needs: No Vision needs: Yes (glasses) Meds Allergies Allergy/AdvReac Type Severity Reaction Status Date / Time No Known Allergies Allergy Verified 01/06/24 05:58 [No Known Allergies*] Active Medications: Current Medications Acetaminophen (Acetaminophen 325 Mg Tablet) 650 mg PO Q6H PRN PRN Reason: Pain, Mild (Pain Scale 1-3), fever or headache Albuterol Sulfate (Albuterol Sulfate (0.083%) 2.5 Mg/3 Ml Vial.Neb) 2.5 mg INHALE Q6H PRN PRN Reason: shortness of breath or wheezing Last Admin: 01/07/24 04:42 Dose: 2.5 mg Albuterol/Ipratropium (Albuterol/Iprat 2.5/0.5mg 3 Ml Ampul.Neb) 3 ml INHALE RQ4H WHILE AWAKE PRN PRN Reason: Shortness Of Breath/Wheezing Amiodarone HCl (Amiodarone Hcl 200 Mg Tablet) 200 mg PO DAILY [facility] Last Admin: 01/07/24 08:28 Dose: 200 mg Amlodipine Besylate (Amlodipine Besylate 5 Mg Tablet) 5 mg PO DAILY [facility]; Protocol Last Admin: 01/07/24 08:27 Dose: 5 mg Apixaban (Apixaban 5 Mg Tablet) 5 mg PO BID [facility] Last Admin: 01/07/24 08:28 Dose: 5 mg Atorvastatin Calcium (Atorvastatin Calcium 80 Mg Tablet) 80 mg PO DAILY [facility] Last Admin: 01/07/24 08:28 Dose: 80 mg Calcium Carbonate (Calcium Carbonate 750 Mg Tab.Chew) 750 mg PO Q4H PRN PRN Reason: Heartburn Fluticasone/Vilanterol (Fluticasone/Vilanterol 200/25 Blst.W.Dev) 1 puff INHALE DAILY PRN PRN Reason: Shortness Of Breath Or Wheezing Furosemide (Furosemide 40 Mg/4 Ml Vial) 40 mg IVPUSH BID@0900,1800 [facility]; Protocol Last Admin: 01/07/24 08:28 Dose: 40 mg Glipizide (Glipizide Xl 5 Mg Tab.Er.24) 5 mg PO DAILY [facility] Last Admin: 01/07/24 08:28 Dose: 5 mg Glucose (Glucose Gel 15 Gm Gel..Gram.) 15 gm PO Q15M PRN; Protocol PRN Reason: per Hypoglycemia Standing Ord. Dextrose (D10) 250 mls @ 750 mls/hr IV Q15M PRN; Protocol PRN Reason: per Hypoglycemia Standing Ord. Insulin Human Lispro (Insulin Lispro 100 Unit/Ml 3 Ml Vial) 0 unit SUBCUT QIDACHS [facility]; Protocol Last Admin: 01/07/24 11:58 Dose: 4 unit Magnesium Hydroxide (Milk Of Magnesia 30 Ml Oral.Susp) 30 ml PO DAILY PRN PRN Reason: Constipation Melatonin (Melatonin 3 Mg Tablet) 6 mg PO BEDTIME PRN PRN Reason: Insomnia Omeprazole (Omeprazole 20 Mg Capsule.Dr) 20 mg PO DAILY@0630 [facility] Last Admin: 01/07/24 04:57 Dose: 20 mg Ondansetron HCl (Ondansetron Hcl 4 Mg/2 Ml Vial) 4 mg IVPUSH Q8H PRN PRN Reason: Nausea and Vomiting Polyethylene Glycol (Polyethylene Glycol 3350 17 Gm Powd.Pack) 17 gm PO DAILY PRN PRN Reason: Constipation Sodium Chloride (0.9 % Sodium Chloride Flush 3 Ml Syringe) 3 ml IVFLUSH [facility] Last Admin: 01/07/24 08:28 Dose: 3 ml Home Medications ?Medication ?Instructions ?Recorded ?Confirmed ?Last Taken ?Type atorvastatin 80 mg tablet 80 mg PO DAILY 04/21/20 01/06/24 12/19/23 History amlodipine 5 mg tablet 5 mg PO DAILY 12/11/22 01/06/24 12/19/23 History budesonide-formoterol HFA 160 2 puff inhalation BID PRN 01/06/24 01/06/24 Unknown History mcg-4.5 mcg/actuation aerosol Shortness Of Breath Or Wheezing inhaler (Symbicort) furosemide 40 mg tablet 40 mg PO DAILY 01/06/24 01/06/24 Unknown History omeprazole 20 mg capsule,delayed 20 mg PO DAILY 01/06/24 01/06/24 Unknown History release vit C 250 mg-vit E 90 mg-zinc 40 1 tab PO BID 01/06/24 01/06/24 Unknown History mg-copper 1 [id number] capsule (PreserVision AREDS-2) Physical Exam Vital Signs: Vital Signs: Last Vital Signs Temp 97.2 F 01/07/24 10:49 Pulse 68 01/07/24 10:49 Resp 20 01/07/24 10:49 BP 142/61 H 01/07/24 10:49 Pulse Ox 94 01/07/24 10:49 O2 Del Method Nasal Cannula 01/07/24 10:49 O2 Flow Rate 2 01/07/24 10:49 Oxygen Flow Rate 5 01/06/24 05:53 BMI result Body Mass Index 20.3 Const: General: cooperative, alert and awake Nutritional Appearance: underweight and other (Frail elderly man) Orientation/consciousness: patient oriented x3 HEENT: Head: Yes normocephalic and Yes atraumatic Neck: Neck: Yes trachea midline, Yes supple and Yes no JVD Resp: Effort & Inspection: decreased respiratory effort Auscultation: crackles (coarse) bilateral at the base, no wheezes and diminished lung sounds Cardio: Jugular venous distension: no JVD Rate: regular rate Rhythm: regular rhythm Heart sounds: S1 normal heart sound present, S2 normal heart sound present, no click, no gallops and Murmur heart sound present systolic mid, decrescendo and crescendo GI: Auscultation: normal bowel sounds Skin: General skin exam: no rashes or lesions noted and ecchymosis Neuro: General: patient oriented x3 and no focal motor deficits Extrem: General: No clubbing, No cyanosis and Yes pedal edema Objective Labs and Meds 01/06/24 06:01 01/07/24 06:28 Lab results: Laboratory Results - last 24 hr 01/06/24 01/06/24 01/06/24 13:40 17:07 20:19 Sodium Potassium Chloride Carbon Dioxide Anion Gap BUN Creatinine Estim Creat Clear Calc Estimated GFR POC Glucose 326 H 236 H 189 H Random Glucose Calcium B-Natriuretic Peptide 01/07/24 01/07/24 01/07/24 06:28 07:14 10:45 Sodium 138 Potassium 5.2 H Chloride 91 L Carbon Dioxide 34 H Anion Gap 18 BUN 36 H Creatinine 1.08 Estim Creat Clear Calc 48.9 Estimated GFR > 60 POC Glucose 179 H 205 H Random Glucose 175 H Calcium 9.9 B-Natriuretic Peptide 744 H Assessment and Plan (1) Acute heart failure with preserved ejection fraction (HFpEF): Status: Acute Patient presents with acute hypoxemic respiratory failure. There appears to be component of worsening congestive heart failure with elevated BNP. Clinically does not appear to be significantly fluid overloaded. He is in recurrent atrial flutter which could be contributing to his heart failure syndrome. Overall difficult clinical scenario. He is not very well aware of using oxygen properly. I strongly recommended him to use oxygen when he is exerting himself to avoid significant hypoxemia and may need oxygen around the clock as well as increase oxygen at nighttime. Consider overnight oximetry. Importance of taking his medications appropriately was discussed. Continue 1 more day of IV diuresis with Lasix 40 mg b.i.d.. Better intake and output chart needs to be maintained. Continue to monitor BNP and BNP tomorrow. He has recurrent heart failure could be related to recurrent atrial arrhythmias and loss of AV synchrony related to recurrent atrial flutter despite amiodarone therapy. Dr. Scott is coming on service tomorrow will discuss further treatment options from that perspective. Continue full oral anticoagulation. Start Jardiance 10 mg to his regimen for heart failure syndrome. Overall prognosis is guarded. Consider repeating echocardiogram. Will follow with him Procedures Date of Service Date of Service: 01/07/24
[2024-01-07] MEDS: Empagliflozin 10 MG TABLET PO (12:52)
--- NOTE | 2024-01-07 13:23 | MHC.CM.PN ---
IMM 01/06. Pt self-care, lives at home with his . [facility] Pts or son will transport him home. Pt would do out pt PT, but is not interested in at home services. HCP on file and verified. PCP: Karri MCGOWAN
[2024-01-07 16:20] LABS: Glucose, Whole Blood 214 mg/dL (60-115)
--- NOTE | 2024-01-07 17:08 | ECG_ITS ---
Test Reason : post code blue Blood Pressure : / mmHG Vent. Rate : 067 BPM Atrial Rate : 234 BPM P-R Int : 000 ms QRS Dur : 104 ms QT Int : 530 ms P-R-T Axes : 000 071 139 degrees QTc Int : 560 ms Atrial flutter with variable A-V block Left ventricular hypertrophy with repolarization abnormality ( Mychal product , Romhilt-Sequeira ) Prolonged QT Abnormal ECG When compared with ECG of 07-JAN-2024 11:09, ST now depressed in Lateral leads Nonspecific T wave abnormality no longer evident in Inferior leads T wave inversion now evident in Anterior leads QT has lengthened Referred By: Rubia Garibay Electronically Signed By:LORENZO GUILLEN
[2024-01-07 17:11] LABS: Glucose, Whole Blood 207 mg/dL (60-115)
--- NOTE | 2024-01-07 17:22 | PM.EVENT ---
Event Note Date of Service: 01/07/24 Event Note: code blue called. patient severely bradycardic to 20s, unresponsive, ended up losing pulse, CPR started, given 1 amp of epi, and achieved ROSC, now back in aflutter, patient intubated for airway protection as still minimally responsive. had large bowel movement. updated. discussed with ICU, plan for transfer. Time Spent With Patient Time: Total time managing care of this patient today ____ minutes.
[2024-01-07] MEDS: propofoL 1,000 MG/100 ML VIAL 12.24 MG IVCONT (17:31)
[2024-01-07 17:35] LABS: MANUAL DIFF FLAG NO
[2024-01-07 17:35] LABS: ABG Base Excess 17.8 mmol/L; ABG HCO3 45 mmol/L (22-26); ABG pCO2 71 mmHg (32-45); ABG pH 7.41 (7.35-7.45); ABG pO2 43 mmHg (83-108)
--- NOTE | 2024-01-07 17:39 | PM.EVENT ---
Event Note Date of Service: 01/07/24 Event Note: Patient is a 83 Y M w/ hypertension, hyperlipidemia, diabetes mellitus, c/b coronary artery disease s/p PCI and CABG 2022, HFrEF, paraoxysmal atrial fibrillation on apixaban, chronic mixed respiratory failure w/ intermittent use of home oxygen, and recent admission for COVID pneumonia, re-presented to the emergency department on 01/05 w/ dyspnea, orthopnea, and lower extremity edema, admitted medicine for CHF management; on 01/06 PM, patient reportedly had bowel movement, became bradycardic to 20s and found to be pulseless, presumed PEA, 1 round of CPR performed with ROSC; patient intubated d/t persistent encephalopathy post ROSC N: sedation w/ propofol gtt CV: extensive cardiovascular disease, to repeat EKG, echocardiogram; to monitor hemodynamics R: intubated in setting of persistent encephalopathy post ROSC GI: NPO, NG tube : no acute issues; to monitor H: no acute issues ID: no overt stigmata of infection; to follow-up UCx, BCx E: diabetes mellitus, to monitor hypo-/hyper-glycemia P: no acute issues Time Spent With Patient Time: Total time managing care of this patient today ____ minutes.
[2024-01-07 17:40] LABS: Basophils Percent Auto 0.2 % (0-2); Hemoglobin 10.3 g/dl (14.0-18.0); Lymphocytes Absolute Auto 0.6 X10*3/uL (1.2-4.9); Lymphocytes Percent Auto 5.9 % (20-40); Mean Corpuscular HGB Conc 32.2 g/dl (31.0-36.0); Mean Corpuscular Volume 96.4 fL (80.0-98.0); Mean Platelet Volume 9.7 fL (9.4-12.4); Monocytes Absolute Auto 0.5 X10*3/uL (0.1-1.2); Monocytes Percent Auto 5.4 % (2-11); Neutrophils Absolute Auto 8.6 x10*3/uL (2.0-8.3); Neutrophils Percent Auto 87.5 % (45-73); Platelet Count 269 X10*3/uL (160-400); Red Blood Count 3.32 X10*6/uL (4.60-5.80); Red Cell Distribution Width 13.5 % (11.0-16.0); White Blood Count 9.8 X10*3/uL (4.8-10.8)
[2024-01-07 17:43] LABS: VBG Base Excess 16.6 mmol/L; VBG HCO3 44 mmol/L (22-26); VBG pCO2 69 mmHg; VBG pH 7.41 (7.32-7.43); VBG pO2 45 mmHg
--- NOTE | 2024-01-07 17:57 | HE.NUR.EV ---
Status Change: Pt was sitting in chair eating dinner. At 1658 pt's HR on telemetry noted to drop to 29 (slow A-Flutter). Immediate Actions Taken: Retail Presentation Specialist immediately called over for staff to check pt. Upon RN Eliana and JENIFFER Linda entering room pt noted to be unresponsive to sternal rub sitting in chair with large amount of urine on clothing and floor with HR in the 30's on heart monitor. Pt lifted back to bed and renee larsen called overhead. Dr. Anderson, Dr. Rhodes's from ER, JUAN M Avery, MEDICAL CHEMIST Maddi, ED RN, office director Tessy, Marycarmen Queen & Richard & Supervisor Hydrochloric Area Arianne & Re/ Leona from Respiratory arrived to room along with this RN who is primary RN for this shift. (See code sheet for vital signs, meds given). Pt lost pulse, CPR initiated, Epi given by ED RN assigned to medications, achieved ROSC then rhythm back in A-Flutter. Pt was intubated for airway protection as remained minimally responsive by ED MD Dr. Rosales with respiratory therapist assistance. Notifications: All staff aware as above and Dr. Anderson called pt's Mya to update. Family will be on their way to see pt in ICU. Further Monitoring and Treatment: Report called to MEDICAL CHEMISTTONY Bell who will update Elpidio JIMENEZ and pt transferred to ICU for further monitoring. ABG's, VBG's, labs, EKG ordered. See ICU Dr. Hawley's note.
[2024-01-07 18:01] LABS: Lactic Acid 1.5 mmol/L (0.5-2.0)
[2024-01-07 18:07] LABS: Alanine Aminotransferase 31 U/L (0-40); Albumin Level 3.4 g/dL (3.5-5.0); Alkaline Phosphatase 85 U/L (39-117); Anion Gap 15 (12-20); Aspartate Amino Transferase 23 U/L (5-37); Bilirubin Direct 0.2 mg/dL (0.0-0.5); Bilirubin Total 0.7 mg/dL (0.0-1.0); Blood Urea Nitrogen 42 mg/dL (9-16); Calcium 9.5 mg/dL (8.4-10.2); Carbon Dioxide 39 mmol/L (22-29); Chloride 89 mmol/L (96-108); Creatinine Clr Calc Pharmacy 39.1; Estimated Glomerular Filt Rate 50; Glucose Random 214 mg/dL (60-115); Phosphorus 6.8 mg/dL (2.7-4.5); Potassium 4.9 mmol/L (3.3-5.1); Sodium 138 mmol/L (135-145); Total Protein 6.6 g/dL (6.5-8.0)
[2024-01-07 18:13] LABS: Troponin-I High Sensitivity 42.4 ng/L (<3.5-35.0)
[2024-01-07] MEDS: Albumin Human 25 % 50 ML 100 ML IV (18:52)
[2024-01-07] MEDS: Furosemide 100 MG/10 ML VIAL 60 MG IVPUSH (18:52)
[2024-01-07] MEDS: Norepinephrine Bitartrate/D5W 8 MG/250 ML PLAST..BAG 6.38 MG IVCONT (18:56)
--- NOTE | 2024-01-07 19:07 | PC.NURSE ---
Addendum entered by Elpidio Gloria RN 01/07/24 19:17: pt temp on arrival 96.2, donna hugger started. stopped at 1917 pt temp 98.1 Original Note: pt arrived to unit from [facility]. Had difficulty assessing BP d/t body wide twitching. Prop was started. Soon afterwards levo was started. durant placed as ordered. OGT placed and CXR obtained for ETT and OGT placement. pre code blue report pt receieved 20 etomidate, 50 RAJAN, 4 versed at 1537. family at bedside.
[2024-01-07 19:59] LABS: Appearance Urine Clear; Color Urine Yellow; Glucose Urine UA >=1000 mg/dL (Negative); Leukocyte Esterase Urine Negative (Negative); Nitrite Urine Negative (Negative); PH 7.5 (5.0-9.0); UMIC TRIGGER UACC YES; Urine Blood Moderate (2+) (Negative); Urine Ketones Negative (Negative); Urine Protein Negative (Neg-Trace)
[2024-01-07 20:04] LABS: Bacteria Urine None Seen (None Seen); Hyaline Casts Urine 0-2 /LPF (0-2); RBC Urine >20 /HPF (0-2); Squamous Epithelial Cell Urine 0-2 /HPF (0-2); WBC Urine 0-5 /HPF (0-5)
[2024-01-07 20:18] LABS: VBG Base Excess 19.1 mmol/L; VBG HCO3 40 mmol/L (22-26); VBG pCO2 35 mmHg; VBG pO2 125 mmHg
[2024-01-07 20:22] LABS: VBG pH 7.67 (7.32-7.43)
[2024-01-07 20:22] LABS: Venous Blood Gas Refer to POC result
[2024-01-07 20:24] LABS: Venous Blood Gas Refer to POC result
[2024-01-07] MEDS: Midazolam HCl/PF 2 MG/2 ML VIAL IVPUSH (20:24)
[2024-01-07 21:34] LABS: Troponin-I High Sensitivity 97.2 ng/L (<3.5-35.0)
[2024-01-07] MEDS: propofoL 1,000 MG/100 ML VIAL 20.4 MG IVCONT (21:59)
[2024-01-07] MEDS: fentaNYL citrate/NS 1,000 MCG/100 ML PLAST..BAG 2.5 MCG IVCONT (22:33)
[2024-01-08] VITALS (24 sets, daily range): BP systolic 100–123; BP diastolic 44–57; PULSE 57–90; RESP 20–34; TEMP 34.9–38.5; O2SAT 95–100; BMI 19.3
--- NOTE | 2024-01-08 | ECG_ITS ---
Test Reason : arrhymthia Blood Pressure : / mmHG Vent. Rate : 059 BPM Atrial Rate : 250 BPM P-R Int : 000 ms QRS Dur : 106 ms QT Int : 578 ms P-R-T Axes : 000 072 145 degrees QTc Int : 572 ms Atrial flutter with variable A-V block Left ventricular hypertrophy with repolarization abnormality ( [place] product , Romhilt-Sequeira ) Prolonged QT Abnormal ECG When compared with ECG of 07-JAN-2024 21:30, T wave inversion less evident in Anterior leads Referred By: Rubia Garibay Electronically Signed By:LORENZO GUILLEN
[2024-01-08 00:03] LABS: Glucose, Whole Blood 46 mg/dL (60-115)
[2024-01-08 00:03] LABS: Glucose, Whole Blood 53 mg/dL (60-115)
[2024-01-08] MEDS: Dextrose 10 % 250 ML 750 ML IV (00:07)
[2024-01-08] MEDS: 0.9 % Sodium Chloride Flush 3 ML SYRINGE IVFLUSH ×2 (00:33→14:48)
[2024-01-08 00:36] LABS: Glucose, Whole Blood 186 mg/dL (60-115)
[2024-01-08 00:45] LABS: Glucose, Whole Blood 183 mg/dL (60-115)
[2024-01-08] MEDS: Chlorhexidine Gluc Oral Rinse 15 ML MOUTHWASH BUCCAL ×2 (00:46→08:14)
[2024-01-08 01:04] LABS: Glucose, Whole Blood 171 mg/dL (60-115)
[2024-01-08] MEDS: propofoL 1,000 MG/100 ML VIAL 16.32 MG IVCONT (02:29)
[2024-01-08 05:01] LABS: Glucose, Whole Blood 112 mg/dL (60-115)
[2024-01-08] MEDS: Pantoprazole Sodium 40 MG/10 ML VIAL IVPUSH (05:01)
[2024-01-08 05:18] LABS: MANUAL DIFF FLAG NO
[2024-01-08 05:20] LABS: Basophils Absolute Auto 0.1 X10*3/uL (0.0-0.2); Basophils Percent Auto 0.5 % (0-2); Eosinophils Percent Auto 0.1 % (0-4); Hematocrit 29.7 % (42.0-52.0); Hemoglobin 9.6 g/dl (14.0-18.0); Imm Gran Abs Auto 0.04 X10*3/uL (0.00-0.03); Imm Gran Pct Auto 0.4 % (0.0-0.4); Lymphocytes Absolute Auto 1.8 X10*3/uL (1.2-4.9); Lymphocytes Percent Auto 16.9 % (20-40); Mean Corpuscular HGB Conc 32.3 g/dl (31.0-36.0); Mean Corpuscular Hemoglobin 30.5 pg (27.0-33.0); Mean Corpuscular Volume 94.3 fL (80.0-98.0); Neutrophils Absolute Auto 7.8 x10*3/uL (2.0-8.3); Neutrophils Percent Auto 73.1 % (45-73); Platelet Count 288 X10*3/uL (160-400); Red Blood Count 3.15 X10*6/uL (4.60-5.80); Red Cell Distribution Width 13.7 % (11.0-16.0); White Blood Count 10.7 X10*3/uL (4.8-10.8)
[2024-01-08 05:44] LABS: Albumin Level 3.1 g/dL (3.5-5.0); Anion Gap 21 (12-20); B Type Natriuretic Peptide 801 pg/mL (<100); Blood Urea Nitrogen 37 mg/dL (9-16); Carbon Dioxide 33 mmol/L (22-29); Chloride 89 mmol/L (96-108); Creatinine Clr Calc Pharmacy 42.5; Estimated Glomerular Filt Rate 59; Glucose Random 113 mg/dL (60-115); Magnesium 1.9 mg/dL (1.6-2.6); Phosphorus 2.5 mg/dL (2.7-4.5); Potassium 3.7 mmol/L (3.3-5.1); Sodium 139 mmol/L (135-145)
[2024-01-08 05:50] LABS: VBG Base Excess 21.9 mmol/L; VBG HCO3 43 mmol/L (22-26); VBG pCO2 37 mmHg; VBG pH 7.68 (7.32-7.43); VBG pO2 61 mmHg
[2024-01-08 05:53] LABS: Troponin-I High Sensitivity 296.5 ng/L (<3.5-35.0)
[2024-01-08 05:57] LABS: Venous Blood Gas Refer to POC result
[2024-01-08] MEDS: Potassium Phosphate/NS 15 MMOL/250 ML PLAST..BAG 62.5 MMOL IV (06:02)
[2024-01-08] MEDS: Magnesium Sulfate/H2O 2 GM/50 ML PIGGYBACK IV (06:16)
[2024-01-08] MEDS: Calcium Gluconate/NaCl,Iso-Osm 1 GM/50 ML PLAST..BAG IV (06:16)
[2024-01-08] MEDS: propofoL 1,000 MG/100 ML VIAL 20.4 MG IVCONT ×3 (06:36→14:47)
--- NOTE | 2024-01-08 07:00 | CA_ITS ---
Transthoracic Echocardiogram Patient (Last, First, Middle): Yossi Perez T Gender: Male Date of : 1940 Age: 83 Procedure Date: 01/08/2024 Procedure Type: Transthoracic Echocardiogram Location: ICU Height: 182.88 cm Weight: 64.41 kg BSA: 1.84 m2 Heart Rate: bpm BP: 108 / 46 mmHg Wood Chopper: Referring MD: Argentina Hawley MD Symptoms: s/p Cardiac Arrest, Please Assess Function Study Quality: Good ECG Rhythm: Atrial flutter Conclusions: - The left ventricular systolic function is mildly decreased. The visually estimated ejection fraction is between 50-55%. - The basal inferior and basal inferolateral segments are akinetic. - There is moderate aortic valve stenosis. - There is moderate mitral annular calcification. Findings Left Ventricle Normal left ventricular cavity size. There is mildly increased left ventricular wall thickness. The left ventricular systolic function is mildly decreased. The visually estimated ejection fraction is between 50-55%. There is evidence of regional wall motion abnormalities. Diastolic function is indeterminate on the basis of available data. Wall Motion Rest Echo Findings The basal inferior and basal inferolateral segments are akinetic. Right Ventricle Moderately increased right ventricular cavity size. There is normal right ventricular systolic function. Atria The left atrium is mildly dilated. The right atrium is normal in size. Aortic Valve There is moderate calcification of the aortic valve. There is moderate aortic valve stenosis. The peak aortic velocity is 3.16 m/s with a calculated peak gradient of 40 mmHg. The mean gradient is 19 mmHg. The aortic valve area is 1.21 cm2. There is trace (trivial) aortic valve regurgitation. Mitral Valve There is moderate mitral annular calcification. There is mild mitral valve regurgitation. There is no mitral valve stenosis. Tricuspid Valve Normal tricuspid valve structure. There is mild tricuspid valve regurgitation. There is no evidence of pulmonary hypertension. Great Vessels The asc aorta is normal in size. Venous The inferior vena cava is dilated and collapses less than 50% with inspiration. (on ventilator). Pericardium/Pleural There is no evidence of pericardial effusion. Prior Study Comparison Changes noted compared to prior study dated: 05/24/2023. Slight progression of aortic stenosis. Measurements 2D Linear Measurements IVSd: 1.23 0.6-0.9/0.6-1.0 cm LVIDd: 4.76 3.9-5.3/4.2-5.9 cm LVIDd Index: 2.59 2.4-3.2/2.2-3.1 cm/m2 LVIDs: 3.22 2.0-3.6 cm LVPWd: 1.25 0.7-1.1 cm Ao Root: 3.10 2.1-3.5 cm LA Diam: 5.30 2.7-3.8/3.0-4.0 cm LAIDs Index: 2.88 1.5-2.3 cm/m2 LV Mass: 282.52 67-162/88-224 g LV Mass Index: 153.54 43-95/49-115 g/m2 LVOT Diam: 2.30 3.0+(-)1.3 cm 2D Systolic Function EF 4C: 58.20 >55% EF 2C: 53.30 >55% EF BiP: 58.10 >55% Mitral Valve MV VTI: 0.37 MV Pk Giovanny: 1.46 MV Mn Giovanny: 0.74 MV Pk Grad: 9.00 MV Mn Grad: 3.00 MV Pk E: 1.32 MV PK A: 0.51 MV Decel Time: 231.00 E/A: 2.60 E'Lateral: 8.38 E'Medial: 5.44 E/E' Med: 24.30 E/E' Lat: 15.80 PHT: 68.00 MVA PHT: 3.24 MVA Continuity: 2.28 Decel [place]: 5.72 Aortic Valve AoV Pk Giovanny: 3.16 AoV Mn Giovanny: 1.97 AoV VTI: 0.70 AoV Pk Grad: 40.00 Aov Mn Grad: 19.00 KISHAN Cont.VTI: 1.21 LVOT LVOT Pk Giovanny: 1.00 LVOT Mn Giovanny: 0.61 LVOT VTI: 0.20 LVOT Pk Grad: 4.00 LVOT Mn Grad: 2.00 LVOT Diam: 2.30 LVOT Area: 4.15 Diastolic Function MV Pk E: 1.32 MV Pk A: 0.51 E/A: 2.60 E'Medial: 5.44 E/E' Med: 24.30 E' Laterial: 8.38 E/E' Lat: 15.80 Right Ventricle TAPSE (mm): 23.00 TVS' Giovanny: 10.00 Tricuspid Valve TR Pk Giovanny: 2.54 TR Pk Grad: 26.00 Great Vessels Aorta Ao Root-2D: 3.10 2.0-3.7 cm Ao Asc: 2.90 2.1-3.4 cm Pulmonary Valve PV Pk Giovanny: 1.10 Peak PV Grad: 5.00 Updated in Other Vendor System with Status of Final Nestor Soctt MD electronically signed on 01/08/2024 11:20:54 AM with status of Final
[2024-01-08] MEDS: Albumin Human 25 % 100 ML IV (07:07)
--- NOTE | 2024-01-08 08:00 | PM.CCPN ---
Subjective Subjective Date of Service: 01/08/24 Interval History: admitted ICU s/p PEA; appreciable torsades 01/07 AM Critical Care Time (minutes): 60 Physical Exam Vital Signs: Vital Signs: Last Vital Signs Temp 99.7 F 01/08/24 07:00 Pulse 59 01/08/24 07:00 Resp 21 H 01/08/24 07:00 BP 108/46 L 01/08/24 07:00 Pulse Ox 100 01/08/24 07:00 O2 Del Method Mechanical Ventil ation 01/08/24 07:00 O2 Flow Rate 2 01/07/24 15:50 FiO2 30 01/08/24 07:41 Oxygen Flow Rate 5 01/06/24 05:53 BMI result Body Mass Index 19.3 Const: Other: intubated, sedated General: no acute distress and well developed HEENT: Head: Yes normal to inspection, Yes normocephalic and Yes atraumatic Eyes: General: appearance normal, both eyes and all related structures Neck: Neck: Yes normal visual inspection, Yes full ROM, Yes trachea midline and Yes supple Chest: Chest palpation & inspection: normal inspection of the chest Resp: Other: no appreciable rales, rhonchi, wheezing Effort & Inspection: normal respiratory effort Cardio: Rate: bradycardic Rhythm: regular rhythm GI: Inspection: Yes normal to inspection, No Abdominal wall edema and No distended Palpation (GI): Soft to palpation, not firm, nontender, no guarding and not rigid : Male General Exam: Yes normal external exam Skin: General skin exam: no rashes or lesions noted Neuro: Other: unable to participate in neurological exam General: tone normal Extrem: Other: 2+ pitting edema to bilateral knees General: Yes normal to inspection, Yes full ROM and Yes capillary refill normal Psych: Other: unable to assess Objective Data Labs 01/08/24 04:53 01/08/24 04:53 Labs: Laboratory Results - last 24 hr 01/07/24 01/07/24 01/07/24 10:45 15:48 17:02 WBC RBC Hgb Hct MCV MCH MCHC RDW Plt Count MPV Immature Gran % (Auto) Neut % (Auto) Lymph % (Auto) Bledsoe % (Auto) Eos % (Auto) Baso % (Auto) Lymph # (Auto) Bledsoe # (Auto) Eos # (Auto) Baso # (Auto) Abs Immat Gran (auto) Absolute Neuts (auto) Absolute Nucleated RBC Nucleated RBC % (auto) O2 Saturation ABG pH at Pt Temp ABG pCO2 at Pt Temp ABG pO2 at Pt Temp ABG HCO3 ABG Base Excess (Actual) VBG pH VBG pCO2 VBG pO2 VBG HCO3 VBG O2 Saturation VBG Base Excess Sodium Potassium Chloride Carbon Dioxide Anion Gap BUN Creatinine Estim Creat Clear Calc Estimated GFR POC Glucose 205 H 214 H 207 H Random Glucose Lactic Acid Calcium Phosphorus Magnesium Total Bilirubin Direct Bilirubin AST ALT Alkaline Phosphatase Troponin I High Sens B-Natriuretic Peptide Total Protein Albumin Urine Color Urine Appearance Urine pH Ur Specific [place] Urine Protein Urine Glucose (UA) Urine Ketones Urine Blood Urine Nitrite Ur Leukocyte Esterase Urine RBC Urine WBC Ur Squamous Epith Cells Urine Bacteria Hyaline Casts 01/07/24 01/07/24 01/07/24 17:24 17:25 17:26 WBC 9.8 RBC 3.32 L Hgb 10.3 L Hct 32.0 L MCV 96.4 MCH 31.0 MCHC 32.2 RDW 13.5 Plt Count 269 MPV 9.7 Immature Gran % (Auto) 1.0 H Neut % (Auto) 87.5 H Lymph % (Auto) 5.9 L Bledsoe % (Auto) 5.4 Eos % (Auto) 0.0 Baso % (Auto) 0.2 Lymph # (Auto) 0.6 L [place] # (Auto) 0.5 Eos # (Auto) 0.0 Baso # (Auto) 0.0 Abs Immat Gran (auto) 0.10 H Absolute Neuts (auto) 8.6 H Absolute Nucleated RBC 0.000 Nucleated RBC % (auto) 0.0 O2 Saturation 79.0 ABG pH at Pt Temp 7.41 ABG pCO2 at Pt Temp 71 H* ABG pO2 at Pt Temp 43 L* ABG HCO3 45 H ABG Base Excess (Actual) 17.8 VBG pH VBG pCO2 VBG pO2 VBG HCO3 VBG O2 Saturation VBG Base Excess Sodium 138 Potassium 4.9 Chloride 89 L Carbon Dioxide 39 H Anion Gap 15 BUN 42 H Creatinine 1.35 Estim Creat Clear Calc 39.1 Estimated GFR 50 POC Glucose Random Glucose 214 H Lactic Acid 1.5 Calcium 9.5 Phosphorus 6.8 H Magnesium 2.0 Total Bilirubin 0.7 Direct Bilirubin 0.2 AST 23 ALT 31 Alkaline Phosphatase 85 Troponin I High Sens 42.4 H B-Natriuretic Peptide Total Protein 6.6 Albumin 3.4 L Urine Color Urine Appearance Urine pH Ur Specific [place] Urine Protein Urine Glucose (UA) Urine Ketones Urine Blood Urine Nitrite Ur Leukocyte Esterase Urine RBC Urine WBC Ur Squamous Epith Cells Urine Bacteria Hyaline Casts 01/07/24 01/07/24 01/07/24 17:31 19:46 19:53 WBC RBC Hgb Hct MCV MCH MCHC RDW Plt Count MPV Immature Gran % (Auto) Neut % (Auto) Lymph % (Auto) Bledsoe % (Auto) Eos % (Auto) Baso % (Auto) Lymph # (Auto) Bled[place] # (Auto) Eos # (Auto) Baso # (Auto) Abs Immat Gran (auto) Absolute Neuts (auto) Absolute Nucleated RBC Nucleated RBC % (auto) O2 Saturation ABG pH at Pt Temp ABG pCO2 at Pt Temp ABG pO2 at Pt Temp ABG HCO3 ABG Base Excess (Actual) VBG pH 7.41 7.67 H* VBG pCO2 69 35 VBG pO2 45 125 VBG HCO3 44 H 40 H VBG O2 Saturation 80.0 100.0 VBG Base Excess 16.6 19.1 Sodium Potassium Chloride Carbon Dioxide Anion Gap BUN Creatinine Estim Creat Clear Calc Estimated GFR POC Glucose Random Glucose Lactic Acid Calcium Phosphorus Magnesium Total Bilirubin Direct Bilirubin AST ALT Alkaline Phosphatase Troponin I High Sens B-Natriuretic Peptide Total Protein Albumin Urine Color Yellow Urine Appearance Clear Urine pH 7.5 Ur Specific [place] 1.010 Urine Protein Negative Urine Glucose (UA) >=1000 H Urine Ketones Negative Urine Blood Moderate (2+) H Urine Nitrite Negative Ur Leukocyte Esterase Negative Urine RBC >20 H Urine WBC 0-5 Ur Squamous Epith Cells 0-2 Urine Bacteria None Seen Hyaline Casts 0-2 01/07/24 01/07/24 01/07/24 20:56 23:57 23:59 WBC RBC Hgb Hct MCV MCH MCHC RDW Plt Count MPV Immature Gran % (Auto) Neut % (Auto) Lymph % (Auto) Bled[place]e % (Auto) Eos % (Auto) Baso % (Auto) Lymph # (Auto) [place] # (Auto) Eos # (Auto) Baso # (Auto) Abs Immat Gran (auto) Absolute Neuts (auto) Absolute Nucleated RBC Nucleated RBC % (auto) O2 Saturation ABG pH at Pt Temp ABG pCO2 at Pt Temp ABG pO2 at Pt Temp ABG HCO3 ABG Base Excess (Actual) VBG pH VBG pCO2 VBG pO2 VBG HCO3 VBG O2 Saturation VBG Base Excess Sodium Potassium Chloride Carbon Dioxide Anion Gap BUN Creatinine Estim Creat Clear Calc Estimated GFR POC Glucose 46 L* 53 L* Random Glucose Lactic Acid Calcium Phosphorus Magnesium Total Bilirubin Direct Bilirubin AST ALT Alkaline Phosphatase Troponin I High Sens 97.2 H D B-Natriuretic Peptide Total Protein Albumin Urine Color Urine Appearance Urine pH Ur Specific [place] Urine Protein Urine Glucose (UA) Urine Ketones Urine Blood Urine Nitrite Ur Leukocyte Esterase Urine RBC Urine WBC Ur Squamous Epith Cells Urine Bacteria Hyaline Casts 01/08/24 01/08/24 01/08/24 00:27 00:42 00:59 WBC RBC Hgb Hct MCV MCH MCHC RDW Plt Count MPV Immature Gran % (Auto) Neut % (Auto) Lymph % (Auto) [place] % (Auto) Eos % (Auto) Baso % (Auto) Lymph # (Auto) [place] # (Auto) Eos # (Auto) Baso # (Auto) Abs Immat Gran (auto) Absolute Neuts (auto) Absolute Nucleated RBC Nucleated RBC % (auto) O2 Saturation ABG pH at Pt Temp ABG pCO2 at Pt Temp ABG pO2 at Pt Temp ABG HCO3 ABG Base Excess (Actual) VBG pH VBG pCO2 VBG pO2 VBG HCO3 VBG O2 Saturation VBG Base Excess Sodium Potassium Chloride Carbon Dioxide Anion Gap BUN Creatinine Estim Creat Clear Calc Estimated GFR POC Glucose 186 H 183 H 171 H Random Glucose Lactic Acid Calcium Phosphorus Magnesium Total Bilirubin Direct Bilirubin AST ALT Alkaline Phosphatase Troponin I High Sens B-Natriuretic Peptide Total Protein Albumin Urine Color Urine Appearance Urine pH Ur Specific [place] Urine Protein Urine Glucose (UA) Urine Ketones Urine Blood Urine Nitrite Ur Leukocyte Esterase Urine RBC Urine WBC Ur Squamous Epith Cells Urine Bacteria Hyaline Casts 01/08/24 01/08/24 01/08/24 04:53 04:57 05:40 WBC 10.7 RBC 3.15 L Hgb 9.6 L Hct 29.7 L MCV 94.3 MCH 30.5 MCHC 32.3 RDW 13.7 Plt Count 288 MPV 10.0 Immature Gran % (Auto) 0.4 Neut % (Auto) 73.1 H Lymph % (Auto) 16.9 L [place] % (Auto) 9.0 Eos % (Auto) 0.1 Baso % (Auto) 0.5 Lymph # (Auto) 1.8 [place] # (Auto) 1.0 Eos # (Auto) 0.0 Baso # (Auto) 0.1 Abs Immat Gran (auto) 0.04 H Absolute Neuts (auto) 7.8 Absolute Nucleated RBC 0.000 Nucleated RBC % (auto) 0.0 O2 Saturation ABG pH at Pt Temp ABG pCO2 at Pt Temp ABG pO2 at Pt Temp ABG HCO3 ABG Base Excess (Actual) VBG pH 7.68 H* VBG pCO2 37 VBG pO2 61 VBG HCO3 43 H VBG O2 Saturation 96.0 VBG Base Excess 21.9 Sodium 139 Potassium 3.7 D Chloride 89 L Carbon Dioxide 33 H Anion Gap 21 H BUN 37 H Creatinine 1.18 Estim Creat Clear Calc 42.5 Estimated GFR 59 POC Glucose 112 Random Glucose 113 Lactic Acid Calcium 9.0 Phosphorus 2.5 L Magnesium 1.9 Total Bilirubin Direct Bilirubin AST ALT Alkaline Phosphatase Troponin I High Sens 296.5 H* D B-Natriuretic Peptide 801 H Total Protein Albumin 3.1 L Urine Color Urine Appearance Urine pH Ur Specific [place] Urine Protein Urine Glucose (UA) Urine Ketones Urine Blood Urine Nitrite Ur Leukocyte Esterase Urine RBC Urine WBC Ur Squamous Epith Cells Urine Bacteria Hyaline Casts Progress Note: A&P Assessment and plan (1) Cardiac arrest: Status: Acute (2) Torsades de pointes: Status: Acute (3) Acute exacerbation of CHF (congestive heart failure): Status: Acute (4) Acute heart failure with preserved ejection fraction (HFpEF): Status: Acute Plan Patient is a 83 Y M w/ hypertension, hyperlipidemia, diabetes mellitus, c/b coronary artery disease s/p PCI and CABG 2022, HFrEF, paraoxysmal atrial fibrillation on apixaban, chronic mixed respiratory failure w/ intermittent use of home oxygen, and recent admission for COVID pneumonia, re-presented to the emergency department on 01/05 w/ dyspnea, orthopnea, and lower extremity edema, admitted medicine for CHF management; on 01/06 PM, patient reportedly had bowel movement, became bradycardic to 20s and found to be pulseless, presumed PEA, 1 round of CPR performed with ROSC; patient intubated d/t persistent encephalopathy post ROSC N: sedation w/ propofol gtt, fentanyl gtt; wean as tolerated CV: extensive cardiovascular disease, s/p PEA; prolonged QTc c/b torsades; shock, likely multifactorial, cardiogenic, distributive; norepinephrine gtt; follow-up echocardiogram, cardiology recommendations R: intubated in setting of persistent encephalopathy post ROSC; wean as tolerated GI: NPO, NG tube : no acute issues; to monitor H: no acute issues ID: no overt stigmata of infection; to follow-up UCx, BCx E: diabetes mellitus, to monitor hypo-/hyper-glycemia P: no acute issues Quality Stroke Does the patient have a stroke diagnosis?: No VTE Prior VTE?: No VTE Risk Level:: Medical - moderate - high VTE Device Contraindication: N/A - Device Ordered VTE Drug Contraindication: N/A - Med Ordered
[2024-01-08] MEDS: Furosemide 100 MG/10 ML VIAL 60 MG IVPUSH (08:14)
[2024-01-08] MEDS: Apixaban 5 MG TABLET PO (08:14)
--- NOTE | 2024-01-08 08:55 | PM.PNCARD ---
Subjective Subjective Date of Service: 01/08/24 Interval history: Events of yesterday noted. Also discussed with delimer. Essentially patient had a code blue last evening. Patient developed bradycardia-atrial flutter with slow ventricular rate and then unresponsive. Treated as PEA arrest. Received CPR/epinephrine and then intubated and transferred to the ICU. Currently, on the ventilator, on pressors and sedation. Review of Systems Review of Systems Unable to obtain review of systems as patient is intubated. Physical Exam Vital Signs: Last Vital Signs Temp 99.6 F 01/08/24 08:00 Pulse 58 01/08/24 08:00 Resp 27 H 01/08/24 08:00 BP 115/57 L 01/08/24 08:14 Pulse Ox 99 01/08/24 08:00 O2 Del Method Mechanical Ventilation 01/08/24 08:00 O2 Flow Rate 2 01/07/24 15:50 FiO2 30 01/08/24 08:00 Oxygen Flow Rate 5 01/06/24 05:53 BMI result Body Mass Index 19.3 Const Other: Intubated General: ill appearing HEENT Other: Unremarkable Head: Yes normal to inspection Neck Neck: Yes normal visual inspection Chest Chest palpation & inspection: normal inspection of the chest Resp Other: Limited auscultation, reduced breath sounds. Cardio Palpation: normal PMI Heart sounds: S1 normal heart sound present, S2 normal heart sound present, no gallops, Murmur heart sound present systolic II/ and no rubs GI Palpation (GI): Soft to palpation Back/Spine/Pelvis Other: unremarkable Skin General skin exam: no rashes or lesions noted Neuro Other: Unable to evaluate; ventilated, sedated. Extrem General: Yes normal to inspection Psych Mental Status: mental status grossly abnormal Objective Labs and Meds 01/08/24 04:53 01/08/24 04:53 Lab results: Laboratory Results - last 24 hr 01/07/24 01/07/24 01/07/24 10:45 15:48 17:02 WBC RBC Hgb Hct MCV MCH MCHC RDW Plt Count MPV Immature Gran % (Auto) Neut % (Auto) Lymph % (Auto) [place] % (Auto) Eos % (Auto) Baso % (Auto) Lymph # (Auto) [place] # (Auto) Eos # (Auto) Baso # (Auto) Abs Immat Gran (auto) Absolute Neuts (auto) Absolute Nucleated RBC Nucleated RBC % (auto) O2 Saturation ABG pH at Pt Temp ABG pCO2 at Pt Temp ABG pO2 at Pt Temp ABG HCO3 ABG Base Excess (Actual) VBG pH VBG pCO2 VBG pO2 VBG HCO3 VBG O2 Saturation VBG Base Excess Sodium Potassium Chloride Carbon Dioxide Anion Gap BUN Creatinine Estim Creat Clear Calc Estimated GFR POC Glucose 205 H 214 H 207 H Random Glucose Lactic Acid Calcium Phosphorus Magnesium Total Bilirubin Direct Bilirubin AST ALT Alkaline Phosphatase Troponin I High Sens B-Natriuretic Peptide Total Protein Albumin Urine Color Urine Appearance Urine pH Ur Specific [place] Urine Protein Urine Glucose (UA) Urine Ketones Urine Blood Urine Nitrite Ur Leukocyte Esterase Urine RBC Urine WBC Ur Squamous Epith Cells Urine Bacteria Hyaline Casts 01/07/24 01/07/24 01/07/24 17:24 17:25 17:26 WBC 9.8 RBC 3.32 L Hgb 10.3 L Hct 32.0 L MCV 96.4 MCH 31.0 MCHC 32.2 RDW 13.5 Plt Count 269 MPV 9.7 Immature Gran % (Auto) 1.0 H Neut % (Auto) 87.5 H Lymph % (Auto) 5.9 L [place] % (Auto) 5.4 Eos % (Auto) 0.0 Baso % (Auto) 0.2 Lymph # (Auto) 0.6 L [place] # (Auto) 0.5 Eos # (Auto) 0.0 Baso # (Auto) 0.0 Abs Immat Gran (auto) 0.10 H Absolute Neuts (auto) 8.6 H Absolute Nucleated RBC 0.000 Nucleated RBC % (auto) 0.0 O2 Saturation 79.0 ABG pH at Pt Temp 7.41 ABG pCO2 at Pt Temp 71 H* ABG pO2 at Pt Temp 43 L* ABG HCO3 45 H ABG Base Excess (Actual) 17.8 VBG pH VBG pCO2 VBG pO2 VBG HCO3 VBG O2 Saturation VBG Base Excess Sodium 138 Potassium 4.9 Chloride 89 L Carbon Dioxide 39 H Anion Gap 15 BUN 42 H Creatinine 1.35 Estim Creat Clear Calc 39.1 Estimated GFR 50 POC Glucose Random Glucose 214 H Lactic Acid 1.5 Calcium 9.5 Phosphorus 6.8 H Magnesium 2.0 Total Bilirubin 0.7 Direct Bilirubin 0.2 AST 23 ALT 31 Alkaline Phosphatase 85 Troponin I High Sens 42.4 H B-Natriuretic Peptide Total Protein 6.6 Albumin 3.4 L Urine Color Urine Appearance Urine pH Ur Specific [place] Urine Protein Urine Glucose (UA) Urine Ketones Urine Blood Urine Nitrite Ur Leukocyte Esterase Urine RBC Urine WBC Ur Squamous Epith Cells Urine Bacteria Hyaline Casts 01/07/24 01/07/24 01/07/24 17:31 19:46 19:53 WBC RBC Hgb Hct MCV MCH MCHC RDW Plt Count MPV Immature Gran % (Auto) Neut % (Auto) Lymph % (Auto) [place] % (Auto) Eos % (Auto) Baso % (Auto) Lymph # (Auto) [place] # (Auto) Eos # (Auto) Baso # (Auto) Abs Immat Gran (auto) Absolute Neuts (auto) Absolute Nucleated RBC Nucleated RBC % (auto) O2 Saturation ABG pH at Pt Temp ABG pCO2 at Pt Temp ABG pO2 at Pt Temp ABG HCO3 ABG Base Excess (Actual) VBG pH 7.41 7.67 H* VBG pCO2 69 35 VBG pO2 45 125 VBG HCO3 44 H 40 H VBG O2 Saturation 80.0 100.0 VBG Base Excess 16.6 19.1 Sodium Potassium Chloride Carbon Dioxide Anion Gap BUN Creatinine Estim Creat Clear Calc Estimated GFR POC Glucose Random Glucose Lactic Acid Calcium Phosphorus Magnesium Total Bilirubin Direct Bilirubin AST ALT Alkaline Phosphatase Troponin I High Sens B-Natriuretic Peptide Total Protein Albumin Urine Color Yellow Urine Appearance Clear Urine pH 7.5 Ur Specific [place] 1.010 Urine Protein Negative Urine Glucose (UA) >=1000 H Urine Ketones Negative Urine Blood Moderate (2+) H Urine Nitrite Negative Ur Leukocyte Esterase Negative Urine RBC >20 H Urine WBC 0-5 Ur Squamous Epith Cells 0-2 Urine Bacteria None Seen Hyaline Casts 0-2 01/07/24 01/07/24 01/07/24 20:56 23:57 23:59 WBC RBC Hgb Hct MCV MCH MCHC RDW Plt Count MPV Immature Gran % (Auto) Neut % (Auto) Lymph % (Auto) [place] % (Auto) Eos % (Auto) Baso % (Auto) Lymph # (Auto) [place] # (Auto) Eos # (Auto) Baso # (Auto) Abs Immat Gran (auto) Absolute Neuts (auto) Absolute Nucleated RBC Nucleated RBC % (auto) O2 Saturation ABG pH at Pt Temp ABG pCO2 at Pt Temp ABG pO2 at Pt Temp ABG HCO3 ABG Base Excess (Actual) VBG pH VBG pCO2 VBG pO2 VBG HCO3 VBG O2 Saturation VBG Base Excess Sodium Potassium Chloride Carbon Dioxide Anion Gap BUN Creatinine Estim Creat Clear Calc Estimated GFR POC Glucose 46 L* 53 L* Random Glucose Lactic Acid Calcium Phosphorus Magnesium Total Bilirubin Direct Bilirubin AST ALT Alkaline Phosphatase Troponin I High Sens 97.2 H D B-Natriuretic Peptide Total Protein Albumin Urine Color Urine Appearance Urine pH Ur Specific [place] Urine Protein Urine Glucose (UA) Urine Ketones Urine Blood Urine Nitrite Ur Leukocyte Esterase Urine RBC Urine WBC Ur Squamous Epith Cells Urine Bacteria Hyaline Casts 01/08/24 01/08/24 01/08/24 00:27 00:42 00:59 WBC RBC Hgb Hct MCV MCH MCHC RDW Plt Count MPV Immature Gran % (Auto) Neut % (Auto) Lymph % (Auto) [place] % (Auto) Eos % (Auto) Baso % (Auto) Lymph # (Auto) [place] # (Auto) Eos # (Auto) Baso # (Auto) Abs Immat Gran (auto) Absolute Neuts (auto) Absolute Nucleated RBC Nucleated RBC % (auto) O2 Saturation ABG pH at Pt Temp ABG pCO2 at Pt Temp ABG pO2 at Pt Temp ABG HCO3 ABG Base Excess (Actual) VBG pH VBG pCO2 VBG pO2 VBG HCO3 VBG O2 Saturation VBG Base Excess Sodium Potassium Chloride Carbon Dioxide Anion Gap BUN Creatinine Estim Creat Clear Calc Estimated GFR POC Glucose 186 H 183 H 171 H Random Glucose Lactic Acid Calcium Phosphorus Magnesium Total Bilirubin Direct Bilirubin AST ALT Alkaline Phosphatase Troponin I High Sens B-Natriuretic Peptide Total Protein Albumin Urine Color Urine Appearance Urine pH Ur Specific [place] Urine Protein Urine Glucose (UA) Urine Ketones Urine Blood Urine Nitrite Ur Leukocyte Esterase Urine RBC Urine WBC Ur Squamous Epith Cells Urine Bacteria Hyaline Casts 01/08/24 01/08/24 01/08/24 04:53 04:57 05:40 WBC 10.7 RBC 3.15 L Hgb 9.6 L Hct 29.7 L MCV 94.3 MCH 30.5 MCHC 32.3 RDW 13.7 Plt Count 288 MPV 10.0 Immature Gran % (Auto) 0.4 Neut % (Auto) 73.1 H Lymph % (Auto) 16.9 L [place] % (Auto) 9.0 Eos % (Auto) 0.1 Baso % (Auto) 0.5 Lymph # (Auto) 1.8 [place] # (Auto) 1.0 Eos # (Auto) 0.0 Baso # (Auto) 0.1 Abs Immat Gran (auto) 0.04 H Absolute Neuts (auto) 7.8 Absolute Nucleated RBC 0.000 Nucleated RBC % (auto) 0.0 O2 Saturation ABG pH at Pt Temp ABG pCO2 at Pt Temp ABG pO2 at Pt Temp ABG HCO3 ABG Base Excess (Actual) VBG pH 7.68 H* VBG pCO2 37 VBG pO2 61 VBG HCO3 43 H VBG O2 Saturation 96.0 VBG Base Excess 21.9 Sodium 139 Potassium 3.7 D Chloride 89 L Carbon Dioxide 33 H Anion Gap 21 H BUN 37 H Creatinine 1.18 Estim Creat Clear Calc 42.5 Estimated GFR 59 POC Glucose 112 Random Glucose 113 Lactic Acid Calcium 9.0 Phosphorus 2.5 L Magnesium 1.9 Total Bilirubin Direct Bilirubin AST ALT Alkaline Phosphatase Troponin I High Sens 296.5 H* D B-Natriuretic Peptide 801 H Total Protein Albumin 3.1 L Urine Color Urine Appearance Urine pH Ur Specific [place] Urine Protein Urine Glucose (UA) Urine Ketones Urine Blood Urine Nitrite Ur Leukocyte Esterase Urine RBC Urine WBC Ur Squamous Epith Cells Urine Bacteria Hyaline Casts Imaging Radiologist's impression: Impressions Chest X-Ray 01/07/24 18:00 IMPRESSION: Tubes and lines as described. Layering bilateral pleural effusions and hazy airspace disease similar to yesterday's study. Calcified pleural plaque again noted. Electronically signed by: Jerry Tan MD 01/07/2024 06:52 PM EDT Progress Note: A&P Assessment and plan (1) Cardiac arrest: Status: Acute (2) Torsades de pointes: Status: Acute (3) Typical atrial flutter: Status: Acute (4) Acute on chronic heart failure with preserved ejection fraction (HFpEF): Status: Acute Plan Available telemetry strips reviewed. Essentially he was in atrial flutter with slow ventricular rate when the code blue was called. After that, he has been in atrial flutter with controlled rates but not too bradycardic or tachycardic. Early this morning, he had a 6-7 second episode of torsade. That is spontaneously resolved back to normal. In the EKG, corrected QT prolonged per automated reading but difficult to accurately calculate the end of T-wave. Overall, multiple comorbidities, both cardiac and pulmonary, chronic diastolic heart failure, atrial flutter status post SAMREEN/cardioversion earlier this year maintained on amiodarone, coronary disease status post bypass surgery, aortic stenosis but not severe, pulmonary hypertension, recent COVID related hospitalization. Unclear if the initial event of PEA is primary pulmonary or cardiac. There is an elevation of troponins but that could be just from the arrest itself and hypoxia. At the current time, continue full supportive care. If any invasive procedures required, can switch the Eliquis to IV heparin drip. Hold off on amiodarone. He is on diuretics for possible heart failure. Correct electrolytes. Guarded prognosis. High risk of decompensation and . Await chest CT and echo. Discussed with son in detail the bedside and he agrees. Total critical care time spent including review of records, patient evaluation, documentation, discussion with delimer, nursing staff, family, coordination of care-60 minutes. Time Spent With Patient Time: Total time managing care of this patient today ____ minutes. Progress Note: Quality Stroke Does the patient have a stroke diagnosis?: No Procedures Date of Service Date of Service: 01/08/24
--- NOTE | 2024-01-08 08:59 | MHC.CLN ---
PT IS INTUBATED AND SEDATED CURRENTLY NPO IF TF NEEDED; RECOMMEND PROMOTE AT MAX GOAL RATE 60ML/HR WITH 120ML FREE WATER FLUSHES Q 6 HRS TO PROVIDE 1440KCALS (1979KCALS WITH SEDATION; 30.7KCALS/KG), 90G PROTEIN (1.4G/KG), 1688ML TOTAL WATER FROM FORMULA AND FLUSHES (26ML/KG) MONITOR TOLERANCE AND LYTES SEE ALSO FULL CLINICAL NUTRITION ASSESSMENT
[2024-01-08] MEDS: Norepinephrine Bitartrate/D5W 8 MG/250 ML PLAST..BAG 11.48 MG IVCONT (11:21)
[2024-01-08] MEDS: iohexoL 350 MG/ML 75 ML INFUS..BTL 65 ML IV (11:44)
--- NOTE | 2024-01-08 12:04 | P.ACPN_ITS ---
Advanced Care Planning Note Advanced Care Planning Note Discussed with: family member(s) Time spent (in minutes): 30 Narrative: I introduced myself to Mr. Pereira's , son, and son-in-law. I offered a summary and clarifications about Mr. Pereira's ED, hospital, and ICU stay, for which they expressed understanding. Mr. Pereira's expressed that the current life support Mr. Pereira is receiving would not be within his wishes. We discussed comfort-focused care. Mr. Pereira's family felt that transitioning Mr. Pereira to comfort-focused care later today would be appropriate. Mr. Pereira's daughter and friend would like to visit before starting the comfort- focused process. Problems Discussed (1) Cardiac arrest: (2) Torsades de pointes: (3) Typical atrial flutter: (4) Acute on chronic heart failure with preserved ejection fraction (HFpEF):
[2024-01-08] MEDS: Scopolamine 1.5 MG PATCH.TD.3 TRANSDERMA (12:59)
--- NOTE | 2024-01-08 13:21 | MHC.CM.PN ---
Pt continues care in ICU: on ventilatory support with plans to trial weaning. Original d/c plan for a return to home w/spouse, son and existing O2 through [facility]: pt may need additional services: CM to follow
[2024-01-08] MEDS: Morphine Sulfate 2 MG/ML CARTRIDGE IVPUSH (15:02)
[2024-01-08] MEDS: fentaNYL citrate/NS 1,000 MCG/100 ML PLAST..BAG 5 MCG IVCONT (15:06)
--- NOTE | 2024-01-08 21:03 | PM.CCN ---
Critical Care Event Note Summary Date of Service: 01/08/24 Narrative: This case had a high probability of a clinically significant, sudden, or life threatening deterioration of this patient's condition which required my full and direct attention, intervention and personal management.
--- NOTE | 2024-01-08 21:27 | PM.EVENT ---
Documented by User: Rubia Garibay NP 01/08/24 21:29 Event Note Date of Service: 01/08/24 Event Note: Mr. Pereira was transitioned to comfort focused care only as per his family?s wishes due to multi-system organ failure from distributive shock, cardiac arrest, bradyarrhythmia. At 20:52 the patient became pulseless showing asystole on the monitor.? Absent peripheral pulses.? Pupils fixed and dilated.? Absent heart sounds and no spontaneous breathing.? Time of 20:52.? He was surrounded by his and family all day. Staff was present at the time of passing.? Attempted to notify pt?s Mya but there was no answer on the home phone; daughter Aracely will be notified when she calls before retiring for the night.? Prior to leaving, the family informed nursing that they would not be coming in when the patient passes.? The patient is not a medical exam candidate. Organ donation was notified by nursing. Attending Dr Hawley notified. Time Spent With Patient Time: Total time managing care of this patient today ____ minutes. Documented by User: Argentina Hawley MD 01/09/24 07:44 Event Note Date of Service: 01/09/24
--- NOTE | 2024-01-08 22:18 | PC.NURSE ---
Pt asystole at 2051.EEG TECHNOLOGIST Rubia at bedside to pronounce. [facility] notified and declined pt - case # [id number]. Pt's daughter notified. Post mortem care completed.
--- NOTE | 2024-01-08 23:05 | P.DN_ITS ---
Discharge Sum: Prov Provider Primary care physician: Karri Mcnally PA-C Admitting clinician: Nicholas Brown Attending physician on admission: Argentina Hawley Pronouncing clinician: Rubia Garibay Discharge Sum: Diag Contributing Factors (1) Cardiac arrest: (2) Torsades de pointes: (3) Typical atrial flutter: (4) Acute on chronic heart failure with preserved ejection fraction (HFpEF): Discharge Sum: Summary Date and Time Date of admission: 01/06/24 10:30 Date of : 01/08/24 Time of : 20:52 Summary Details: The patient is a 83 Y M w/ hypertension, hyperlipidemia, diabetes mellitus, c/b coronary artery disease s/p PCI and CABG 2022, HFrEF, paraoxysmal atrial fibrillation on apixaban, chronic mixed respiratory failure w/ intermittent use of home oxygen, and recent admission for COVID pneumonia, admitted to medicine for CHF management.?In the evening of 01/07/2024 after a bowel movement, the patient became bradycardic to 20s and was found to be pulseless, presumed to be in PEA. 1 round of CPR was performed with ROSC. He was intubated d/t persistent encephalopathy post ROSC. Cardiac monitoring revealed a prolonged QTc c/b torsades; shock, likely multifactorial, cardiogenic, distributive; requiring a norepinephrine gtt.? The pt?s clinical status was discussed with the pt?s family who felt that transitioning to comfort focused care would be appropriate. He was extubated at approximately 15:00 surrounded by his and family. At 20:52 the patient became pulseless showing asystole on the monitor.? Absent peripheral pulses.? Pupils fixed and dilated.? Absent heart sounds and no spontaneous breathing.Time of 20:52. Family had gone home for the evening, staff was present at the time of passing. Family notified by phone. Son and grandson in to view the patient. The patient is not a medical exam candidate. Organ donation was notified by nursing. Attending Dr Hawley notified.? ? Additional Data Confirmation of as documented by pronouncing clinician: no pulse, no respirations, no heart sounds and pupils fixed and dilated Family: contacted Additional persons at bedside: other (RN, HORTICULTURE WORKER) Attending/PCP notified?: Yes Attending physician: Argentina Hawley MD Was code activated?: No Autopsy requested?: No cloth examiner machine notified?: No Organ bank notified?: Yes Advance directives: Yes Hospice patient?: No
--- NOTE | 2024-01-09 01:36 | ED_ITS ---
Consult Details Consult Details: approximately at 17:20, renee larsen was called to the patient's room. Patient was found to be in cardiac arrest, unresponsive. CPR was started by his nurses and techs in his room. - After couple of cycles of CPR, patient regained ROSC. however, patient was minimally responsive. For airway protection patient was intubated by me. Dr. Anderson spoke with repair department manager Dr. RODRIGUEZ, patient was transferred to the ICU Procedures Intubation Intubation Type:: Endotracheal Tube Insertion Intubation Date:: 01/07/24 sedative: Etomidate Mg Given: 20 paralytic: Rocuronium Mg Given: 50 Laryngoscope: other ( GlideScope) ET Tube Size: 7.5 Tube Secured Depth (cm): 23 Tube Secured Location: lips Tube Placement Confirmation: visualized tube passing through cords, equal breath sounds bilaterally, no breath sounds over epigastrium and confirmation by capnometry Patient Tolerated Procedure: well and no complications Intubation Complications: none
== END 2024-01-08 20:52 | disposition expired | DRG 291 ==
LOC: HO.ED 09:28 → HO.EDOVER 10:37 → HO.IMC 15:09 → HO.ICU 01-07 17:14
PROVIDERS: Internal Medicine; Nurse Practitioner Family; Admitting Provider Internal Medicine; Emergency Provider Emergency Medicine; PCP Physician Assistant; Visit Provider Internal Medicine Critical Care Medicine
DX: I11.0 Hypertensive heart disease with heart failure (principal); G92.8 Other toxic encephalopathy; I50.33 Acute on chronic diastolic (congestive) heart failure; I47.21 Torsades de pointes; I48.92 Unspecified atrial flutter; G93.40 Encephalopathy, unspecified; R57.0 Cardiogenic shock; I25.10 Atherosclerotic heart disease of native coronary artery without angina pectoris; Z51.5 Encounter for palliative care; J43.9 Emphysema, unspecified; I48.0 Paroxysmal atrial fibrillation; E11.9 Type 2 diabetes mellitus without complications; E78.5 Hyperlipidemia, unspecified; Z20.822 Contact with and (suspected) exposure to COVID-19; Z99.81 Dependence on supplemental oxygen; Z95.5 Presence of coronary angioplasty implant and graft; Z79.01 Long term (current) use of anticoagulants; Z79.84 Long term (current) use of oral hypoglycemic drugs; Z79.899 Other long term (current) drug therapy
CPT/HCPCS: 0241U; 36415; 71045; 71275; 80048; 80053; 80076; 81001; 81003; 82040; 82803; 82947; 83605; 83735; 83880; 84100; 84484; 85025; 87040; 93005; 93306; 94002; 94003; 94640; 94799; 99285; C1758; J0171; J0613; J1940; J2250; J2270; J2470; J2704; J3010; J3475; P9047; Q9967

== ENCOUNTER 2024-01-06 10:30 | Outpatient (BNV) | payer MEDICARE, SELFPAY | END 2024-01-08 07:00 | PROVIDERS: Admitting Provider Internal Medicine; Emergency Provider Emergency Medicine; PCP Physician Assistant; Visit Provider Internal Medicine | DX: I46.9 Cardiac arrest, cause unspecified (principal); I35.2 Nonrheumatic aortic (valve) stenosis with insufficiency; I34.0 Nonrheumatic mitral (valve) insufficiency; I36.1 Nonrheumatic tricuspid (valve) insufficiency | CPT/HCPCS: 93306 ==

== ENCOUNTER → 2024-01-06 10:30 | Outpatient (BNV) | payer MEDICARE, SELFPAY | PROVIDERS: Admitting Provider Internal Medicine; Emergency Provider Emergency Medicine; PCP Physician Assistant; Visit Provider Internal Medicine | DX: I50.31 Acute diastolic (congestive) heart failure (principal) | CPT/HCPCS: 99223; 99232; 99499 ==

== ENCOUNTER → 2024-01-06 10:30 | Outpatient (BNV) | payer MEDICARE, SELFPAY | PROVIDERS: Admitting Provider Internal Medicine; Emergency Provider Emergency Medicine; PCP Physician Assistant; Visit Provider Internal Medicine Critical Care Medicine | DX: I47.21 Torsades de pointes (principal); I46.9 Cardiac arrest, cause unspecified; I50.9 Heart failure, unspecified; I50.31 Acute diastolic (congestive) heart failure | CPT/HCPCS: 99238; 99291; 99499 ==

== ENCOUNTER → 2024-01-06 10:30 | Outpatient (BNV) | payer MEDICARE, SELFPAY | PROVIDERS: Admitting Provider Internal Medicine; Emergency Provider Emergency Medicine; PCP Physician Assistant; Visit Provider Internal Medicine Cardiovascular Disease | DX: I47.21 Torsades de pointes (principal); I48.3 Typical atrial flutter; I50.33 Acute on chronic diastolic (congestive) heart failure; I46.9 Cardiac arrest, cause unspecified | CPT/HCPCS: 99222; 99233 ==